=== PATIENT | male | born 1970 | race Two or more races ===

== ENCOUNTER 2020-04-22 20:38 | Inpatient (IN) | payer OTHER ==
[~2020-04-22] VITALS: Ht 165.1 cm; Wt 54.4 kg
--- NOTE | 2020-04-22 20:45 | NUR ---
ED Nurse Note: Patient brought in by ambulance [facility] from [facility] due to dialysis catheter malfunction.Pt has permacath to his left chest and wasnt able to complete HD today. Patient on HD . Pt is on trache vent AC 20 TV 500 PEEP 5 FIO2 40%. Patient is alert and nonverbal baseline. Patient denies CP/SOB/, fever and chills, N&V. Placed on monitor bed
--- NOTE | 2020-04-22 20:46 | NUR ---
ED Nurse Note: ERMD at bedside
[2020-04-22] MEDS ORDERED: FLEET ENEMA133 ML RECTAL (20:57)
[2020-04-22] MEDS ORDERED: NORCO 5-325 TA1 EAC1 GT (20:57)
[2020-04-22] MEDS ORDERED: GABAPENTIN100 MG GT (20:57)
[2020-04-22] MEDS ORDERED: LIPITOR20 MG GT (20:57)
[2020-04-22] MEDS ORDERED: RENVELA2.4 GM GT (20:57)
[2020-04-22] MEDS ORDERED: ASPIRIN81 MG GT (20:57)
[2020-04-22] MEDS ORDERED: METOPROLOL TART50 M1 GT (20:57)
[2020-04-22] MEDS ORDERED: ACETAMINOPHEN325 M1 GT (20:57)
[2020-04-22] MEDS ORDERED: CALCIUM ACETAT667 M1 GT (20:57)
[2020-04-22] MEDS ORDERED: OMEPRAZOLE20 M2 GT (20:57)
[2020-04-22] MEDS ORDERED: NEPHROVITE1 TAB GT (20:57)
[2020-04-22] MEDS ORDERED: DULCOLAX10 MG RC (20:57)
[2020-04-22 21:30] VITALS: BP 121/76
--- NOTE | 2020-04-22 21:30 | NUR ---
ED Nurse Note: Rapid covid test sent Blood and cultures sent
[2020-04-22 22:23] LABS: BASOPHILS % (AUTO) 1.4 % (0.0-2.0); HEMATOCRIT 29.5 % (42.0-52.0); HEMOGLOBIN 8.9 G/DL (14.2-18.0); MEAN CORPUSCULAR VOLUME 97 FL (80-99); MONOCYTES % (AUTO) 8.9 % (1.0-10.0); NEUTROPHILS % (AUTO) 76.6 % (45.0-75.0); PLATELET COUNT 170 K/UL (150-450); RED BLOOD COUNT 3.02 M/UL (4.70-6.10); RED CELL DISTRIBUTION WIDTH 17.4 % (11.6-14.8); WHITE BLOOD COUNT 8.7 K/UL (4.8-10.8)
[2020-04-22 22:37] LABS: CALCIUM 9.6 MG/DL (8.5-10.1); CREATININE 4.9 MG/DL (0.55-1.30); INR 1.2 (0.9-1.1); POTASSIUM 4.6 MMOL/L (3.5-5.1)
[2020-04-22 22:43] LABS: ALBUMIN 2.5 G/DL (3.4-5.0); ALBUMIN/GLOBULIN RATIO 0.5 (1.0-2.7); BILIRUBIN,TOTAL 0.5 MG/DL (0.2-1.0)
--- NOTE | 2020-04-22 23:11 | Emergency Room Report ---
History of Present Illness General Chief Complaint: General Complaint Source: Patient Present Illness HPI 50-year-old male presents to ED for evaluation. Coming from [facility]. History of end-stage renal disease on dialysis. Has a permacath to his left chest. Per nursing they were unable to complete dialysis today. On ventilator. Nonverbal at baseline. No signs of distress. No reported fevers or chills. No other aggravating relieving factors. No other associated symptoms Allergies: Coded Allergies: No Known Allergies (Unverified , 04/22/20) COVID-19 Screening Contact w/high risk pt: No Experienced COVID-19 symptoms?: No COVID-19 Testing performed FURNACE ROOM SUPERVISOR: No Patient History Past Medical History: DM Past Surgical History: none Pertinent Family History: none Social History: Denies: smoking, alcohol use, drug use Immunizations: UTD Reviewed Nursing Documentation: PMH: Agreed; PSxH: Agreed Nursing Documentation-PMH Past Medical History: No History, Except For Hx Diabetes: Yes Review of Systems All Other Systems: negative except mentioned in HPI Physical Exam Vital Signs Date Time Temp Pulse Resp B/P (MAP) Pulse Ox O2 Delivery O2 Flow Rate FiO2 04/22/20 20:35 97.2 62 20 121/76 (91) 99 Mechanical Ventilator 04/22/20 21:20 40 Sp02 EP Interpretation: reviewed, normal General Appearance: no apparent distress, other - Nonverbal Head: normocephalic, atraumatic Eyes: bilateral eye normal inspection, bilateral eye PERRL ENT: hearing grossly normal, normal pharynx, no angioedema, normal voice Neck: full range of motion, supple/symm/no masses Respiratory: chest non-tender, lungs clear, normal breath sounds, speaking full sentences, other - permacath to left chest Cardiovascular #1: regular rate, rhythm, no edema Cardiovascular #2: 2+ carotid (R), 2+ carotid (L), 2+ radial (R), 2+ radial (L), 2+ dorsalis pedis (R), 2+ dorsalis pedis (L) Gastrointestinal: normal bowel sounds, non tender, soft, non-distended, no guarding, no rebound Rectal: deferred Genitourinary: normal inspection, no CVA tenderness Musculoskeletal: back normal, normal range of motion, non-tender Neurologic: other - Nonverbal Psychiatric: other - Nonverbal Reflexes: 3+ bicep (R), 3+ bicep (L), 3+ tricep (R), 3+ tricep (L), 3+ knee (R), 3+ knee (L) Skin: other - See nursing notes Lymphatic: no adenopathy Medical Decision Making Diagnostic Impression: Primary Impression: Chronic respiratory failure Qualified Codes: J96.10 - Chronic respiratory failure, unspecified whether with hypoxia or hypercapnia Additional Impressions: End stage renal disease on dialysis Complications, dialysis, catheter, mechanical Qualified Codes: T82.49XA - Other complication of vascular dialysis catheter, initial encounter ER Course Hospital Course 50-year-old male presents for nonfunctioning dialysis catheter Differential diagnoses include: UT/unstable angina, fluid overload, CHF exacerabation, hyperkalemia, uremia Clinical course Patient placed on stretcher. on environmental monitoring specialist. connected to ventilator. After initial history and physical I ordered labs, EKG, chest x-ray labs reviewed- BUN/Cr elevated. K 4.6. no leukocytosis, hemoglobin/hematocrit stable EKGnormal sinus rhythm right bundle branch block no acute ischemic changes interpreted by me X-rayhaziness in the right lung field. Permacath in place antibiotics given. Dr Wilder consulted. Case discussed with Dr. Warren and he agreed to accept the patient to his service for further care and support I. I feel this is a highly complex case requiring extensive working including EKG/Rhythm strip, Xray/CT/US, Blood/urine lab work, repeat exams while in ED, and administration of strong opiates/narcotics for pain control, admission to hospital or close patient follow up. Diagnosis -chronic respiratory failure, ESRD on dialysis, dialysis catheter complication admitted to SDU in critical condition Laboratory Tests Test 04/22/20 22:00 White Blood Count 8.7 K/UL (4.8-10.8) Red Blood Count 3.02 M/UL (4.70-6.10) L Hemoglobin 8.9 G/DL (14.2-18.0) L Hematocrit 29.5 % (42.0-52.0) L Mean Corpuscular Volume 97 FL (80-99) Mean Corpuscular Hemoglobin 29.3 PG (27.0-31.0) Mean Corpuscular Hemoglobin Concent 30.1 G/DL (32.0-36.0) L Red Cell Distribution Width 17.4 % (11.6-14.8) H Platelet Count 170 K/UL (150-450) Mean Platelet Volume 6.3 FL (6.5-10.1) L Neutrophils (%) (Auto) 76.6 % (45.0-75.0) H Lymphocytes (%) (Auto) 10.0 % (20.0-45.0) L Monocytes (%) (Auto) 8.9 % (1.0-10.0) Eosinophils (%) (Auto) 3.0 % (0.0-3.0) Basophils (%) (Auto) 1.4 % (0.0-2.0) Prothrombin Time 13.4 SEC (9.30-11.50) H Prothromb Time International Ratio 1.2 (0.9-1.1) H Activated Partial Thromboplast Time 34 SEC (23-33) H Sodium Level 134 MMOL/L (136-145) L Potassium Level 4.6 MMOL/L (3.5-5.1) Chloride Level 96 MMOL/L (98-107) L Carbon Dioxide Level 28 MMOL/L (21-32) Anion Gap 10 mmol/L (5-15) Blood Urea Nitrogen 139 mg/dL (7-18) H Creatinine 4.9 MG/DL (0.55-1.30) H Estimat Glomerular Filtration Rate 12.6 mL/min (>60) Glucose Level 98 MG/DL (74-106) Calcium Level 9.6 MG/DL (8.5-10.1) Total Bilirubin 0.5 MG/DL (0.2-1.0) Aspartate Amino Transf (AST/SGOT) 37 U/L (15-37) Alanine Aminotransferase (ALT/SGPT) 47 U/L (12-78) Alkaline Phosphatase 380 U/L (46-116) H Troponin I 0.236 ng/mL (0.000-0.056) Total Protein 7.9 G/DL (6.4-8.2) Albumin 2.5 G/DL (3.4-5.0) L Globulin 5.4 g/dL Albumin/Globulin Ratio 0.5 (1.0-2.7) L EKG Diagnostic Results Troponin ordered: Yes Rate: normal Rhythm: NSR ST Segments: no acute changes ASA given to the pt in ED: No Rhythm Strip Diag. Results EP Interpretation: yes Rhythm: NSR, no PVC's, no ectopy Chest X-Ray Diagnostic Results Chest X-Ray Diagnostic Results : Chest X-Ray Ordered: Yes # of Views/Limited/Complete: 1 View Indication: Shortness of Breath EP Interpretation: Yes Interpretation: no pneumothorax, other - haziness R lobe Impression: Other - Questionable pneumonia Electronically Signed by: Electronically signed by Matthieu Lebron MD Last Vital Signs Date Time Temp Pulse Resp B/P (MAP) Pulse Ox O2 Delivery O2 Flow Rate FiO2 04/22/20 21:20 52 22 40 04/22/20 20:35 97.2 121/76 (91) 99 Mechanical Ventilator Status: improved Disposition: ADMITTED INPATIENT Condition: Serious Referrals: Trinity Warren MD (PCP) Matthieu Lebron MD Apr 22, 2020 23:11
[2020-04-23] VITALS (8 sets, daily range): BP systolic 102–143; BP diastolic 49–86
--- NOTE | 2020-04-23 01:00 | NUR ---
ED Nurse Note: Report givent to ANDREW KINSEY
--- NOTE | 2020-04-23 02:00 | NUR ---
TRANSFER TO FLOOR: Patient transferred to ICU at rm 246I via gurney, with truck unloader, accompanied by RN and shop technician and RT. Belongings checked and givent to RN. Patient transported safely to bed and endorsed to RN
--- NOTE | 2020-04-23 02:15 | NUR ---
NURSE NOTES: Patient arrived via gurney and placed into room 246-I. library monitor placed, vital signs taken, bed bath given, linens changed, wound care and pictures taken and uploaded. No belongings. Report received from AMELIE Tim. Will initiate plan of care.
--- NOTE | 2020-04-23 02:45 | NUR ---
NURSE NOTES: Received admission orders from Dr. Warren.
[2020-04-23] MEDS ORDERED: HYDROcodone/Acetamin 5/325 tab ORAL PRN (03:00)
--- NOTE | 2020-04-23 03:14 | History and Physical Report ---
DATE OF ADMISSION: 04/22/2020 This is one of several admissions to [facility] of this 50-year-old patient because of malfunctioning dialysis catheter. HISTORY OF PRESENT ILLNESS: Patient is a resident of an extended care facility subacute unit where he has been in relatively stable condition over the last several months. He is known to have several chronic medical syndromes, but has been stable on his current medications. On the day of admission, he underwent hemodialysis and hemodialysis has to be aborted because the hemodialysis catheter appeared nonfunctional, it was clogged or partially clogged. He was transferred to [facility] ER and was admitted. PAST MEDICAL HISTORY: Patient had CVA several years ago following which he developed respiratory failure, had to be placed on mechanical ventilation, underwent tracheostomy and gastrostomy and referred to subacute unit. 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 He is fed by gastrostomy tube. He has been on hemodialysis for the last 1 year. He was able to verbalize his wishes. However, recent CVA that he has several months ago the patient aphasic. ALLERGIES: No known drug allergies. MEDICATIONS: His medication list is not available at the time of this dictation. FAMILY HISTORY: Noncontributory. SOCIAL HISTORY: He is single. He was born in [place]. He has been in [place] for many years. 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 HABITS: Patient does not smoke, drink, or use illicit drugs. REVIEW OF SYSTEMS: Patient is not able to give any information regarding his state. PHYSICAL EXAMINATION: VITAL SIGNS: Blood pressure 121/76, his pulse is 62, respirations of 20, temperature 97.2. HEENT: Eyes were normal. Pupils were round, equal, and reactive to light. Sclerae was white. Conjunctivae pink. Extraocular movements were normal. Temporal arteries were palpable bilaterally with no bilateral temporal wasting. Visual rios to confrontation were normal and neglect sign could not be assessed. ENT, mucous membranes were not dehydrated. Auditory canals were clear and tympanic membranes could not be visualized. Nasal cavity was not congested. Nasal septum was intact. Soft palate was free of ulcerations. Pharynx was clear from exudate or tonsillar hypertrophy. Uvula kulwinder to phonation. Tongue was moist, midline, and normally papillated. NECK: Supple. There was no goiter. No mass. No lymphadenopathy. There was no JVD. No bruit. Carotid upstroke was 2+. LUNGS: Clear. HEART: PMI was fifth left intercostal space in midclavicular line. There was normal S1 and normal S2. There was no murmur. No arrhythmia. No S3. No S4. No pericardial rub. ABDOMEN: Soft, nontender without organomegaly. There were no masses palpable. There were normal bowel sounds without bruits. There was no guarding. No rebound tenderness. No ascites. No hernia. No CVA tenderness. Liver span was 8 cm, smooth, and nontender. EXTREMITIES: No cyanosis, no clubbing, no edema. There was the lateral toes gangrene, which was dry in both feet. NEUROLOGICAL: Reflexes in biceps, triceps, and brachioradialis were present. Patellar retinaculum present. Plantars were in extension on the right, flexion of the left. Cranial nerves II through XII were symmetric and equal. Cerebellar function, there was no tremor. No nystagmus. No extrapyramidal rigidity. Sensory exam to pinprick, cotton touch, position, and motor strength could not be assessed because of patient's refusal. LABORATORY AND DIAGNOSTIC DATA: Hemoglobin is 8.9, hematocrit 29.5 with MCV of 97, WBC of 8.7, and platelets 176. His BUN and creatinine is 139 and 4.9 respectively. Sodium is 134, potassium 4.5, chloride 96, CO2 is 28. His troponin is 0.236. His albumin is 2.5. His globulin is 5.4. His glucose was 98. His lactic acid is 0.8. IMPRESSION: Patient will need removal of the current PermCath and insertion of a new one. General life skills consultant was called to assess gangrenous toe. Aoc Plans Intelligence Officer Chief was to inset the new PermCath. Trinity Warren M.D. DR: SALENA JOB#: [id number] CC:
--- NOTE | 2020-04-23 04:00 | NUR ---
NURSE NOTES: Blood drawn peripherally for AM labs. Patient shows no signs of pain or distress. BP:130/77, HR:66, O2sat:100%
[2020-04-23 04:51] LABS: BASOPHILS % (AUTO) 1.6 % (0.0-2.0); EOSINOPHILS % (AUTO) 1.9 % (0.0-3.0); HEMATOCRIT 33.1 % (42.0-52.0); HEMOGLOBIN 9.4 G/DL (14.2-18.0); LYMPHOCYTES % (AUTO) 11.7 % (20.0-45.0); MEAN CORPUSCULAR VOLUME 103 FL (80-99); MONOCYTES % (AUTO) 10.8 % (1.0-10.0); PLATELET COUNT 153 K/UL (150-450); RED BLOOD COUNT 3.22 M/UL (4.70-6.10); RED CELL DISTRIBUTION WIDTH 17.4 % (11.6-14.8)
[2020-04-23 05:11] LABS: CREATININE 5.1 MG/DL (0.55-1.30)
--- NOTE | 2020-04-23 06:46 | Consultation ---
History of Present Illness General Chief Complaint: General Complaint Present Illness Allergies: Coded Allergies: No Known Allergies (Unverified , 04/22/20) Medication History Scheduled Aspirin* (Aspirin*), 81 MG ORAL DAILY, (Reported) Atorvastatin Calcium* (Lipitor*), 20 MG ORAL BEDTIME, (Reported) Gabapentin* (Gabapentin*), 100 MG ORAL THREE TIMES A DAY, (Reported) Metoprolol Tartrate* (Metoprolol Tartrate*), 50 MG ORAL EVERY 12 HOURS, (Reported) Na Phos,M-B/Na Phos,Di-Ba* (Fleet Enema*), 133 ML RECTAL DAILY, (Reported) Omeprazole (Omeprazole), 20 MG ORAL DAILY, (Reported) Sevelamer Carbonate* (Renvela*), 2,400 MG ORAL THREE TIMES A DAY, (Reported) Vitamin B Cmplx/Vit C/Folic AC (Nephro-Mann Tablet), 1 TAB ORAL DAILY, (Reported) Scheduled PRN Acetaminophen* (Acetaminophen 325MG Tablet*), 325 MG ORAL Q4H PRN for , (Reported) Hydrocodone Bit/Acetaminophen 5-325* (Wendover 5-325 Tablet*), 1 TAB ORAL Q4H PRN for For Pain, (Reported) Miscellaneous Medications Bisacodyl (Dulcolax), 10 MG RC, (Reported) Calcium Acetate (Calcium Acetate), 667 MG PO, (Reported) Patient History Healthcare decision maker Resuscitation status Advanced Directive on File Physical Exam Last 24 Hour Vital Signs Date Time Temp Pulse Resp B/P (MAP) Pulse Ox O2 Delivery O2 Flow Rate FiO2 04/23/20 05:00 66 22 102/49 (66) 100 04/23/20 04:56 63 21 40 04/23/20 04:00 98.4 74 20 130/77 (94) 100 04/23/20 04:00 40 04/23/20 04:00 Mechanical Ventilator 04/23/20 03:46 74 26 100 Mechanical Ventilator 40 04/23/20 03:30 74 24 40 04/23/20 03:10 74 04/23/20 03:00 75 24 142/82 (102) 100 04/23/20 02:17 70 04/23/20 02:08 97.5 71 17 143/86 (105) 100 04/23/20 01:55 97.2 77 22 121/76 99 Mechanical Ventilator 40 04/23/20 01:24 70 23 40 04/23/20 00:11 67 25 40 04/22/20 21:30 70 25 Mechanical Ventilator 40 04/22/20 21:30 97.2 70 22 121/76 99 Mechanical Ventilator 40 04/22/20 21:20 52 22 40 04/22/20 20:35 97.2 62 20 121/76 (91) 99 Mechanical Ventilator Intake and Output 04/22/20 04/23/20 19:00 07:00 Intake Total 40 ml Balance 40 ml Intake Free Water 30 ml Tube Feeding 10 ml # Bowel Movements 2 Laboratory Tests Test 04/22/20 22:00 04/23/20 04:00 White Blood Count 8.7 K/UL (4.8-10.8) 9.0 K/UL (4.8-10.8) Red Blood Count 3.02 M/UL (4.70-6.10) L 3.22 M/UL (4.70-6.10) L Hemoglobin 8.9 G/DL (14.2-18.0) L 9.4 G/DL (14.2-18.0) L Hematocrit 29.5 % (42.0-52.0) L 33.1 % (42.0-52.0) L Mean Corpuscular Volume 97 FL (80-99) 103 FL (80-99) H Mean Corpuscular Hemoglobin 29.3 PG (27.0-31.0) 29.3 PG (27.0-31.0) Mean Corpuscular Hemoglobin Concent 30.1 G/DL (32.0-36.0) L 28.5 G/DL (32.0-36.0) L Red Cell Distribution Width 17.4 % (11.6-14.8) H 17.4 % (11.6-14.8) H Platelet Count 170 K/UL (150-450) 153 K/UL (150-450) Mean Platelet Volume 6.3 FL (6.5-10.1) L 6.9 FL (6.5-10.1) Neutrophils (%) (Auto) 76.6 % (45.0-75.0) H 74.0 % (45.0-75.0) Lymphocytes (%) (Auto) 10.0 % (20.0-45.0) L 11.7 % (20.0-45.0) L Monocytes (%) (Auto) 8.9 % (1.0-10.0) 10.8 % (1.0-10.0) H Eosinophils (%) (Auto) 3.0 % (0.0-3.0) 1.9 % (0.0-3.0) Basophils (%) (Auto) 1.4 % (0.0-2.0) 1.6 % (0.0-2.0) Prothrombin Time 13.4 SEC (9.30-11.50) H Prothromb Time International Ratio 1.2 (0.9-1.1) H Activated Partial Thromboplast Time 34 SEC (23-33) H Sodium Level 134 MMOL/L (136-145) L 135 MMOL/L (136-145) L Potassium Level 4.6 MMOL/L (3.5-5.1) 5.0 MMOL/L (3.5-5.1) Chloride Level 96 MMOL/L (98-107) L 95 MMOL/L (98-107) L Carbon Dioxide Level 28 MMOL/L (21-32) 25 MMOL/L (21-32) Anion Gap 10 mmol/L (5-15) 15 mmol/L (5-15) Blood Urea Nitrogen 139 mg/dL (7-18) H 140 mg/dL (7-18) H Creatinine 4.9 MG/DL (0.55-1.30) H 5.1 MG/DL (0.55-1.30) H Estimat Glomerular Filtration Rate 12.6 mL/min (>60) 12.1 mL/min (>60) Glucose Level 98 MG/DL (74-106) 89 MG/DL (74-106) Lactic Acid Level 0.80 mmol/L (0.4-2.0) Calcium Level 9.6 MG/DL (8.5-10.1) 10.0 MG/DL (8.5-10.1) Total Bilirubin 0.5 MG/DL (0.2-1.0) Aspartate Amino Transf (AST/SGOT) 37 U/L (15-37) Alanine Aminotransferase (ALT/SGPT) 47 U/L (12-78) Alkaline Phosphatase 380 U/L (46-116) H Troponin I 0.236 ng/mL (0.000-0.056) Total Protein 7.9 G/DL (6.4-8.2) Albumin 2.5 G/DL (3.4-5.0) L Globulin 5.4 g/dL Albumin/Globulin Ratio 0.5 (1.0-2.7) L Microbiology Date/Time Source Procedure Growth Status 04/22/20 21:00 Nasopharynx SARS-CoV-2 RdRp Gene Assay - Final Complete Height (Feet): 5 Height (Inches): 5.00 Weight (Pounds): 120 Medications Current Medications Medications (Trade) Dose Ordered Sig/Titus Route PRN Reason Start Time Stop Time Status Last Admin Dose Admin Acetaminophen (Tylenol) 325 mg Q4H PRN ORAL 04/23/20 03:00 05/23/20 02:59 UNV Acetaminophen/ Hydrocodone Bitart (Wendover 5/325) 1 tab Q4H PRN ORAL For Pain 04/23/20 03:00 04/30/20 02:59 Aspirin (ASA) 81 mg DAILY ORAL 04/23/20 09:00 06/07/20 08:59 Atorvastatin Calcium (Lipitor) 20 mg BEDTIME ORAL 04/23/20 21:00 07/22/20 20:59 Bisacodyl (Dulcolax) 10 mg PRN RECTAL 04/23/20 03:00 07/22/20 02:59 Calcium Acetate (Phoslo) 667 mg TID GT 04/23/20 09:00 07/22/20 08:59 Gabapentin (Neurontin) 100 mg THREE TIMES A DAY ORAL 04/23/20 09:00 05/23/20 08:59 Heparin Sodium (Porcine) (Heparin 5000 units/ml) 5,000 units EVERY 12 HOURS SUBQ 04/23/20 09:00 06/07/20 08:59 Metoprolol Tartrate (Lopressor) 50 mg EVERY 12 HOURS ORAL 04/23/20 09:00 07/22/20 08:59 Sevelamer Carbonate (Renvela) 2,400 mg THREE TIMES A DAY ORAL 04/23/20 09:00 07/22/20 08:59 Sodium Phosphate (Fleet's Sodium Phosl Enema) 133 ml DAILY RECTAL 04/23/20 09:00 05/23/20 08:59 Vitamin B Complex/ Vit C/Folic Acid (Nephrovite) 1 tab DAILY ORAL 04/23/20 09:00 05/23/20 08:59 Assessment/Plan Assessment/Plan: Hematology Consultation REQ : Trinity Wraren DOS: 04/23/2020 RFC: Anemia, ongoing HPI 50-year-old male presents to ED for evaluation. Coming from group home facility. History of end-stage renal disease on dialysis. Has a permacath to his left chest. Which needs to be removed. Per nursing they were unable to complete dialysis today. On ventilator. Nonverbal at baseline. No signs of distress. No reported fevers or chills. No other aggravating relieving factors. No other associated symptoms. Allergies: No Known Allergies (Unverified , 04/22/20) COVID-19 Screening Contact w/high risk pt: No Experienced COVID-19 symptoms?: No COVID-19 Testing performed RADIO REPAIRER DOMESTIC: No Patient History Past Medical History: DM Past Surgical History: none Pertinent Family History: none Social History: Denies: smoking, alcohol use, drug use Immunizations: UTD Reviewed Nursing Documentation: PMH: Agreed; PSxH: Agreed Nursing Documentation-PMH Past Medical History: No History, Except For Hx Diabetes: Yes Review of Systems All Other Systems: negative except mentioned in HPI Physical Exam Vitals: reviewed, normal General Appearance: no apparent distress, other - Nonverbal Head: normocephalic, atraumatic: no angioedema, normal voice Neck: full range of motion, supple/symm/no masses Respiratory: chest non-tender, lungs clear, +vent permacath to left chest Cardiovascular: regular rate, rhythm, no edema Gastrointestinal: normal bowel sounds, non tender, soft, nd Rectal: deferred Genitourinary: normal inspection, no CVA tenderness Musculoskeletal: back normal, normal range of motion, non-tender Neurologic: other - Nonverbal Psychiatric: other - Nonverbal Lymphatic: no adenopathy Labs: reviewed Imaging: noted Assessment and Recs # Anemia due to likely chronic disease, ongoing, this is the first time he has been here --> anemia panel to order for downtrending hgb -> hgb 8.9-->9.4 --> consider iron / epogen after anemia panel returns --> smear has been noted, no hemolysis # Coagulopathy ongoing, ptt and inr elevated --> vitamin k given, as permacath to be removed --> get mixing study --> trend prn # Chronic respiratory failure --> per pulm --> vent + # End stage renal disease on dialysis --> Complications, dialysis, catheter, mechanical --> per renal # Right lung infection --> repeat cxr now # Gangrenous toe, per surg # Dvt ppx heparins q Appreciate consultation and dw RN Nick Whiteside MD Apr 23, 2020 06:46
--- NOTE | 2020-04-23 06:52 | NUR ---
ED Nurse Note: Wound pictures uploaded
--- NOTE | 2020-04-23 07:23 | NUR ---
NURSE NOTES: Transferred patient to SDU and placed into room 242-2. Tele box placed. Patient is stable
--- NOTE | 2020-04-23 07:24 | NUR ---
NURSE NOTES: Patient received from AMELIE Trevino under the care of Dr. Warren for the admitting dx. of Dialysis catheter malfunction. Patient NKA and full code status. On standard precaution pending microbiology swabs. Aspiration precaution observed and maintained at all times. Patient is alert, non-verbal responsive with gestures and mouthing words. Patient tolerating vent settings well. No apparent distress or discomfort noted. Denies pain at this time. Will continue to monitor.
[2020-04-23 08:46] LABS: FERRITIN 1390 NG/ML (8-388)
[2020-04-23] MEDS: Fleet's Enema 133ml RECTAL SCH (09:00)
--- NOTE | 2020-04-23 09:00 | NUR ---
NURSE NOTES: Tolerating GT feeding well. No residuals noted. Advance feeding to 20mL/hr towards goal.
--- NOTE | 2020-04-23 09:33 | NUR ---
RD ASSESSMENT & RECOMMENDATIONS SEE CARE ACTIVITY FOR COMPLETE ASSESSMENT DAILY ESTIMATED NEEDS: Needs based on Critical care, wound, esrd on HD 61.6kg 25-30 kcals/kg [id number] total kcals 1.25-2 g protein/kg 77-123 g total protein Fluid per MD, on HD NUTRITION DIAGNOSIS: Increased kcal and pro needs r/t renal dysfunction as evidenced by pt w/ ESRD on HD, notable open LE wounds, vent dep via trach and PEG dep. (CURRENT TF: Nepro goal of 50ml continuous) ENTERAL NUTRITION RECOMMENDATIONS: Nepro LOWER to goal of 50ml/hr x20 hrs to provide 1000ml, 1800 kcal, 81g pro, 727 ml free H2O - Rec to maintain goal rate of 50ml/hr; LOWER run time from 24hrs to 20hrs/day to not exceed kcal needs. - On HD, water flush per MD - HOB over 30 degrees ADDITIONAL RECOMMENDATIONS: 1) Obtain a calibrated bed scale wt for accurate CBW 2) F/up w/ wound care eval Add DEE BID via GT; rec Vit C dosing per nephrology 3) Monitor BG, hypoglycemia, need for 24 hrs TF run
[2020-04-23 09:37] LABS: % IRON SATURATION 19 % (15-50); IRON 31 ug/dL (50-175); TOTAL IRON BINDING CAPACITY 163 ug/dL (250-450)
[2020-04-23] MEDS: Renvela 2400 mg pkt ORAL SCH ×3 (10:00→18:01)
[2020-04-23] MEDS: Nephrovite tab (Rena-Vite) ORAL SCH (10:01)
[2020-04-23] MEDS: Metoprolol Tartrate 50mg tab ORAL SCH ×2 (10:01→21:33)
[2020-04-23] MEDS: Aspirin Baby 81mg ORAL SCH (10:01)
[2020-04-23] MEDS: Heparin 5000 units/ml inj SUBQ SCH ×2 (10:04→20:50)
--- NOTE | 2020-04-23 12:15 | NUR ---
NURSE NOTES: Seen and examined by Dr. Wilder, noted the L Perma-Cath and noted non-patent. With orders for new placement. Noted and carried out.
--- NOTE | 2020-04-23 12:52 | Consultation ---
History of Present Illness General Date patient seen: Apr 23, 2020 Reason for Hospitalization: General Complaint Present Illness HPI 50-year-old male presents to ED for evaluation. Coming from senior living facility. History of end-stage renal disease on dialysis. Has a permacath to his left chest. Per nursing they were unable to complete dialysis today. On ventilator. Nonverbal at baseline. No signs of distress. No reported fevers or chills. No other aggravating relieving factors. No other associated symptoms surgical divine assist with care. Patient seen, [facility] [place], chart reviewed. The venous port will flush and aspirate the arterial port with only flexible not aspirate. Allergies: Coded Allergies: No Known Allergies (Unverified , 04/22/20) COVID-19 Screening Contact w/high risk pt: No Experienced COVID-19 symptoms?: No Medication History Scheduled Aspirin* (Aspirin*), 81 MG ORAL DAILY, (Reported) Atorvastatin Calcium* (Lipitor*), 20 MG ORAL BEDTIME, (Reported) Gabapentin* (Gabapentin*), 100 MG ORAL THREE TIMES A DAY, (Reported) Metoprolol Tartrate* (Metoprolol Tartrate*), 50 MG ORAL EVERY 12 HOURS, (Reported) Na Phos,M-B/Na Phos,Di-Ba* (Fleet Enema*), 133 ML RECTAL DAILY, (Reported) Omeprazole (Omeprazole), 20 MG ORAL DAILY, (Reported) Sevelamer Carbonate* (Renvela*), 2,400 MG ORAL THREE TIMES A DAY, (Reported) Vitamin B Cmplx/Vit C/Folic AC (Nephro-Mann Tablet), 1 TAB ORAL DAILY, (Reported) Scheduled PRN Acetaminophen* (Acetaminophen 325MG Tablet*), 325 MG ORAL Q4H PRN for , (Reported) Hydrocodone Bit/Acetaminophen 5-325* ([place] 5-325 Tablet*), 1 TAB ORAL Q4H PRN for For Pain, (Reported) Miscellaneous Medications Bisacodyl (Dulcolax), 10 MG RC, (Reported) Calcium Acetate (Calcium Acetate), 667 MG PO, (Reported) Patient History History Provided By: Medical Record, EMS, PMD Healthcare decision maker Resuscitation status Advanced Directive on File Past Medical/Surgical History Past Medical/Surgical History: (1) Chronic respiratory failure (2) End stage renal disease on dialysis (3) Complications, dialysis, catheter, mechanical Review of Systems Review of Symptoms General ROS: no weight loss or fever Psychological ROS: no depression or mood changes, no memory loss Ophthalmic ROS: no visual changes or eye irritation ENT ROS: no nasal congestion, hearing loss, dizziness Allergy and Immunology ROS: no allergic symptoms or urticaria Hematological and Lymphatic ROS: no swollen glands, unusual bleeding or bruising Endocrine ROS: no polyuria, polydipsia, weight changes, temperature intolerance Respiratory ROS: no cough, shortness of breath, or wheezing Cardiovascular ROS: no chest pain or dyspnea on exertion Gastrointestinal ROS: denies abdominal pain, bright red blood in stool. Musculoskeletal ROS: no myalgias or arthralgias Neurological ROS: no TIA or stroke symptoms Dermatological ROS: no new or changing skin lesions, rashes or pruritis \limited given condition Physical Exam Physical Exam General appearance: no distress, appears stated age Head: Normocephalic, without obvious abnormality, atraumatic Eyes: conjunctivae/corneas clear. PERRL, EOM's intact. Fundi benign Throat: Lips, mucosa, and tongue normal. Teeth and gums normal Neck: supple, symmetrical, trachea midline, no adenopathy, thyroid: not enlarged, symmetric, no tenderness/mass/nodules, no carotid bruit and no JVD Lungs: clear to auscultation bilaterally Heart: regular rate and rhythm, S1, S2 normal, no murmur, click, rub or gallop Abdomen: soft, non-tender. Bowel sounds normal. No masses, no organomegaly Extremities: extremitiesbilatearl heel ulcers, right tma necrotic failure Pulses: 2+ and symmetric Skin: Skin color, texture, turgor normal. No rashes or lesions Neurologic: Grossly normal Last 24 Hour Vital Signs Date Time Temp Pulse Resp B/P (MAP) Pulse Ox O2 Delivery O2 Flow Rate FiO2 04/23/20 12:00 98.0 67 18 130/81 (97) 100 04/23/20 12:00 40 04/23/20 12:00 Mechanical Ventilator 04/23/20 11:28 68 21 40 04/23/20 10:01 65 127/70 04/23/20 09:18 61 20 40 04/23/20 08:00 97.8 65 18 127/70 (89) 100 04/23/20 08:00 Mechanical Ventilator 04/23/20 08:00 40 04/23/20 08:00 71 04/23/20 07:30 73 20 40 04/23/20 05:00 66 22 102/49 (66) 100 04/23/20 04:56 63 21 40 04/23/20 04:00 98.4 74 20 130/77 (94) 100 04/23/20 04:00 40 04/23/20 04:00 Mechanical Ventilator 04/23/20 03:46 74 26 100 Mechanical Ventilator 40 04/23/20 03:30 74 24 40 04/23/20 03:10 74 04/23/20 03:00 75 24 142/82 (102) 100 04/23/20 02:17 70 04/23/20 02:08 97.5 71 17 143/86 (105) 100 04/23/20 01:55 97.2 77 22 121/76 99 Mechanical Ventilator 40 04/23/20 01:24 70 23 40 04/23/20 00:11 67 25 40 04/22/20 21:30 70 25 Mechanical Ventilator 40 04/22/20 21:30 97.2 70 22 121/76 99 Mechanical Ventilator 40 04/22/20 21:20 52 22 40 04/22/20 20:35 97.2 62 20 121/76 (91) 99 Mechanical Ventilator Intake and Output 04/22/20 04/23/20 19:00 07:00 Intake Total 40 ml Balance 40 ml Intake Free Water 30 ml Tube Feeding 10 ml # Bowel Movements 2 Laboratory Tests Test 04/22/20 22:00 04/23/20 04:00 04/23/20 07:40 White Blood Count 8.7 K/UL (4.8-10.8) 9.0 K/UL (4.8-10.8) Red Blood Count 3.02 M/UL (4.70-6.10) L 3.22 M/UL (4.70-6.10) L Hemoglobin 8.9 G/DL (14.2-18.0) L 9.4 G/DL (14.2-18.0) L Hematocrit 29.5 % (42.0-52.0) L 33.1 % (42.0-52.0) L Mean Corpuscular Volume 97 FL (80-99) 103 FL (80-99) H Mean Corpuscular Hemoglobin 29.3 PG (27.0-31.0) 29.3 PG (27.0-31.0) Mean Corpuscular Hemoglobin Concent 30.1 G/DL (32.0-36.0) L 28.5 G/DL (32.0-36.0) L Red Cell Distribution Width 17.4 % (11.6-14.8) H 17.4 % (11.6-14.8) H Platelet Count 170 K/UL (150-450) 153 K/UL (150-450) Mean Platelet Volume 6.3 FL (6.5-10.1) L 6.9 FL (6.5-10.1) Neutrophils (%) (Auto) 76.6 % (45.0-75.0) H 74.0 % (45.0-75.0) Lymphocytes (%) (Auto) 10.0 % (20.0-45.0) L 11.7 % (20.0-45.0) L Monocytes (%) (Auto) 8.9 % (1.0-10.0) 10.8 % (1.0-10.0) H Eosinophils (%) (Auto) 3.0 % (0.0-3.0) 1.9 % (0.0-3.0) Basophils (%) (Auto) 1.4 % (0.0-2.0) 1.6 % (0.0-2.0) Prothrombin Time 13.4 SEC (9.30-11.50) H Prothromb Time International Ratio 1.2 (0.9-1.1) H Activated Partial Thromboplast Time 34 SEC (23-33) H Sodium Level 134 MMOL/L (136-145) L 135 MMOL/L (136-145) L Potassium Level 4.6 MMOL/L (3.5-5.1) 5.0 MMOL/L (3.5-5.1) Chloride Level 96 MMOL/L (98-107) L 95 MMOL/L (98-107) L Carbon Dioxide Level 28 MMOL/L (21-32) 25 MMOL/L (21-32) Anion Gap 10 mmol/L (5-15) 15 mmol/L (5-15) Blood Urea Nitrogen 139 mg/dL (7-18) H 140 mg/dL (7-18) H Creatinine 4.9 MG/DL (0.55-1.30) H 5.1 MG/DL (0.55-1.30) H Estimat Glomerular Filtration Rate 12.6 mL/min (>60) 12.1 mL/min (>60) Glucose Level 98 MG/DL (74-106) 89 MG/DL (74-106) Lactic Acid Level 0.80 mmol/L (0.4-2.0) Calcium Level 9.6 MG/DL (8.5-10.1) 10.0 MG/DL (8.5-10.1) Total Bilirubin 0.5 MG/DL (0.2-1.0) Aspartate Amino Transf (AST/SGOT) 37 U/L (15-37) Alanine Aminotransferase (ALT/SGPT) 47 U/L (12-78) Alkaline Phosphatase 380 U/L (46-116) H Troponin I 0.236 ng/mL (0.000-0.056) Total Protein 7.9 G/DL (6.4-8.2) Albumin 2.5 G/DL (3.4-5.0) L Globulin 5.4 g/dL Albumin/Globulin Ratio 0.5 (1.0-2.7) L Reticulocyte Count Pending PTT Mixing Study Pending APTT Patient/Control Mix Pending Mix PTT Incubation Time Pending Mix PTT Normal/Saline 1:1 Immediate Pending Thrombin Time Normal Plasma Pending Iron Level 31 ug/dL (50-175) L Total Iron Binding Capacity 163 ug/dL (250-450) L Percent Iron Saturation 19 % (15-50) Unsaturated Iron Binding 132 ug/dL (112-346) Ferritin 1390 NG/ML (8-388) H Vitamin B12 Level 1863 PG/ML (193-986) H Folate 58.1 NG/ML (8.6-58.9) Microbiology Date/Time Source Procedure Growth Status 04/22/20 21:00 Nasopharynx SARS-CoV-2 RdRp Gene Assay - Final Complete Height (Feet): 5 Height (Inches): 5.00 Weight (Pounds): 120 Medications Current Medications Medications (Trade) Dose Ordered Sig/Titus Route PRN Reason Start Time Stop Time Status Last Admin Dose Admin Acetaminophen (Tylenol) 325 mg Q4H PRN ORAL 04/23/20 03:00 05/23/20 02:59 UNV Acetaminophen/ Hydrocodone Bitart ([place] 5/325) 1 tab Q4H PRN ORAL For Pain 04/23/20 03:00 04/30/20 02:59 Aspirin (ASA) 81 mg DAILY ORAL 04/23/20 09:00 06/07/20 08:59 04/23/20 10:01 Atorvastatin Calcium (Lipitor) 20 mg BEDTIME ORAL 04/23/20 21:00 07/22/20 20:59 Bisacodyl (Dulcolax) 10 mg PRN RECTAL 04/23/20 03:00 07/22/20 02:59 Calcium Acetate (Phoslo) 667 mg TID GT 04/23/20 09:00 07/22/20 08:59 04/23/20 10:01 Gabapentin (Neurontin) 100 mg THREE TIMES A DAY ORAL 04/23/20 09:00 05/23/20 08:59 04/23/20 10:01 Heparin Sodium (Porcine) (Heparin 5000 units/ml) 5,000 units EVERY 12 HOURS SUBQ 04/23/20 09:00 06/07/20 08:59 04/23/20 10:04 Metoprolol Tartrate (Lopressor) 50 mg EVERY 12 HOURS ORAL 04/23/20 09:00 07/22/20 08:59 04/23/20 10:01 Sevelamer Carbonate (Renvela) 2,400 mg THREE TIMES A DAY ORAL 04/23/20 09:00 07/22/20 08:59 04/23/20 10:00 Sodium Phosphate (Fleet's Sodium Phosl Enema) 133 ml DAILY RECTAL 04/23/20 09:00 05/23/20 08:59 04/23/20 09:00 Vitamin B Complex/ Vit C/Folic Acid (Nephrovite) 1 tab DAILY ORAL 04/23/20 09:00 05/23/20 08:59 04/23/20 10:01 Assessment/Plan Problem List: (1) Ischemia of right lower extremity Assessment & Plan: 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 Heel ulcer identified as well. Foul-smelling. Fortunately this does not seem salvageable by any means given the extensive loss at the flap that has dehisced the exposed bone as well as the heel. Currently stable otherwise known chronic in nature not patient's acute problem. Will recommend that patient has a right BKA at some point given the current findings we will continue with local wound care tentatively. Patient identified to have a heel ulcer on the left side as well. ICD Codes: I99.8 - Other disorder of circulatory system SNOMED: 039601494 (2) Decubitus ulcer, heel ICD Codes: L89.609 - Pressure ulcer of unspecified heel, unspecified stage SNOMED: 752580434 (3) Chronic respiratory failure ICD Codes: J96.10 - Chronic respiratory failure, unspecified whether with hypoxia or hypercapnia SNOMED: 82431949 Qualifiers: Qualified Codes: J96.10 - Chronic respiratory failure, unspecified whether with hypoxia or hypercapnia (4) End stage renal disease on dialysis ICD Codes: N18.6 - End stage renal disease; Z99.2 - Dependence on renal dialysis SNOMED: 676947900 (5) Complications, dialysis, catheter, mechanical Assessment & Plan: Patient on hemodialysis left chest wall temporary hemodialysis catheter identified tunneled. The venous port was aspirated and flushed but unfortunately the arterial port were only flushed but would not aspirate. The catheter is not viable at this time no signs of infection. Labs noted patient undergo hemodialysis soon. We will plan for change of hemodialysis catheter soon. ICD Codes: T82.49XA - Other complication of vascular dialysis catheter, initial encounter SNOMED: 45831872 Qualifiers: Qualified Codes: T82.49XA - Other complication of vascular dialysis catheter, initial encounter Dany Wilder Apr 23, 2020 12:52
--- NOTE | 2020-04-23 15:44 | NUR ---
NURSE NOTES:WOUND ASSESSMENT PATIENT AWAKE NON-RESPONSIVE. WITH TRACH TO VENTILATOR. UNABLE TO ASSIST WITH REPOSITIONING. EXAMINED WOUNDS WITH DR. WILKINSON PRESENT. LEFT MEDIAL FOOT -STAGE IV PRESSURE ULCER MEASURES 1.7X0.7X0.4. WOUND BED WITH 70% YELLOW SLOUGH. RECOMMEND- CLEAN WITH SALINE. PAT DRY. APPLY THERAHONEY AND COVER WITH OPTIFOAM DRESSING. RIGHT LATERAL FOOT- STAGE IV PRESSURE ULCER MEASURES 2.5X1.0X0.2 WOUND BED WITH 80% YELLOW SLOUGH RIGHT HEEL -STAGE IV PRESSURE ULCER. WOUND BED WITH 60% RED GRANULATION TISSUE AND 40% SLOUGH. NOTED MODERATE AMOUNT GREEN DRAINAGE. RIGHT TRANSMET AMPUTATION SITE- ULCER MEASURES 4.5X12.3X1.0CM. WOUND BED WITH BONE EXPOSED AND GANGRENE. RECOMMEND- CLEAN WITH SALINE AND APPLY WET TO DRY DRESSINGS WITH 0.25% DAKIN'S SOLUTION TO ALL WOUNDS ON THE RIGHT FOOT. REPLACE DAILY ALSO RECOMMEND: REPOSITION AT LEAST EVERY 2 HOURS OR TOLERATED. ELEVATE HEELS WITH PILLOWS WOUND CONSULT WITH - DR. WILKINSON CONSULTED AT TIME OF ASSESSMENT.
--- NOTE | 2020-04-23 16:00 | NUR ---
NURSE NOTES: Tolerating GT feeding well. No residuals noted. Advanced feeding to 30mL/hr towards goal.
--- NOTE | 2020-04-23 18:34 | General Progress Note ---
Subjective Constitutional: Reports: no symptoms HEENT: Reports: no symptoms Cardiovascular: Reports: no symptoms Respiratory: Reports: no symptoms Gastrointestinal/Abdominal: Reports: no symptoms Genitourinary: Reports: no symptoms Neurologic/Psychiatric: Reports: no symptoms Endocrine: Reports: no symptoms Hematologic/Lymphatic: Reports: no symptoms Allergies: Coded Allergies: No Known Allergies (Unverified , 04/22/20) Objective Last 24 Hour Vital Signs Date Time Temp Pulse Resp B/P (MAP) Pulse Ox O2 Delivery O2 Flow Rate FiO2 04/23/20 17:00 62 20 40 04/23/20 16:00 98.3 59 18 121/67 (85) 100 04/23/20 16:00 59 04/23/20 16:00 Mechanical Ventilator 04/23/20 16:00 40 04/23/20 15:25 59 20 40 04/23/20 13:00 61 20 40 04/23/20 12:00 98.0 67 18 130/81 (97) 100 04/23/20 12:00 40 04/23/20 12:00 Mechanical Ventilator 04/23/20 12:00 60 04/23/20 11:28 68 21 40 04/23/20 10:01 65 127/70 04/23/20 09:18 61 20 40 04/23/20 08:00 97.8 65 18 127/70 (89) 100 04/23/20 08:00 Mechanical Ventilator 04/23/20 08:00 40 04/23/20 08:00 71 04/23/20 07:30 73 20 40 04/23/20 05:00 66 22 102/49 (66) 100 04/23/20 04:56 63 21 40 04/23/20 04:00 98.4 74 20 130/77 (94) 100 04/23/20 04:00 40 04/23/20 04:00 Mechanical Ventilator 04/23/20 03:46 74 26 100 Mechanical Ventilator 40 04/23/20 03:30 74 24 40 04/23/20 03:10 74 04/23/20 03:00 75 24 142/82 (102) 100 04/23/20 02:17 70 04/23/20 02:08 97.5 71 17 143/86 (105) 100 04/23/20 01:55 97.2 77 22 121/76 99 Mechanical Ventilator 40 04/23/20 01:24 70 23 40 04/23/20 00:11 67 25 40 04/22/20 21:30 70 25 Mechanical Ventilator 40 04/22/20 21:30 97.2 70 22 121/76 99 Mechanical Ventilator 40 04/22/20 21:20 52 22 40 04/22/20 20:35 97.2 62 20 121/76 (91) 99 Mechanical Ventilator Intake and Output 04/22/20 04/23/20 18:59 06:59 Intake Total 40 ml Balance 40 ml Intake Free Water 30 ml Tube Feeding 10 ml # Bowel Movements 2 Laboratory Tests 04/22/20 22:00: White Blood Count 8.7, Red Blood Count 3.02L, Hemoglobin 8.9L, Hematocrit 29.5L, Mean Corpuscular Volume 97, Mean Corpuscular Hemoglobin 29.3, Mean Corpuscular Hemoglobin Concent 30.1L, Red Cell Distribution Width 17.4H, Platelet Count 170, Mean Platelet Volume 6.3L, Neutrophils (%) (Auto) 76.6H, Lymphocytes (%) (Auto) 10.0L, Monocytes (%) (Auto) 8.9, Eosinophils (%) (Auto) 3.0, Basophils (%) (Auto) 1.4, Prothrombin Time 13.4H, Prothromb Time International Ratio 1.2H, Activated Partial Thromboplast Time 34H, Sodium Level 134L, Potassium Level 4.6, Chloride Level 96L, Carbon Dioxide Level 28, Anion Gap 10, Blood Urea Nitrogen 139H, Creatinine 4.9H, Estimat Glomerular Filtration Rate 12.6, Glucose Level 98, Lactic Acid Level 0.80, Calcium Level 9.6, Total Bilirubin 0.5, Aspartate Amino Transf (AST/SGOT) 37, Alanine Aminotransferase (ALT/SGPT) 47, Alkaline Phosphatase 380H, Troponin I 0.236H, Total Protein 7.9, Albumin 2.5L, Globulin 5.4, Albumin/Globulin Ratio 0.5L 04/23/20 04:00: White Blood Count 9.0, Red Blood Count 3.22L, Hemoglobin 9.4L, Hematocrit 33.1L, Mean Corpuscular Volume 103H, Mean Corpuscular Hemoglobin 29.3, Mean Corpuscular Hemoglobin Concent 28.5L, Red Cell Distribution Width 17.4H, Platelet Count 153, Mean Platelet Volume 6.9, Neutrophils (%) (Auto) 74.0, Lymphocytes (%) (Auto) 11.7L, Monocytes (%) (Auto) 10.8H, Eosinophils (%) (Auto) 1.9, Basophils (%) (Auto) 1.6, Sodium Level 135L, Potassium Level 5.0, Chloride Level 95L, Carbon Dioxide Level 25, Anion Gap 15, Blood Urea Nitrogen 140H, Creatinine 5.1H, Estimat Glomerular Filtration Rate 12.1, Glucose Level 89, Calcium Level 10.0 04/23/20 07:40: Differential Total Cells Counted 100, Neutrophils % (Manual) 76H, Lymphocytes % (Manual) 13L, Monocytes % (Manual) 10, Eosinophils % (Manual) 1, Basophils % (Manual) 0, Band Neutrophils 0, Platelet Estimate Adequate, Platelet Morphology Normal, Hypochromasia 1+, Anisocytosis 1+, Macrocytosis 1+, Reticulocyte Count 2.1H, PTT Mixing Study [Pending], APTT Patient/Control Mix [Pending], Mix PTT Incubation Time [Pending], Mix PTT Normal/Saline 1:1 Immediate [Pending], Thrombin Time Normal Plasma [Pending], Iron Level 31L, Total Iron Binding Capacity 163L, Percent Iron Saturation 19, Unsaturated Iron Binding 132, Ferritin 1390H, Vitamin B12 Level 1863H, Folate 58.1 Height (Feet): 5 Height (Inches): 5.00 Weight (Pounds): 120 General Appearance: WD/WN, no apparent distress, alert EENT: normal ENT inspection Neck: non-tender, supple Cardiovascular: normal rate, regular rhythm, no gallop/murmur, no JVD Respiratory/Chest: lungs clear, normal breath sounds, no respiratory distress, no accessory muscle use Abdomen: normal bowel sounds, non tender, soft, no organomegaly, no mass Neurologic: alert, responsive, aphasia Assessment/Plan Status Narrative Patient is awake alert afebrile hemodynamically stable has been assessed today by general surgeon in regard to his gangrenous foot the patient requires a new permacath in order Monday general surgeon was given for urology to perform this procedure patient respond by head nods that he is completely asymptomatic he is vent dependent and fed by gastrostomy tube Repeat laboratory tests will be done in a.m. Trinity Landaverde MD, MD Apr 23, 2020 18:34
--- NOTE | 2020-04-23 19:20 | NUR ---
NURSE HAND-OFF REPORT: Important Events on Shift:Order for Permacath placement for tomorrow. Patient Status: Stable Diet: GT feeding Pending Orders: Pending Results/Labs: Pending MD notification: Latest Vital Signs: Temperature 98.3 , Pulse 62 , B/P 121 /67 , Respiratory Rate 20 , O2 SAT 100 , Mechanical Ventilator, O2 Flow Rate . Vital Sign Comment: EKG Rhythm: Sinus Bradycardia Rhythm change?: N MD Notified?: - MD Response: Latest Seay Fall Score: 95 Fall Risk: High Risk Safety Measures: Call light Within Reach, Bed Alarm Zone 3, Side Rails Side Rails x3, Bed position Low and Locked. Fall Precautions: Yellow Socks Yellow Gown Door Sign Patient Fall Education Report given to AMELIE Sahni.
[2020-04-24] VITALS (7 sets, daily range): BP systolic 120–149; BP diastolic 60–95
[2020-04-24 04:56] LABS: EOSINOPHILS % (AUTO) 1.1 % (0.0-3.0); HEMATOCRIT 28.5 % (42.0-52.0); HEMOGLOBIN 8.4 G/DL (14.2-18.0); LYMPHOCYTES % (AUTO) 13.3 % (20.0-45.0); MEAN CORPUSCULAR VOLUME 100 FL (80-99); MONOCYTES % (AUTO) 9.4 % (1.0-10.0); NEUTROPHILS % (AUTO) 75.1 % (45.0-75.0); PLATELET COUNT 154 K/UL (150-450); RED BLOOD COUNT 2.84 M/UL (4.70-6.10); RED CELL DISTRIBUTION WIDTH 17.3 % (11.6-14.8); WHITE BLOOD COUNT 7.8 K/UL (4.8-10.8)
[2020-04-24 05:00] LABS: INR 1.3 (0.9-1.1)
[2020-04-24 05:20] LABS: CALCIUM 9.9 MG/DL (8.5-10.1); CREATININE 5.7 MG/DL (0.55-1.30); POTASSIUM 4.5 MMOL/L (3.5-5.1)
--- NOTE | 2020-04-24 07:30 | NUR ---
NURSE NOTES: Patient received from AMELIE Ruiz under the care of Dr. Warren for the admitting dx. of Dialysis catheter malfunction. Patient NKA and full code status. On standard precaution pending microbiology swabs. Aspiration precaution observed and maintained at all times. Patient is alert, non-verbal responsive with gestures and mouthing words. Patient tolerating vent settings well. No apparent distress or discomfort noted. Denies pain at this time. Patient has been NPO since midnight per NOC shift nurse prior to procedure. Will continue to monitor.
--- NOTE | 2020-04-24 07:56 | NUR ---
NURSE HAND-OFF REPORT: Important Events on Shift: NPO @ 0000 Patient Status: Stable throughout shift Diet: NPO Pending Orders: Permacath placement Pending Results/Labs: PT, PTT, BMP, CBC Pending MD notification: none Latest Vital Signs: Temperature 97.5 , Pulse 57 , B/P 121 /67 , Respiratory Rate 20 , O2 SAT 100 , Mechanical Ventilator, O2 Flow Rate . Vital Sign Comment: stable throughout shift EKG Rhythm: Sinus Rhythm Rhythm change?: N MD Notified?: - MD Response: - Latest Seay Fall Score: 95 Fall Risk: High Risk Safety Measures: Call light Within Reach, Bed Alarm Zone 3, Side Rails Side Rails x3, Bed position Low and Locked. Fall Precautions: YES Yellow Socks YES Yellow Gown YES Door Sign YES Patient Fall Education YES Report given to Stephen Duggan RN
--- NOTE | 2020-04-24 08:00 | NUR ---
NURSE NOTES: Radiology called for procedure, staff said that procedure time was rescheduled to early afternoon. Patient kept on NPO status. Patient asleep. Will continue to monitor.
[2020-04-24] MEDS: Renvela 2400 mg pkt ORAL SCH ×3 (08:51→18:53)
[2020-04-24] MEDS: Fleet's Enema 133ml RECTAL SCH (08:52)
[2020-04-24] MEDS: Heparin 5000 units/ml inj SUBQ SCH ×2 (08:52→22:48)
[2020-04-24] MEDS: Nephrovite tab (Rena-Vite) ORAL SCH (08:52)
[2020-04-24] MEDS: Aspirin Baby 81mg ORAL SCH (08:53)
[2020-04-24] MEDS: Metoprolol Tartrate 50mg tab ORAL SCH ×2 (08:53→21:00)
--- NOTE | 2020-04-24 09:44 | Hematology/Onc Progress Note ---
Assessment/Plan Assessment/Plan Assessment and Recs # Anemia due to likely chronic disease, ongoing, this is the first time he has been here --> anemia panel to order for downtrending hgb --> hgb 8.9-->9.4 --> consider iron / epogen after anemia panel returns --> smear has been noted, no hemolysis # Coagulopathy ongoing, ptt and inr elevated --> vitamin k given, as permacath to be removed --> get mixing study --> trend prn # Chronic respiratory failure --> per pulm --> vent + # End stage renal disease on dialysis --> Complications, dialysis, catheter,replacement as needed --> surg eval --> per renal # Right lung infection --> repeat cxr now # Gangrenous toe, per surg # Dvt ppx heparins q Appreciate consultation and dw RN Subjective HEENT: Denies: no symptoms, eye pain, blurred vision, tearing, double vision, ear pain, ear discharge, nose pain, nose congestion, throat pain, throat swelling, mouth pain, mouth swelling, other Cardiovascular: Denies: no symptoms, chest pain, edema, irregular heart rate, lightheadedness, palpitations, syncope, other Gastrointestinal/Abdominal: Denies: no symptoms, abdomen distended, abdominal pain, black stools, tarry stools, blood in stool, constipated, diarrhea, difficulty swallowing, nausea, poor appetite, poor fluid intake, rectal bleeding, vomiting, other Genitourinary: Denies: no symptoms, burning, discharge, frequency, flank pain, hematuria, incontinence, pain, urgency, other Neurologic/Psychiatric: Denies: no symptoms, anxiety, depressed, emotional problems, headache, numbness, paresthesia, pre-existing deficit, seizure, tingling, tremors, weakness, other Endocrine: Denies: no symptoms, excessive sweating, flushing, intolerance to cold, intolerance to heat, increased hunger, increased thirst, increased urine, unexplained weight gain, unexplained weight loss, other Hematologic/Lymphatic: Denies: no symptoms, anemia, easy bleeding, easy bruising, adenopathy, other Allergies: Coded Allergies: No Known Allergies (Unverified , 04/22/20) Subjective 04/24 meds noted, dialysis catheter is functional, no bleeding Objective Objective Current Medications Medications (Trade) Dose Ordered Sig/Titus Route PRN Reason Start Time Stop Time Status Last Admin Dose Admin Acetaminophen (Tylenol) 325 mg Q4H PRN ORAL Mild Pain (Pain Scale 1-3) 04/23/20 03:00 05/23/20 02:59 Acetaminophen/ Hydrocodone Bitart ([place] 5/325) 1 tab Q4H PRN ORAL pain 4-10 04/23/20 03:00 04/30/20 02:59 Aspirin (ASA) 81 mg DAILY ORAL 04/23/20 09:00 06/07/20 08:59 04/23/20 10:01 Atorvastatin Calcium (Lipitor) 20 mg BEDTIME ORAL 04/23/20 21:00 07/22/20 20:59 04/23/20 21:32 Bisacodyl (Dulcolax) 10 mg PRN RECTAL 04/23/20 03:00 07/22/20 02:59 Calcium Acetate (Phoslo) 667 mg TID GT 04/23/20 09:00 07/22/20 08:59 04/24/20 08:51 Gabapentin (Neurontin) 100 mg THREE TIMES A DAY ORAL 04/23/20 09:00 05/23/20 08:59 04/24/20 08:52 Heparin Sodium (Porcine) (Heparin 5000 units/ml) 5,000 units EVERY 12 HOURS SUBQ 04/23/20 09:00 06/07/20 08:59 04/23/20 10:04 Metoprolol Tartrate (Lopressor) 50 mg EVERY 12 HOURS ORAL 04/23/20 09:00 07/22/20 08:59 04/23/20 21:33 Sevelamer Carbonate (Renvela) 2,400 mg THREE TIMES A DAY ORAL 04/23/20 09:00 07/22/20 08:59 04/24/20 08:51 Sodium Phosphate (Fleet's Sodium Phosl Enema) 133 ml DAILY RECTAL 04/23/20 09:00 05/23/20 08:59 04/24/20 08:52 Vitamin B Complex/ Vit C/Folic Acid (Nephrovite) 1 tab DAILY ORAL 04/23/20 09:00 05/23/20 08:59 04/24/20 08:52 Last 24 Hour Vital Signs Date Time Temp Pulse Resp B/P (MAP) Pulse Ox O2 Delivery O2 Flow Rate FiO2 04/24/20 08:00 60 04/24/20 07:27 57 20 40 04/24/20 05:10 59 20 40 04/24/20 04:00 97.5 56 20 121/67 (85) 100 04/24/20 04:00 60 04/24/20 04:00 40 04/24/20 04:00 Mechanical Ventilator 04/24/20 03:17 60 20 40 04/24/20 01:29 57 20 40 04/24/20 00:00 59 04/24/20 00:00 40 04/24/20 00:00 Mechanical Ventilator 04/24/20 00:00 97.9 63 20 120/60 (80) 100 04/23/20 23:30 57 20 40 04/23/20 21:33 63 120/66 04/23/20 21:22 63 20 40 04/23/20 20:00 Mechanical Ventilator 04/23/20 20:00 40 04/23/20 20:00 97.8 65 18 127/70 (89) 97 04/23/20 20:00 60 04/23/20 19:30 63 20 40 04/23/20 17:00 62 20 40 04/23/20 16:00 98.3 59 18 121/67 (85) 100 04/23/20 16:00 59 04/23/20 16:00 Mechanical Ventilator 04/23/20 16:00 40 04/23/20 15:25 59 20 40 04/23/20 13:00 61 20 40 04/23/20 12:00 98.0 67 18 130/81 (97) 100 04/23/20 12:00 40 04/23/20 12:00 Mechanical Ventilator 04/23/20 12:00 60 04/23/20 11:28 68 21 40 04/23/20 10:01 65 127/70 04/23/20 09:18 61 20 40 04/23/20 08:00 97.8 65 18 127/70 (89) 100 04/23/20 08:00 Mechanical Ventilator 04/23/20 08:00 40 04/23/20 08:00 71 04/23/20 07:30 73 20 40 04/23/20 05:00 66 22 102/49 (66) 100 04/23/20 04:56 63 21 40 04/23/20 04:00 98.4 74 20 130/77 (94) 100 04/23/20 04:00 40 04/23/20 04:00 Mechanical Ventilator 04/23/20 03:46 74 26 100 Mechanical Ventilator 40 04/23/20 03:30 74 24 40 04/23/20 03:10 74 04/23/20 03:00 75 24 142/82 (102) 100 04/23/20 02:17 70 04/23/20 02:08 97.5 71 17 143/86 (105) 100 04/23/20 01:55 97.2 77 22 121/76 99 Mechanical Ventilator 40 04/23/20 01:24 70 23 40 04/23/20 00:11 67 25 40 04/22/20 21:30 70 25 Mechanical Ventilator 40 04/22/20 21:30 97.2 70 22 121/76 99 Mechanical Ventilator 40 04/22/20 21:20 52 22 40 04/22/20 20:35 97.2 62 20 121/76 (91) 99 Mechanical Ventilator Intake and Output 04/23/20 04/24/20 19:00 07:00 Intake Total 200 ml Balance 200 ml Intake Free Water 90 ml Tube Feeding 110 ml # Bowel Movements 4 3 Labs Test 04/22/20 22:00 04/23/20 04:00 04/23/20 07:40 04/24/20 02:50 White Blood Count 8.7 K/UL (4.8-10.8) 9.0 K/UL (4.8-10.8) 7.8 K/UL (4.8-10.8) Red Blood Count 3.02 M/UL (4.70-6.10) 3.22 M/UL (4.70-6.10) 2.84 M/UL (4.70-6.10) Hemoglobin 8.9 G/DL (14.2-18.0) 9.4 G/DL (14.2-18.0) 8.4 G/DL (14.2-18.0) Hematocrit 29.5 % (42.0-52.0) 33.1 % (42.0-52.0) 28.5 % (42.0-52.0) Mean Corpuscular Volume 97 FL (80-99) 103 FL (80-99) 100 FL (80-99) Mean Corpuscular Hemoglobin 29.3 PG (27.0-31.0) 29.3 PG (27.0-31.0) 29.6 PG (27.0-31.0) Mean Corpuscular Hemoglobin Concent 30.1 G/DL (32.0-36.0) 28.5 G/DL (32.0-36.0) 29.5 G/DL (32.0-36.0) Red Cell Distribution Width 17.4 % (11.6-14.8) 17.4 % (11.6-14.8) 17.3 % (11.6-14.8) Platelet Count 170 K/UL (150-450) 153 K/UL (150-450) 154 K/UL (150-450) Mean Platelet Volume 6.3 FL (6.5-10.1) 6.9 FL (6.5-10.1) 6.6 FL (6.5-10.1) Neutrophils (%) (Auto) 76.6 % (45.0-75.0) 74.0 % (45.0-75.0) 75.1 % (45.0-75.0) Lymphocytes (%) (Auto) 10.0 % (20.0-45.0) 11.7 % (20.0-45.0) 13.3 % (20.0-45.0) Monocytes (%) (Auto) 8.9 % (1.0-10.0) 10.8 % (1.0-10.0) 9.4 % (1.0-10.0) Eosinophils (%) (Auto) 3.0 % (0.0-3.0) 1.9 % (0.0-3.0) 1.1 % (0.0-3.0) Basophils (%) (Auto) 1.4 % (0.0-2.0) 1.6 % (0.0-2.0) 1.0 % (0.0-2.0) Prothrombin Time 13.4 SEC (9.30-11.50) 13.8 SEC (9.30-11.50) Prothromb Time International Ratio 1.2 (0.9-1.1) 1.3 (0.9-1.1) Activated Partial Thromboplast Time 34 SEC (23-33) 36 SEC (23-33) Sodium Level 134 MMOL/L (136-145) 135 MMOL/L (136-145) 134 MMOL/L (136-145) Potassium Level 4.6 MMOL/L (3.5-5.1) 5.0 MMOL/L (3.5-5.1) 4.5 MMOL/L (3.5-5.1) Chloride Level 96 MMOL/L (98-107) 95 MMOL/L (98-107) 96 MMOL/L (98-107) Carbon Dioxide Level 28 MMOL/L (21-32) 25 MMOL/L (21-32) 23 MMOL/L (21-32) Anion Gap 10 mmol/L (5-15) 15 mmol/L (5-15) 15 mmol/L (5-15) Blood Urea Nitrogen 139 mg/dL (7-18) 140 mg/dL (7-18) 161 mg/dL (7-18) Creatinine 4.9 MG/DL (0.55-1.30) 5.1 MG/DL (0.55-1.30) 5.7 MG/DL (0.55-1.30) Estimat Glomerular Filtration Rate 12.6 mL/min (>60) 12.1 mL/min (>60) 10.6 mL/min (>60) Glucose Level 98 MG/DL (74-106) 89 MG/DL (74-106) 104 MG/DL (74-106) Lactic Acid Level 0.80 mmol/L (0.4-2.0) Calcium Level 9.6 MG/DL (8.5-10.1) 10.0 MG/DL (8.5-10.1) 9.9 MG/DL (8.5-10.1) Total Bilirubin 0.5 MG/DL (0.2-1.0) Aspartate Amino Transf (AST/SGOT) 37 U/L (15-37) Alanine Aminotransferase (ALT/SGPT) 47 U/L (12-78) Alkaline Phosphatase 380 U/L (46-116) Troponin I 0.236 ng/mL (0.000-0.056) Total Protein 7.9 G/DL (6.4-8.2) Albumin 2.5 G/DL (3.4-5.0) Globulin 5.4 g/dL Albumin/Globulin Ratio 0.5 (1.0-2.7) Differential Total Cells Counted 100 Neutrophils % (Manual) 76 % (45-75) Lymphocytes % (Manual) 13 % (20-45) Monocytes % (Manual) 10 % (1-10) Eosinophils % (Manual) 1 % (0-3) Basophils % (Manual) 0 % (0-2) Band Neutrophils 0 % (0-8) Platelet Estimate Adequate Platelet Morphology Normal Hypochromasia 1+ Anisocytosis 1+ Macrocytosis 1+ Reticulocyte Count 2.1 % (0.5-2.0) Iron Level 31 ug/dL (50-175) Total Iron Binding Capacity 163 ug/dL (250-450) Percent Iron Saturation 19 % (15-50) Unsaturated Iron Binding 132 ug/dL (112-346) Ferritin 1390 NG/ML (8-388) Vitamin B12 Level 1863 PG/ML (193-986) Folate 58.1 NG/ML (8.6-58.9) Height (Feet): 5 Height (Inches): 5.00 Weight (Pounds): 120 Objective Physical Exam Vitals: reviewed, normal General Appearance: no apparent distress, other - Nonverbal Head: normocephalic, atraumatic: no angioedema, normal voice Neck: full range of motion, supple/symm/no masses Respiratory: chest non-tender, lungs clear, +vent permacath to left chest Cardiovascular: regular rate, rhythm, no edema Gastrointestinal: normal bowel sounds, non tender, soft, nd Rectal: deferred Genitourinary: normal inspection, no CVA tenderness Musculoskeletal: back normal, normal range of motion, non-tender Neurologic: other - Nonverbal Psychiatric: other - Nonverbal Lymphatic: no adenopathy Nick Whiteside MD Apr 24, 2020 09:44
[2020-04-24] MEDS ORDERED: VITAMIN D3125 MCG GT (12:48)
[2020-04-24] MEDS ORDERED: VITAMIN C500 M1 GT (12:48)
--- NOTE | 2020-04-24 13:02 | NUR ---
CASE MANAGEMENT:REVIEW 50 YR OLD MALE BIBA FROM [facility] PMH: ESRD ON HD SI: DIALYSIS CATHETER MALFUNCTION TRACH/VENT/GT DEPENDENT 97.2 62 20 121/76 99% ON VENT SUPPORT W/40% FIO2 H/H-8.9/29.5 BUN+139 CR+4.9 TROPONIN(+) 0.236 IS: IV LEVAQUIN BLOOD CX CXR : TO STEP DOWN UNIT DCP: RETURN TO [facility] PLAN: TUNNELED DIALYSIS CATHETER ORDERED
--- NOTE | 2020-04-24 14:00 | NUR ---
NURSE NOTES: Patient taken to radiocath lab assissted by RN and RT. Taken in stable condition. Will continue to monitor.
--- NOTE | 2020-04-24 14:57 | General Progress Note ---
Subjective Constitutional: Reports: no symptoms HEENT: Reports: no symptoms Cardiovascular: Reports: no symptoms Respiratory: Reports: no symptoms Gastrointestinal/Abdominal: Reports: no symptoms Genitourinary: Reports: no symptoms Neurologic/Psychiatric: Reports: no symptoms Endocrine: Reports: no symptoms Hematologic/Lymphatic: Reports: no symptoms Allergies: Coded Allergies: No Known Allergies (Unverified , 04/22/20) Objective Last 24 Hour Vital Signs Date Time Temp Pulse Resp B/P (MAP) Pulse Ox O2 Delivery O2 Flow Rate FiO2 04/24/20 13:20 61 20 40 04/24/20 12:00 40 04/24/20 12:00 Mechanical Ventilator 04/24/20 12:00 98.1 61 20 132/74 (93) 100 04/24/20 11:05 75 20 40 04/24/20 08:55 61 20 40 04/24/20 08:00 Mechanical Ventilator 04/24/20 08:00 40 04/24/20 08:00 60 04/24/20 08:00 97.5 59 20 128/76 (93) 100 04/24/20 07:27 57 20 40 04/24/20 05:10 59 20 40 04/24/20 04:00 97.5 56 20 121/67 (85) 100 04/24/20 04:00 60 04/24/20 04:00 40 04/24/20 04:00 Mechanical Ventilator 04/24/20 03:17 60 20 40 04/24/20 01:29 57 20 40 04/24/20 00:00 59 04/24/20 00:00 40 04/24/20 00:00 Mechanical Ventilator 04/24/20 00:00 97.9 63 20 120/60 (80) 100 04/23/20 23:30 57 20 40 04/23/20 21:33 63 120/66 04/23/20 21:22 63 20 40 04/23/20 20:00 Mechanical Ventilator 04/23/20 20:00 40 04/23/20 20:00 97.8 65 18 127/70 (89) 97 04/23/20 20:00 60 04/23/20 19:30 63 20 40 04/23/20 17:00 62 20 40 04/23/20 16:00 98.3 59 18 121/67 (85) 100 04/23/20 16:00 59 04/23/20 16:00 Mechanical Ventilator 04/23/20 16:00 40 04/23/20 15:25 59 20 40 Intake and Output 04/23/20 04/24/20 19:00 07:00 Intake Total 200 ml Balance 200 ml Intake Free Water 90 ml Tube Feeding 110 ml # Bowel Movements 4 3 Laboratory Tests 04/24/20 02:50: White Blood Count 7.8, Red Blood Count 2.84L, Hemoglobin 8.4L, Hematocrit 28.5L, Mean Corpuscular Volume 100H, Mean Corpuscular Hemoglobin 29.6, Mean Corpuscular Hemoglobin Concent 29.5L, Red Cell Distribution Width 17.3H, Platelet Count 154, Mean Platelet Volume 6.6, Neutrophils (%) (Auto) 75.1H, Lymphocytes (%) (Auto) 13.3L, Monocytes (%) (Auto) 9.4, Eosinophils (%) (Auto) 1.1, Basophils (%) (Auto) 1.0, Prothrombin Time 13.8H, Prothromb Time International Ratio 1.3H, Activated Partial Thromboplast Time 36H, Sodium Level 134L, Potassium Level 4.5, Chloride Level 96L, Carbon Dioxide Level 23, Anion Gap 15, Blood Urea Nitrogen 161H, Creatinine 5.7H, Estimat Glomerular Filtration Rate 10.6, Glucose Level 104, Calcium Level 9.9, Hepatitis B Surface Antigen [Pending] Height (Feet): 5 Height (Inches): 5.00 Weight (Pounds): 120 General Appearance: WD/WN, no apparent distress, alert EENT: normal ENT inspection Neck: non-tender, supple, normal inspection Cardiovascular: normal rate, regular rhythm, no gallop/murmur, no JVD Respiratory/Chest: lungs clear, normal breath sounds, no accessory muscle use Abdomen: normal bowel sounds, non tender, soft, no organomegaly, no mass Extremities: non-tender Neurologic: alert, responsive, aphasia, other - Cardioplegic Skin: warm/dry Assessment/Plan Status Narrative Patient is awake alert afebrile hemodynamically stable on the same time is respirator dependent fed by G-tube cardioplegic and balance is dependent now on his way to change his cath by radiologist Laboratory tests will be done in a.m. Trinity Landaverde MD, MD Apr 24, 2020 14:57
[2020-04-24] MEDS ORDERED: Lidocaine 2% 20mg/ml/Epi 0.005mg/ml 20ml vial INJ PRN (15:00)
[2020-04-24] MEDS ORDERED: Heparin1,000 units/500ml Premix(Conc:2 units/ml) IV PRN (15:00)
--- NOTE | 2020-04-24 15:43 | Pre-Procedure Note/Attestation ---
Pre-Procedure Note/Attestation Complete Prior to Procedure Planned Procedure: left Procedure Narrative: permacath exchange Indications for Procedure Pre-Operative Diagnosis: permacath not working; ESRD Attestation informed consent obtained from brother by the primary team Easton Álvarez M.D. Apr 24, 2020 15:43
--- NOTE | 2020-04-24 16:00 | NUR ---
NURSE NOTES: Patient returned from radiocath lab in stable condition. Procedure to replace hemodialysis catheter successful. With MD order of "OK to use". Addendum: 04/24/20 at 2009 by Stephen Hong RN RN Feeding restarted at 20cc/hr.
--- NOTE | 2020-04-24 16:08 | NUR ---
RADIOLOGY NOTE: LEFT IJ TUNNELED DIALYSIS CATHETER EXCHANGE BY DR. GOYAL AT 1448 HRS. FA
--- NOTE | 2020-04-24 16:20 | Diagnostic Imaging Report ---
Indications: Hemodialysis-dependent end stage renal disease, requiring long-term access. Indwelling tunneled dialysis catheter malfunctioning. Technique: Strict aseptic technique was utilized, including hand washing, use of hat and mask, use of sterile gown and gloves, sterile ultrasound gel and probe cover, prepping of left chest skin and external portions of the indwelling catheter with 2% chlorhexidine solution, and application of full body sterile barrier over this area. Skin and subcutaneous soft tissues were infiltrated with 1% lidocaine. A hydrophilic guidewire was advanced through the catheter under direct fluoroscopic guidance into the inferior vena cava. The subcutaneous portion of the catheter was blunt-dissected free, than catheter easily removed over the guidewire. A new 14.5 Malay, 23 cm tip to cuff BioFlow tunneled dialysis catheter was advanced over the guidewire under direct fluoroscopic guidance into the superior vena cava. Guidewire was removed. Heparin 1000 units were instilled into each catheter port. Final image was obtained. Catheter was secured to the skin with adhesive dressing. The patient tolerated the procedure well without immediate complications. Total fluoroscopy time: 21.9 seconds. Total fluoroscopy dose: 2.77 mGy. Total number of fluoroscopic images obtained: One. Patient monitored throughout the procedure by a dedicated nurse. Findings: Final image demonstrates tip of the new dialysis catheter at the level of the SVC-right atrial junction. Both ports aspirate and flush freely. IMPRESSION: Exchange of tunneled dialysis catheter via existing left internal jugular vein access. New catheter tested and noted to be working well. Catheter cleared for use.
--- NOTE | 2020-04-24 16:30 | Surgery Progress Note ---
Surgery Progress Note Subjective Additional Comments HD cath change stable HD today no n/v Objective Last 24 Hour Vital Signs Date Time Temp Pulse Resp B/P (MAP) Pulse Ox O2 Delivery O2 Flow Rate FiO2 04/24/20 15:35 97.9 70 20 141/88 (105) 100 04/24/20 15:07 65 20 40 04/24/20 15:00 67 20 04/24/20 13:20 61 20 40 04/24/20 12:00 40 04/24/20 12:00 Mechanical Ventilator 04/24/20 12:00 98.1 61 20 132/74 (93) 100 04/24/20 11:05 75 20 40 04/24/20 08:55 61 20 40 04/24/20 08:00 Mechanical Ventilator 04/24/20 08:00 40 04/24/20 08:00 60 04/24/20 08:00 97.5 59 20 128/76 (93) 100 04/24/20 07:27 57 20 40 04/24/20 05:10 59 20 40 04/24/20 04:00 97.5 56 20 121/67 (85) 100 04/24/20 04:00 60 04/24/20 04:00 40 04/24/20 04:00 Mechanical Ventilator 04/24/20 03:17 60 20 40 04/24/20 01:29 57 20 40 04/24/20 00:00 59 04/24/20 00:00 40 04/24/20 00:00 Mechanical Ventilator 04/24/20 00:00 97.9 63 20 120/60 (80) 100 04/23/20 23:30 57 20 40 04/23/20 21:33 63 120/66 04/23/20 21:22 63 20 40 04/23/20 20:00 Mechanical Ventilator 04/23/20 20:00 40 04/23/20 20:00 97.8 65 18 127/70 (89) 97 04/23/20 20:00 60 04/23/20 19:30 63 20 40 04/23/20 17:00 62 20 40 I&O Intake and Output 04/23/20 04/24/20 19:00 07:00 Intake Total 200 ml Balance 200 ml Intake Free Water 90 ml Tube Feeding 110 ml # Bowel Movements 4 3 Dressing: saturated Cardiovascular: RSR Respiratory: clear, decreased breath sounds Abdomen: soft, non-tender, present bowel sounds Extremities: no edema, no tenderness, no cyanosis Laboratory Tests Test 04/24/20 02:50 White Blood Count 7.8 K/UL (4.8-10.8) Red Blood Count 2.84 M/UL (4.70-6.10) L Hemoglobin 8.4 G/DL (14.2-18.0) L Hematocrit 28.5 % (42.0-52.0) L Mean Corpuscular Volume 100 FL (80-99) H Mean Corpuscular Hemoglobin 29.6 PG (27.0-31.0) Mean Corpuscular Hemoglobin Concent 29.5 G/DL (32.0-36.0) L Red Cell Distribution Width 17.3 % (11.6-14.8) H Platelet Count 154 K/UL (150-450) Mean Platelet Volume 6.6 FL (6.5-10.1) Neutrophils (%) (Auto) 75.1 % (45.0-75.0) H Lymphocytes (%) (Auto) 13.3 % (20.0-45.0) L Monocytes (%) (Auto) 9.4 % (1.0-10.0) Eosinophils (%) (Auto) 1.1 % (0.0-3.0) Basophils (%) (Auto) 1.0 % (0.0-2.0) Prothrombin Time 13.8 SEC (9.30-11.50) H Prothromb Time International Ratio 1.3 (0.9-1.1) H Activated Partial Thromboplast Time 36 SEC (23-33) H Sodium Level 134 MMOL/L (136-145) L Potassium Level 4.5 MMOL/L (3.5-5.1) Chloride Level 96 MMOL/L (98-107) L Carbon Dioxide Level 23 MMOL/L (21-32) Anion Gap 15 mmol/L (5-15) Blood Urea Nitrogen 161 mg/dL (7-18) H Creatinine 5.7 MG/DL (0.55-1.30) H Estimat Glomerular Filtration Rate 10.6 mL/min (>60) Glucose Level 104 MG/DL (74-106) Calcium Level 9.9 MG/DL (8.5-10.1) Hepatitis B Surface Antigen Pending Plan Problems: (1) Ischemia of right lower extremity Assessment & Plan: 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 Heel ulcer identified as well. Foul-smelling. Fortunately this does not seem salvageable by any means given the extensive loss at the flap that has dehisced the exposed bone as well as the heel. Currently stable otherwise known chronic in nature not patient's acute problem. Will recommend that patient has a right BKA at some point given the current findings we will continue with local wound care tentatively. Patient identified to have a heel ulcer on the left side as well. (2) Decubitus ulcer, heel (3) Chronic respiratory failure (4) End stage renal disease on dialysis (5) Complications, dialysis, catheter, mechanical Assessment & Plan: Patient on hemodialysis left chest wall temporary hemodialysis catheter identified tunneled. The venous port was aspirated and flushed but unfortunately the arterial port were only flushed but would not aspirate. The catheter is not viable at this time no signs of infection. Labs noted patient undergo hemodialysis soon. We will plan for change of hemodialysis catheter soon. Strict aseptic technique was utilized, including hand washing, use of hat and mask, use of sterile gown and gloves, sterile ultrasound gel and probe cover, prepping of left chest skin and external portions of the indwelling catheter with 2% chlorhexidine solution, and application of full body sterile barrier over this area. Skin and subcutaneous soft tissues were infiltrated with 1% lidocaine. A hydrophilic guidewire was advanced through the catheter under direct fluoroscopic guidance into the inferior vena cava. The subcutaneous portion of the catheter was blunt- dissected free, than catheter easily removed over the guidewire. A new 14.5 Tajik, 23 cm tip to cuff BioFlow tunneled dialysis catheter was advanced over the guidewire under direct fluoroscopic guidance into the superior vena cava. Guidewire was removed. Heparin 1000 units were instilled into each catheter port. Final image was obtained. Catheter was secured to the skin with adhesive dressing. The patient tolerated the procedure well without immediate complications. Total fluoroscopy time: 21.9 seconds. Total fluoroscopy dose: 2.77 mGy. Total number of fluoroscopic images obtained: One. Patient monitored throughout the procedure by a dedicated nurse. Findings: Final image demonstrates tip of the new dialysis catheter at the level of the SVC-right atrial junction. Both ports aspirate and flush freely. IMPRESSION: Exchange of tunneled dialysis catheter via existing left internal jugular vein access. New catheter tested and noted to be working well. Catheter cleared for use. Dany Wilder Apr 24, 2020 16:30
--- NOTE | 2020-04-24 16:37 | Cardiology Report ---
APPROVED REPORT EKG Measurement Heart [id number] <Conclusion> Normal sinus rhythm Right bundle branch block Abnormal ECG
--- NOTE | 2020-04-24 18:30 | NUR ---
NURSE NOTES: patient noted awake, Denies pain at this time. No apparent distress noted. Feeding advanced to 30cc/hr. GT flushing well, no residual noted. Will continue to monitor.
--- NOTE | 2020-04-24 19:40 | NUR ---
NURSE HAND-OFF REPORT: Important Events on Shift:Permacath replacement procedure performed. Patient Status: Stable Diet: GT Pending Orders: Pending Results/Labs: Pending MD notification: Latest Vital Signs: Temperature 97.9 , Pulse 59 , B/P 141 /88 , Respiratory Rate 20 , O2 SAT 100 , Mechanical Ventilator, O2 Flow Rate . Vital Sign Comment: EKG Rhythm: SR c BBB Rhythm change?: N MD Notified?: - MD Response: Latest Seay Fall Score: 95 Fall Risk: High Risk Safety Measures: Call light Within Reach, Bed Alarm Zone 3, Side Rails Side Rails x3, Bed position Low and Locked. Fall Precautions: Yellow Socks Yellow Gown Door Sign Patient Fall Education Report given to AMELIE Kenney.
--- NOTE | 2020-04-24 20:00 | NUR ---
NURSE NOTES: SBAR from Stephen RN/ Patient assessed, is alert and oriented X 3-4. Patient is trached depended Portex 8, AC 20, 500tv, 40% FiO2 and peep of 5. Patient also has GT with feeds of Nepro goal of 50. currently running at 30ml/hr. Patient does not have fuentes, patient anuric. Peripheral IV line that is intact and patent. Multiple decubitus noted, low air loss noted. NAD distress at time, vitals are stable. Will continue to monitor
--- NOTE | 2020-04-24 22:00 | NUR ---
NURSE NOTES: Patient assessment performed; All due meds given. Patient remains awake and alert at this time, NAD, VSS, SpO2 100%. Oral care and repositioning performed, ROM performed, NSR on the monitor with pulses present. Fall, aspiration and skin precautions observed. no new changes,
[2020-04-24] MEDS: Atorvastatin 20mg tab ORAL SCH (22:47)
[2020-04-25] VITALS: BP 122/74
--- NOTE | 2020-04-25 02:00 | NUR ---
NURSE NOTES: Patient repositioned and provided oral care. VSS, NSR on the monitor, pulses noted, NAD. cool to touch. ROM performed.
[2020-04-25 04:00] VITALS: BP 134/65
[2020-04-25 05:12] LABS: BASOPHILS % (AUTO) 0.7 % (0.0-2.0); EOSINOPHILS % (AUTO) 1.2 % (0.0-3.0); HEMATOCRIT 30.1 % (42.0-52.0); HEMOGLOBIN 8.8 G/DL (14.2-18.0); LYMPHOCYTES % (AUTO) 10.7 % (20.0-45.0); MEAN CORPUSCULAR VOLUME 100 FL (80-99); MONOCYTES % (AUTO) 9.2 % (1.0-10.0); NEUTROPHILS % (AUTO) 78.2 % (45.0-75.0); PLATELET COUNT 146 K/UL (150-450); RED BLOOD COUNT 3.02 M/UL (4.70-6.10); RED CELL DISTRIBUTION WIDTH 16.6 % (11.6-14.8); WHITE BLOOD COUNT 8.2 K/UL (4.8-10.8)
[2020-04-25 05:24] LABS: ALBUMIN 2.4 G/DL (3.4-5.0); ALBUMIN/GLOBULIN RATIO 0.5 (1.0-2.7); BILIRUBIN,TOTAL 0.6 MG/DL (0.2-1.0); CALCIUM 10.3 MG/DL (8.5-10.1); POTASSIUM 4.9 MMOL/L (3.5-5.1)
--- NOTE | 2020-04-25 05:35 | NUR ---
NURSE NOTES: Sponge bath performed, patient repositioned and provided oral care. VSS, NSR on the monitor, pulses noted, NAD. cool to touch. ROM performed. Blood drawn and sent to lab. Will continue to monitor.
--- NOTE | 2020-04-25 07:05 | NUR ---
RESPIRATORY NOTE: PT RECEIVED STABLE ON CMV WITH CURRENT SETTINGS: AC/VC 20,500, 40%, +5. ALARMS ARE ON AND AUDIBLE. VENT CIRCUIT IS SECURE AND OUT OF THE WAY. NO S/S OF RESPIRATORY DISTRESS NOTED AT THIS TIME. WILL CONTINUE TO MONITOR.
--- NOTE | 2020-04-25 07:20 | NUR ---
NURSE NOTES: Received report from AMELIE Kenney. Pt is lying in bed, asleep, not in distress. SR on the monitor worker. Tolerating vent setting of AC20, TV500, FiO2 40%, PEEP 5. G-tube is intact and patent and running Nepro 40cc with goal of 50cc/hr. Pt is anuric. Periperal IV in R AC is intact and patent. Bed is locked and in lowest position, bed alarm on, call light within reach. Will continue to monitor pt. Will continue with the plan of care.
--- NOTE | 2020-04-25 07:36 | NUR ---
HAND-OFF: Report given to Lenora KINSEY.
[2020-04-25 08:00] VITALS: BP 116/78
[2020-04-25] MEDS: Aspirin Baby 81mg ORAL SCH (08:45)
[2020-04-25] MEDS: Metoprolol Tartrate 50mg tab ORAL SCH ×2 (08:46→21:45)
[2020-04-25] MEDS: Renvela 2400 mg pkt ORAL SCH (08:46)
[2020-04-25] MEDS: Nephrovite tab (Rena-Vite) ORAL SCH (08:46)
[2020-04-25] MEDS: Heparin 5000 units/ml inj SUBQ SCH ×2 (08:51→21:41)
[2020-04-25] MEDS: Fleet's Enema 133ml RECTAL SCH (08:52)
--- NOTE | 2020-04-25 09:35 | Consultation ---
Consult Note Consult Note I am asked to evaluate the patient at the request of Dr. Warren for dialysis management Day 2 of patient's hospitalization 50-year-old male presents to ED for evaluation. [facility] History of end-stage renal disease on dialysis. Has a permacath to his left chest. Per nursing they were unable to complete dialysis today. On ventilator. Nonverbal at baseline. No signs of distress. No reported fevers or chills. No other aggravating relieving factors. No other associated symptoms Allergies: No Known Allergies (Unverified , 04/22/20) COVID-19 Screening Contact w/high risk pt: No Experienced COVID-19 symptoms?: No COVID-19 Testing performed MARKET DIRECTOR: No Past Medical History: DM Past Surgical History: none Pertinent Family History: none Social History: Denies: smoking, alcohol use, drug use Immunizations: UTD Reviewed Nursing Documentation: PMH: Agreed; PSxH: Agreed Past Medical History: No History, Except For Hx Diabetes: Yes Assessment/Plan ESRD Anemia Chronic respiratory failure Hypercalcemia Plan: Labs reviewed Will order dialysis today Will adjust abnormal electrolytes and chemistries Per orders Maurilio King MD Apr 25, 2020 09:35
[2020-04-25 10:02] LABS: PHOSPHORUS 3.8 MG/DL (2.5-4.9)
--- NOTE | 2020-04-25 10:03 | NUR ---
CASE MANAGEMENT:REVIEW 04/25/20 SI: DIALYSIS CATHETER MALFUNCTION TRACH/VENT/GT DEPENDENT. S/P PERMCATH EXCHANGE 98.9 83 20 116/78 99% ON VENT SUPPORT W/40% FIO2 H/H-8.8/30.1 PLT-146 NA-131 BUN+164 CR+6.0 IS: HEPARIN SQ Q12 ASA GT QD NEURONTIN GT TID LOPRESSOR GT Q12 NEPHROVITE GT QD : STEP DOWN UNIT DCP: FROM [facility]
[2020-04-25 10:22] LABS: CREATINE KINASE 74 U/L (26-308); GAMMA GLUTAMYL TRANSPEPTIDASE 131 U/L (5-85)
[2020-04-25 12:00] VITALS: BP 105/69
[2020-04-25] MEDS: Renvela 800mg Pkt GT SCH ×2 (13:04→18:48)
--- NOTE | 2020-04-25 13:04 | Surgery Progress Note ---
Surgery Progress Note Subjective Additional Comments HD as per renal line okay no n/v comfortable Objective Last 24 Hour Vital Signs Date Time Temp Pulse Resp B/P (MAP) Pulse Ox O2 Delivery O2 Flow Rate FiO2 04/25/20 12:00 Mechanical Ventilator 04/25/20 12:00 40 04/25/20 12:00 99.0 86 20 105/69 (81) 99 04/25/20 08:46 83 116/78 04/25/20 08:00 40 04/25/20 08:00 98.9 83 20 116/78 (91) 99 04/25/20 08:00 Mechanical Ventilator 04/25/20 08:00 67 04/25/20 07:05 68 20 40 04/25/20 04:00 98.7 69 20 134/65 (88) 100 04/25/20 04:00 Mechanical Ventilator 04/25/20 04:00 66 04/25/20 04:00 40 04/25/20 03:20 66 20 40 04/25/20 00:00 Mechanical Ventilator 04/25/20 00:00 98.2 66 20 122/74 (90) 100 04/25/20 00:00 65 04/25/20 00:00 40 04/24/20 23:20 65 20 40 04/24/20 21:00 66 132/74 04/24/20 20:00 62 04/24/20 20:00 Mechanical Ventilator 04/24/20 20:00 97.5 66 20 132/74 (93) 100 04/24/20 20:00 40 04/24/20 18:46 59 20 40 04/24/20 17:05 61 20 40 04/24/20 16:00 59 04/24/20 16:00 Mechanical Ventilator 04/24/20 16:00 40 04/24/20 15:35 97.9 70 20 141/88 (105) 100 04/24/20 15:07 65 20 40 04/24/20 15:00 67 20 04/24/20 13:20 61 20 40 I&O Intake and Output 04/24/20 04/25/20 18:59 06:59 Intake Total 60 ml 410 ml Balance 60 ml 410 ml Intake Free Water 30 ml 50 ml Tube Feeding 30 ml 360 ml # Bowel Movements 3 Dressing: saturated Cardiovascular: RSR Respiratory: decreased breath sounds Abdomen: soft, non-tender, present bowel sounds Extremities: no edema, no tenderness, no cyanosis Laboratory Tests Test 04/25/20 04:00 White Blood Count 8.2 K/UL (4.8-10.8) Red Blood Count 3.02 M/UL (4.70-6.10) L Hemoglobin 8.8 G/DL (14.2-18.0) L Hematocrit 30.1 % (42.0-52.0) L Mean Corpuscular Volume 100 FL (80-99) H Mean Corpuscular Hemoglobin 29.3 PG (27.0-31.0) Mean Corpuscular Hemoglobin Concent 29.4 G/DL (32.0-36.0) L Red Cell Distribution Width 16.6 % (11.6-14.8) H Platelet Count 146 K/UL (150-450) L Mean Platelet Volume 6.5 FL (6.5-10.1) Neutrophils (%) (Auto) 78.2 % (45.0-75.0) H Lymphocytes (%) (Auto) 10.7 % (20.0-45.0) L Monocytes (%) (Auto) 9.2 % (1.0-10.0) Eosinophils (%) (Auto) 1.2 % (0.0-3.0) Basophils (%) (Auto) 0.7 % (0.0-2.0) Sodium Level 131 MMOL/L (136-145) L Potassium Level 4.9 MMOL/L (3.5-5.1) Chloride Level 93 MMOL/L (98-107) L Carbon Dioxide Level 24 MMOL/L (21-32) Anion Gap 14 mmol/L (5-15) Blood Urea Nitrogen 164 mg/dL (7-18) H Creatinine 6.0 MG/DL (0.55-1.30) H Estimat Glomerular Filtration Rate 10.0 mL/min (>60) Glucose Level 112 MG/DL (74-106) H Hemoglobin A1c 4.7 % (4.3-6.0) Uric Acid 5.9 MG/DL (2.6-7.2) Calcium Level 10.3 MG/DL (8.5-10.1) H Phosphorus Level 3.8 MG/DL (2.5-4.9) Total Bilirubin 0.6 MG/DL (0.2-1.0) Gamma Glutamyl Transpeptidase 131 U/L (5-85) H Aspartate Amino Transf (AST/SGOT) 31 U/L (15-37) Alanine Aminotransferase (ALT/SGPT) 31 U/L (12-78) Alkaline Phosphatase 316 U/L (46-116) H Total Creatine Kinase 74 U/L (26-308) Total Protein 7.5 G/DL (6.4-8.2) Albumin 2.4 G/DL (3.4-5.0) L Globulin 5.1 g/dL Albumin/Globulin Ratio 0.5 (1.0-2.7) L Plan Problems: (1) Ischemia of right lower extremity Assessment & Plan: 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 Heel ulcer identified as well. Foul-smelling. Fortunately this does not seem salvageable by any means given the extensive loss at the flap that has dehisced the exposed bone as well as the heel. Currently stable otherwise known chronic in nature not patient's acute problem. Will recommend that patient has a right BKA at some point given the current findings we will continue with local wound care tentatively. Patient identified to have a heel ulcer on the left side as well. (2) Decubitus ulcer, heel (3) Chronic respiratory failure (4) End stage renal disease on dialysis (5) Complications, dialysis, catheter, mechanical Assessment & Plan: Patient on hemodialysis left chest wall temporary hemodialysis catheter identified tunneled. The venous port was aspirated and flushed but unfortunately the arterial port were only flushed but would not aspirate. The catheter is not viable at this time no signs of infection. Labs noted patient undergo hemodialysis soon. We will plan for change of hemodialysis catheter soon. Strict aseptic technique was utilized, including hand washing, use of hat and m ask, use of sterile gown and gloves, sterile ultrasound gel and probe cover, prepping of left chest skin and external portions of the indwelling catheter with 2% chlorhexidine solution, and application of full body sterile barrier over this area. Skin and subcutaneous soft tissues were infiltrated with 1% lidocaine. A hydrophilic guidewire was advanced through the catheter under direct fluoroscopic guidance into the inferior vena cava. The subcutaneous portion of the catheter was blunt- dissected free, than catheter easily removed over the guidewire. A new 14.5 Irish, 23 cm tip to cuff BioFlow tunneled dialysis catheter was advanced over the guidewire under direct fluoroscopic guidance into the superior vena cava. Guidewire was removed. Heparin 1000 units were instilled into each catheter port. Final image was obtained. Catheter was secured to the skin with adhesive dressing. The patient tolerated the procedure well without immediate complications. Total fluoroscopy time: 21.9 seconds. Total fluoroscopy dose: 2.77 mGy. Total number of fluoroscopic images obtained: One. Patient monitored throughout the procedure by a dedicated nurse. Findings: Final image demonstrates tip of the new dialysis catheter at the level of the SVC-right atrial junction. Both ports aspirate and flush freely. IMPRESSION: Exchange of tunneled dialysis catheter via existing left internal jugular vein access. New catheter tested and noted to be working well. Catheter cleared for use. Dany Wilder Apr 25, 2020 13:04
--- NOTE | 2020-04-25 14:42 | NUR ---
INSURANCE CLINICALS/REVIEW FAXED TO [facility] [phone]
[2020-04-25 16:00] VITALS: BP 115/65
--- NOTE | 2020-04-25 19:19 | General Progress Note ---
Subjective Constitutional: Reports: no symptoms HEENT: Reports: no symptoms Cardiovascular: Reports: no symptoms Respiratory: Reports: no symptoms Gastrointestinal/Abdominal: Reports: no symptoms Genitourinary: Reports: no symptoms Neurologic/Psychiatric: Reports: no symptoms Endocrine: Reports: no symptoms Hematologic/Lymphatic: Reports: no symptoms Allergies: Coded Allergies: No Known Allergies (Unverified , 04/22/20) Objective Last 24 Hour Vital Signs Date Time Temp Pulse Resp B/P (MAP) Pulse Ox O2 Delivery O2 Flow Rate FiO2 04/25/20 19:03 69 23 40 04/25/20 16:00 98.7 63 21 115/65 (82) 99 04/25/20 16:00 62 04/25/20 16:00 40 04/25/20 16:00 Mechanical Ventilator 04/25/20 15:20 68 20 40 04/25/20 12:00 61 04/25/20 12:00 Mechanical Ventilator 04/25/20 12:00 40 04/25/20 12:00 99.0 86 20 105/69 (81) 99 04/25/20 11:10 65 20 40 04/25/20 08:46 83 116/78 04/25/20 08:00 40 04/25/20 08:00 98.9 83 20 116/78 (91) 99 04/25/20 08:00 Mechanical Ventilator 04/25/20 08:00 67 04/25/20 07:05 68 20 40 04/25/20 04:00 98.7 69 20 134/65 (88) 100 04/25/20 04:00 Mechanical Ventilator 04/25/20 04:00 66 04/25/20 04:00 40 04/25/20 03:20 66 20 40 04/25/20 00:00 Mechanical Ventilator 04/25/20 00:00 98.2 66 20 122/74 (90) 100 04/25/20 00:00 65 04/25/20 00:00 40 04/24/20 23:20 65 20 40 04/24/20 21:00 66 132/74 04/24/20 20:00 62 04/24/20 20:00 Mechanical Ventilator 04/24/20 20:00 97.5 66 20 132/74 (93) 100 04/24/20 20:00 40 Intake and Output 04/24/20 04/25/20 19:00 07:00 Intake Total 90 ml 420 ml Balance 90 ml 420 ml Intake Free Water 30 ml 50 ml Tube Feeding 60 ml 370 ml # Bowel Movements 3 Laboratory Tests 04/25/20 04:00: White Blood Count 8.2, Red Blood Count 3.02L, Hemoglobin 8.8L, Hematocrit 30.1L, Mean Corpuscular Volume 100H, Mean Corpuscular Hemoglobin 29.3, Mean Corpuscular Hemoglobin Concent 29.4L, Red Cell Distribution Width 16.6H, Platelet Count 146L , Mean Platelet Volume 6.5, Neutrophils (%) (Auto) 78.2H, Lymphocytes (%) (Auto) 10.7L, Monocytes (%) (Auto) 9.2, Eosinophils (%) (Auto) 1.2, Basophils (%) (Auto) 0.7, Sodium Level 131L, Potassium Level 4.9, Chloride Level 93L, Carbon Dioxide Level 24, Anion Gap 14, Blood Urea Nitrogen 164H, Creatinine 6.0H, Estimat Glomerular Filtration Rate 10.0, Glucose Level 112H, Hemoglobin A1c 4.7, Uric Acid 5.9, Calcium Level 10.3H, Phosphorus Level 3.8, Total Bilirubin 0.6, Gamma Glutamyl Transpeptidase 131H, Aspartate Amino Transf (AST/SGOT) 31, Alanine Aminotransferase (ALT/SGPT) 31, Alkaline Phosphatase 316H, Total Cr eatine Kinase 74, Total Protein 7.5, Albumin 2.4L, Globulin 5.1, Albumin/Globulin Ratio 0.5L Height (Feet): 5 Height (Inches): 5.00 Weight (Pounds): 120 General Appearance: WD/WN, no apparent distress, other - Eye contact no febrile response EENT: normal ENT inspection Neck: normal alignment, supple Cardiovascular: normal rate, regular rhythm, no gallop/murmur, no JVD Respiratory/Chest: lungs clear, normal breath sounds, no respiratory distress, no accessory muscle use Abdomen: normal bowel sounds, non tender, soft, no organomegaly, no mass Neurologic: alert, responsive, aphasia Assessment/Plan Status Narrative Awake alert attentive eye contact normal attention span. Patient had permacath inserted yesterday successfully and uneventfully by Dr. Holguin any today nephrology consulted will ask to dialyze the patient to ascertain that the permacath catheter functioned properly patient is afebrile hemodynamically stable he will be discharged today back to the extended care facility subacute unit dialysis unit at [facility]. Trinity Landaverde MD, MD Apr 25, 2020 19:19
--- NOTE | 2020-04-25 19:42 | NUR ---
NURSE HAND-OFF REPORT: Important Events on Shift:dialysis done Patient Status: stable, full code Diet: Nepro 50cc/hr Pending Orders: N Pending Results/Labs:N Pending MD notification:N Latest Vital Signs: Temperature 98.7 , Pulse 69 , B/P 115 /65 , Respiratory Rate 23 , O2 SAT 99 , Mechanical Ventilator, O2 Flow Rate . Vital Sign Comment: EKG Rhythm: Sinus Rhythm Rhythm change?: N MD Notified?: - MD Response: Latest Seay Fall Score: 95 Fall Risk: High Risk Safety Measures: Call light Within Reach, Bed Alarm Zone 3, Side Rails Side Rails x3, Bed position Low and Locked. Fall Precautions: Yellow Socks Yellow Gown Door Sign Patient Fall Education Report given to AMELIE Aquino.
--- NOTE | 2020-04-25 19:45 | NUR ---
NURSE NOTES: Patient received from AMELIE Cooley under the care of Dr. Warren for the admitting dx. of Dialysis catheter malfunction. Patient NKA and full code status. Aspiration precaution observed and maintained at all times. Patient is alert, non-verbal responsive with gestures and mouthing words. Patient tolerating vent settings well. Patient undergoing HD now. No apparent distress or discomfort noted. Denies pain at this time. Will continue to monitor.
[2020-04-25 20:00] VITALS: BP 157/80
--- NOTE | 2020-04-25 20:10 | NUR ---
NURSE NOTES: Patient finished HD in stable condition. HD nurse reported 1 liter out. Will continue to monitor.
--- NOTE | 2020-04-25 20:30 | NUR ---
NURSE HAND-OFF REPORT: Important Events on Shift:Change of assignment, hand-off to AMELIE Mandel Patient Status: Stable Diet: GT Pending Orders: Pending Results/Labs: Pending MD notification: Latest Vital Signs: Temperature 98.7 , Pulse 69 , B/P 115 /65 , Respiratory Rate 23 , O2 SAT 99 , Mechanical Ventilator, O2 Flow Rate . Vital Sign Comment: EKG Rhythm: Sinus Rhythm Rhythm change?: N MD Notified?: - MD Response: Latest Seay Fall Score: 95 Fall Risk: High Risk Safety Measures: Call light Within Reach, Bed Alarm Zone 3, Side Rails Side Rails x3, Bed position Low and Locked. Fall Precautions: Yellow Socks Yellow Gown Door Sign Patient Fall Education Report given to AMELIE Mandel.
--- NOTE | 2020-04-25 20:35 | NUR ---
NURSE NOTES: Received report from AMELIE Mitchell. Pt is lying in bed, asleep,in no apparent respiratory and cardiac distress. SR on the residential monitor. On Vent-trach with prescribed setting, appears to be tolerating vent setting, saturating @ 99%. With G-tube is intact and patent and running Nepro 50cc, no residual noted. Pt is anuric. Periperal IV in R AC is intact and patent. Bed is locked and in lowest position, bed alarm on, call light within reach. Will continue to monitor pt. Will continue with the plan of care.
[2020-04-25] MEDS: Atorvastatin 20mg tab ORAL SCH (21:39)
[2020-04-26] VITALS: BP 126/95
--- NOTE | 2020-04-26 02:00 | NUR ---
NURSE NOTES: Sponge bath give, oral care provided. Kept clean and dry. Will continue to monitor
[2020-04-26 04:00] VITALS: BP 135/73
[2020-04-26 06:55] LABS: BASOPHILS % (AUTO) 0.9 % (0.0-2.0); EOSINOPHILS % (AUTO) 1.9 % (0.0-3.0); HEMATOCRIT 29.1 % (42.0-52.0); HEMOGLOBIN 8.5 G/DL (14.2-18.0); LYMPHOCYTES % (AUTO) 8.9 % (20.0-45.0); MEAN CORPUSCULAR VOLUME 100 FL (80-99); MONOCYTES % (AUTO) 8.5 % (1.0-10.0); NEUTROPHILS % (AUTO) 79.7 % (45.0-75.0); PLATELET COUNT 124 K/UL (150-450); RED BLOOD COUNT 2.91 M/UL (4.70-6.10); RED CELL DISTRIBUTION WIDTH 16.7 % (11.6-14.8); WHITE BLOOD COUNT 8.6 K/UL (4.8-10.8)
--- NOTE | 2020-04-26 07:29 | NUR ---
NURSE HAND-OFF REPORT: Important Events on Shift: Patient Status: Stable Diet: Nepro @50 cc Pending Orders: Pending Results/Labs: Pending MD notification: Latest Vital Signs: Temperature 98.1 , Pulse 73 , B/P 135 /73 , Respiratory Rate 21 , O2 SAT 100 , Mechanical Ventilator, O2 Flow Rate . Vital Sign Comment: EKG Rhythm: Sinus Rhythm Rhythm change?: N MD Notified?: - MD Response: Latest Seay Fall Score: 95 Fall Risk: High Risk Safety Measures: Call light Within Reach, Bed Alarm Zone 3, Side Rails Side Rails x3, Bed position Low and Locked. Fall Precautions: Yellow Socks Yellow Gown Door Sign Patient Fall Education Report given to AMELIE Guzman .
[2020-04-26 07:33] LABS: ALANINE AMINOTRANSFERASE 25 U/L (12-78); ALBUMIN 2.6 G/DL (3.4-5.0); ALBUMIN/GLOBULIN RATIO 0.5 (1.0-2.7); ALKALINE PHOSPHATASE 340 U/L (46-116); ANION GAP 13 mmol/L (5-15); ASPARTATE AMINO TRANSFERASE 21 U/L (15-37); BILIRUBIN,TOTAL 0.6 MG/DL (0.2-1.0); BLOOD UREA NITROGEN 86 mg/dL (7-18); CALCIUM 8.3 MG/DL (8.5-10.1); CARBON DIOXIDE 26 MMOL/L (21-32); CHLORIDE 96 MMOL/L (98-107); CHOLESTEROL 52 MG/DL (< 200); CREATININE 3.7 MG/DL (0.55-1.30); HDL CHOLESTEROL 31 MG/DL (40-60); PHOSPHORUS 2.9 MG/DL (2.5-4.9); SODIUM 134 MMOL/L (136-145); TRIGLYCERIDES 38 MG/DL (30-150)
[2020-04-26 08:00] VITALS: BP 111/66
--- NOTE | 2020-04-26 08:34 | NUR ---
DISCHARGE PLANNING DISCHARGE ORDER NOTED CLINICALS FAXED TO [facility] T: [phone] F: [phone] TIER IN WILL F/U FOR BED AVAILABILITY ON A MONDAY
[2020-04-26] MEDS: Nephrovite tab (Rena-Vite) ORAL SCH (08:47)
[2020-04-26] MEDS: Aspirin Baby 81mg ORAL SCH (08:47)
[2020-04-26] MEDS: Renvela 800mg Pkt GT SCH ×2 (08:48→13:34)
[2020-04-26] MEDS: Metoprolol Tartrate 50mg tab ORAL SCH (08:49)
[2020-04-26] MEDS: Fleet's Enema 133ml RECTAL SCH (09:14)
[2020-04-26] MEDS: Heparin 5000 units/ml inj SUBQ SCH (09:16)
--- NOTE | 2020-04-26 10:34 | Hematology/Onc Progress Note ---
Assessment/Plan Assessment/Plan Assessment and Recs # Anemia due to likely chronic disease, ongoing, this is the first time he has been here --> anemia panel to order for downtrending hgb --> hgb 8.9-->9.4->8.4 --> consider iron / epogen after anemia panel returns --> smear has been noted, no hemolysis # Thrombocytopenia - potential causes multifactorial, evaluate liver and viral etiologies to begin, also could be related to underlying medications patient has received. --> Hep panel and HIV ordered --> US abd to evaluate for cirrhosis and hsm ordered --> Peripheral smear ordered to evaluate for blasts /schistocytes --> abx and other meds have been reviewed --> ok for ppx if plt >50k w/ either heparin or lovenox --> plt 124 # Coagulopathy ongoing, ptt and inr elevated --> vitamin k given, as permacath to be removed --> get mixing study --> trend prn # Chronic respiratory failure --> per pulm --> vent + # End stage renal disease on dialysis --> Complications, dialysis, catheter,replacement as needed --> surg eval --> per renal # Right lung infection --> repeat cxr now # Gangrenous toe, per surg # Dvt ppx heparins q Appreciate consultation and patty RN Subjective Constitutional: Denies: no symptoms, chills, fever, malaise, weakness, other HEENT: Denies: no symptoms, eye pain, blurred vision, tearing, double vision, ear pain, ear discharge, nose pain, nose congestion, throat pain, throat swelling, mouth pain, mouth swelling, other Cardiovascular: Denies: no symptoms, chest pain, edema, irregular heart rate, lightheadedness, palpitations, syncope, other Respiratory: Denies: no symptoms, cough, shortness of breath, SOB with excerti on, SOB at rest, sputum, wheezing, other Gastrointestinal/Abdominal: Denies: no symptoms, abdomen distended, abdominal pain, black stools, tarry stools, blood in stool, constipated, diarrhea, difficulty swallowing, nausea, poor appetite, poor fluid intake, rectal bleeding, vomiting, other Genitourinary: Denies: no symptoms, burning, discharge, frequency, flank pain, hematuria, incontinence, pain, urgency, other Neurologic/Psychiatric: Denies: no symptoms, anxiety, depressed, emotional problems, headache, numbness, paresthesia, pre-existing deficit, seizure, tingling, tremors, weakness, other Hematologic/Lymphatic: Denies: no symptoms, anemia, easy bleeding, easy bruising, adenopathy, other Allergies: Coded Allergies: No Known Allergies (Unverified , 04/22/20) Subjective 04/24 meds noted, dialysis catheter is functional, no bleeding 04/26 on gtube, anuric, meds noted, labs reviewed hgb 8.5, plt 124 Objective Objective Current Medications Medications (Trade) Dose Ordered Sig/Titus Route PRN Reason Start Time Stop Time Status Last Admin Dose Admin Acetaminophen (Tylenol) 325 mg Q4H PRN ORAL Mild Pain (Pain Scale 1-3) 04/23/20 03:00 05/23/20 02:59 04/26/20 00:15 Acetaminophen/ Hydrocodone Bitart ([place] 5/325) 1 tab Q4H PRN ORAL pain 4-10 04/23/20 03:00 04/30/20 02:59 Aspirin (ASA) 81 mg DAILY ORAL 04/23/20 09:00 06/07/20 08:59 04/26/20 08:47 Atorvastatin Calcium (Lipitor) 20 mg BEDTIME ORAL 04/24/20 21:00 07/22/20 20:59 04/25/20 21:39 Bisacodyl (Dulcolax) 10 mg PRN RECTAL 04/23/20 03:00 07/22/20 02:59 Gabapentin (Neurontin) 100 mg THREE TIMES A DAY ORAL 04/23/20 09:00 05/23/20 08:59 04/26/20 08:47 Heparin Sodium (Porcine) (Heparin 5000 units/ml) 5,000 units EVERY 12 HOURS SUBQ 04/23/20 09:00 06/07/20 08:59 04/26/20 09:16 Heparin Sodium/ Sodium Chloride (Heparin 1000 units/500ml Premix) 1,000 unit ONCE PRN IV radiology procedure 04/24/20 15:00 04/26/20 14:59 Lansoprazole (Prevacid) 30 mg BID GT 04/25/20 10:30 05/25/20 10:29 04/26/20 08:47 Lidocaine/ Epinephrine (Lidocaine 2%/ Epi 20ml) 20 ml ONCE PRN INJ radiology procedure 04/24/20 15:00 04/26/20 14:59 Metoprolol Tartrate (Lopressor) 50 mg EVERY 12 HOURS ORAL 04/23/20 09:00 07/22/20 08:59 04/26/20 08:49 Sevelamer Carbonate (Renvela) 1,600 mg THREE TIMES A DAY GT 04/25/20 13:00 07/22/20 08:59 04/26/20 08:48 Sodium Phosphate (Fleet's Sodium Phosl Enema) 133 ml DAILY RECTAL 04/23/20 09:00 05/23/20 08:59 04/26/20 09:14 Vitamin B Complex/ Vit C/Folic Acid (Nephrovite) 1 tab DAILY ORAL 04/23/20 09:00 05/23/20 08:59 04/26/20 08:47 Last 24 Hour Vital Signs Date Time Temp Pulse Resp B/P (MAP) Pulse Ox O2 Delivery O2 Flow Rate FiO2 04/26/20 08:51 70 04/26/20 08:49 65 135/73 04/26/20 08:00 Mechanical Ventilator 04/26/20 08:00 98.4 79 20 111/66 (81) 100 04/26/20 08:00 40 04/26/20 07:15 65 21 40 04/26/20 04:00 Mechanical Ventilator 04/26/20 04:00 98.1 73 21 135/73 (93) 100 04/26/20 04:00 40 04/26/20 03:47 75 04/26/20 03:17 62 22 40 04/26/20 00:45 98.8 04/26/20 00:00 98.8 80 19 126/95 (105) 99 04/26/20 00:00 Mechanical Ventilator 04/25/20 22:41 56 22 40 04/25/20 21:45 80 157/80 04/25/20 20:32 74 04/25/20 20:00 Mechanical Ventilator 04/25/20 20:00 98.2 80 20 157/80 (105) 99 04/25/20 20:00 40 04/25/20 19:03 69 23 40 04/25/20 16:00 98.7 63 21 115/65 (82) 99 04/25/20 16:00 62 04/25/20 16:00 40 04/25/20 16:00 Mechanical Ventilator 04/25/20 15:20 68 20 40 04/25/20 12:00 61 04/25/20 12:00 Mechanical Ventilator 04/25/20 12:00 40 04/25/20 12:00 99.0 86 20 105/69 (81) 99 04/25/20 11:10 65 20 40 04/25/20 08:46 83 116/78 04/25/20 08:00 40 04/25/20 08:00 98.9 83 20 116/78 (91) 99 04/25/20 08:00 Mechanical Ventilator 04/25/20 08:00 67 04/25/20 07:05 68 20 40 04/25/20 04:00 98.7 69 20 134/65 (88) 100 04/25/20 04:00 Mechanical Ventilator 04/25/20 04:00 66 04/25/20 04:00 40 04/25/20 03:20 66 20 40 04/25/20 00:00 Mechanical Ventilator 04/25/20 00:00 98.2 66 20 122/74 (90) 100 04/25/20 00:00 65 04/25/20 00:00 40 04/24/20 23:20 65 20 40 04/24/20 21:00 66 132/74 04/24/20 20:00 62 04/24/20 20:00 Mechanical Ventilator 04/24/20 20:00 97.5 66 20 132/74 (93) 100 04/24/20 20:00 40 04/24/20 18:46 59 20 40 04/24/20 17:05 61 20 40 04/24/20 16:00 59 04/24/20 16:00 Mechanical Ventilator 04/24/20 16:00 40 04/24/20 15:35 97.9 70 20 141/88 (105) 100 04/24/20 15:07 65 20 40 04/24/20 15:00 67 20 04/24/20 13:20 61 20 40 04/24/20 12:00 40 04/24/20 12:00 Mechanical Ventilator 04/24/20 12:00 98.1 61 20 132/74 (93) 100 04/24/20 12:00 59 04/24/20 11:05 75 20 40 Intake and Output 04/25/20 04/26/20 19:00 07:00 Intake Total 540 ml 700 ml Output Total 1000 ml Balance 540 ml -300 ml Intake Free Water 60 ml 150 ml Tube Feeding 480 ml 550 ml Output Hemodialysis UF 1000 ml # Bowel Movements 1 Labs Test 04/24/20 02:50 04/25/20 04:00 04/26/20 06:22 White Blood Count 7.8 K/UL (4.8-10.8) 8.2 K/UL (4.8-10.8) 8.6 K/UL (4.8-10.8) Red Blood Count 2.84 M/UL (4.70-6.10) 3.02 M/UL (4.70-6.10) 2.91 M/UL (4.70-6.10) Hemoglobin 8.4 G/DL (14.2-18.0) 8.8 G/DL (14.2-18.0) 8.5 G/DL (14.2-18.0) Hematocrit 28.5 % (42.0-52.0) 30.1 % (42.0-52.0) 29.1 % (42.0-52.0) Mean Corpuscular Volume 100 FL (80-99) 100 FL (80-99) 100 FL (80-99) Mean Corpuscular Hemoglobin 29.6 PG (27.0-31.0) 29.3 PG (27.0-31.0) 29.1 PG (27.0-31.0) Mean Corpuscular Hemoglobin Concent 29.5 G/DL (32.0-36.0) 29.4 G/DL (32.0-36.0) 29.1 G/DL (32.0-36.0) Red Cell Distribution Width 17.3 % (11.6-14.8) 16.6 % (11.6-14.8) 16.7 % (11.6-14.8) Platelet Count 154 K/UL (150-450) 146 K/UL (150-450) 124 K/UL (150-450) Mean Platelet Volume 6.6 FL (6.5-10.1) 6.5 FL (6.5-10.1) 7.0 FL (6.5-10.1) Neutrophils (%) (Auto) 75.1 % (45.0-75.0) 78.2 % (45.0-75.0) 79.7 % (45.0-75.0) Lymphocytes (%) (Auto) 13.3 % (20.0-45.0) 10.7 % (20.0-45.0) 8.9 % (20.0-45.0) Monocytes (%) (Auto) 9.4 % (1.0-10.0) 9.2 % (1.0-10.0) 8.5 % (1.0-10.0) Eosinophils (%) (Auto) 1.1 % (0.0-3.0) 1.2 % (0.0-3.0) 1.9 % (0.0-3.0) Basophils (%) (Auto) 1.0 % (0.0-2.0) 0.7 % (0.0-2.0) 0.9 % (0.0-2.0) Prothrombin Time 13.8 SEC (9.30-11.50) Prothromb Time International Ratio 1.3 (0.9-1.1) Activated Partial Thromboplast Time 36 SEC (23-33) Sodium Level 134 MMOL/L (136-145) 131 MMOL/L (136-145) 134 MMOL/L (136-145) Potassium Level 4.5 MMOL/L (3.5-5.1) 4.9 MMOL/L (3.5-5.1) 4.0 MMOL/L (3.5-5.1) Chloride Level 96 MMOL/L (98-107) 93 MMOL/L (98-107) 96 MMOL/L (98-107) Carbon Dioxide Level 23 MMOL/L (21-32) 24 MMOL/L (21-32) 26 MMOL/L (21-32) Anion Gap 15 mmol/L (5-15) 14 mmol/L (5-15) 13 mmol/L (5-15) Blood Urea Nitrogen 161 mg/dL (7-18) 164 mg/dL (7-18) 86 mg/dL (7-18) Creatinine 5.7 MG/DL (0.55-1.30) 6.0 MG/DL (0.55-1.30) 3.7 MG/DL (0.55-1.30) Estimat Glomerular Filtration Rate 10.6 mL/min (>60) 10.0 mL/min (>60) 17.5 mL/min (>60) Glucose Level 104 MG/DL (74-106) 112 MG/DL (74-106) 92 MG/DL (74-106) Calcium Level 9.9 MG/DL (8.5-10.1) 10.3 MG/DL (8.5-10.1) 8.3 MG/DL (8.5-10.1) Hemoglobin A1c 4.7 % (4.3-6.0) Uric Acid 5.9 MG/DL (2.6-7.2) 3.1 MG/DL (2.6-7.2) Phosphorus Level 3.8 MG/DL (2.5-4.9) 2.9 MG/DL (2.5-4.9) Total Bilirubin 0.6 MG/DL (0.2-1.0) 0.6 MG/DL (0.2-1.0) Gamma Glutamyl Transpeptidase 131 U/L (5-85) Aspartate Amino Transf (AST/SGOT) 31 U/L (15-37) 21 U/L (15-37) Alanine Aminotransferase (ALT/SGPT) 31 U/L (12-78) 25 U/L (12-78) Alkaline Phosphatase 316 U/L (46-116) 340 U/L (46-116) Total Creatine Kinase 74 U/L (26-308) Total Protein 7.5 G/DL (6.4-8.2) 7.5 G/DL (6.4-8.2) Albumin 2.4 G/DL (3.4-5.0) 2.6 G/DL (3.4-5.0) Globulin 5.1 g/dL 4.9 g/dL Albumin/Globulin Ratio 0.5 (1.0-2.7) 0.5 (1.0-2.7) Magnesium Level 2.9 MG/DL (1.8-2.4) C-Reactive Protein, Quantitative 9.2 mg/dL (0.00-0.90) Pro-B-Type Natriuretic Peptide > 27437 pg/mL (0-125) Triglycerides Level 38 MG/DL (30-150) Cholesterol Level 52 MG/DL (< 200) LDL Cholesterol 17 mg/dL (<100) HDL Cholesterol 31 MG/DL (40-60) Cholesterol/HDL Ratio 1.7 (3.3-4.4) Lipase 115 U/L (73-393) Thyroid Stimulating Hormone (TSH) 3.450 uiU/mL (0.358-3.740) Height (Feet): 5 Height (Inches): 5.00 Weight (Pounds): 120 Objective Physical Exam Vitals: reviewed, normal General Appearance: no apparent distress, other - Nonverbal Head: normocephalic, atraumatic: no angioedema, normal voice Neck: full range of motion, supple/symm/no masses Respiratory: chest non-tender, lungs clear, +vent permacath to left chest Cardiovascular: regular rate, rhythm, no edema Gastrointestinal: normal bowel sounds, non tender, soft, nd Rectal: deferred Genitourinary: normal inspection, no CVA tenderness Musculoskeletal: back normal, normal range of motion, non-tender Neurologic: other - Nonverbal Psychiatric: other - Nonverbal Lymphatic: no adenopathy Nick Whiteside MD Apr 26, 2020 10:34
[2020-04-26 12:00] VITALS: BP 105/82
--- NOTE | 2020-04-26 12:06 | Nephrology Progress Note ---
Assessment/Plan Problem List: (1) End stage renal disease on dialysis (2) Anemia in chronic kidney disease (CKD) (3) Hypercalcemia Assessment ESRD Anemia Chronic respiratory failure Hypercalcemia Plan April 26: Patient was dialyzed yesterday. Today's labs reviewed. Stable from renal standpoint of view. April 25: Labs reviewed Will order dialysis today Will adjust abnormal electrolytes and chemistries Per orders Subjective ROS Limited/Unobtainable: Yes Objective Objective Last 24 Hour Vital Signs Date Time Temp Pulse Resp B/P (MAP) Pulse Ox O2 Delivery O2 Flow Rate FiO2 04/26/20 10:56 68 22 40 04/26/20 08:51 70 04/26/20 08:49 65 135/73 04/26/20 08:00 Mechanical Ventilator 04/26/20 08:00 98.4 79 20 111/66 (81) 100 04/26/20 08:00 40 04/26/20 07:15 65 21 40 04/26/20 04:00 Mechanical Ventilator 04/26/20 04:00 98.1 73 21 135/73 (93) 100 04/26/20 04:00 40 04/26/20 03:47 75 04/26/20 03:17 62 22 40 04/26/20 00:45 98.8 04/26/20 00:00 98.8 80 19 126/95 (105) 99 04/26/20 00:00 Mechanical Ventilator 04/25/20 22:41 56 22 40 04/25/20 21:45 80 157/80 04/25/20 20:32 74 04/25/20 20:00 Mechanical Ventilator 04/25/20 20:00 98.2 80 20 157/80 (105) 99 04/25/20 20:00 40 04/25/20 19:03 69 23 40 04/25/20 16:00 98.7 63 21 115/65 (82) 99 04/25/20 16:00 62 04/25/20 16:00 40 04/25/20 16:00 Mechanical Ventilator 04/25/20 15:20 68 20 40 Intake and Output 04/25/20 04/26/20 19:00 07:00 Intake Total 540 ml 700 ml Output Total 1000 ml Balance 540 ml -300 ml Intake Free Water 60 ml 150 ml Tube Feeding 480 ml 550 ml Output Hemodialysis UF 1000 ml # Bowel Movements 1 Current Medications Medications (Trade) Dose Ordered Sig/Titus Route PRN Reason Start Time Stop Time Status Last Admin Dose Admin Acetaminophen (Tylenol) 325 mg Q4H PRN ORAL Mild Pain (Pain Scale 1-3) 04/23/20 03:00 05/23/20 02:59 04/26/20 00:15 Acetaminophen/ Hydrocodone Bitart ([place] 5/325) 1 tab Q4H PRN ORAL pain 4-10 04/23/20 03:00 04/30/20 02:59 Aspirin (ASA) 81 mg DAILY ORAL 04/23/20 09:00 06/07/20 08:59 04/26/20 08:47 Atorvastatin Calcium (Lipitor) 20 mg BEDTIME ORAL 04/24/20 21:00 07/22/20 20:59 04/25/20 21:39 Bisacodyl (Dulcolax) 10 mg PRN RECTAL 04/23/20 03:00 07/22/20 02:59 Gabapentin (Neurontin) 100 mg THREE TIMES A DAY ORAL 04/23/20 09:00 05/23/20 08:59 04/26/20 08:47 Heparin Sodium (Porcine) (Heparin 5000 units/ml) 5,000 units EVERY 12 HOURS SUBQ 04/23/20 09:00 06/07/20 08:59 04/26/20 09:16 Heparin Sodium/ Sodium Chloride (Heparin 1000 units/500ml Premix) 1,000 unit ONCE PRN IV radiology procedure 04/24/20 15:00 04/26/20 14:59 Lansoprazole (Prevacid) 30 mg BID GT 04/25/20 10:30 05/25/20 10:29 04/26/20 08:47 Lidocaine/ Epinephrine (Lidocaine 2%/ Epi 20ml) 20 ml ONCE PRN INJ radiology procedure 04/24/20 15:00 04/26/20 14:59 Metoprolol Tartrate (Lopressor) 50 mg EVERY 12 HOURS ORAL 04/23/20 09:00 07/22/20 08:59 04/26/20 08:49 Sevelamer Carbonate (Renvela) 1,600 mg THREE TIMES A DAY GT 04/25/20 13:00 07/22/20 08:59 04/26/20 08:48 Sodium Phosphate (Fleet's Sodium Phosl Enema) 133 ml DAILY RECTAL 04/23/20 09:00 05/23/20 08:59 04/26/20 09:14 Vitamin B Complex/ Vit C/Folic Acid (Nephrovite) 1 tab DAILY ORAL 04/23/20 09:00 05/23/20 08:59 04/26/20 08:47 Laboratory Tests 04/26/20 06:22: White Blood Count 8.6, Red Blood Count 2.91L, Hemoglobin 8.5L, Hematocrit 29.1L, Mean Corpuscular Volume 100H, Mean Corpuscular Hemoglobin 29.1, Mean Corpuscular Hemoglobin Concent 29.1L, Red Cell Distribution Width 16.7H, Platelet Count 124L , Mean Platelet Volume 7.0, Neutrophils (%) (Auto) 79.7H, Lymphocytes (%) (Auto) 8.9L, Monocytes (%) (Auto) 8.5, Eosinophils (%) (Auto) 1.9, Basophils (%) (Auto) 0.9, Sodium Level 134L, Potassium Level 4.0, Chloride Level 96L, Carbon Dioxide Level 26, Anion Gap 13, Blood Urea Nitrogen 86#H, Creatinine 3.7H, Estimat Glomerular Filtration Rate 17.5, Glucose Level 92, Uric Acid 3.1, Calcium Level 8.3L, Phosphorus Level 2.9, Magnesium Level 2.9H, Total Bilirubin 0.6, Aspartate Amino Transf (AST/SGOT) 21, Alanine Aminotransferase (ALT/SGPT) 25, Alkaline Phosphatase 340H, C-Reactive Protein, Quantitative 9.2H, Pro-B-Type Natriuretic Peptide > 54361U, Total Protein 7.5, Albumin 2.6L, Globulin 4.9, Albumin/Globulin Ratio 0.5L, Triglycerides Level 38, Cholesterol Level 52, LDL Cholesterol 17, HDL Cholesterol 31L, Cholesterol/HDL Ratio 1.7L, Lipase 115, Thyroid Stimulating Hormone (TSH) 3.450, HIV (1&2) Antibody Rapid Negative Height (Feet): 5 Height (Inches): 5.00 Weight (Pounds): 120 General Appearance: no apparent distress EENT: other - Trach to vent Cardiovascular: normal rate Respiratory/Chest: decreased breath sounds Abdomen: distended Maurilio King MD Apr 26, 2020 12:06
--- NOTE | 2020-04-26 13:58 | NUR ---
[employer] FAXED TO [facility] [phone]
[2020-04-26] MEDS ORDERED: Tubing IV Secondary IV ONE (14:18)
--- NOTE | 2020-04-26 14:19 | NUR ---
NURSE NOTES: report given to lon kerr of [facility]. awaiting filler picker at 1600.
--- NOTE | 2020-04-26 17:13 | NUR ---
NURSE NOTES: patient is being discharged back to [facility]. Gave packet and report to AMELIE Johnson from [facility]. Patient is in stable condition not in acute distress, court recording monitor off, IV lines removed and bleeding stopped. No belongings found. patient left facility at @1715.
--- NOTE | 2020-04-26 18:08 | Surgery Progress Note ---
Surgery Progress Note Subjective Additional Comments late entry planned for d/c today lines tubes and dressings checked, secured and changed okay to d/c improved Objective Last 24 Hour Vital Signs Date Time Temp Pulse Resp B/P (MAP) Pulse Ox O2 Delivery O2 Flow Rate FiO2 04/26/20 16:00 40 04/26/20 16:00 67 04/26/20 16:00 Mechanical Ventilator 04/26/20 15:24 85 22 40 04/26/20 12:00 40 04/26/20 12:00 73 04/26/20 12:00 97.9 85 23 105/82 (90) 100 04/26/20 12:00 Mechanical Ventilator 04/26/20 10:56 68 22 40 04/26/20 08:51 70 04/26/20 08:49 65 135/73 04/26/20 08:00 Mechanical Ventilator 04/26/20 08:00 98.4 79 20 111/66 (81) 100 04/26/20 08:00 40 04/26/20 07:15 65 21 40 04/26/20 04:00 Mechanical Ventilator 04/26/20 04:00 98.1 73 21 135/73 (93) 100 04/26/20 04:00 40 04/26/20 03:47 75 04/26/20 03:17 62 22 40 04/26/20 00:45 98.8 04/26/20 00:00 98.8 80 19 126/95 (105) 99 04/26/20 00:00 Mechanical Ventilator 04/25/20 22:41 56 22 40 04/25/20 21:45 80 157/80 04/25/20 20:32 74 04/25/20 20:00 Mechanical Ventilator 04/25/20 20:00 98.2 80 20 157/80 (105) 99 04/25/20 20:00 40 04/25/20 19:03 69 23 40 I&O Intake and Output 04/25/20 04/26/20 19:00 07:00 Intake Total 540 ml 700 ml Output Total 1000 ml Balance 540 ml -300 ml Intake Free Water 60 ml 150 ml Tube Feeding 480 ml 550 ml Output Hemodialysis UF 1000 ml # Bowel Movements 1 Dressing: saturated Cardiovascular: RSR Respiratory: decreased breath sounds Abdomen: non-tender, present bowel sounds Extremities: no edema, no tenderness, no cyanosis Laboratory Tests Test 04/26/20 06:22 White Blood Count 8.6 K/UL (4.8-10.8) Red Blood Count 2.91 M/UL (4.70-6.10) L Hemoglobin 8.5 G/DL (14.2-18.0) L Hematocrit 29.1 % (42.0-52.0) L Mean Corpuscular Volume 100 FL (80-99) H Mean Corpuscular Hemoglobin 29.1 PG (27.0-31.0) Mean Corpuscular Hemoglobin Concent 29.1 G/DL (32.0-36.0) L Red Cell Distribution Width 16.7 % (11.6-14.8) H Platelet Count 124 K/UL (150-450) L Mean Platelet Volume 7.0 FL (6.5-10.1) Neutrophils (%) (Auto) 79.7 % (45.0-75.0) H Lymphocytes (%) (Auto) 8.9 % (20.0-45.0) L Monocytes (%) (Auto) 8.5 % (1.0-10.0) Eosinophils (%) (Auto) 1.9 % (0.0-3.0) Basophils (%) (Auto) 0.9 % (0.0-2.0) Sodium Level 134 MMOL/L (136-145) L Potassium Level 4.0 MMOL/L (3.5-5.1) Chloride Level 96 MMOL/L (98-107) L Carbon Dioxide Level 26 MMOL/L (21-32) Anion Gap 13 mmol/L (5-15) Blood Urea Nitrogen 86 mg/dL (7-18) #H Creatinine 3.7 MG/DL (0.55-1.30) H Estimat Glomerular Filtration Rate 17.5 mL/min (>60) Glucose Level 92 MG/DL (74-106) Uric Acid 3.1 MG/DL (2.6-7.2) Calcium Level 8.3 MG/DL (8.5-10.1) L Phosphorus Level 2.9 MG/DL (2.5-4.9) Magnesium Level 2.9 MG/DL (1.8-2.4) H Total Bilirubin 0.6 MG/DL (0.2-1.0) Aspartate Amino Transf (AST/SGOT) 21 U/L (15-37) Alanine Aminotransferase (ALT/SGPT) 25 U/L (12-78) Alkaline Phosphatase 340 U/L (46-116) H C-Reactive Protein, Quantitative 9.2 mg/dL (0.00-0.90) H Pro-B-Type Natriuretic Peptide > 95528 pg/mL (0-125) H Total Protein 7.5 G/DL (6.4-8.2) Albumin 2.6 G/DL (3.4-5.0) L Globulin 4.9 g/dL Albumin/Globulin Ratio 0.5 (1.0-2.7) L Triglycerides Level 38 MG/DL (30-150) Cholesterol Level 52 MG/DL (< 200) LDL Cholesterol 17 mg/dL (<100) HDL Cholesterol 31 MG/DL (40-60) L Cholesterol/HDL Ratio 1.7 (3.3-4.4) L Lipase 115 U/L (73-393) Thyroid Stimulating Hormone (TSH) 3.450 uiU/mL (0.358-3.740) HIV (1&2) Antibody Rapid Negative (NEGATIVE) Plan Problems: (1) Ischemia of right lower extremity Assessment & Plan: 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 Heel ulcer identified as well. Foul-smelling. Fortunately this does not seem salvageable by any means given the extensive loss at the flap that has dehisced the exposed bone as well as the heel. Currently stable otherwise known chronic in nature not patient's acute problem. Will recommend that patient has a right BKA at some point given the current findings we will continue with local wound care tentatively. Patient identified to have a heel ulcer on the left side as well. (2) Decubitus ulcer, heel (3) Chronic respiratory failure (4) End stage renal disease on dialysis (5) Complications, dialysis, catheter, mechanical Assessment & Plan: Patient on hemodialysis left chest wall temporary hemodialysis catheter identified tunneled. The venous port was aspirated and flushed but unfortunately the arterial port were only flushed but would not aspirate. The catheter is not viable at this time no signs of infection. Labs noted patient undergo hemodialysis soon. We will plan for change of hemodialysis catheter soon. Strict aseptic technique was utilized, including hand washing, use of hat and mask, use of sterile gown and gloves, sterile ultrasound gel and probe cover, prepping of left chest skin and external portions of the indwelling catheter with 2% chlorhexidine solution, and application of full body sterile barrier over this area. Skin and subcutaneous soft tissues were infiltrated with 1% lidocaine. A hydrophilic guidewire was advanced through the catheter under direct fluoroscopic guidance into the inferior vena cava. The subcutaneous portion of the catheter was blunt- dissected free, than catheter easily removed over the guidewire. A new 14.5 Cymro, 23 cm tip to cuff BioFlow tunneled dialysis catheter was advanced over the guidewire under direct fluoroscopic guidance into the superior vena cava. Guidewire was removed. Heparin 1000 units were instilled into each catheter port. Final image was obtained. Catheter was secured to the skin with adhesive dressing. The patient tolerated the procedure well without immediate complications. Total fluoroscopy time: 21.9 seconds. Total fluoroscopy dose: 2.77 mGy. Total number of fluoroscopic images obtained: One. Patient monitored throughout the procedure by a dedicated nurse. Findings: Final image demonstrates tip of the new dialysis catheter at the level of the SVC-right atrial junction. Both ports aspirate and flush freely. IMPRESSION: Exchange of tunneled dialysis catheter via existing left internal jugular vein access. New catheter tested and noted to be working well. Catheter cleared for use. Dany Wilder Apr 26, 2020 18:08
--- NOTE | 2020-04-26 18:30 | NUR ---
NURSE NOTES: family member larry cortes [phone] was informed of patients discharge going back [facility].
--- NOTE | 2020-04-27 08:31 | Discharge Summary ---
Discharge Summary Discharge Summary _ DATE OF ADMISSION: 04/23/2020 04/26/2020 DATE OF DISCHARGE: 04/26/2020 DISCHARGED BY: Dr. Warren REASON FOR ADMISSION: 50 years old male, [facility] of [facility], with past medical history of end-stage renal disease, on hemodialysis, diabetes mellitus, chronic respiratory failure, ventilator dependent with tracheostomy status, dysphagia, feeding by G-tube, presented due to malfunctioning hemodialysis catheter. Last hemodialysis was not completed due to malfunctioning catheter. No reported fever or chills. Upon evaluation vital signs were stable. Laboratory work-up revealed no leukocytosis, hemoglobin 8.9, hematocrit 29.5, platelet count 170. Sodium 134, potassium 4.6. BUN 139, creatinine 4.9. Glucose 98. EKG revealed sinus rhythm, no acute ischemic changes. Chest x-ray revealed haziness in the right lung rios, permacath in place. Surgeon contacted. Patient was admitted for further management CONSULTANTS: snow technician Dr. King oceanography teacher/oncologist Dr. Whiteside surgery Dr. Wilder [facility] COURSE: Patient admitted to [facility]. Ventilator support and pulmonary toilet provided. No evidence of respiratory distress on current settings. Journeyman Machinist and general surgeon followed. Patient undergone exchange of the tunneled dialysis catheter via existing left internal jugular vein access. New catheter tested and noted to be working well. Catheter was cleared for use. Subsequently hemodialysis was arranged as per snow technician with close monitoring of volumes, renal parameters and electrolytes. Antiplatelet therapy with aspirin and statin provided. DVT and GI prophylaxis provided. Blood pressure was managed with beta-tamara. Renvela continued. Hemoglobin and hematocrit were closely monitored; and remained at the baseline Prior to discharge hemoglobin 8.5, hematocrit 29.1. Anemia work-up was consistent with anemia of chronic disease. Prior to discharge BUN 86 creatinine 3.7. Rapid HIV test was negative. Hepatitis B surface antigen was negative. Blood sugar was closely monitored , remained stable. Patient noted to have prior right TMA Surgeon identified first ray of metatarsal head with palpable necrosis of the flap that had dehisced along with foul-smelling heel ulcer . At this time patient appeared to be stable and problem appeared to be chronic in nature, not an acute problem for hospitalization. Wound care provided as per surgeon recommendation. However the leg did not seem to be salvageable , per surgeon opinion, giving extensive loss of the flap and dehiscence as well as the exposed bone and heel ulcer . Surgeon recommended to consider a right BKA at some point , given current findings and continue with local wound care at the facility. Patient clinically stabilized and was ready for discharge. FINAL DIAGNOSES: Complication, dialysis, catheter, mechanical Ischemia right lower extremity Decubitus ulcer, heel-POA End-stage renal disease on hemodialysis Chronic respiratory failure; ventilator dependent , tracheostomy status Anemia of chronic kidney disease Diabetes mellitus DISCHARGE MEDICATIONS: See Medication Reconciliation list. DISCHARGE INSTRUCTIONS: Patient was discharged to the [facility] facility. Follow up with medical doctor at the facility. I have been assigned to dictate discharge summary for this account. I was not involved in the patient's management. Lynnette Cuellar NP Apr 27, 2020 08:31
--- NOTE | 2020-04-27 11:32 | Diagnostic Imaging Report ---
Indication: Shortness of breath Technique: One view of the chest Comparison: none Findings: There is a large right pleural effusion. Hazy opacities likely represent combination of posteriorly layering pleural fluid and atelectasis. The heart is enlarged. There is tracheostomy. There is a left chest tunneled dialysis catheter. The left lung and pleural space are largely clear except for some atelectatic changes at the left lung base. Impression: Large right pleural effusion. Likely underlying compressive parenchymal changes Cardiomegaly Other findings as noted
[2020-04-28 10:06] LABS: APTT 1:1NP MIX 60M INCUBATION 30.8 sec (22.9-30.2); APTT 1:1NP MIX CONTROL 30.1 sec (22.9-30.2)
--- NOTE | 2020-04-28 10:20 | NUR ---
INSURANCE DC SUMMARY FAXED TO [facility] [phone]
== END 2020-04-26 17:17 | DRG 466 ==
LOC: EDBD 20:38 → EMR 21:10 → ICU 23:13 → EDBEDREQ 23:20 → OBSVTOIN 04-23 03:08 → 2W 04-23 05:50
PROC: 5A1945Z Respiratory Ventilation, 24-96 Consecutive Hours (ICD-10-PCS; 2020-04-23)
PROC: 0J2SXYZ Change Other Device in Head and Neck Subcutaneous Tissue and Fascia, External Approach (ICD-10-PCS; principal; 2020-04-24)
PROC: 5A1D70Z Performance of Urinary Filtration, Intermittent, Less than 6 Hours Per Day (ICD-10-PCS; 2020-04-25)
DX: T82.49XA Other complication of vascular dialysis catheter, initial encounter (principal); I12.0 Hypertensive chronic kidney disease with stage 5 chronic kidney disease or end stage renal disease; N18.6 End stage renal disease; J96.10 Chronic respiratory failure, unspecified whether with hypoxia or hypercapnia; I69.398 Other sequelae of cerebral infarction; Z43.1 Encounter for attention to gastrostomy; I69.320 Aphasia following cerebral infarction; Y84.1 Kidney dialysis as the cause of abnormal reaction of the patient, or of later complication, without mention of misadventure at the time of the procedure; Z43.0 Encounter for attention to tracheostomy; R13.10 Dysphagia, unspecified; Z99.11 Dependence on respirator [ventilator] status; D63.1 Anemia in chronic kidney disease; J18.9 Pneumonia, unspecified organism; E11.22 Type 2 diabetes mellitus with diabetic chronic kidney disease; L89.609 Pressure ulcer of unspecified heel, unspecified stage; Z99.2 Dependence on renal dialysis; Z79.82 Long term (current) use of aspirin; R79.1 Abnormal coagulation profile; I96 Gangrene, not elsewhere classified; E83.52 Hypercalcemia; D69.6 Thrombocytopenia, unspecified
CPT/HCPCS: 36415; 36558; 71045; 76000; 80048; 80053; 80061; 82550; 82607; 82728; 82746; 82977; 83036; 83540; 83550; 83605; 83690; 83735; 83880; 84100; 84443; 84484; 84550; 85007; 85025; 85044; 85060; 85610; 85730; 86140; 86703; 86706; 86850; 86900; 86901; 87040; 87081; 93005; 94002; 94003; 94664; 96365; 99285; U0002

== ENCOUNTER 2020-05-20 14:57 | Inpatient (IN) | payer OTHER ==
[2020-05-20] VITALS (8 sets, daily range): BP systolic 109–158; BP diastolic 39–88
[~2020-05-20] VITALS: Ht 167.6 cm; Wt 62.6 kg
[~2020-05-20 14:57] MED LIST: ACETAMINOPHEN325 M1 GT; ASPIRIN81 MG GT; CALCIUM ACETAT667 M1 GT; DULCOLAX10 MG RC; FLEET ENEMA133 ML RECTAL; GABAPENTIN100 MG GT; LIPITOR20 MG GT; METOPROLOL TART50 M1 GT; NEPHROVITE1 TAB GT; NORCO 5-325 TA1 EAC1 GT; OMEPRAZOLE20 M2 GT; RENVELA2.4 GM GT; VITAMIN C500 M1 GT; VITAMIN D3125 MCG GT
--- NOTE | 2020-05-20 15:02 | NUR ---
ED Nurse Note: pt LYLY [facility] from [facility] for a hgb of 7.2 from blood draw yesterday. EMS report that pt has had "mild" bleeding x3 days from his rectum and trach. pt is noted to have a trach and is vent dependent. pt also goes to dialysis on ,W,F, but missed yesterday. he was a perm-a-cath to the L upper chest. EMS report a (-) COVID test from 05/13
--- NOTE | 2020-05-20 15:15 | NUR ---
ED Nurse Note: pt is also noted to have a g-tube, there seems to be bleeding coming from his rectum, RT at pt bedside suctioned approximately 50cc of bright red blood from pt's trach. pt's R foot has a couple large draining pressure ulcers, yellow and white purulent matter and blood are draining from R foot
[2020-05-20 15:44] LABS: HEMATOCRIT 21.9 % (42.0-52.0); MEAN CORPUSCULAR VOLUME 95 FL (80-99); PLATELET COUNT 170 K/UL (150-450); RED BLOOD COUNT 2.29 M/UL (4.70-6.10); RED CELL DISTRIBUTION WIDTH 17.8 % (11.6-14.8); WHITE BLOOD COUNT 9.2 K/UL (4.8-10.8)
[2020-05-20 15:45] LABS: CALCIUM 9.6 MG/DL (8.5-10.1); CREATININE 3.7 MG/DL (0.55-1.30); POTASSIUM 4.5 MMOL/L (3.5-5.1)
[2020-05-20 15:52] LABS: ALBUMIN 2.3 G/DL (3.4-5.0); ALBUMIN/GLOBULIN RATIO 0.5 (1.0-2.7); BILIRUBIN,TOTAL 0.6 MG/DL (0.2-1.0)
[2020-05-20 16:00] LABS: INR 1.2 (0.9-1.1)
--- NOTE | 2020-05-20 16:37 | Diagnostic Imaging Report ---
Indication: Chest pain Technique: One view of the chest Comparison: 04/22/2020 Findings: Left chest tunneled dialysis catheter, tracheostomy again demonstrated. Right-sided pleural thickening versus fluid is probably unchanged. Hazy right lung opacity is probably due to the pleural fluid. Mild interstitial congestion possible, probably not significantly changed real. The heart is enlarged. There may be slight blunting of left costophrenic sulcus Impression: Unchanged right-sided pleural thickening versus fluid Mild interstitial congestion Possible small left pleural effusion
--- NOTE | 2020-05-20 17:52 | Emergency Room Report ---
History of Present Illness General Chief Complaint: General Complaint Source: Patient Present Illness HPI This patient presents from a custodial facility. The patient has multiple chronic medical problems. He has a history of respiratory failure and is ventilator dependent. He has a history of CVA and is quadriplegic. He also has a history of end-stage renal disease and is dialysis dependent. He underwent routine laboratory draw yesterday and was found to be anemic. There is no history of any specific bleeding although there was some report of the tracheostomy site with minimal oozing and a small amount of rectal bleeding. There are no other complaints. Allergies: Coded Allergies: No Known Allergies (Unverified , 04/22/20) COVID-19 Screening Contact w/high risk pt: No Experienced COVID-19 symptoms?: No COVID-19 Testing performed CROWNING HAMMER OPERATOR: No COVID-19 Screening: PUI COVID-19 Patient History Past Medical History: see triage record, DM, HTN, CT, CAD, GERD, CVA/TIA, renal disease, dialysis Past Surgical History: other - Tracheostomy Social History: Denies: smoking, alcohol use, drug use Reviewed Nursing Documentation: PMH: Agreed; PSxH: Agreed Nursing Documentation-PMH Past Medical History: No History, Except For Hx Cardiac Problems: Yes Hx Diabetes: Yes Hx Cancer: No Hx Gastrointestinal Problems: Yes Hx Dialysis: Yes Hx Neurological Problems: Yes Hx Dysphasia: Yes Review of Systems All Other Systems: negative except mentioned in HPI Physical Exam Vital Signs Date Time Temp Pulse Resp B/P (MAP) Pulse Ox O2 Delivery O2 Flow Rate FiO2 05/20/20 14:56 97.3 103 23 158/84 (108) 99 Mechanical Ventilator 05/20/20 15:00 40 Sp02 EP Interpretation: reviewed, normal General Appearance: no apparent distress, alert, GCS 15, non-toxic, cachetic, Chronically Ill Head: normocephalic, atraumatic Eyes: bilateral eye normal inspection ENT: hearing grossly normal Neck: full range of motion, tracheotomy - Trach in place/ventilated Respiratory: chest non-tender, lungs clear, normal breath sounds, no respiratory distress, no retraction, no accessory muscle use, speaking full sentences, other - ventilated Cardiovascular #1: regular rate, rhythm, no edema Gastrointestinal: normal bowel sounds, non tender, soft, non-distended, no guarding, no rebound, other - G-tube Rectal: deferred Musculoskeletal: non-tender, other - at baseline/quadraplegia Neurologic: alert, responsive, other - at baseline/quadraplegia Psychiatric: mood/affect normal Skin: no rash, Decubitus/Ulcer - See RN skin exam Medical Decision Making Diagnostic Impression: Primary Impression: Anemia Additional Impressions: Coagulopathy Chronic respiratory failure End stage renal disease on dialysis Anemia in chronic kidney disease (CKD) ER Course This patient has worsening anemia. The patient has chronic anemia. However, the patient's anemia is significantly worsening. He also has oozing around his tracheostomy and rectally. He will be admitted for further evaluation of coagulopathy and for dialysis and possible transfusion as indicated by further monitoring and further evaluation as an inpatient. This patient was evaluated in the context of the global COVID-19 pandemic, which necessitated consideration that the patient might be at risk for infection with the [id number] virus that causes COVID-19. Institutional protocols and algorithms that pertain to the evaluation of patients at risk for COVID-19 and the state of rapid change based on information released by multiple regulatory bodies including the CDC and federal and state organizations. These policies and algorithms were followed during the patient's care in the ED. Laboratory Tests Test 05/20/20 15:25 White Blood Count 9.2 K/UL (4.8-10.8) Red Blood Count 2.29 M/UL (4.70-6.10) L Hemoglobin 7.0 G/DL (14.2-18.0) L Hematocrit 21.9 % (42.0-52.0) L Mean Corpuscular Volume 95 FL (80-99) Mean Corpuscular Hemoglobin 28.9 PG (27.0-31.0) Mean Corpuscular Hemoglobin Concent 30.3 G/DL (32.0-36.0) L Red Cell Distribution Width 17.8 % (11.6-14.8) H Platelet Count 170 K/UL (150-450) Mean Platelet Volume 6.6 FL (6.5-10.1) Neutrophils (%) (Auto) % (45.0-75.0) Lymphocytes (%) (Auto) % (20.0-45.0) Monocytes (%) (Auto) % (1.0-10.0) Eosinophils (%) (Auto) % (0.0-3.0) Basophils (%) (Auto) % (0.0-2.0) Differential Total Cells Counted 100 Neutrophils % (Manual) 76 % (45-75) H Lymphocytes % (Manual) 11 % (20-45) L Monocytes % (Manual) 10 % (1-10) Eosinophils % (Manual) 3 % (0-3) Basophils % (Manual) 0 % (0-2) Band Neutrophils 0 % (0-8) Platelet Estimate Adequate Platelet Morphology Normal Hypochromasia 2+ Anisocytosis 2+ Prothrombin Time 13.3 SEC (9.30-11.50) H Prothrombin Time INR 1.2 (0.9-1.1) H Activated Partial Thromboplast Time 33 SEC (23-33) Sodium Level 137 MMOL/L (136-145) Potassium Level 4.5 MMOL/L (3.5-5.1) Chloride Level 97 MMOL/L (98-107) L Carbon Dioxide Level 31 MMOL/L (21-32) Anion Gap 9 mmol/L (5-15) Blood Urea Nitrogen 94 mg/dL (7-18) H Creatinine 3.7 MG/DL (0.55-1.30) H Estimated Glomerular Filtration Rate 17.5 mL/min (>60) Glucose Level 91 MG/DL (74-106) Calcium Level 9.6 MG/DL (8.5-10.1) Total Bilirubin 0.6 MG/DL (0.2-1.0) Aspartate Amino Transferase (AST) 18 U/L (15-37) Alanine Aminotransferase (ALT) 14 U/L (12-78) Alkaline Phosphatase 287 U/L (46-116) H Total Protein 7.4 G/DL (6.4-8.2) Albumin 2.3 G/DL (3.4-5.0) L Globulin 5.1 g/dL Albumin/Globulin Ratio 0.5 (1.0-2.7) L Microbiology Date/Time Source Procedure Growth Status 05/20/20 15:25 Nasopharynx SARS-CoV-2 RdRp Gene Assay - Final Complete EKG Diagnostic Results Rate: normal Rhythm: NSR ST Segments: no acute changes Other Impression RBBB Rhythm Strip Diag. Results EP Interpretation: yes Rate: 60's Rhythm: NSR, no PVC's, no ectopy Chest X-Ray Diagnostic Results Chest X-Ray Diagnostic Results : Chest X-Ray Ordered: Yes # of Views/Limited/Complete: 1 View Indication: Other Interpretation: other - R. Lung opacification/unchanged from comparison. Impression: No acute disease Electronically Signed by: Candelaria Vee DO Last Vital Signs Date Time Temp Pulse Resp B/P (MAP) Pulse Ox O2 Delivery O2 Flow Rate FiO2 05/20/20 15:20 97.3 69 23 158/84 99 Mechanical Ventilator 05/20/20 15:00 40 Disposition: ADMITTED INPATIENT Condition: Serious Referrals: Trinity Warren MD (PCP) Candelaria Vee DO May 20, 2020 17:52
--- NOTE | 2020-05-20 18:22 | NUR ---
ED Nurse Note: pt is resting in bed with his eyes closed, no acute distress is noted at this time. pt is missing all toes of R foot, there is a large open wound to the area of foot that toes used to be. dressing removed and changed, photos taken and uploaded to pt chart
--- NOTE | 2020-05-20 21:20 | NUR ---
ED Nurse Note: Assumed care of patient. Report received from AMELIE Rodriguez. Patient is in bed with safety measures in place. Trach to mechanical vent with normal respirations and stable oxygen saturation at this time. Patient opens eyes spontaneously, does not appear to be in any distress or pain at this time. See vitals flow sheet as documented.
--- NOTE | 2020-05-20 23:30 | NUR ---
ED Nurse Note: Patient is awake and alert. Patient repositioned at this time. No change in condition. Vital signs remain stable.
[2020-05-21] VITALS (7 sets, daily range): BP systolic 118–136; BP diastolic 50–88
--- NOTE | 2020-05-21 01:45 | NUR ---
ED Nurse Note: Repeat labs drawn and sent to lab.
[2020-05-21 01:56] LABS: HEMATOCRIT 21.5 % (42.0-52.0); MEAN CORPUSCULAR VOLUME 92 FL (80-99); PLATELET COUNT 174 K/UL (150-450); RED BLOOD COUNT 2.34 M/UL (4.70-6.10); RED CELL DISTRIBUTION WIDTH 18.2 % (11.6-14.8); WHITE BLOOD COUNT 8.2 K/UL (4.8-10.8)
--- NOTE | 2020-05-21 02:00 | NUR ---
ED Nurse Note: Patient is in bed with eyes closed. No signs of distress noted. Vital signs stable.
[2020-05-21 02:04] LABS: HEMOGLOBIN 6.9 G/DL (14.2-18.0)
--- NOTE | 2020-05-21 03:20 | NUR ---
ED Nurse Note: First unit of packed red blood cells started at this time.
--- NOTE | 2020-05-21 03:35 | NUR ---
ED Nurse Note: No adverse reaction noted within first 15 min of blood transfusion being started. Vital signs remain stable without change in condition.
--- NOTE | 2020-05-21 05:50 | NUR ---
ED Nurse Note: Second unit of packed red blood cells initiated at this time. Vital signs remain stable. Patient is currently awake and alert, he remains responsive and is able to follow commands/ shake his head yes and no. Denies pain at this time. He does not appear to be in any distress on mechanical ventilator.
--- NOTE | 2020-05-21 06:05 | NUR ---
ED Nurse Note: No adverse reactions noted 15 min status post start of second unit of blood.
--- NOTE | 2020-05-21 07:11 | NUR ---
HAND-OFF: Report given to AMELIE Velasquez. Endorsed plan of care to repeat labs after 2nd unit of PRBCS are finished infusing.
--- NOTE | 2020-05-21 07:35 | NUR ---
ED Nurse Note: Blood transfusion ended. VSS. No acute distress.
[2020-05-21 08:05] LABS: CALCIUM 8.9 MG/DL (8.5-10.1); CREATININE 3.9 MG/DL (0.55-1.30); POTASSIUM 4.6 MMOL/L (3.5-5.1)
[2020-05-21 08:44] LABS: BASOPHILS % (AUTO) 1.6 % (0.0-2.0); EOSINOPHILS % (AUTO) 2.3 % (0.0-3.0); HEMATOCRIT 27.8 % (42.0-52.0); LYMPHOCYTES % (AUTO) 14.5 % (20.0-45.0); MEAN CORPUSCULAR VOLUME 91 FL (80-99); MONOCYTES % (AUTO) 7.2 % (1.0-10.0); NEUTROPHILS % (AUTO) 74.4 % (45.0-75.0); PLATELET COUNT 160 K/UL (150-450); RED BLOOD COUNT 3.06 M/UL (4.70-6.10); WHITE BLOOD COUNT 7.5 K/UL (4.8-10.8)
--- NOTE | 2020-05-21 10:44 | NUR ---
ED Nurse Note: Report given to Fernando KINSEY.
--- NOTE | 2020-05-21 11:10 | NUR ---
ED Nurse Note: Pt transferred to SDU with all belongings. No acute distress. 2 RNs and RT present at transport. Pt recevied by Rn.
--- NOTE | 2020-05-21 14:53 | Consultation ---
History of Present Illness General Date patient seen: May 21, 2020 Reason for Hospitalization: General Complaint Present Illness HPI This is a 50 year old male known to me from prior admission who presents from a [facility] facility for evaluation of bleeding. The patient has multiple chronic medical problems. He has a history of respiratory failure and is ventilator dependent. He has a history of CVA and is quadriplegic. He also has a history of end-stage renal disease and is dialysis dependent. He underwent routine laboratory draw yesterday and was found to be anemic. There is no history of any specific bleeding although there was some report of the tracheostomy site with minimal oozing and a small amount of rectal bleeding. There are no other complaints. surgery called to evaluate and assist with care. Allergies: Coded Allergies: No Known Allergies (Unverified , 04/22/20) COVID-19 Screening Contact w/high risk pt: No Experienced COVID-19 symptoms?: No Medication History Scheduled Ascorbic Acid* (Vitamin C*), 500 MG GT DAILY, (Reported) Aspirin* (Aspirin*), 81 MG GT DAILY, (Reported) Atorvastatin Calcium* (Lipitor*), 20 MG GT BEDTIME, (Reported) Calcium Acetate (Calcium Acetate), 667 MG GT TID, (Reported) Cholecalciferol (Vitamin D3) (Vitamin D3), 125 MCG GT DAILY, (Reported) Gabapentin* (Gabapentin*), 100 MG GT DAILY, (Reported) Metoprolol Tartrate* (Metoprolol Tartrate*), 50 MG GT EVERY 12 HOURS, (Reported) Omeprazole (Omeprazole), 20 MG GT DAILY, (Reported) Sevelamer Carbonate* (Renvela*), 2,400 MG GT THREE TIMES A DAY, (Reported) Vitamin B Cmplx/Vit C/Folic AC (Nephro-Mann Tablet), 1 TAB GT DAILY, (Reported) Scheduled PRN Acetaminophen* (Acetaminophen 325MG Tablet*), 650 MG GT Q4H PRN for PAIN/FEVER, (Reported) Bisacodyl (Dulcolax), 10 MG RC DAILY PRN for Constipation, (Reported) Hydrocodone Bit/Acetaminophen 5-325* (Othello 5-325 Tablet*), 1 TAB GT DAY SHIFT PRN for For Pain, (Reported) Na Phos,M-B/Na Phos,Di-Ba* (Fleet Enema*), 133 ML RECTAL DAILY PRN for Constipation, (Reported) Patient History Limited by: medical condition History Provided By: Medical Record, PMD Healthcare decision maker Resuscitation status Advanced Directive on File Past Medical/Surgical History Past Medical/Surgical History: (1) Coagulopathy (2) Chronic respiratory failure (3) End stage renal disease on dialysis (4) Anemia in chronic kidney disease (CKD) (5) Hypercalcemia (6) Anemia (7) GI bleed (8) Complications, dialysis, catheter, mechanical (9) Decubitus ulcer, heel (10) Ischemia of right lower extremity Review of Systems Review of Symptoms General ROS: no weight loss or fever Psychological ROS: no depression or mood changes, no memory loss Ophthalmic ROS: no visual changes or eye irritation ENT ROS: no nasal congestion, hearing loss, dizziness Allergy and Immunology ROS: no allergic symptoms or urticaria Hematological and Lymphatic ROS: no swollen glands, unusual bleeding or bruising Endocrine ROS: no polyuria, polydipsia, weight changes, temperature intolerance Respiratory ROS: no cough, shortness of breath, or wheezing Cardiovascular ROS: no chest pain or dyspnea on exertion Gastrointestinal ROS: denies abdominal pain, bright red blood in stool. Musculoskeletal ROS: no myalgias or arthralgias Neurological ROS: no TIA or stroke symptoms Dermatological ROS: no new or changing skin lesions, rashes or pruritis limited given medical condition Physical Exam Physical Exam General appearance: alert, cooperative, no distress, appears stated age Head: Normocephalic, without obvious abnormality, atraumatic Eyes: conjunctivae/corneas clear. PERRL, EOM's intact. Fundi benign Throat: Lips, mucosa, and tongue normal. Teeth and gums normal Neck: supple, symmetrical, trachea midline, no adenopathy, thyroid: not enlarged, symmetric, no tenderness/mass/nodules, no carotid bruit and no JVD+trach Lungs: clear to auscultation bilaterally Heart: regular rate and rhythm, S1, S2 normal, no murmur, click, rub or gallop Abdomen: soft, non-tender. Bowel sounds normal. No masses, no organomegaly Extremities: extremities normal, atraumatic, no cyanosis or edema Pulses: 2+ and symmetric Skin: Skin see Neurologic: Grossly normal Last 24 Hour Vital Signs Date Time Temp Pulse Resp B/P (MAP) Pulse Ox O2 Delivery O2 Flow Rate FiO2 05/21/20 13:00 70 16 40 05/21/20 12:27 Mechanical Ventilator 05/21/20 11:52 70 22 100 Mechanical Ventilator 40 05/21/20 11:10 98.6 89 12 126/76 99 Mechanical Ventilator 40 05/21/20 10:45 98.3 70 15 125/50 100 Mechanical Ventilator 40 05/21/20 09:06 65 22 40 05/21/20 08:40 98.3 72 15 131/59 99 Mechanical Ventilator 40 05/21/20 07:56 70 22 40 05/21/20 07:40 98.3 65 19 05/21/20 06:05 98.3 69 15 05/21/20 06:05 98.3 69 15 134/53 100 Mechanical Ventilator 40 05/21/20 05:55 98.4 69 11 05/21/20 05:50 98.4 68 10 05/21/20 04:30 97.5 68 16 125/88 100 Mechanical Ventilator 40 05/21/20 03:35 97.5 67 14 05/21/20 03:25 97.3 69 17 05/21/20 03:20 97.3 69 18 05/21/20 03:01 69 18 40 05/21/20 02:00 97.8 71 15 136/55 100 Mechanical Ventilator 40 05/20/20 23:30 97.8 70 20 109/88 100 Mechanical Ventilator 40 05/20/20 23:15 69 19 40 05/20/20 21:20 97.3 68 18 129/57 100 Mechanical Ventilator 40 05/20/20 21:03 68 18 143/39 100 Mechanical Ventilator 05/20/20 19:52 64 18 123/50 100 Mechanical Ventilator 05/20/20 19:33 65 18 40 05/20/20 18:51 64 12 120/45 100 Mechanical Ventilator 40 05/20/20 17:30 64 15 112/52 100 Mechanical Ventilator 40 05/20/20 16:30 97.3 65 23 116/51 99 Mechanical Ventilator 40 05/20/20 15:20 97.3 69 23 158/84 99 Mechanical Ventilator 05/20/20 15:20 103 23 Mechanical Ventilator 05/20/20 15:00 71 18 40 05/20/20 14:56 97.3 103 23 158/84 (108) 99 Mechanical Ventilator Intake and Output 05/20/20 05/21/20 19:00 07:00 Intake Total 250 ml Balance 250 ml Blood Product 250 ml Laboratory Tests Test 05/20/20 15:25 05/21/20 01:45 05/21/20 07:40 White Blood Count 9.2 K/UL (4.8-10.8) 8.2 K/UL (4.8-10.8) 7.5 K/UL (4.8-10.8) Red Blood Count 2.29 M/UL (4.70-6.10) L 2.34 M/UL (4.70-6.10) L 3.06 M/UL (4.70-6.10) L Hemoglobin 7.0 G/DL (14.2-18.0) L 6.9 G/DL (14.2-18.0) *L 9.0 G/DL (14.2-18.0) #L Hematocrit 21.9 % (42.0-52.0) L 21.5 % (42.0-52.0) L 27.8 % (42.0-52.0) L Mean Corpuscular Volume 95 FL (80-99) 92 FL (80-99) 91 FL (80-99) Mean Corpuscular Hemoglobin 28.9 PG (27.0-31.0) 29.4 PG (27.0-31.0) 29.3 PG (27.0-31.0) Mean Corpuscular Hemoglobin Concent 30.3 G/DL (32.0-36.0) L 32.1 G/DL (32.0-36.0) 32.3 G/DL (32.0-36.0) Red Cell Distribution Width 17.8 % (11.6-14.8) H 18.2 % (11.6-14.8) H 17.0 % (11.6-14.8) H Platelet Count 170 K/UL (150-450) 174 K/UL (150-450) 160 K/UL (150-450) Mean Platelet Volume 6.6 FL (6.5-10.1) 6.2 FL (6.5-10.1) L 6.5 FL (6.5-10.1) Neutrophils (%) (Auto) % (45.0-75.0) % (45.0-75.0) 74.4 % (45.0-75.0) Lymphocytes (%) (Auto) % (20.0-45.0) % (20.0-45.0) 14.5 % (20.0-45.0) L Monocytes (%) (Auto) % (1.0-10.0) % (1.0-10.0) 7.2 % (1.0-10.0) Eosinophils (%) (Auto) % (0.0-3.0) % (0.0-3.0) 2.3 % (0.0-3.0) Basophils (%) (Auto) % (0.0-2.0) % (0.0-2.0) 1.6 % (0.0-2.0) Differential Total Cells Counted 100 Neutrophils % (Manual) 76 % (45-75) H Lymphocytes % (Manual) 11 % (20-45) L Monocytes % (Manual) 10 % (1-10) Eosinophils % (Manual) 3 % (0-3) Basophils % (Manual) 0 % (0-2) Band Neutrophils 0 % (0-8) Platelet Estimate Adequate Platelet Morphology Normal Hypochromasia 2+ Anisocytosis 2+ Prothrombin Time 13.3 SEC (9.30-11.50) H Prothromb Time International Ratio 1.2 (0.9-1.1) H Activated Partial Thromboplast Time 33 SEC (23-33) Sodium Level 137 MMOL/L (136-145) 135 MMOL/L (136-145) L Potassium Level 4.5 MMOL/L (3.5-5.1) 4.6 MMOL/L (3.5-5.1) Chloride Level 97 MMOL/L (98-107) L 100 MMOL/L (98-107) Carbon Dioxide Level 31 MMOL/L (21-32) 26 MMOL/L (21-32) Anion Gap 9 mmol/L (5-15) 9 mmol/L (5-15) Blood Urea Nitrogen 94 mg/dL (7-18) H 95 mg/dL (7-18) H Creatinine 3.7 MG/DL (0.55-1.30) H 3.9 MG/DL (0.55-1.30) H Estimat Glomerular Filtration Rate 17.5 mL/min (>60) 16.4 mL/min (>60) Glucose Level 91 MG/DL (74-106) 78 MG/DL (74-106) Calcium Level 9.6 MG/DL (8.5-10.1) 8.9 MG/DL (8.5-10.1) Total Bilirubin 0.6 MG/DL (0.2-1.0) Aspartate Amino Transf (AST/SGOT) 18 U/L (15-37) Alanine Aminotransferase (ALT/SGPT) 14 U/L (12-78) Alkaline Phosphatase 287 U/L (46-116) H Total Protein 7.4 G/DL (6.4-8.2) Albumin 2.3 G/DL (3.4-5.0) L Globulin 5.1 g/dL Albumin/Globulin Ratio 0.5 (1.0-2.7) L Microbiology Date/Time Source Procedure Growth Status 05/20/20 18:10 Rectum Received 05/20/20 15:25 Nasopharynx SARS-CoV-2 RdRp Gene Assay - Final Complete Height (Feet): 5 Height (Inches): 7.00 Weight (Pounds): 143 Medications Current Medications Medications (Trade) Dose Ordered Sig/Titus Route PRN Reason Start Time Stop Time Status Last Admin Dose Admin Acetaminophen (Tylenol) 650 mg Q6H PRN ORAL TEMP>100.5 05/21/20 03:15 Sodium Chloride 1,000 ml @ 10 mls/hr Q24H ONCE IV 05/20/20 15:15 05/21/20 15:14 05/20/20 15:24 Assessment/Plan Problem List: (1) Complications, dialysis, catheter, mechanical ICD Codes: T82.49XA - Other complication of vascular dialysis catheter, initial encounter SNOMED: 54965391 (2) Decubitus ulcer, heel Assessment & Plan: 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 Heel ulcer identified as well. Foul-smelling. Fortunately this does not seem salvageable by any means given the extensive loss at the flap that has dehisced the exposed bone as well as the heel. Currently stable otherwise known chronic in nature not patient's acute problem. Will r ecommend that patient has a right BKA at some point given the current findings we will continue with local wound care tentatively. Patient identified to have a heel ulcer on the left side as well. ICD Codes: L89.609 - Pressure ulcer of unspecified heel, unspecified stage SNOMED: 630773617 (3) Ischemia of right lower extremity ICD Codes: I99.8 - Other disorder of circulatory system SNOMED: 316916000 (4) Hypercalcemia ICD Codes: E83.52 - Hypercalcemia SNOMED: 25505355 (5) Coagulopathy ICD Codes: D68.9 - Coagulation defect, unspecified SNOMED: 96269960 (6) Chronic respiratory failure ICD Codes: J96.10 - Chronic respiratory failure, unspecified whether with hypoxia or hypercapnia SNOMED: 99045986 (7) End stage renal disease on dialysis ICD Codes: N18.6 - End stage renal disease; Z99.2 - Dependence on renal dialysis SNOMED: 191256523 (8) Anemia in chronic kidney disease (CKD) ICD Codes: N18.9 - Chronic kidney disease, unspecified; D63.1 - Anemia in chronic kidney disease SNOMED: 015460798 (9) Anemia ICD Codes: D64.9 - Anemia, unspecified SNOMED: 945707084 (10) GI bleed ICD Codes: K92.2 - Gastrointestinal hemorrhage, unspecified SNOMED: 70336595 Dany Wilder May 21, 2020 14:53
[2020-05-21] MEDS ORDERED: HYDROcodone/Acetamin 5/325 tab GT PRN (15:30)
--- NOTE | 2020-05-21 19:30 | NUR ---
NURSE HAND-OFF REPORT: Important Events on Shift:Admitted to [facility] today Patient Status: Stable Diet: Gtube Nepro @55mL/hr Pending Orders: NA Pending Results/Labs:NA Pending MD notification:NA Latest Vital Signs: Temperature 98.0 , Pulse 68 , B/P 128 /75 , Respiratory Rate 17 , O2 SAT 96 , Mechanical Ventilator, O2 Flow Rate . Vital Sign Comment: Stable EKG Rhythm: Sinus Rhythm Rhythm change?: N MD Notified?: - MD Response: Latest Seay Fall Score: 30 Fall Risk: Medium Risk Safety Measures: Call light Within Reach, Bed Alarm Zone 1, Side Rails Side Rails x2, Bed position Low and Locked. Fall Precautions: Yellow Socks Report given to AMELIE Cooley.
--- NOTE | 2020-05-21 19:36 | NUR ---
NURSE NOTES: Received report from lachelle King RN. Pt is awake, alert, non-verbal but communicates via facial expression and body language. Tolerating vent setting of SIMV 10, TV 500, FiO2 40%, and PEEP of 5 saturating 100%. Vital signs are stable. G-tube is intact and patent running Nepro @ 55cc/hr. Peripheral IV is in L AC 20 G intact and patent. Perma cath. in L upper chest is intact and patent. Bed is locked and in lowest position, bed alarm on, call light is with the pt., head of bed is elevated at all times. Will continue to monitor pt. Will continue with the plan of care.
[2020-05-21] MEDS: Metoprolol Tartrate 50mg tab GT SCH (20:11)
[2020-05-21] MEDS: Atorvastatin 20mg tab GT SCH (20:16)
--- NOTE | 2020-05-21 20:30 | History and Physical Report ---
DATE OF ADMISSION: 05/20/2020 This is one of several admissions to [facility] of this 50-year-old patient because of bleeding from the tracheal site and the AV shunt site. HISTORY OF PRESENT ILLNESS: Patient was discharged from this institution after admission for sepsis back to subacute dialysis unit of [facility]. He was in stable condition for more than a week where he was noticed to have bleeding from the tracheal site and the AV shunt. Workup done in this facility revealed that patient had an INR, which was literally prolonged to 1.7. He received vitamin K 5 mg via G-tube. The bleeding did not stop and the defense travel administrator of the facility found it risky to perform dialysis through the AV shunt while the AV shunt is bleeding. He was transferred to [facility] and was admitted. PAST MEDICAL HISTORY: Patient has a long and complicated history that lasted many several years. His initial stroke was 5 years ago that under him HEMIPLEGIC at that time he was able to talk and to swallow 1 year later he developed a septic shock that led to respiratory failure following the septic shock. He was intubated, unable to be weaned, and underwent tracheostomy and gastrostomy and referred to a subacute unit. At that time he developed also end-stage renal failure and started to be dialyzed arrest and several vascular accident made the patient completely aphasic he has been in the subacute unit now for quite a while. He was initially dialyzed with PermCath. Following this, AV shunt was performed and over the last several months, he was dialyzed with the AV shunt. The cause of his new bleeding and the cause of his prolonged INR is known. Platelet dysfunction was considered to be the major issue. Patient is awake, aphasic, but appeared to conserve complete condition. In addition, patient developed high blood pressure, diabetes mellitus, peripheral vascular disease, and he has bilateral gangrenous feet that were not operated, but treated conservatively with some success as patient is not infected and the gangrenous area is becoming smaller and one of the toe completely cleared. ALLERGIES: No known drug allergy. MEDICATIONS: Patient is on pantoprazole 40 mg daily, vitamin D 5000 units daily. He is on folic acid, vitamin B and vitamin C for wound care about 2400 mg 3 times daily, aspirin 81 mg daily that was stopped. He is on metoprolol 50 mg q.12h., atorvastatin 20 mg daily. He has multiple medications for motility disorder. FAMILY HISTORY: Noncontributory. SOCIAL HISTORY: He is single. He was born in [place]. He has been on SSI for the last several years. HABITS: Patient did smoke for at least 10 years in the past. He discontinued smoking more than 20 years ago. He denies drinking and denies the use of illicit drugs. REVIEW OF SYSTEMS: Patient is somnolent from benzodiazepine that he took in the emergency room and unable to give any information regarding his state of health. PHYSICAL EXAMINATION: VITAL SIGNS: Blood pressure is 128/75, his pulse is 84, respirations are 13, temperature 98.0. HEENT: Eyes were normal. Pupils were round, equal, and reactive to light. Sclerae were white. Conjunctivae were pink. Extraocular movements were normal. Temporal arteries were palpable bilaterally. There was some bilateral temporal wasting. Visual rios to confrontation are probably normal and neglect sign could not be assessed. ENT, mucous membranes were not dehydrated. Auditory canals were clear and tympanic membranes could not be visualized. Nasal cavity was not congested. Nasal septum was intact. Soft palate, pharynx, uvula could not be visualized. Tongue was moist, midline, and normally papillated. NECK: Supple. There was no goiter. No mass. No lymphadenopathy. There was no JVD. No bruits. Carotid upstroke was 1+. The tracheostomy site had traces of bleeding, but no bleeding was visible during the time of the examination. LUNGS: Clear to auscultation and percussion. HEART: PMI was fifth left intercostal space midclavicular line with normal S1 and normal S2. There was no murmur. No arrhythmia. No S3. No S4. No pericardial rub. ABDOMEN: Soft, nontender without organomegaly. There were no masses palpable. Normal bowel sounds without bruit. There was no guarding. No rebound tenderness. No ascites. No hernia. No CVA tenderness. Liver span was 8 cm, smooth, and nontender. Gastrostomy site was clean. EXTREMITIES: Warm without cyanosis, clubbing, or edema. There were bilateral gangrene on toes in both feet. NEUROLOGICAL: Reflexes in biceps, triceps, and brachioradialis did not generate any reflex in the upper extremity. Patellar was visible on the left side. Plantar could not be done because of patient's gangrene. Cranial nerves II through XII symmetric and equal. Cerebellar function, there was no tremor. No nystagmus. No extrapyramidal rigidity. Sensory exam and motor sign could not be assessed because of patient's clinical status. LABORATORY AND DIAGNOSTIC DATA: Hemoglobin 7.0, hematocrit 21.9 with MCV of 95, WBC of 9.2, and platelets 170. His BUN and creatinine are 94 and 3.7 respectively. Sodium 137, potassium 4.5, chloride 97, CO2 31. At the time of this dictation, patient already was dialyzed by the defense travel administrator and the case has been discussed with the defense travel administrator. However, other consultants were called to assist in the management of this case. Hematology employment consultant was called to assess the hypercoagulable disorder. vector control specialist was called to assess patient's ventilation function. Repeat laboratory tests will be done in the a.m. In summary, patient has a high blood pressure, end-stage renal failure, diabetes mellitus, peripheral vascular disease, multiple episodes of CVA, bilateral gangrene, diabetes mellitus, hyperlipidemia, and hypovitaminosis D. Management of each one of this issue depends on the results of laboratory tests that are now ordered. Patient will be fed by Nepro 1.2 at 55 mL/hour. CBC, BMP, LFT, TSH, T4, ESR, CRP, PT, PTT, and vitamin D 25-OH has been ordered and the case discussed with the defense travel administrator. Trinity Warren M.D. DR: SALENA JOB#: [id number] CC: MERY
--- NOTE | 2020-05-21 22:10 | NUR ---
NURSE NOTES: Initial assessment done. Evening medications given. Pt vital signs remain stable. Tolerating vent setting with O2 sat 99-100%. Not in distress. No facial grimacing noted. Tolerating G-tube feeding with no residual. Will continue to monitor pt.
--- NOTE | 2020-05-21 23:56 | NUR ---
NURSE NOTES: Sponge bath done, right foot dressing changed, linens changed. Pt is turned and repositioned. Pt had bowel movement. Will continue to monitor pt.
[2020-05-22] VITALS: BP 120/55
[2020-05-22 04:00] VITALS: BP 133/66
--- NOTE | 2020-05-22 05:00 | NUR ---
NURSE NOTES: Pt is asleep, no facial grimacing noted. Tolerating vent setting with O2 saturation 100%. Vital signs are stable. Will continue to monitor pt.
[2020-05-22 05:44] LABS: BASOPHILS % (AUTO) 1.6 % (0.0-2.0); EOSINOPHILS % (AUTO) 2.8 % (0.0-3.0); HEMATOCRIT 27.8 % (42.0-52.0); HEMOGLOBIN 8.7 G/DL (14.2-18.0); LYMPHOCYTES % (AUTO) 9.8 % (20.0-45.0); MEAN CORPUSCULAR VOLUME 95 FL (80-99); MONOCYTES % (AUTO) 7.6 % (1.0-10.0); NEUTROPHILS % (AUTO) 78.2 % (45.0-75.0); PLATELET COUNT 195 K/UL (150-450); RED BLOOD COUNT 2.93 M/UL (4.70-6.10); WHITE BLOOD COUNT 9.2 K/UL (4.8-10.8)
[2020-05-22 06:19] LABS: ANION GAP 10 mmol/L (5-15); ASPARTATE AMINO TRANSFERASE 26 U/L (15-37); BLOOD UREA NITROGEN 111 mg/dL (7-18); CALCIUM 9.1 MG/DL (8.5-10.1); CARBON DIOXIDE 27 MMOL/L (21-32); CHLORIDE 98 MMOL/L (98-107); CREATININE 4.4 MG/DL (0.55-1.30); POTASSIUM 4.6 MMOL/L (3.5-5.1); SODIUM 135 MMOL/L (136-145)
--- NOTE | 2020-05-22 07:15 | NUR ---
NURSE HAND-OFF REPORT: Important Events on Shift:None Patient Status: Full code Diet: Nepro @ 55cc/hr Pending Orders: N Pending Results/Labs:N Pending MD notification:N Latest Vital Signs: Temperature 98.6 , Pulse 73 , B/P 133 /66 , Respiratory Rate 20 , O2 SAT 100 , Mechanical Ventilator, O2 Flow Rate . Vital Sign Comment: stable EKG Rhythm: SR c BBB Rhythm change?: N MD Notified?: - MD Response: Latest Seay Fall Score: 30 Fall Risk: Medium Risk Safety Measures: Call light Within Reach, Bed Alarm Zone 2, Side Rails Side Rails x2, Bed position Low and Locked. Fall Precautions: Yellow Socks Patient Fall Education Report given to AMELIE Glez.
--- NOTE | 2020-05-22 07:57 | Consultation ---
History of Present Illness General Chief Complaint: General Complaint Present Illness Allergies: Coded Allergies: No Known Allergies (Unverified , 04/22/20) Medication History Scheduled Ascorbic Acid* (Vitamin C*), 500 MG GT DAILY, (Reported) Aspirin* (Aspirin*), 81 MG GT DAILY, (Reported) Atorvastatin Calcium* (Lipitor*), 20 MG GT BEDTIME, (Reported) Calcium Acetate (Calcium Acetate), 667 MG GT TID, (Reported) Cholecalciferol (Vitamin D3) (Vitamin D3), 125 MCG GT DAILY, (Reported) Gabapentin* (Gabapentin*), 100 MG GT DAILY, (Reported) Metoprolol Tartrate* (Metoprolol Tartrate*), 50 MG GT EVERY 12 HOURS, (Reported) Omeprazole (Omeprazole), 20 MG GT DAILY, (Reported) Sevelamer Carbonate* (Renvela*), 2,400 MG GT THREE TIMES A DAY, (Reported) Vitamin B Cmplx/Vit C/Folic AC (Nephro-Mann Tablet), 1 TAB GT DAILY, (Reported) Scheduled PRN Acetaminophen* (Acetaminophen 325MG Tablet*), 650 MG GT Q4H PRN for PAIN/FEVER, (Reported) Bisacodyl (Dulcolax), 10 MG RC DAILY PRN for Constipation, (Reported) Hydrocodone Bit/Acetaminophen 5-325* ([place] 5-325 Tablet*), 1 TAB GT DAY SHIFT PRN for For Pain, (Reported) Na Phos,M-B/Na Phos,Di-Ba* (Fleet Enema*), 133 ML RECTAL DAILY PRN for Constipation, (Reported) Patient History Healthcare decision maker Resuscitation status Advanced Directive on File Physical Exam Last 24 Hour Vital Signs Date Time Temp Pulse Resp B/P (MAP) Pulse Ox O2 Delivery O2 Flow Rate FiO2 05/22/20 04:00 98.6 75 20 133/66 (88) 100 05/22/20 04:00 73 05/22/20 04:00 40 05/22/20 04:00 Mechanical Ventilator 05/22/20 03:35 68 19 40 05/22/20 00:00 98.1 65 20 120/55 (76) 100 05/22/20 00:00 40 05/22/20 00:00 63 05/22/20 00:00 Mechanical Ventilator 05/21/20 22:59 60 17 40 12/17/20 20:11 63 118/57 05/21/20 20:00 Mechanical Ventilator 05/21/20 20:00 64 05/21/20 20:00 97.9 63 19 118/57 (77) 100 05/21/20 20:00 40 05/21/20 19:20 62 17 40 05/21/20 16:55 68 17 40 05/21/20 16:00 40 05/21/20 16:00 Mechanical Ventilator 05/21/20 16:00 64 05/21/20 16:00 98.0 86 19 128/75 (92) 96 05/21/20 16:00 64 05/21/20 15:38 65 13 40 05/21/20 13:00 70 16 40 05/21/20 12:27 Mechanical Ventilator 05/21/20 11:52 70 22 100 Mechanical Ventilator 40 05/21/20 11:10 98.6 89 12 126/76 99 Mechanical Ventilator 40 05/21/20 10:45 98.3 70 15 125/50 100 Mechanical Ventilator 40 05/21/20 09:06 65 22 40 05/21/20 08:40 98.3 72 15 131/59 99 Mechanical Ventilator 40 Intake and Output 05/21/20 05/22/20 19:00 07:00 Intake Total 460 ml 860 ml Balance 460 ml 860 ml Intake Oral 0 ml Free Water 100 ml 200 ml Tube Feeding 110 ml 660 ml Blood Product 250 ml # Bowel Movements 2 1 Laboratory Tests Test 05/22/20 04:00 White Blood Count 9.2 K/UL (4.8-10.8) Red Blood Count 2.93 M/UL (4.70-6.10) L Hemoglobin 8.7 G/DL (14.2-18.0) L Hematocrit 27.8 % (42.0-52.0) L Mean Corpuscular Volume 95 FL (80-99) Mean Corpuscular Hemoglobin 29.6 PG (27.0-31.0) Mean Corpuscular Hemoglobin Concent 31.2 G/DL (32.0-36.0) L Red Cell Distribution Width 17.0 % (11.6-14.8) H Platelet Count 195 K/UL (150-450) Mean Platelet Volume 6.6 FL (6.5-10.1) Neutrophils (%) (Auto) 78.2 % (45.0-75.0) H Lymphocytes (%) (Auto) 9.8 % (20.0-45.0) L Monocytes (%) (Auto) 7.6 % (1.0-10.0) Eosinophils (%) (Auto) 2.8 % (0.0-3.0) Basophils (%) (Auto) 1.6 % (0.0-2.0) Erythrocyte Sedimentation Rate 118 MM/HR (0-15) H Sodium Level 135 MMOL/L (136-145) L Potassium Level 4.6 MMOL/L (3.5-5.1) Chloride Level 98 MMOL/L (98-107) Carbon Dioxide Level 27 MMOL/L (21-32) Anion Gap 10 mmol/L (5-15) Blood Urea Nitrogen 111 mg/dL (7-18) H Creatinine 4.4 MG/DL (0.55-1.30) H Estimat Glomerular Filtration Rate 14.3 mL/min (>60) Glucose Level 126 MG/DL (74-106) H Hemoglobin A1c 4.6 % (4.3-6.0) Calcium Level 9.1 MG/DL (8.5-10.1) Aspartate Amino Transf (AST/SGOT) 26 U/L (15-37) C-Reactive Protein, Quantitative 16.3 mg/dL (0.00-0.90) H Pro-B-Type Natriuretic Peptide Pending Vitamin D 25-Hydroxy Pending 25-Hydroxy Vitamin D2 Pending 25-Hydroxy Vitamin D3 Pending Thyroid Stimulating Hormone (TSH) 2.725 uiU/mL (0.358-3.740) Free Thyroxine 0.61 NG/DL (0.76-1.46) L Height (Feet): 5 Height (Inches): 7.00 Weight (Pounds): 143 Medications Current Medications Medications (Trade) Dose Ordered Sig/Titus Route PRN Reason Start Time Stop Time Status Last Admin Dose Admin Acetaminophen/ Hydrocodone Bitart ([place] 5/325) 1 tab Q6H PRN GT For Pain 05/21/20 15:30 05/28/20 15:29 Ascorbic Acid (Vitamin C) 500 mg DAILY GT 05/22/20 09:00 06/21/20 08:59 Aspirin (ASA) 81 mg DAILY GT 05/22/20 09:00 07/06/20 08:59 Atorvastatin Calcium (Lipitor) 20 mg BEDTIME GT 05/21/20 21:00 08/19/20 20:59 05/21/20 20:16 Bisacodyl (Dulcolax) 10 mg DAILYPRN PRN RECTAL Constipation 05/21/20 15:15 08/19/20 15:14 Chlorhexidine Gluconate (Saba-Hex 2%) 1 applic DAILY@2000 TOPIC 05/22/20 20:00 08/20/20 19:59 Metoprolol Tartrate (Lopressor) 50 mg EVERY 12 HOURS GT 05/21/20 21:00 08/19/20 20:59 Pantoprazole (Protonix) 40 mg DAILY IVP 05/22/20 09:00 06/21/20 08:59 Sevelamer Carbonate (Renvela) 2,400 mg THREE TIMES A DAY GT 05/22/20 09:00 08/20/20 08:59 Vitamin B Complex/ Vit C/Folic Acid (Nephrovite) 1 tab DAILY GT 05/22/20 09:00 06/21/20 08:59 Vitamin D (Vitamin D) 400 unit DAILY ORAL 05/22/20 09:00 06/21/20 08:59 Assessment/Plan Assessment/Plan: Hematology Consultation REQ MD: Trinity Warren DOS: 05/22/20 RFC: Anemia, ongoing HPI 50-year-old male presents to ED for evaluation. Coming from halfway facility. History of end-stage renal disease on dialysis. Which needs to be removed. Per nursing they were unable to complete dialysis today. On ventilator. Nonverbal at baseline. No signs of distress. No reported fevers or chills. No other aggravating relieving factors. No other associated symptoms. Labs have been reviewed, meds noted, no bleeding, hgb low, to get 1 unit yest. Allergies: No Known Allergies (Unverified , 04/22/20) COVID-19 Screening Contact w/high risk pt: No Experienced COVID-19 symptoms?: No COVID-19 Testing performed PHYSICIST SOLID STATE: No Patient History Past Medical History: DM Past Surgical History: none Pertinent Family History: none Social History: Denies: smoking, alcohol use, drug use Immunizations: UTD Reviewed Nursing Documentation: PMH: Agreed; PSxH: Agreed Nursing Documentation-PMH Past Medical History: No History, Except For Hx Diabetes: Yes Review of Systems All Other Systems: negative except mentioned in HPI Physical Exam Vitals: reviewed, normal General Appearance: no apparent distress, other - Nonverbal Head: normocephalic, atraumatic: no angioedema, normal voice Neck: full range of motion, supple/symm/no masses Respiratory: chest non-tender, lungs clear, +vent/trach Cardiovascular: regular rate, rhythm, no edema Gastrointestinal: normal bowel sounds, non tender, soft, nd Rectal: deferred Genitourinary: normal inspection, no CVA tenderness Musculoskeletal: back normal, normal range of motion Neurologic: other - Nonverbal Psychiatric: other - Nonverbal Lymphatic: no adenopathy Labs: reviewed Imaging: reviewed Assessment and Recs # Anemia due to likely chronic disease, ongoing, this is the first time he has been here --> anemia panel to order for downtrending hgb --> hgb 8.9-->9.4->8.4->>>8.7 --> consider iron / epogen after anemia panel returns --> smear has been noted, no hemolysis # Thrombocytopenia - potential causes multifactorial, evaluate liver and viral etiologies to begin, also could be related to underlying medications patient has received. --> Hep panel and HIV ordered --> US abd to evaluate for cirrhosis and hsm ordered --> Peripheral smear ordered to evaluate for blasts /schistocytes --> abx and other meds have been reviewed --> ok for ppx if plt >50k w/ either heparin or lovenox --> plt 124-->186 # Coagulopathy ongoing, ptt and inr elevated --> vitamin k given, as permacath to be removed --> get mixing study --> trend prn # Chronic respiratory failure --> per pulm --> vent + # End stage renal disease on dialysis --> Complications, dialysis, catheter,replacement as needed --> surg eval --> per renal # Right lung infection --> repeat cxr now # Gangrenous toe, as per surg # Dvt ppx scds Appreciate consultation and dw Nick Holloway MD May 22, 2020 07:57
[2020-05-22 08:00] VITALS: BP 134/71
--- NOTE | 2020-05-22 08:14 | NUR ---
RD ASSESSMENT & RECOMMENDATIONS SEE CARE ACTIVITY FOR COMPLETE ASSESSMENT DAILY ESTIMATED NEEDS: Needs based on Critical care, wound, esrd on HD 65.1kg 25-30 kcals/kg 3391-5035 total kcals 1.5-2 g protein/kg 98-130 g total protein Fluid per MD, on HD NUTRITION DIAGNOSIS: Increased kcal and pro needs r/t renal dysfunction as evidenced by pt w/ ESRD on HD, notable open LE wounds, vent dep via trach and PEG dep. CURRENT TF: Nepro @55 ENTERAL NUTRITION RECOMMENDATIONS: Nepro LOWER to goal of 45ml/hr x24 hrs + Prosource BID to provide 1080ml, 1944 kcal, 87g pro, 785ml free H2O - Rec to LOWER goal rate of 45ml/hr - Add PROSOURCE 1 pack BID via PEG (11g pro/each) - On HD, water flush per MD - HOB over 30 degrees ADDITIONAL RECOMMENDATIONS: 1) maintain calibrated bed scale wt 2) Wound care: Vit C dosing per nephrology nephrovite qdaily. When tolerating TF at goal w/ Prosource BID-> add DEE BID .
[2020-05-22] MEDS: Vitamin D 400 units TAB ORAL SCH (08:56)
[2020-05-22] MEDS: Ascorbic Acid 500mg tab GT SCH (08:56)
[2020-05-22] MEDS: Aspirin Baby 81mg GT SCH ×2 (08:56→09:00)
[2020-05-22] MEDS: Nephrovite tab (Rena-Vite) GT SCH (08:56)
[2020-05-22] MEDS: Metoprolol Tartrate 50mg tab GT SCH ×2 (08:57→20:46)
[2020-05-22] MEDS: Pantoprazole Inj IVP SCH (08:57)
[2020-05-22] MEDS: Renvela 2400 mg pkt GT SCH ×3 (08:57→18:15)
[2020-05-22 09:28] LABS: ALANINE AMINOTRANSFERASE 17 U/L (12-78); ALBUMIN 2.2 G/DL (3.4-5.0); ALKALINE PHOSPHATASE 301 U/L (46-116); ASPARTATE AMINO TRANSFERASE 30 U/L (15-37); BILIRUBIN,DIRECT 0.4 MG/DL (0.0-0.3); BILIRUBIN,TOTAL 0.6 MG/DL (0.2-1.0)
[2020-05-22 09:45] LABS: PHOSPHORUS 4.2 MG/DL (2.5-4.9)
--- NOTE | 2020-05-22 10:43 | NUR ---
patients trache when suctioned pink tinge Dr. Warren notified-DC ASA,continue to monitor,Dr. STEPHENSON VISITED PATIENT for dialysis today [facility] [employer] [place] notified
[2020-05-22 12:00] VITALS: BP 125/76
--- NOTE | 2020-05-22 12:44 | Surgery Progress Note ---
Surgery Progress Note Subjective Symptoms: improved, tolerating diet, passing flatus Objective Last 24 Hour Vital Signs Date Time Temp Pulse Resp B/P (MAP) Pulse Ox O2 Delivery O2 Flow Rate FiO2 05/22/20 11:12 71 20 40 05/22/20 08:57 80 134/71 05/22/20 07:41 83 05/22/20 07:02 82 20 40 05/22/20 04:00 98.6 75 20 133/66 (88) 100 05/22/20 04:00 73 05/22/20 04:00 40 05/22/20 04:00 Mechanical Ventilator 05/22/20 03:35 68 19 40 05/22/20 00:00 98.1 65 20 120/55 (76) 100 05/22/20 00:00 40 05/22/20 00:00 63 05/22/20 00:00 Mechanical Ventilator 05/21/20 22:59 60 17 40 05/21/20 20:11 63 118/57 05/21/20 20:00 Mechanical Ventilator 05/21/20 20:00 64 05/21/20 20:00 97.9 63 19 118/57 (77) 100 05/21/20 20:00 40 05/21/20 19:20 62 17 40 05/21/20 16:55 68 17 40 05/21/20 16:00 40 05/21/20 16:00 Mechanical Ventilator 05/21/20 16:00 64 05/21/20 16:00 98.0 86 19 128/75 (92) 96 05/21/20 16:00 64 05/21/20 15:38 65 13 40 05/21/20 13:00 70 16 40 I&O Intake and Output 05/21/20 05/22/20 19:00 07:00 Intake Total 460 ml 860 ml Balance 460 ml 860 ml Intake Oral 0 ml Free Water 100 ml 200 ml Tube Feeding 110 ml 660 ml Blood Product 250 ml # Bowel Movements 2 1 Dressing: saturated Cardiovascular: RSR Respiratory: decreased breath sounds Abdomen: non-tender, present bowel sounds Extremities: no tenderness, no cyanosis Laboratory Tests Test 05/22/20 04:00 White Blood Count 9.2 K/UL (4.8-10.8) Red Blood Count 2.93 M/UL (4.70-6.10) L Hemoglobin 8.7 G/DL (14.2-18.0) L Hematocrit 27.8 % (42.0-52.0) L Mean Corpuscular Volume 95 FL (80-99) Mean Corpuscular Hemoglobin 29.6 PG (27.0-31.0) Mean Corpuscular Hemoglobin Concent 31.2 G/DL (32.0-36.0) L Red Cell Distribution Width 17.0 % (11.6-14.8) H Platelet Count 195 K/UL (150-450) Mean Platelet Volume 6.6 FL (6.5-10.1) Neutrophils (%) (Auto) 78.2 % (45.0-75.0) H Lymphocytes (%) (Auto) 9.8 % (20.0-45.0) L Monocytes (%) (Auto) 7.6 % (1.0-10.0) Eosinophils (%) (Auto) 2.8 % (0.0-3.0) Basophils (%) (Auto) 1.6 % (0.0-2.0) Erythrocyte Sedimentation Rate 118 MM/HR (0-15) H Sodium Level 135 MMOL/L (136-145) L Potassium Level 4.6 MMOL/L (3.5-5.1) Chloride Level 98 MMOL/L (98-107) Carbon Dioxide Level 27 MMOL/L (21-32) Anion Gap 10 mmol/L (5-15) Blood Urea Nitrogen 111 mg/dL (7-18) H Creatinine 4.4 MG/DL (0.55-1.30) H Estimat Glomerular Filtration Rate 14.3 mL/min (>60) Glucose Level 126 MG/DL (74-106) H Hemoglobin A1c 4.6 % (4.3-6.0) Calcium Level 9.1 MG/DL (8.5-10.1) Phosphorus Level 4.2 MG/DL (2.5-4.9) Magnesium Level 2.8 MG/DL (1.8-2.4) H Total Bilirubin 0.6 MG/DL (0.2-1.0) Direct Bilirubin 0.4 MG/DL (0.0-0.3) H Gamma Glutamyl Transpeptidase 128 U/L (5-85) H Aspartate Amino Transf (AST/SGOT) 30 U/L (15-37) Alanine Aminotransferase (ALT/SGPT) 17 U/L (12-78) Alkaline Phosphatase 301 U/L (46-116) H C-Reactive Protein, Quantitative 16.3 mg/dL (0.00-0.90) H Pro-B-Type Natriuretic Peptide Pending Total Protein 7.1 G/DL (6.4-8.2) Albumin 2.2 G/DL (3.4-5.0) L Vitamin D 25-Hydroxy Pending 25-Hydroxy Vitamin D2 Pending 25-Hydroxy Vitamin D3 Pending Thyroid Stimulating Hormone (TSH) 2.725 uiU/mL (0.358-3.740) Free Thyroxine 0.61 NG/DL (0.76-1.46) L Plan Problems: (1) Complications, dialysis, catheter, mechanical (2) Decubitus ulcer, heel Assessment & Plan: 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 Heel ulcer identified as well. Foul-smelling. Fortunately this does not seem salvageable by any means given the extensive loss at the flap that has dehisced the exposed bone as well as the heel. Currently stable otherwise known chronic in nature not patient's acute problem. Will recommend that patient has a right BKA at some point given the current findings we will continue with local wound care tentatively. Patient identified to have a heel ulcer on the left side as well. (3) Ischemia of right lower extremity (4) Hypercalcemia (5) Coagulopathy (6) Chronic respiratory failure (7) End stage renal disease on dialysis (8) Anemia in chronic kidney disease (CKD) (9) Anemia (10) GI bleed Dany Wilder May 22, 2020 12:44
--- NOTE | 2020-05-22 13:01 | Consultation ---
Consult Note Consult Note I am asked to evaluate the patient at the request of Patient known to me from his previous admission Dialysis ordered today Full note to follow This patient presents from a long-term facility. The patient has multiple chronic medical problems. He has a history of respiratory failure and is ventilator dependent. He has a history of CVA and is quadriplegic. He also has a history of end-stage renal disease and is dialysis dependent. He underwent routine laboratory draw yesterday and was found to be anemic. There is no history of any specific bleeding although there was some report of the tracheostomy site with minimal oozing and a small amount of rectal bleeding. There are no other complaints. Allergies: No Known Allergies (Unverified , 04/22/20) COVID-19 Screening Contact w/high risk pt: No Experienced COVID-19 symptoms?: No COVID-19 Testing performed MICROFICHE DUPLICATOR: No COVID-19 Screening: PUI COVID-19 Past Medical History: see triage record, DM, HTN, PR, CAD, GERD, CVA/TIA, renal disease, dialysis Past Surgical History: other - Tracheostomy Social History: Denies: smoking, alcohol use, drug use Reviewed Nursing Documentation: PMH: Agreed; PSxH: Agreed Past Medical History: No History, Except For Hx Cardiac Problems: Yes Hx Diabetes: Yes Hx Gastrointestinal Problems: Yes Hx Dialysis: Yes Hx Neurological Problems: Yes Hx Dysphasia: Yes Vital Signs Date Time Temp Pulse Resp B/P (MAP) Pulse Ox O2 Delivery O2 Flow Rate FiO2 05/20/20 14:56 97.3 103 23 158/84 (108) 99 Mechanical Ventilator 05/20/20 15:00 40 PHYSICAL EXAMINATION: HEENT: Eyes were normal. Sclerae were white. Conjunctivae were pink. Temporal arteries were palpable bilaterally. There was some bilateral temporal wasting. Visual rios to confrontation are probably normal and neglect sign could not be assessed. ENT, mucous membranes were not dehydrated. Auditory canals were clear and tympanic membranes could not be visualized. Nasal cavity was not congested. Nasal septum was intact. Soft palate, pharynx, uvula could not be visualized. Tongue was moist, midline, and normally papillated. NECK: Supple. There was no goiter. No mass. No lymphadenopathy. There was no JVD. No bruits. Carotid upstroke was 1+. The tracheostomy site had traces of bleeding, but no bleeding was visible during the time of the examination. LUNGS: Clear to auscultation and percussion. HEART: PMI was fifth left intercostal space midclavicular line with normal S1 and normal S2. There was no murmur. No arrhythmia. No S3. No S4. No pericardial rub. ABDOMEN: Soft, nontender without organomegaly. There were no masses palpable. Normal bowel sounds without bruit. There was no guarding. No rebound tenderness. No ascites. No hernia. No CVA tenderness. Liver span was 8 cm, smooth, and nontender. Gastrostomy site was clean. EXTREMITIES: Warm without cyanosis, clubbing, or edema. There were bilateral gangrene on toes in both feet. NEUROLOGICAL: Reflexes in biceps, triceps, and brachioradialis did not generate any reflex in the upper extremity. Patellar was visible on the left side. Plantar could not be done because of patient's gangrene. Cranial nerves II through XII symmetric and equal. Cerebellar function, there was no tremor. No nystagmus. No extrapyramidal rigidity. Sensory exam and motor sign could not be assessed because of patient's clinical status. LABORATORY AND DIAGNOSTIC DATA: Hemoglobin 7.0, hematocrit 21.9 with MCV of 95, WBC of 9.2, and platelets 170. His BUN and creatinine are 94 and 3.7 respectively. Sodium 137, potassium 4.5, chloride 97, CO2 31. At the time of this dictation, patient already was dialyzed by the assessment technician and the case has been discussed with the assessment technician. However, other consultants were called to assist in the management of this case. Hematology campaign consultant was called to assess the hypercoagulable disorder. family support specialist was called to assess patient's ventilation function. Repeat laboratory tests will be done in the a.m.\\. . Assessment/Plan End-stage renal disease on dialysis Coagulopathy Anemia Chronic respiratory failure History of hypercalcemia, corrected serum calcium for low albumin remains elevated Plan: Hemodialysis today. Aredia 60 mg IV piggyback for hypercalcemia. Continue to monitor renal parameters calcium and phosphorus. Per orders, per PMD. Maurilio King MD May 22, 2020 13:01
--- NOTE | 2020-05-22 13:17 | NUR ---
CASE MANAGEMENT:REVIEW BIBA FROM [facility] PMH: ESRD ON HD MWF. TRACH/VENT DEPENDENT SI: ANEMIA 97.4 103 23 158/84 99% ON VENT SUPPORT H/H-7.0/21.9 IS: 1L NS BOLUS CHEST XRAY : TO STEP DOWN UNIT PLAN: TRANSFUSE 2 UNIT PRBC'S
--- NOTE | 2020-05-22 13:20 | General Progress Note ---
Subjective Constitutional: Reports: no symptoms, weakness HEENT: Reports: no symptoms Cardiovascular: Reports: no symptoms Respiratory: Reports: no symptoms Gastrointestinal/Abdominal: Reports: no symptoms Genitourinary: Reports: no symptoms Neurologic/Psychiatric: Reports: no symptoms Endocrine: Reports: no symptoms Hematologic/Lymphatic: Reports: no symptoms Allergies: Coded Allergies: No Known Allergies (Unverified , 04/22/20) Objective Last 24 Hour Vital Signs Date Time Temp Pulse Resp B/P (MAP) Pulse Ox O2 Delivery O2 Flow Rate FiO2 05/22/20 11:12 71 20 40 05/22/20 08:57 80 134/71 05/22/20 07:41 83 05/22/20 07:02 82 20 40 05/22/20 04:00 98.6 75 20 133/66 (88) 100 05/22/20 04:00 73 05/22/20 04:00 40 05/22/20 04:00 Mechanical Ventilator 05/22/20 03:35 68 19 40 05/22/20 00:00 98.1 65 20 120/55 (76) 100 05/22/20 00:00 40 05/22/20 00:00 63 05/22/20 00:00 Mechanical Ventilator 05/21/20 22:59 60 17 40 05/21/20 20:11 63 118/57 05/21/20 20:00 Mechanical Ventilator 05/21/20 20:00 64 05/21/20 20:00 97.9 63 19 118/57 (77) 100 05/21/20 20:00 40 05/21/20 19:20 62 17 40 05/21/20 16:55 68 17 40 05/21/20 16:00 40 05/21/20 16:00 Mechanical Ventilator 05/21/20 16:00 64 05/21/20 16:00 98.0 86 19 128/75 (92) 96 05/21/20 16:00 64 05/21/20 15:38 65 13 40 Intake and Output 05/21/20 05/22/20 19:00 07:00 Intake Total 460 ml 860 ml Balance 460 ml 860 ml Intake Oral 0 ml Free Water 100 ml 200 ml Tube Feeding 110 ml 660 ml Blood Product 250 ml # Bowel Movements 2 1 Laboratory Tests 05/22/20 04:00: White Blood Count 9.2, Red Blood Count 2.93L, Hemoglobin 8.7L, Hematocrit 27.8L, Mean Corpuscular Volume 95, Mean Corpuscular Hemoglobin 29.6, Mean Corpuscular Hemoglobin Concent 31.2L, Red Cell Distribution Width 17.0H, Platelet Count 195, Mean Platelet Volume 6.6, Neutrophils (%) (Auto) 78.2H, Lymphocytes (%) (Auto) 9.8L, Monocytes (%) (Auto) 7.6, Eosinophils (%) (Auto) 2.8, Basophils (%) (Auto) 1.6, Erythrocyte Sedimentation Rate 118H, Sodium Level 135L, Potassium Level 4.6, Chloride Level 98, Carbon Dioxide Level 27, Anion Gap 10, Blood Urea Nitrogen 111H, Creatinine 4.4H, Estimat Glomerular Filtration Rate 14.3, Glucose Level 126H, Hemoglobin A1c 4.6, Calcium Level 9.1, Phosphorus Level 4.2, Magnesium Level 2.8H, Total Bilirubin 0.6, Direct Bilirubin 0.4H, Gamma Glutamyl Transpeptidase 128H, Aspartate Amino Transf (AST/SGOT) 30, Alanine Aminotransferase (ALT/SGPT) 17, Alkaline Phosphatase 301H, C-Reactive Protein, Quantitative 16.3H, Pro-B-Type Natriuretic Peptide [Pending], Total Protein 7.1, Albumin 2.2L, Vitamin D 25-Hydroxy [Pending], 25-Hydroxy Vitamin D2 [Pending], 25-Hydroxy Vitamin D3 [Pending], Thyroid Stimulating Hormone (TSH) 2.725, Free Thyroxine 0.61L Height (Feet): 5 Height (Inches): 7.00 Weight (Pounds): 143 General Appearance: lethargic, mild distress EENT: normal ENT inspection Neck: supple Cardiovascular: normal rate, regular rhythm, no gallop/murmur, no JVD Respiratory/Chest: lungs clear, normal breath sounds, no respiratory distress, no accessory muscle use Abdomen: normal bowel sounds, non tender, soft, no organomegaly, no mass Extremities: non-tender Neurologic: unresponsive, aphasia Skin: warm/dry Assessment/Plan Status Narrative Patient is febrile tachycardic without leukocytosis he also appears to be more lethargic than he usually is is unclear whether he does not respond to question by head nods because of being more aphasic or being more lethargic probably patient has an undeclared infection patient undergo imaging study in search of such infection cannot reveal by symptoms repeat laboratory tests will be done in a.m. he still have bleeding from the trach site her surgeon and service line layer were asked to assess the patient if infection will be identified infectious disease consulted will join the management of this case Trinity Landaverde MD, MD May 22, 2020 13:20
--- NOTE | 2020-05-22 14:54 | NUR ---
NURSE NOTES:WOUND CARE NOTES:Pt presented on admission with Tracheostomy ,GT and dehiscence of R TMA with necrosis extending into lateral aspect of R foot. Full thickness ulcer R heel with slough and necrosis. Moderate amt haemopurulent exudate noted from R heel.Wounds are malodorous. Pt exhibited distress with elevation of R leg during wound care. Haemosiderin deposit R lower ext. Dry eschar with cracking at base noted to L Hallux(L)3cm x (W)4.5cm. Dry eschar noted to dorsal L 1st,L 3rd, and L 5th metatarsals. L Heel is boggy with non-blanchable erythema. DTPI noted to upper R Buttocks(L)2.3cm x (W)4.5cm. Base of wound is indurated,purpuric with surrounding non-blanchable erythema.Non-Blanchable erythema without induration or fluctuance at Sacrum. Tx.Plan: Cleanse L foot wounds with Dakin's [place] 0.25%. Apply Dakin's moistened Kerlix to wounds. Apply Moisture Barrier periwound. Cover with ABD pads. Wrap with Kerlix Daily and prn. Apply Betadine to L Hallux ,L1st,L 3rd and L 5th metatarsals Daily. Leave open to Air. Apply Moisture Barrier Paste to Sacrum /R Buttocks. Cover with Optifoam drsgs. Change every 3 days and prn. Reposition at least every 2hours or as tolerated. Off-load heels with pillow.
[2020-05-22 16:00] VITALS: BP 124/77
[2020-05-22] MEDS ORDERED: Pamidronate Disodium Inj 60 MG in Sodium Chloride 550 ML IVPB ONE (16:00)
--- NOTE | 2020-05-22 19:21 | NUR ---
NURSE NOTES: Received report from AMELIE Glez. Pt in bed, sleeping but easy arousable with voice and touch. On vent trach, tolerating vent setting of SIMV 10, TV 500, FiO2 40%, and PEEP of 5 saturating 97%. Sr on media monitor with hr of 77bpm. G-tube is intact and patent running Nepro @ 45cc/hr. IV access on L hand #20 intact and patent. Tunnelled Perma cath L upper chest, no signs of bleeding. Safety measures in place, bed is locked and in lowest position, bed alarm on, call light within reached. Head of bed is elevated at all times. Will continue to plan of care and monitor the patient.
--- NOTE | 2020-05-22 19:21 | NUR ---
HAND-OFF: Report given to RN Mal Casanova,patient resting on ventilator,stable,G tube feeding dialysis catheter dressing dry intact ,suction from tracheostomy no blood,thick secretions,dressing changed,no active bleeding,head 30 degrees,tolerating g tube feeding wound on foot dressing done by wound care nurse
[2020-05-22 20:00] VITALS: BP 138/79
[2020-05-22] MEDS: Atorvastatin 20mg tab GT SCH (20:46)
[2020-05-22] MEDS: Dyna-Hex 2% Top Sol 2oz TOPIC SCH (20:46)
[2020-05-23] VITALS: BP 131/73
--- NOTE | 2020-05-23 00:32 | NUR ---
NURSE NOTES: Turned and repositioned pt. Oral care provided. In no apparent cardiac and respiratory distress noted. Will continue to monitor and plan of care.
[2020-05-23 04:00] VITALS: BP 136/66
--- NOTE | 2020-05-23 04:10 | NUR ---
NURSE NOTES: Repositioned and turned pt. Cleaned and kept pt dry. Feeding still on hold
[2020-05-23 04:39] LABS: BASOPHILS % (AUTO) 1.1 % (0.0-2.0); EOSINOPHILS % (AUTO) 2.1 % (0.0-3.0); HEMATOCRIT 26.3 % (42.0-52.0); HEMOGLOBIN 8.5 G/DL (14.2-18.0); LYMPHOCYTES % (AUTO) 10.3 % (20.0-45.0); MEAN CORPUSCULAR VOLUME 93 FL (80-99); MONOCYTES % (AUTO) 8.1 % (1.0-10.0); NEUTROPHILS % (AUTO) 78.5 % (45.0-75.0); PLATELET COUNT 179 K/UL (150-450); RED BLOOD COUNT 2.84 M/UL (4.70-6.10); RED CELL DISTRIBUTION WIDTH 16.7 % (11.6-14.8); WHITE BLOOD COUNT 8.6 K/UL (4.8-10.8)
[2020-05-23 05:14] LABS: ALANINE AMINOTRANSFERASE 18 U/L (12-78); ALBUMIN 2.1 G/DL (3.4-5.0); ALBUMIN/GLOBULIN RATIO 0.4 (1.0-2.7); ALKALINE PHOSPHATASE 371 U/L (46-116); ANION GAP 6 mmol/L (5-15); ASPARTATE AMINO TRANSFERASE 20 U/L (15-37); BILIRUBIN,TOTAL 0.6 MG/DL (0.2-1.0); BLOOD UREA NITROGEN 80 mg/dL (7-18); CALCIUM 8.8 MG/DL (8.5-10.1); CARBON DIOXIDE 30 MMOL/L (21-32); CHLORIDE 100 MMOL/L (98-107); CREATININE 3.4 MG/DL (0.55-1.30); FERRITIN 1736 NG/ML (8-388); PHOSPHORUS 2.6 MG/DL (2.5-4.9); POTASSIUM 3.7 MMOL/L (3.5-5.1); SODIUM 136 MMOL/L (136-145)
[2020-05-23 06:47] LABS: % IRON SATURATION 18 % (15-50); IRON 25 ug/dL (50-175); TOTAL IRON BINDING CAPACITY 137 ug/dL (250-450)
--- NOTE | 2020-05-23 07:45 | NUR ---
NURSE HAND-OFF REPORT: Important Events on Shift: Stable Patient Status: Stable Diet: Nepro currently NPO for CT Pending Orders: Ct chest abdomen wo contrast Pending Results/Labs: Pending MD notification: Latest Vital Signs: Temperature 99.1 , Pulse 72 , B/P 136 /66 , Respiratory Rate 17 , O2 SAT 97 , Mechanical Ventilator, O2 Flow Rate . Vital Sign Comment: Stable EKG Rhythm: Sinus Rhythm Rhythm change?: N MD Notified?: - MD Response: Latest Geena Fall Score: 75 Fall Risk: High Risk Safety Measures: Call light Within Reach, Bed Alarm Zone 2, Side Rails Side Rails x2, Bed position Low and Locked. Fall Precautions: Yellow Socks Patient Fall Education Report given to AMELIE Long.
--- NOTE | 2020-05-23 07:45 | NUR ---
NURSE NOTES: Received report from AMELIE Mandel. Patient is on bed, awake, no signs of grimacing and distress noted. Currently being suctioned by RT. Patient has trache SMP 10, TV 500, FiO2 40%, PEEP 5, tolerating well. Patient is on GT nepro running 45 cc/hr, currently on hold for CT chest abd today. Patient has a L tunnel cath on the chest, patent and intact. L H 22 g patent, intact, and saline locked. HOB is elevated, bed is on lowest position, locked, side rails up. Patient will continue to be monitored.
--- NOTE | 2020-05-23 07:50 | NUR ---
NURSE NOTES: Talked to Alysia from CT. She said that patient will have to drink contrast and then will be going to CT an hour from then.
[2020-05-23 08:00] VITALS: BP 125/74
[2020-05-23] MEDS: Renvela 2400 mg pkt GT SCH ×3 (08:12→17:55)
[2020-05-23] MEDS: Vitamin D 400 units TAB ORAL SCH (08:12)
[2020-05-23] MEDS: Nephrovite tab (Rena-Vite) GT SCH (08:12)
[2020-05-23] MEDS: Ascorbic Acid 500mg tab GT SCH (08:12)
[2020-05-23] MEDS: Aspirin Baby 81mg GT SCH (08:13)
[2020-05-23] MEDS: Pantoprazole Inj IVP SCH (08:13)
[2020-05-23] MEDS: Metoprolol Tartrate 50mg tab GT SCH ×2 (08:22→21:00)
[2020-05-23] MEDS: Dakin's 0.125% Soln (Quarter Strength) 16oz TOPIC SCH (08:23)
--- NOTE | 2020-05-23 09:27 | NUR ---
NURSE NOTES: Pushed the contrast to patient that was brought by CT Alysia. Patient will be going down to CT in an hour and 30 minutes.
--- NOTE | 2020-05-23 11:28 | NUR ---
NURSE NOTES: Patient was brought down to CT at 11:15 via hospital bed and came back to the unit at 11:28.
[2020-05-23 12:00] VITALS: BP 130/75
--- NOTE | 2020-05-23 12:28 | Nephrology Progress Note ---
Assessment/Plan Problem List: (1) End stage renal disease on dialysis (2) Hypercalcemia (3) Anemia (4) Chronic respiratory failure Assessment End-stage renal disease on dialysis Coagulopathy Anemia Chronic respiratory failure History of hypercalcemia, corrected serum calcium for low albumin remains elevated Plan Hemodialysis yesterday May 22 Aredia 60 mg IV piggyback for hypercalcemia, given on May 22 Continue to monitor renal parameters calcium and phosphorus. Per orders, per PMD. Subjective ROS Limited/Unobtainable: Yes Objective Objective Last 24 Hour Vital Signs Date Time Temp Pulse Resp B/P (MAP) Pulse Ox O2 Delivery O2 Flow Rate FiO2 05/23/20 11:29 105 35 40 05/23/20 08:22 80 125/74 05/23/20 08:00 97.7 80 20 125/74 (91) 100 05/23/20 08:00 Mechanical Ventilator 05/23/20 08:00 40 05/23/20 07:40 83 05/23/20 07:00 69 21 40 05/23/20 04:00 Mechanical Ventilator 05/23/20 04:00 99.1 72 17 136/66 (89) 97 05/23/20 04:00 40 05/23/20 03:28 71 05/23/20 03:19 71 20 40 05/23/20 00:00 40 05/23/20 00:00 99.8 71 20 131/73 (92) 100 05/23/20 00:00 Mechanical Ventilator 05/22/20 23:59 72 05/22/20 23:09 72 20 40 05/22/20 20:46 77 138/79 05/22/20 20:00 99.2 77 22 138/79 (98) 100 05/22/20 20:00 40 05/22/20 20:00 Mechanical Ventilator 05/22/20 19:34 77 05/22/20 19:25 78 19 40 05/22/20 16:30 Mechanical Ventilator 05/22/20 16:00 77 05/22/20 16:00 99.0 79 18 124/77 (93) 100 05/22/20 16:00 40 05/22/20 14:55 77 24 40 Intake and Output 05/22/20 05/23/20 19:00 07:00 Intake Total 145 ml 225 ml Output Total 2000 ml Balance -1855 ml 225 ml Free Water 100 ml Tube Feeding 45 ml 225 ml Output Hemodialysis UF 2000 ml # Bowel Movements 2 Laboratory Tests 05/23/20 02:50: White Blood Count 8.6, Red Blood Count 2.84L, Hemoglobin 8.5L, Hematocrit 26.3L, Mean Corpuscular Volume 93, Mean Corpuscular Hemoglobin 29.9, Mean Corpuscular Hemoglobin Concent 32.2, Red Cell Distribution Width 16.7H, Platelet Count 179, Mean Platelet Volume 6.4L, Neutrophils (%) (Auto) 78.5H, Lymphocytes (%) (Auto) 10.3L, Monocytes (%) (Auto) 8.1, Eosinophils (%) (Auto) 2.1, Basophils (%) (Auto) 1.1, Sodium Level 136, Potassium Level 3.7, Chloride Level 100, Carbon Dioxide Level 30, Anion Gap 6, Blood Urea Nitrogen 80H, Creatinine 3.4H, Estimat Glomerular Filtration Rate 19.3, Glucose Level 136H, Calcium Level 8.8, Ionized Calcium (Measured) 1.10, Phosphorus Level 2.6, Magnesium Level 2.5H, Iron Level 25L, Total Iron Binding Capacity 137L, Percent Iron Saturation 18, Unsaturated Iron Binding 112, Ferritin 1736H, Total Bilirubin 0.6, Aspartate Amino Transf (AST/SGOT) 20, Alanine Aminotransferase (ALT/SGPT) 18, Alkaline Phosphatase 371H , C-Reactive Protein, Quantitative 13.2H, Pro-B-Type Natriuretic Peptide [Pending], Total Protein 6.9, Albumin 2.1L, Globulin 4.8, Albumin/Globulin Ratio 0.4L, Vitamin B12 Level 1417H, Folate 31.4 Height (Feet): 5 Height (Inches): 7.00 Weight (Pounds): 143 General Appearance: no apparent distress EENT: other - Trach to vent Cardiovascular: tachycardia, other - Variable rate Respiratory/Chest: decreased breath sounds Abdomen: distended Maurilio King MD May 23, 2020 12:28
--- NOTE | 2020-05-23 12:28 | Diagnostic Imaging Report ---
EXAM: CT Abdomen and Pelvis Without Intravenous Contrast CLINICAL HISTORY: INFECT TECHNIQUE: Axial computed tomography images of the abdomen and pelvis without intravenous contrast. CTDI is 6.70 mGy and DLP is 439.60 mGy-cm. One or more of the following dose reduction techniques were used: automated exposure control, adjustment of the mA and/or kV according to patient size, use of iterative reconstruction technique. COMPARISON: None FINDINGS: ABDOMEN: Liver: Mild hepatomegaly. Gallbladder and bile ducts: Cholelithiasis in a contracted gallbladder. No ductal dilation. Pancreas: Unremarkable. No ductal dilation. Spleen: Unremarkable. No splenomegaly. Adrenals: Unremarkable. No mass. Kidneys and ureters: Nonspecific bilateral perinephric fat stranding. No hydronephrosis or definite stone. Stomach and bowel: Unremarkable. No obstruction. No mucosal thickening. PELVIS: Appendix: Normal appendix. Bladder: Mild prominence of the bladder wall is nonspecific. Please correlate with urinalysis to evaluate for cystitis. No stones. Reproductive: Unremarkable as visualized. ABDOMEN and PELVIS: Intraperitoneal space: Small amount of presacral fluid. Large amount of ascites. No free air. Bones/joints: Degenerative changes of the spine. No acute fracture. No dislocation. Soft tissues: Small fat-containing umbilical hernia. Vasculature: Extensive vascular calcifications. No aortic aneurysm. Lymph nodes: Unremarkable. No enlarged lymph nodes. Tubes, lines and devices: G-tube in place. IMPRESSION: 1. Mild prominence of the bladder wall is nonspecific. Please correlate with urinalysis to evaluate for cystitis. 2. Cholelithiasis in a contracted gallbladder. 3. Small amount of presacral fluid. Large amount of ascites. EXAM: CT Chest Without Intravenous Contrast CLINICAL HISTORY: INFECT TECHNIQUE: Axial computed tomography images of the chest without intravenous contrast. CTDI is 6.70 mGy and DLP is 439.60 mGy-cm. One or more of the following dose reduction techniques were used: automated exposure control, adjustment of the mA and/or kV according to patient size, use of iterative reconstruction technique. COMPARISON: Chest radiograph on 04/22/2020 FINDINGS: Lungs: Extensive reticulonodular densities in right greater than left lungs, compatible with an infectious/inflammatory process. Consolidations in the right greater than left lower lobes and posterior aspect of the right upper lobe may represent atelectasis versus pneumonia. Pleural space: Moderate right and small left pleural effusions with loculated components. No pneumothorax. Heart: Mild enlargement of the cardiac silhouette. No significant pericardial effusion. Mediastinum: Nonspecific enlarged mediastinal lymph nodes. Small hiatal hernia. Bones/joints: Degenerative changes of the spine. No acute fracture. No dislocation. Soft tissues: Anasarca. Mild bilateral gynecomastia. Vasculature: Unremarkable. No thoracic aortic aneurysm. Lymph nodes: Unremarkable. No enlarged lymph nodes. Tubes, lines and devices: Tracheostomy tube terminates in the upper thoracic trachea. Left central venous catheter terminates in the SVC. IMPRESSION: 1. Moderate right and small left pleural effusions with loculated components. 2. Extensive reticulonodular densities in right greater than left lungs, compatible with an infectious/inflammatory process. 3. Consolidations in the right greater than left lower lobes and posterior aspect of the right upper lobe may represent atelectasis versus pneumonia. 4. Nonspecific enlarged mediastinal lymph nodes. 5. Anasarca.
[2020-05-23 16:00] VITALS: BP 112/73
--- NOTE | 2020-05-23 16:00 | NUR ---
NURSE NOTES: Tried uploading wound pictures but the system is down even on other nurses. per IT, 8pm or 9pm will be the perfect time to upload. Will be endorsed to next shift nurse.
--- NOTE | 2020-05-23 18:10 | Surgery Progress Note ---
Surgery Progress Note Subjective Additional Comments no acute events labs noted imaging reviewed no n/v Objective Last 24 Hour Vital Signs Date Time Temp Pulse Resp B/P (MAP) Pulse Ox O2 Delivery O2 Flow Rate FiO2 05/23/20 16:00 40 05/23/20 16:00 98.8 85 18 112/73 (86) 98 05/23/20 16:00 Mechanical Ventilator 05/23/20 15:23 87 05/23/20 15:20 88 18 40 05/23/20 12:00 99.5 90 20 130/75 (93) 97 05/23/20 12:00 104 05/23/20 12:00 40 05/23/20 12:00 Mechanical Ventilator 05/23/20 11:29 105 35 40 05/23/20 08:22 80 125/74 05/23/20 08:00 97.7 80 20 125/74 (91) 100 05/23/20 08:00 Mechanical Ventilator 05/23/20 08:00 40 05/23/20 07:40 83 05/23/20 07:00 69 21 40 05/23/20 04:00 Mechanical Ventilator 05/23/20 04:00 99.1 72 17 136/66 (89) 97 05/23/20 04:00 40 05/23/20 03:28 71 05/23/20 03:19 71 20 40 05/23/20 00:00 40 05/23/20 00:00 99.8 71 20 131/73 (92) 100 05/23/20 00:00 Mechanical Ventilator 05/22/20 23:59 72 05/22/20 23:09 72 20 40 05/22/20 20:46 77 138/79 05/22/20 20:00 99.2 77 22 138/79 (98) 100 05/22/20 20:00 40 05/22/20 20:00 Mechanical Ventilator 05/22/20 19:34 77 05/22/20 19:25 78 19 40 I&O Intake and Output 05/22/20 05/23/20 19:00 07:00 Intake Total 145 ml 225 ml Output Total 2000 ml Balance -1855 ml 225 ml Free Water 100 ml Tube Feeding 45 ml 225 ml Output Hemodialysis UF 2000 ml # Bowel Movements 2 Dressing: saturated Cardiovascular: RSR Respiratory: decreased breath sounds Abdomen: non-tender, present bowel sounds Extremities: edema, no tenderness, no cyanosis, pulses, other Laboratory Tests Test 05/23/20 02:50 White Blood Count 8.6 K/UL (4.8-10.8) Red Blood Count 2.84 M/UL (4.70-6.10) L Hemoglobin 8.5 G/DL (14.2-18.0) L Hematocrit 26.3 % (42.0-52.0) L Mean Corpuscular Volume 93 FL (80-99) Mean Corpuscular Hemoglobin 29.9 PG (27.0-31.0) Mean Corpuscular Hemoglobin Concent 32.2 G/DL (32.0-36.0) Red Cell Distribution Width 16.7 % (11.6-14.8) H Platelet Count 179 K/UL (150-450) Mean Platelet Volume 6.4 FL (6.5-10.1) L Neutrophils (%) (Auto) 78.5 % (45.0-75.0) H Lymphocytes (%) (Auto) 10.3 % (20.0-45.0) L Monocytes (%) (Auto) 8.1 % (1.0-10.0) Eosinophils (%) (Auto) 2.1 % (0.0-3.0) Basophils (%) (Auto) 1.1 % (0.0-2.0) Sodium Level 136 MMOL/L (136-145) Potassium Level 3.7 MMOL/L (3.5-5.1) Chloride Level 100 MMOL/L (98-107) Carbon Dioxide Level 30 MMOL/L (21-32) Anion Gap 6 mmol/L (5-15) Blood Urea Nitrogen 80 mg/dL (7-18) H Creatinine 3.4 MG/DL (0.55-1.30) H Estimat Glomerular Filtration Rate 19.3 mL/min (>60) Glucose Level 136 MG/DL (74-106) H Calcium Level 8.8 MG/DL (8.5-10.1) Ionized Calcium (Measured) 1.10 mmol/L (1.10-1.35) Phosphorus Level 2.6 MG/DL (2.5-4.9) Magnesium Level 2.5 MG/DL (1.8-2.4) H Iron Level 25 ug/dL (50-175) L Total Iron Binding Capacity 137 ug/dL (250-450) L Percent Iron Saturation 18 % (15-50) Unsaturated Iron Binding 112 ug/dL (112-346) Ferritin 1736 NG/ML (8-388) H Total Bilirubin 0.6 MG/DL (0.2-1.0) Aspartate Amino Transf (AST/SGOT) 20 U/L (15-37) Alanine Aminotransferase (ALT/SGPT) 18 U/L (12-78) Alkaline Phosphatase 371 U/L (46-116) H C-Reactive Protein, Quantitative 13.2 mg/dL (0.00-0.90) H Pro-B-Type Natriuretic Peptide Pending Total Protein 6.9 G/DL (6.4-8.2) Albumin 2.1 G/DL (3.4-5.0) L Globulin 4.8 g/dL Albumin/Globulin Ratio 0.4 (1.0-2.7) L Vitamin B12 Level 1417 PG/ML (193-986) H Folate 31.4 NG/ML (8.6-58.9) Plan Problems: (1) Complications, dialysis, catheter, mechanical (2) Decubitus ulcer, heel Assessment & Plan: 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 Heel ulcer identified as well. Foul-smelling. Fortunately this does not seem salvageable by any means given the extensive loss at the flap that has dehisced the exposed bone as well as the heel. Currently stable otherwise known chronic in nature not patient's acute problem. Will recommend that patient has a right BKA at some point given the current findings we will continue with local wound care tentatively. Patient identified to have a heel ulcer on the left side as well. Pt presented on admission with Tracheostomy ,GT and dehiscence of R TMA with necrosis extending into lateral aspect of R foot. Full thickness ulcer R heel with slough and necrosis. Moderate amt haemopurulent exudate noted from R heel.Wounds are malodorous. Pt exhibited distress with elevation of R leg during wound care. Haemosiderin deposit R lower ext. Dry eschar with cracking at base noted to L Hallux(L)3cm x (W)4.5cm. Dry eschar noted to dorsal L 1st,L 3rd, and L 5th metatarsals. L Heel is boggy with non-blanchable erythema. DTPI noted to upper R Buttocks(L)2.3cm x (W)4.5cm. Base of wound is indurated,purpuric with surrounding non-blanchable erythema.Non-Blanchable erythema without induration or fluctuance at Sacrum. Tx.Plan: Cleanse L foot wounds with Dakin's [place] 0.25%. Apply Dakin's moistened Kerlix to wounds. Apply Moisture Barrier periwound. Cover with ABD pads. Wrap with Kerlix Daily and prn. Apply Betadine to L Hallux ,L1st,L 3rd and L 5th metatarsals Daily. Leave open to Air. Apply Moisture Barrier Paste to Sacrum /R Buttocks. Cover with Optifoam drsgs. Change every 3 days and prn. Reposition at least every 2hours or as tolerated. Off-load heels with pillow. (3) Ischemia of right lower extremity (4) Hypercalcemia (5) Coagulopathy (6) Chronic respiratory failure (7) End stage renal disease on dialysis (8) Anemia in chronic kidney disease (CKD) (9) Anemia (10) GI bleed Dany Wilder May 23, 2020 18:10
--- NOTE | 2020-05-23 18:55 | General Progress Note ---
Subjective Constitutional: Reports: no symptoms, other - Appears comfortable and smiling HEENT: Reports: no symptoms Cardiovascular: Reports: no symptoms Respiratory: Reports: no symptoms Gastrointestinal/Abdominal: Reports: no symptoms Neurologic/Psychiatric: Reports: no symptoms Endocrine: Reports: no symptoms Allergies: Coded Allergies: No Known Allergies (Unverified , 04/22/20) Objective Last 24 Hour Vital Signs Date Time Temp Pulse Resp B/P (MAP) Pulse Ox O2 Delivery O2 Flow Rate FiO2 05/23/20 16:00 40 05/23/20 16:00 98.8 85 18 112/73 (86) 98 05/23/20 16:00 Mechanical Ventilator 05/23/20 15:23 87 05/23/20 15:20 88 18 40 05/23/20 12:00 99.5 90 20 130/75 (93) 97 05/23/20 12:00 104 05/23/20 12:00 40 05/23/20 12:00 Mechanical Ventilator 05/23/20 11:29 105 35 40 05/23/20 08:22 80 125/74 05/23/20 08:00 97.7 80 20 125/74 (91) 100 05/23/20 08:00 Mechanical Ventilator 05/23/20 08:00 40 05/23/20 07:40 83 05/23/20 07:00 69 21 40 05/23/20 04:00 Mechanical Ventilator 05/23/20 04:00 99.1 72 17 136/66 (89) 97 05/23/20 04:00 40 05/23/20 03:28 71 05/23/20 03:19 71 20 40 05/23/20 00:00 40 05/23/20 00:00 99.8 71 20 131/73 (92) 100 05/23/20 00:00 Mechanical Ventilator 05/22/20 23:59 72 05/22/20 23:09 72 20 40 05/22/20 20:46 77 138/79 05/22/20 20:00 99.2 77 22 138/79 (98) 100 05/22/20 20:00 40 05/22/20 20:00 Mechanical Ventilator 05/22/20 19:34 77 05/22/20 19:25 78 19 40 Intake and Output 05/22/20 05/23/20 19:00 07:00 Intake Total 145 ml 225 ml Output Total 2000 ml Balance -1855 ml 225 ml Free Water 100 ml Tube Feeding 45 ml 225 ml Output Hemodialysis UF 2000 ml # Bowel Movements 2 Laboratory Tests 05/23/20 02:50: White Blood Count 8.6, Red Blood Count 2.84L, Hemoglobin 8.5L, Hematocrit 26.3L, Mean Corpuscular Volume 93, Mean Corpuscular Hemoglobin 29.9, Mean Corpuscular Hemoglobin Concent 32.2, Red Cell Distribution Width 16.7H, Platelet Count 179, Mean Platelet Volume 6.4L, Neutrophils (%) (Auto) 78.5H, Lymphocytes (%) (Auto) 10.3L, Monocytes (%) (Auto) 8.1, Eosinophils (%) (Auto) 2.1, Basophils (%) (Auto) 1.1, Sodium Level 136, Potassium Level 3.7, Chloride Level 100, Carbon Dioxide Level 30, Anion Gap 6, Blood Urea Nitrogen 80H, Creatinine 3.4H, Estimat Glomerular Filtration Rate 19.3, Glucose Level 136H, Calcium Level 8.8, Ionized Calcium (Measured) 1.10, Phosphorus Level 2.6, Magnesium Level 2.5H, Iron Level 25L, Total Iron Binding Capacity 137L, Percent Iron Saturation 18, Unsaturated Iron Binding 112, Ferritin 1736H, Total Bilirubin 0.6, Aspartate Amino Transf (AST/SGOT) 20, Alanine Aminotransferase (ALT/SGPT) 18, Alkaline Phosphatase 371H , C-Reactive Protein, Quantitative 13.2H, Pro-B-Type Natriuretic Peptide [Pending], Total Protein 6.9, Albumin 2.1L, Globulin 4.8, Albumin/Globulin Ratio 0.4L, Vitamin B12 Level 1417H, Folate 31.4 Height (Feet): 5 Height (Inches): 7.00 Weight (Pounds): 143 General Appearance: WD/WN, alert EENT: normal ENT inspection Neck: normal alignment, supple Cardiovascular: normal rate, regular rhythm, no gallop/murmur, no JVD Respiratory/Chest: lungs clear, normal breath sounds, no respiratory distress, no accessory muscle use Abdomen: normal bowel sounds, non tender, soft, no organomegaly, no mass Extremities: non-tender Neurologic: alert, aphasia Assessment/Plan Status Narrative Patient is awake alert afebrile hemodynamically stable Eye contact normal attention span and smiles when being asked questions is hemodynamically stable he does not have fever tachycardia and no leukocytosis he tolerated dialysis well yesterday he received pamidronate for hypercalcemia as a one-time dose repeat laboratory tests will be done in a.m. Trinity Landaverde MD, MD May 23, 2020 18:55
--- NOTE | 2020-05-23 19:25 | NUR ---
NURSE NOTES: Received report from AMELIE Long. Pt in bed, sleeping but easy arousable with voice and touch. On vent trach, tolerating vent setting of SIMV 10, TV 500, FiO2 40%, and PEEP of 5 saturating 97%. SR, BBb on bioinformatics analyst with hr of 82 bpm. G-tube is intact and patent running Nepro @ 45cc/hr. NO IV access, will put one later. With Tunnelled Perma cath L upper chest, no signs of bleeding. Safety measures in place, bed is locked and in lowest position, bed alarm on, call light within reached. Head of bed is elevated at all times. Will continue to plan of care and monitor the patient.
--- NOTE | 2020-05-23 19:30 | NUR ---
NURSE HAND-OFF REPORT: Important Events on Shift: CT scan this morning Patient Status: Diet: Pending Orders: Pending Results/Labs: Pending MD notification: Latest Vital Signs: Temperature 98.8 , Pulse 85 , B/P 112 /73 , Respiratory Rate 18 , O2 SAT 98 , Mechanical Ventilator, O2 Flow Rate . Vital Sign Comment: EKG Rhythm: Sinus Rhythm Rhythm change?: N MD Notified?: - MD Response: Latest Seay Fall Score: 75 Fall Risk: High Risk Safety Measures: Call light Within Reach, Bed Alarm Zone 2, Side Rails Side Rails x2, Bed position Low and Locked. Fall Precautions: Yellow Socks Patient Fall Education Report given to AMELIE Mandel.
[2020-05-23 20:00] VITALS: BP 107/63
[2020-05-23] MEDS: Atorvastatin 20mg tab GT SCH (21:00)
[2020-05-23] MEDS: Dyna-Hex 2% Top Sol 2oz TOPIC SCH (21:00)
[2020-05-24] VITALS: BP 109/57
--- NOTE | 2020-05-24 00:16 | NUR ---
NURSE NOTES: Turned and repositioned pt. Oral care provided. In no apparent cardiac and respiratory distress noted. Will continue to monitor and plan of care.
[2020-05-24 04:00] VITALS: BP 120/70
--- NOTE | 2020-05-24 04:00 | NUR ---
NURSE NOTES: Repositioned and turned pt. Sponge bath given. 1 BM noted. Oral care provided. In no apparent cardiac or respiratory distress noted. Will continue to monitor
--- NOTE | 2020-05-24 07:31 | NUR ---
NURSE HAND-OFF REPORT: Important Events on Shift: Stable Patient Status: Stable Diet: Pending Orders: Pending Results/Labs: Pending MD notification: Latest Vital Signs: Temperature 97.9 , Pulse 73 , B/P 120 /70 , Respiratory Rate 19 , O2 SAT 100 , Mechanical Ventilator, O2 Flow Rate . Vital Sign Comment: Stable EKG Rhythm: Sinus Rhythm Rhythm change?: N MD Notified?: - MD Response: Latest Seay Fall Score: 75 Fall Risk: High Risk Safety Measures: Call light Within Reach, Bed Alarm Zone 2, Side Rails Side Rails x2, Bed position Low and Locked. Fall Precautions: Yellow Socks Patient Fall Education Report given to Jj Arteaga .
[2020-05-24 08:00] VITALS: BP 112/73
--- NOTE | 2020-05-24 08:00 | NUR ---
NURSE NOTES: Received patient not in any acute respiratory distress ventilator setting well tolerated. Suctioned secretion prn. Complete bath provided. Head to toe assessment done. Treatment done on left and right foot as ordered. Will continue with plan of care.
[2020-05-24] MEDS: Aspirin Baby 81mg GT SCH (08:35)
[2020-05-24] MEDS: Metoprolol Tartrate 50mg tab GT SCH ×2 (08:35→20:54)
[2020-05-24] MEDS: Nephrovite tab (Rena-Vite) GT SCH (08:35)
[2020-05-24] MEDS: Ascorbic Acid 500mg tab GT SCH (08:35)
[2020-05-24] MEDS: Vitamin D 400 units TAB ORAL SCH (08:35)
[2020-05-24] MEDS: Renvela 2400 mg pkt GT SCH ×3 (08:35→18:07)
[2020-05-24] MEDS: Pantoprazole Inj IVP SCH (08:36)
[2020-05-24] MEDS: Dakin's 0.125% Soln (Quarter Strength) 16oz TOPIC SCH ×2 (08:36→08:37)
--- NOTE | 2020-05-24 08:53 | Hematology/Onc Progress Note ---
Assessment/Plan Assessment/Plan Assessment and Recs # Anemia due to likely chronic disease, ongoing, this is the first time he has been here --> anemia panel to order for downtrending hgb --> hgb 8.9-->9.4->8.4->>>8.7 --> consider iron / epogen after anemia panel returns --> smear has been noted, no hemolysis # Thrombocytopenia - potential causes multifactorial, evaluate liver and viral etiologies to begin, also could be related to underlying medications patient has received. --> Hep panel and HIV ordered --> US abd to evaluate for cirrhosis and hsm ordered --> Peripheral smear ordered to evaluate for blasts /schistocytes --> abx and other meds have been reviewed --> ok for ppx if plt >50k w/ either heparin or lovenox --> plt 124-->186 # Coagulopathy ongoing, ptt and inr elevated --> vitamin k given, as permacath to be removed --> get mixing study --> trend prn # Chronic respiratory failure --> per pulm --> vent + # End stage renal disease on dialysis --> Complications, dialysis, catheter,replacement as needed --> surg eval --> per renal # Right lung infection --> repeat cxr now # Gangrenous toe, as per surg # Dvt ppx scds Appreciate consultation and patty RN Subjective HEENT: Denies: no symptoms, eye pain, blurred vision, tearing, double vision, ear pain, ear discharge, nose pain, nose congestion, throat pain, throat swelling, mouth pain, mouth swelling, other Cardiovascular: Denies: no symptoms, chest pain, edema, irregular heart rate, lightheadedness, palpitations, syncope, other Respiratory: Denies: no symptoms, cough, shortness of breath, SOB with excertion, SOB at rest, sputum, wheezing, other Gastrointestinal/Abdominal: Denies: no symptoms, abdomen distended, abdominal pain, black stools, tarry stools, blood in stool, constipated, diarrhea, dif ficulty swallowing, nausea, poor appetite, poor fluid intake, rectal bleeding, vomiting, other Neurologic/Psychiatric: Denies: no symptoms, anxiety, depressed, emotional problems, headache, numbness, paresthesia, pre-existing deficit, seizure, tingling, tremors, weakness, other Endocrine: Denies: no symptoms, excessive sweating, flushing, intolerance to cold, intolerance to heat, increased hunger, increased thirst, increased urine, unexplained weight gain, unexplained weight loss, other Allergies: Coded Allergies: No Known Allergies (Unverified , 04/22/20) Subjective 05/24 labs reviewed, cbc/bmp ordered, no bleeding on venttrach, gt Objective Objective Current Medications Medications (Trade) Dose Ordered Sig/Titus Route PRN Reason Start Time Stop Time Status Last Admin Dose Admin Acetaminophen/ Hydrocodone Bitart (Toutle 5/325) 1 tab Q6H PRN GT For Pain 05/21/20 15:30 05/28/20 15:29 Ascorbic Acid (Vitamin C) 500 mg DAILY GT 05/22/20 09:00 06/21/20 08:59 05/24/20 08:35 Aspirin (ASA) 81 mg DAILY GT 05/22/20 09:00 07/06/20 08:59 05/24/20 08:35 Atorvastatin Calcium (Lipitor) 20 mg BEDTIME GT 05/21/20 21:00 08/19/20 20:59 05/23/20 21:00 Barium Sulfate (Readi-Cat 2) 450 ml NOW PRN ORAL Radiology Procedure 05/22/20 12:15 05/24/20 12:14 Bisacodyl (Dulcolax) 10 mg DAILYPRN PRN RECTAL Constipation 05/21/20 15:15 08/19/20 15:14 Chlorhexidine Gluconate (Saba-Hex 2%) 1 applic DAILY@1999 TOPIC 05/22/20 20:00 08/20/20 19:59 05/23/20 21:00 Metoprolol Tartrate (Lopressor) 50 mg EVERY 12 HOURS GT 05/21/20 21:00 08/19/20 20:59 05/24/20 08:35 Pantoprazole (Protonix) 40 mg DAILY IVP 05/22/20 09:00 06/21/20 08:59 05/24/20 08:36 Sevelamer Carbonate (Renvela) 2,400 mg THREE TIMES A DAY GT 05/22/20 09:00 08/20/20 08:59 05/24/20 08:35 Sodium Hypochlorite (Dakin's Quarter Strength) 1 applic DAILY TOPIC 05/23/20 09:00 06/22/20 08:59 05/24/20 08:36 Sodium Hypochlorite (Dakin's Quarter Strength) 1 applic DAILY TOPIC 05/24/20 09:00 06/23/20 08:59 05/24/20 08:37 Vitamin B Complex/ Vit C/Folic Acid (Nephrovite) 1 tab DAILY GT 05/22/20 09:00 06/21/20 08:59 05/24/20 08:35 Vitamin D (Vitamin D) 400 unit DAILY ORAL 05/22/20 09:00 06/21/20 08:59 05/24/20 08:35 Last 24 Hour Vital Signs Date Time Temp Pulse Resp B/P (MAP) Pulse Ox O2 Delivery O2 Flow Rate FiO2 05/24/20 08:35 73 112/70 05/24/20 04:00 Mechanical Ventilator 05/24/20 04:00 97.9 73 19 120/70 (87) 100 05/24/20 04:00 40 05/24/20 03:23 72 05/24/20 03:20 71 15 40 05/24/20 00:23 64 05/24/20 00:00 Mechanical Ventilator 05/24/20 00:00 98.2 69 21 109/57 (74) 100 05/23/20 23:10 68 14 40 05/23/20 21:00 77 107/63 05/23/20 20:00 40 05/23/20 20:00 Mechanical Ventilator 05/23/20 20:00 99.3 77 19 107/63 (78) 98 05/23/20 19:36 82 05/23/20 19:20 74 18 40 05/23/20 16:00 40 05/23/20 16:00 98.8 85 18 112/73 (86) 98 05/23/20 16:00 Mechanical Ventilator 05/23/20 15:23 87 05/23/20 15:20 88 18 40 05/23/20 12:00 99.5 90 20 130/75 (93) 97 05/23/20 12:00 104 05/23/20 12:00 40 05/23/20 12:00 Mechanical Ventilator 05/23/20 11:29 105 35 40 05/23/20 08:22 80 125/74 05/23/20 08:00 97.7 80 20 125/74 (91) 100 12/19/20 08:00 Mechanical Ventilator 05/23/20 08:00 40 05/23/20 07:40 83 05/23/20 07:00 69 21 40 05/23/20 04:00 Mechanical Ventilator 05/23/20 04:00 99.1 72 17 136/66 (89) 97 05/23/20 04:00 40 05/23/20 03:28 71 05/23/20 03:19 71 20 40 05/23/20 00:00 40 05/23/20 00:00 99.8 71 20 131/73 (92) 100 05/23/20 00:00 Mechanical Ventilator 05/22/20 23:59 72 05/22/20 23:09 72 20 40 05/22/20 20:46 77 138/79 05/22/20 20:00 99.2 77 22 138/79 (98) 100 05/22/20 20:00 40 05/22/20 20:00 Mechanical Ventilator 05/22/20 19:34 77 05/22/20 19:25 78 19 40 05/22/20 16:30 Mechanical Ventilator 05/22/20 16:00 77 05/22/20 16:00 99.0 79 18 124/77 (93) 100 05/22/20 16:00 40 05/22/20 14:55 77 24 40 05/22/20 12:00 Mechanical Ventilator 05/22/20 12:00 40 05/22/20 12:00 100.6 71 20 125/76 (92) 100 05/22/20 11:47 73 05/22/20 11:12 71 20 40 05/22/20 08:57 80 134/71 Intake and Output 05/23/20 05/24/20 19:00 07:00 Intake Total 415 ml 505 ml Balance 415 ml 505 ml Free Water 100 ml 100 ml Tube Feeding 315 ml 405 ml # Bowel Movements 2 2 Labs Test 05/22/20 04:00 05/23/20 02:50 White Blood Count 9.2 K/UL (4.8-10.8) 8.6 K/UL (4.8-10.8) Red Blood Count 2.93 M/UL (4.70-6.10) 2.84 M/UL (4.70-6.10) Hemoglobin 8.7 G/DL (14.2-18.0) 8.5 G/DL (14.2-18.0) Hematocrit 27.8 % (42.0-52.0) 26.3 % (42.0-52.0) Mean Corpuscular Volume 95 FL (80-99) 93 FL (80-99) Mean Corpuscular Hemoglobin 29.6 PG (27.0-31.0) 29.9 PG (27.0-31.0) Mean Corpuscular Hemoglobin Concent 31.2 G/DL (32.0-36.0) 32.2 G/DL (32.0-36.0) Red Cell Distribution Width 17.0 % (11.6-14.8) 16.7 % (11.6-14.8) Platelet Count 195 K/UL (150-450) 179 K/UL (150-450) Mean Platelet Volume 6.6 FL (6.5-10.1) 6.4 FL (6.5-10.1) Neutrophils (%) (Auto) 78.2 % (45.0-75.0) 78.5 % (45.0-75.0) Lymphocytes (%) (Auto) 9.8 % (20.0-45.0) 10.3 % (20.0-45.0) Monocytes (%) (Auto) 7.6 % (1.0-10.0) 8.1 % (1.0-10.0) Eosinophils (%) (Auto) 2.8 % (0.0-3.0) 2.1 % (0.0-3.0) Basophils (%) (Auto) 1.6 % (0.0-2.0) 1.1 % (0.0-2.0) Erythrocyte Sedimentation Rate 118 MM/HR (0-15) Sodium Level 135 MMOL/L (136-145) 136 MMOL/L (136-145) Potassium Level 4.6 MMOL/L (3.5-5.1) 3.7 MMOL/L (3.5-5.1) Chloride Level 98 MMOL/L (98-107) 100 MMOL/L (98-107) Carbon Dioxide Level 27 MMOL/L (21-32) 30 MMOL/L (21-32) Anion Gap 10 mmol/L (5-15) 6 mmol/L (5-15) Blood Urea Nitrogen 111 mg/dL (7-18) 80 mg/dL (7-18) Creatinine 4.4 MG/DL (0.55-1.30) 3.4 MG/DL (0.55-1.30) Estimat Glomerular Filtration Rate 14.3 mL/min (>60) 19.3 mL/min (>60) Glucose Level 126 MG/DL (74-106) 136 MG/DL (74-106) Hemoglobin A1c 4.6 % (4.3-6.0) Calcium Level 9.1 MG/DL (8.5-10.1) 8.8 MG/DL (8.5-10.1) Phosphorus Level 4.2 MG/DL (2.5-4.9) 2.6 MG/DL (2.5-4.9) Magnesium Level 2.8 MG/DL (1.8-2.4) 2.5 MG/DL (1.8-2.4) Total Bilirubin 0.6 MG/DL (0.2-1.0) 0.6 MG/DL (0.2-1.0) Direct Bilirubin 0.4 MG/DL (0.0-0.3) Gamma Glutamyl Transpeptidase 128 U/L (5-85) Aspartate Amino Transf (AST/SGOT) 30 U/L (15-37) 20 U/L (15-37) Alanine Aminotransferase (ALT/SGPT) 17 U/L (12-78) 18 U/L (12-78) Alkaline Phosphatase 301 U/L (46-116) 371 U/L (46-116) C-Reactive Protein, Quantitative 16.3 mg/dL (0.00-0.90) 13.2 mg/dL (0.00-0.90) Pro-B-Type Natriuretic Peptide > 15766 pg/mL (0-125) Total Protein 7.1 G/DL (6.4-8.2) 6.9 G/DL (6.4-8.2) Albumin 2.2 G/DL (3.4-5.0) 2.1 G/DL (3.4-5.0) Thyroid Stimulating Hormone (TSH) 2.725 uiU/mL (0.358-3.740) Free Thyroxine 0.61 NG/DL (0.76-1.46) Ionized Calcium (Measured) 1.10 mmol/L (1.10-1.35) Iron Level 25 ug/dL (50-175) Total Iron Binding Capacity 137 ug/dL (250-450) Percent Iron Saturation 18 % (15-50) Unsaturated Iron Binding 112 ug/dL (112-346) Ferritin 1736 NG/ML (8-388) Globulin 4.8 g/dL Albumin/Globulin Ratio 0.4 (1.0-2.7) Vitamin B12 Level 1417 PG/ML (193-986) Folate 31.4 NG/ML (8.6-58.9) Height (Feet): 5 Height (Inches): 7.00 Weight (Pounds): 143 Objective Physical Exam Vitals: reviewed, normal General Appearance: no apparent distress, other - Nonverbal Head: normocephalic, atraumatic: no angioedema, normal voice Neck: full range of motion, supple/symm/no masses Respiratory: chest non-tender, lungs clear, +++vent/trach Cardiovascular: regular rate, rhythm, no edema Gastrointestinal: normal bowel sounds, ++gt Genitourinary: normal inspection, no CVA tenderness Musculoskeletal: back normal, normal range of motion Neurologic: other - Nonverbal Psychiatric: other - Nonverbal Lymphatic: no adenopathy Nick Whiteside MD May 24, 2020 08:53
[2020-05-24 12:00] VITALS: BP 125/72
--- NOTE | 2020-05-24 12:00 | NUR ---
NURSE NOTES: Received pt from AMELIE Arteaga, pt is awake and confused, pt is on trach to vent AC 10 TV 500 FIO2 40% PEEP 5, pt is on continues heart monitoring, pt has intact iv access LH 22G and RH 22G SL. Pt has G tube in place is working well. no complain of pain at this moment. all needs attended, bed is locked and is in the lowest position, call light within easy reach. will continue to monitor.
--- NOTE | 2020-05-24 12:04 | Surgery Progress Note ---
Surgery Progress Note Subjective Symptoms: tolerating diet, passing flatus Objective Last 24 Hour Vital Signs Date Time Temp Pulse Resp B/P (MAP) Pulse Ox O2 Delivery O2 Flow Rate FiO2 05/24/20 08:35 73 112/70 05/24/20 08:00 83 05/24/20 08:00 Mechanical Ventilator 05/24/20 08:00 40 05/24/20 08:00 97.9 82 20 112/73 (86) 98 05/24/20 04:00 Mechanical Ventilator 05/24/20 04:00 97.9 73 19 120/70 (87) 100 05/24/20 04:00 40 05/24/20 03:23 72 05/24/20 03:20 71 15 40 05/24/20 00:23 64 05/24/20 00:00 Mechanical Ventilator 05/24/20 00:00 98.2 69 21 109/57 (74) 100 05/23/20 23:10 68 14 40 05/23/20 21:00 77 107/63 05/23/20 20:00 40 05/23/20 20:00 Mechanical Ventilator 05/23/20 20:00 99.3 77 19 107/63 (78) 98 05/23/20 19:36 82 05/23/20 19:20 74 18 40 05/23/20 16:00 40 05/23/20 16:00 98.8 85 18 112/73 (86) 98 05/23/20 16:00 Mechanical Ventilator 05/23/20 15:23 87 05/23/20 15:20 88 18 40 I&O Intake and Output 05/23/20 05/24/20 19:00 07:00 Intake Total 415 ml 505 ml Balance 415 ml 505 ml Free Water 100 ml 100 ml Tube Feeding 315 ml 405 ml # Bowel Movements 2 2 Dressing: saturated Cardiovascular: RSR Respiratory: decreased breath sounds Abdomen: non-tender, present bowel sounds Extremities: no cyanosis Plan Problems: (1) Complications, dialysis, catheter, mechanical (2) Decubitus ulcer, heel Assessment & Plan: 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 Heel ulcer identified as well. Foul-smelling. Fortunately this does not seem salvageable by any means given the extensive loss at the flap that has dehisced the exposed bone as well as the heel. Currently stable otherwise known chronic in nature not patient's acute problem. Will recommend that patient has a right BKA at some point given the current findings we will continue with local wound care tentatively. Patient identified to have a heel ulcer on the left side as well. Pt presented on admission with Tracheostomy ,GT and dehiscence of R TMA with necrosis extending into lateral aspect of R foot. Full thickness ulcer R heel with slough and necrosis. Moderate amt haemopurulent exudate noted from R heel.Wounds are malodorous. Pt exhibited distress with elevation of R leg during wound care. Haemosiderin deposit R lower ext. Dry eschar with cracking at base noted to L Hallux(L)3cm x (W)4.5cm. Dry eschar noted to dorsal L 1st,L 3rd, and L 5th metatarsals. L Heel is boggy with non-blanchable erythema. DTPI noted to upper R Buttocks(L)2.3cm x (W)4.5cm. Base of wound is indurated,purpuric with surrounding non-blanchable erythema.Non-Blanchable erythema without induration or fluctuance at Sacrum. Tx.Plan: Cleanse L foot wounds with Dakin's [place] 0.25%. Apply Dakin's moistened Kerlix to wounds. Apply Moisture Barrier periwound. Cover with ABD pads. Wrap with Kerlix Daily and prn. Apply Betadine to L Hallux ,L1st,L 3rd and L 5th metatarsals Daily. Leave open to Air. Apply Moisture Barrier Paste to Sacrum /R Buttocks. Cover with Optifoam drsgs. Change every 3 days and prn. Reposition at least every 2hours or as tolerated. Off-load heels with pillow. (3) Ischemia of right lower extremity (4) Hypercalcemia (5) Coagulopathy (6) Chronic respiratory failure (7) End stage renal disease on dialysis (8) Anemia in chronic kidney disease (CKD) (9) Anemia (10) GI bleed Dany Wilder May 24, 2020 12:04
--- NOTE | 2020-05-24 15:52 | Nephrology Progress Note ---
Assessment/Plan Problem List: (1) End stage renal disease on dialysis (2) Hypercalcemia (3) Anemia (4) Chronic respiratory failure Assessment End-stage renal disease on dialysis Coagulopathy Anemia Chronic respiratory failure History of hypercalcemia, corrected serum calcium for low albumin remains elevated Plan May 24: No labs drawn today. Last dialysis May 22. Will check lab tomorrow. Will dialyze as needed. Hemodialysis yesterday May 22 Aredia 60 mg IV piggyback for hypercalcemia, given on May 22 Continue to monitor renal parameters calcium and phosphorus. Per orders, per PMD. Subjective ROS Limited/Unobtainable: Yes Objective Objective Last 24 Hour Vital Signs Date Time Temp Pulse Resp B/P (MAP) Pulse Ox O2 Delivery O2 Flow Rate FiO2 05/24/20 12:00 100.0 88 20 125/72 (89) 97 05/24/20 12:00 40 05/24/20 12:00 Mechanical Ventilator 05/24/20 11:40 83 05/24/20 08:35 73 112/70 05/24/20 08:00 83 05/24/20 08:00 Mechanical Ventilator 05/24/20 08:00 40 05/24/20 08:00 97.9 82 20 112/73 (86) 98 05/24/20 04:00 Mechanical Ventilator 05/24/20 04:00 97.9 73 19 120/70 (87) 100 05/24/20 04:00 40 05/24/20 03:23 72 05/24/20 03:20 71 15 40 05/24/20 00:23 64 05/24/20 00:00 Mechanical Ventilator 05/24/20 00:00 98.2 69 21 109/57 (74) 100 05/23/20 23:10 68 14 40 05/23/20 21:00 77 107/63 05/23/20 20:00 40 05/23/20 20:00 Mechanical Ventilator 05/23/20 20:00 99.3 77 19 107/63 (78) 98 05/23/20 19:36 82 05/23/20 19:20 74 18 40 05/23/20 16:00 40 05/23/20 16:00 98.8 85 18 112/73 (86) 98 05/23/20 16:00 Mechanical Ventilator Intake and Output 12/19/20 12/20/20 19:00 07:00 Intake Total 415 ml 550 ml Balance 415 ml 550 ml Free Water 100 ml 100 ml Tube Feeding 315 ml 450 ml # Bowel Movements 2 2 Height (Feet): 5 Height (Inches): 7.00 Weight (Pounds): 143 General Appearance: no apparent distress EENT: other - Trach to vent Cardiovascular: normal rate Respiratory/Chest: decreased breath sounds Abdomen: distended Maurilio King MD May 24, 2020 15:52
[2020-05-24 16:00] VITALS: BP 109/74
--- NOTE | 2020-05-24 16:30 | NUR ---
NURSE NOTES: RN called Dr Warren and left massage regarding T 100.2, Waiting to call back. will continue to monitor.
--- NOTE | 2020-05-24 19:05 | NUR ---
RESPIRATORY NOTE: PT RECEIVED STABLE ON CMV WITH CURRENT SETTINGS: SIMV 10, 500, 40%, PS 20, +5. ALARMS ARE ON AND AUDIBLE. VENT CIRCUIT IS SECURE AND OUT OF THE WAY. AIRWAY IS MIDLINE SECURE AND PATENT. NO S/S OF RESPIRATORY DISTRESS NOTED AT THIS TIME. WILL CONTINUE TO CLOSELY MONITOR.
--- NOTE | 2020-05-24 19:32 | NUR ---
NURSE HAND-OFF REPORT: Important Events on Shift:F/U fever with Dr Smiley. Patient Status: Diet: Pending Orders: Pending Results/Labs: Pending MD notification: Latest Vital Signs: Temperature 100.2 , Pulse 94 , B/P 109 /74 , Respiratory Rate 20 , O2 SAT 100 , Mechanical Ventilator, O2 Flow Rate . Vital Sign Comment: EKG Rhythm: Sinus Rhythm Rhythm change?: N MD Notified?: - MD Response: Latest Seay Fall Score: 75 Fall Risk: High Risk Safety Measures: Call light Within Reach, Bed Alarm Zone 2, Side Rails Side Rails x2, Bed position Low and Locked. Fall Precautions: Yellow Socks Patient Fall Education Report given to . Pt is awake and stable, no stress noted. Endorsed plan of care, Endorsed to monitor fever.
--- NOTE | 2020-05-24 19:33 | NUR ---
NURSE NOTES: Report received from AMELIE Leslie Upon assessment pt is awake, non responsive to verbal stimuli. Unable to make needs known. Pt saturating 100% on vent with settings of SIMV 10, vt 500, fio2 40%, P5.. 5-lead EKG shows SR at 71 BPM. Pt running temperature of 100.5. Cooling measures initiated. g-tube running Nepro at 45 mL with 0 residual noted. Rectal tube noted with brown-redish stool. Right hand IV patent and intact Bed kept in lowest and locked position. Side rails up x3. Will continue monitoring.
[2020-05-24 20:00] VITALS: BP 121/69
--- NOTE | 2020-05-24 20:20 | NUR ---
NURSE NOTES: Dr. Warren at bedside. new orders for Tylenol PRN, OBS, and Cdiff collection. Will monitor.
[2020-05-24] MEDS: Dyna-Hex 2% Top Sol 2oz TOPIC SCH (20:53)
[2020-05-24] MEDS: Atorvastatin 20mg tab GT SCH (20:53)
[2020-05-24] MEDS: Acetaminophen 650mg/20.3ml GT PRN (20:54)
--- NOTE | 2020-05-24 21:02 | General Progress Note ---
Subjective Constitutional: Reports: chills, fever, weakness HEENT: Reports: no symptoms Cardiovascular: Reports: no symptoms Respiratory: Reports: cough Gastrointestinal/Abdominal: Reports: no symptoms Genitourinary: Reports: no symptoms Neurologic/Psychiatric: Reports: no symptoms Hematologic/Lymphatic: Reports: no symptoms Allergies: Coded Allergies: No Known Allergies (Unverified , 04/22/20) Objective Last 24 Hour Vital Signs Date Time Temp Pulse Resp B/P (MAP) Pulse Ox O2 Delivery O2 Flow Rate FiO2 05/24/20 20:54 86 120/69 05/24/20 20:00 Mechanical Ventilator 05/24/20 20:00 100.5 83 21 121/69 (86) 100 05/24/20 20:00 40 05/24/20 19:05 90 19 40 05/24/20 16:00 Mechanical Ventilator 05/24/20 16:00 40 05/24/20 16:00 100.2 94 20 109/74 (86) 100 05/24/20 15:30 97 05/24/20 14:30 97 16 40 05/24/20 12:00 100.0 88 20 125/72 (89) 97 05/24/20 12:00 40 05/24/20 12:00 Mechanical Ventilator 05/24/20 11:40 83 05/24/20 10:30 94 16 40 05/24/20 08:35 73 112/70 05/24/20 08:00 83 05/24/20 08:00 Mechanical Ventilator 05/24/20 08:00 40 05/24/20 08:00 97.9 82 20 112/73 (86) 98 05/24/20 07:00 96 16 40 05/24/20 04:00 Mechanical Ventilator 05/24/20 04:00 97.9 73 19 120/70 (87) 100 05/24/20 04:00 40 05/24/20 03:23 72 05/24/20 03:20 71 15 40 05/24/20 00:23 64 05/24/20 00:00 Mechanical Ventilator 05/24/20 00:00 98.2 69 21 109/57 (74) 100 05/23/20 23:10 68 14 40 05/23/20 21:00 77 107/63 Intake and Output 05/23/20 05/24/20 19:00 07:00 Intake Total 415 ml 550 ml Balance 415 ml 550 ml Free Water 100 ml 100 ml Tube Feeding 315 ml 450 ml # Bowel Movements 2 2 Height (Feet): 5 Height (Inches): 7.00 Weight (Pounds): 143 General Appearance: lethargic, mild distress EENT: normal ENT inspection Neck: supple Cardiovascular: tachycardia Respiratory/Chest: decreased breath sounds, rhonchi - bilaterally Abdomen: normal bowel sounds, non tender, soft, no organomegaly, no mass Extremities: non-tender Neurologic: alert, responsive, aphasia Assessment/Plan Status Narrative Patient was stable until a few hours ago he developed low-grade grade fever that then spike to 100.8 he has minimal symptoms L foot gangrene 1 g IV piggyback every 24 hours CBC BMP will be done in a.m. blood culture x2 will be taken now chest x-ray will be done in a.m. Trinity Vazquez MD, MD May 24, 2020 21:02
[2020-05-24] MEDS: cefTRIAXone 1 GM in D5W 55 ML IVPB SCH (21:45)
--- NOTE | 2020-05-24 22:00 | NUR ---
NURSE NOTES: Large bowel movement noted despite rectal tube insertion. Excoriation noted on scrotum area. + OBS. Will notify MD in AM. Bed bath and oral care provided. Pt in stable condition.
--- NOTE | 2020-05-24 22:14 | NUR ---
NURSE NOTES: Pt temperature decreased from 100.5 to 99.8. Cooling measures continued. Stool samples collected and sent to lab.
[2020-05-25] VITALS: BP 118/62
[2020-05-25 04:00] VITALS: BP 103/56
[2020-05-25 05:53] LABS: EOSINOPHILS % (AUTO) 3.1 % (0.0-3.0); HEMATOCRIT 26.1 % (42.0-52.0); HEMOGLOBIN 8.1 G/DL (14.2-18.0); LYMPHOCYTES % (AUTO) 7.3 % (20.0-45.0); MEAN CORPUSCULAR VOLUME 95 FL (80-99); MONOCYTES % (AUTO) 6.2 % (1.0-10.0); NEUTROPHILS % (AUTO) 82.4 % (45.0-75.0); PLATELET COUNT 174 K/UL (150-450); RED BLOOD COUNT 2.74 M/UL (4.70-6.10); RED CELL DISTRIBUTION WIDTH 16.8 % (11.6-14.8); WHITE BLOOD COUNT 9.6 K/UL (4.8-10.8)
[2020-05-25 06:25] LABS: ALBUMIN 2.1 G/DL (3.4-5.0); ALBUMIN/GLOBULIN RATIO 0.4 (1.0-2.7); BILIRUBIN,TOTAL 0.8 MG/DL (0.2-1.0); CREATININE 4.6 MG/DL (0.55-1.30); PHOSPHORUS 2.3 MG/DL (2.5-4.9); POTASSIUM 4.1 MMOL/L (3.5-5.1)
--- NOTE | 2020-05-25 06:37 | NUR ---
NURSE NOTES: Dr. Whiteside at bedside. No new orders.
--- NOTE | 2020-05-25 06:50 | NUR ---
NURSE HAND-OFF REPORT: Important Events on Shift: Fever of 100.5 resolved Patient Status: Stable Diet: Nepro Pending Orders: Pending Results/Labs: Pending MD notification: Latest Vital Signs: Temperature 97.7 , Pulse 78 , B/P 103 /56 , Respiratory Rate 18 , O2 SAT 100 , Mechanical Ventilator, O2 Flow Rate . Vital Sign Comment: WNL EKG Rhythm: Sinus Rhythm Rhythm change?: N MD Notified?: - MD Response: Latest Seay Fall Score: 75 Fall Risk: High Risk Safety Measures: Call light Within Reach, Bed Alarm Zone 1, Side Rails Side Rails x3, Bed position Low and Locked. Fall Precautions: Yellow Socks Patient Fall Education Report given to AMELIE Glez.
--- NOTE | 2020-05-25 06:52 | Hematology/Onc Progress Note ---
Assessment/Plan Assessment/Plan Assessment and Recs # Anemia due to likely chronic disease, ongoing, this is the first time he has been here --> anemia panel to order for downtrending hgb --> hgb 8.9-->9.4->8.4->>>8.7->8.1 --> consider iron / epogen after anemia panel returns --> smear has been noted, no hemolysis # Thrombocytopenia - potential causes multifactorial, evaluate liver and viral etiologies to begin, also could be related to underlying medications patient has received. --> Hep panel and HIV neg prior --> Ct a/p shows a normal appearing liver --> Peripheral smear ordered to evaluate for blasts /schistocytes --> abx and other meds have been reviewed --> ok for ppx if plt >50k w/ either heparin or lovenox --> plt 124-->186 # Coagulopathy ongoing, ptt and inr elevated --> vitamin k given, as permacath to be removed --> get mixing study --> trend prn # Chronic respiratory failure --> per pulm --> vent + # End stage renal disease on dialysis --> Complications, dialysis, catheter,replacement as needed --> surg eval --> per renal # Right lung infection --> repeat cxr now # Gangrenous toe, as per surg # Dvt ppx scds Appreciate consultation and dw RN Subjective Constitutional: Denies: no symptoms, chills, fever, malaise, weakness, other HEENT: Denies: no symptoms, eye pain, blurred vision, tearing, double vision, ear pain, ear discharge, nose pain, nose congestion, throat pain, throat swelling, mouth pain, mouth swelling, other Cardiovascular: Denies: no symptoms, chest pain, edema, irregular heart rate, lightheadedness, palpitations, syncope, other Gastrointestinal/Abdominal: Denies: no symptoms, abdomen distended, abdominal pain, black stools, tarry stools, blood in stool, constipated, diarrhea, difficulty swallowing, nausea, poor appetite, poor fluid intake, rectal bleeding, vomiting, other Genitourinary: Denies: no symptoms, burning, discharge, frequency, flank pain, hematuria, incontinence, pain, urgency, other Neurologic/Psychiatric: Denies: no symptoms, anxiety, depressed, emotional problems, headache, numbness, paresthesia, pre-existing deficit, seizure, tingling, tremors, weakness, other Endocrine: Denies: no symptoms, excessive sweating, flushing, intolerance to cold, intolerance to heat, increased hunger, increased thirst, increased urine, unexplained weight gain, unexplained weight loss, other Allergies: Coded Allergies: No Known Allergies (Unverified , 04/22/20) Subjective 05/24 labs reviewed, cbc/bmp ordered, no bleeding on venttrach, gt 05/25 labs reviewed, was positive for large bm overnight, +ob, meds reviewed Objective Objective Current Medications Medications (Trade) Dose Ordered Sig/Titus Route PRN Reason Start Time Stop Time Status Last Admin Dose Admin Acetaminophen (Tylenol) 650 mg Q6H PRN GT Mild Pain (Pain Scale 1-3) 05/24/20 20:45 06/23/20 20:44 05/24/20 20:54 Acetaminophen/ Hydrocodone Bitart ([place] 5/325) 1 tab Q6H PRN GT For Pain 05/21/20 15:30 05/28/20 15:29 Ascorbic Acid (Vitamin C) 500 mg DAILY GT 05/22/20 09:00 06/21/20 08:59 05/24/20 08:35 Aspirin (ASA) 81 mg DAILY GT 05/22/20 09:00 07/06/20 08:59 05/24/20 08:35 Atorvastatin Calcium (Lipitor) 20 mg BEDTIME GT 05/21/20 21:00 08/19/20 20:59 05/24/20 20:53 Bisacodyl (Dulcolax) 10 mg DAILYPRN PRN RECTAL Constipation 05/21/20 15:15 08/19/20 15:14 Ceftriaxone Sodium 1 gm/ Dextrose 55 ml @ 110 mls/hr Q24H IVPB 05/24/20 21:30 05/31/20 21:29 05/24/20 21:45 Chlorhexidine Gluconate (Saba-Hex 2%) 1 applic DAILY@1999 TOPIC 05/22/20 20:00 08/20/20 19:59 05/24/20 20:53 Metoprolol Tartrate (Lopressor) 50 mg EVERY 12 HOURS GT 05/21/20 21:00 08/19/20 20:59 05/24/20 20:54 Pantoprazole (Protonix) 40 mg DAILY IVP 05/22/20 09:00 06/21/20 08:59 05/24/20 08:36 Sevelamer Carbonate (Renvela) 2,400 mg THREE TIMES A DAY GT 05/22/20 09:00 08/20/20 08:59 05/24/20 18:07 Sodium Hypochlorite (Dakin's Quarter Strength) 1 applic DAILY TOPIC 05/23/20 09:00 06/22/20 08:59 05/24/20 08:36 Sodium Hypochlorite (Dakin's Quarter Strength) 1 applic DAILY TOPIC 05/24/20 09:00 06/23/20 08:59 05/24/20 08:37 Vitamin B Complex/ Vit C/Folic Acid (Nephrovite) 1 tab DAILY GT 05/22/20 09:00 06/21/20 08:59 05/24/20 08:35 Vitamin D (Vitamin D) 400 unit DAILY ORAL 05/22/20 09:00 06/21/20 08:59 05/24/20 08:35 Last 24 Hour Vital Signs Date Time Temp Pulse Resp B/P (MAP) Pulse Ox O2 Delivery O2 Flow Rate FiO2 05/25/20 04:00 40 05/25/20 04:00 97.7 78 18 103/56 (72) 100 05/25/20 04:00 Mechanical Ventilator 05/25/20 03:41 65 05/25/20 03:05 63 16 40 05/25/20 00:00 73 05/25/20 00:00 99.7 74 20 118/62 (80) 100 05/25/20 00:00 Mechanical Ventilator 05/24/20 23:10 74 20 40 05/24/20 21:24 99.9 05/24/20 20:54 86 120/69 05/24/20 20:00 91 05/24/20 20:00 Mechanical Ventilator 05/24/20 20:00 100.5 83 21 121/69 (86) 100 05/24/20 20:00 40 05/24/20 19:05 90 19 40 05/24/20 16:00 Mechanical Ventilator 05/24/20 16:00 40 05/24/20 16:00 100.2 94 20 109/74 (86) 100 05/24/20 15:30 97 05/24/20 14:30 97 16 40 05/24/20 12:00 100.0 88 20 125/72 (89) 97 05/24/20 12:00 40 05/24/20 12:00 Mechanical Ventilator 05/24/20 11:40 83 05/24/20 10:30 94 16 40 05/24/20 08:35 73 112/70 05/24/20 08:00 83 05/24/20 08:00 Mechanical Ventilator 05/24/20 08:00 40 05/24/20 08:00 97.9 82 20 112/73 (86) 98 05/24/20 07:00 96 16 40 05/24/20 04:00 Mechanical Ventilator 05/24/20 04:00 97.9 73 19 120/70 (87) 100 05/24/20 04:00 40 05/24/20 03:23 72 05/24/20 03:20 71 15 40 05/24/20 00:23 64 05/24/20 00:00 Mechanical Ventilator 05/24/20 00:00 98.2 69 21 109/57 (74) 100 05/23/20 23:10 68 14 40 05/23/20 21:00 77 107/63 05/23/20 20:00 40 05/23/20 20:00 Mechanical Ventilator 05/23/20 20:00 99.3 77 19 107/63 (78) 98 05/23/20 19:36 82 05/23/20 19:20 74 18 40 05/23/20 16:00 40 05/23/20 16:00 98.8 85 18 112/73 (86) 98 05/23/20 16:00 Mechanical Ventilator 05/23/20 15:23 87 05/23/20 15:20 88 18 40 05/23/20 12:00 99.5 90 20 130/75 (93) 97 05/23/20 12:00 104 05/23/20 12:00 40 05/23/20 12:00 Mechanical Ventilator 05/23/20 11:29 105 35 40 05/23/20 08:22 80 125/74 05/23/20 08:00 97.7 80 20 125/74 (91) 100 05/23/20 08:00 Mechanical Ventilator 05/23/20 08:00 40 05/23/20 07:40 83 05/23/20 07:00 69 21 40 Intake and Output 05/24/20 05/25/20 19:00 07:00 Intake Total 755 ml 687.5 ml Balance 755 ml 687.5 ml Free Water 260 ml 100 ml IV Total 137.5 ml Tube Feeding 495 ml 450 ml # Bowel Movements 5 3 Labs Test 05/23/20 02:50 05/24/20 22:00 05/25/20 03:18 White Blood Count 8.6 K/UL (4.8-10.8) 9.6 K/UL (4.8-10.8) Red Blood Count 2.84 M/UL (4.70-6.10) 2.74 M/UL (4.70-6.10) Hemoglobin 8.5 G/DL (14.2-18.0) 8.1 G/DL (14.2-18.0) Hematocrit 26.3 % (42.0-52.0) 26.1 % (42.0-52.0) Mean Corpuscular Volume 93 FL (80-99) 95 FL (80-99) Mean Corpuscular Hemoglobin 29.9 PG (27.0-31.0) 29.6 PG (27.0-31.0) Mean Corpuscular Hemoglobin Concent 32.2 G/DL (32.0-36.0) 31.1 G/DL (32.0-36.0) Red Cell Distribution Width 16.7 % (11.6-14.8) 16.8 % (11.6-14.8) Platelet Count 179 K/UL (150-450) 174 K/UL (150-450) Mean Platelet Volume 6.4 FL (6.5-10.1) 6.3 FL (6.5-10.1) Neutrophils (%) (Auto) 78.5 % (45.0-75.0) 82.4 % (45.0-75.0) Lymphocytes (%) (Auto) 10.3 % (20.0-45.0) 7.3 % (20.0-45.0) Monocytes (%) (Auto) 8.1 % (1.0-10.0) 6.2 % (1.0-10.0) Eosinophils (%) (Auto) 2.1 % (0.0-3.0) 3.1 % (0.0-3.0) Basophils (%) (Auto) 1.1 % (0.0-2.0) 1.0 % (0.0-2.0) Sodium Level 136 MMOL/L (136-145) 134 MMOL/L (136-145) Potassium Level 3.7 MMOL/L (3.5-5.1) 4.1 MMOL/L (3.5-5.1) Chloride Level 100 MMOL/L (98-107) 96 MMOL/L (98-107) Carbon Dioxide Level 30 MMOL/L (21-32) 28 MMOL/L (21-32) Anion Gap 6 mmol/L (5-15) 10 mmol/L (5-15) Blood Urea Nitrogen 80 mg/dL (7-18) 116 mg/dL (7-18) Creatinine 3.4 MG/DL (0.55-1.30) 4.6 MG/DL (0.55-1.30) Estimat Glomerular Filtration Rate 19.3 mL/min (>60) 13.6 mL/min (>60) Glucose Level 136 MG/DL (74-106) 123 MG/DL (74-106) Calcium Level 8.8 MG/DL (8.5-10.1) 9.0 MG/DL (8.5-10.1) Ionized Calcium (Measured) 1.10 mmol/L (1.10-1.35) Phosphorus Level 2.6 MG/DL (2.5-4.9) 2.3 MG/DL (2.5-4.9) Magnesium Level 2.5 MG/DL (1.8-2.4) 2.9 MG/DL (1.8-2.4) Iron Level 25 ug/dL (50-175) Total Iron Binding Capacity 137 ug/dL (250-450) Percent Iron Saturation 18 % (15-50) Unsaturated Iron Binding 112 ug/dL (112-346) Ferritin 1736 NG/ML (8-388) Total Bilirubin 0.6 MG/DL (0.2-1.0) 0.8 MG/DL (0.2-1.0) Aspartate Amino Transf (AST/SGOT) 20 U/L (15-37) 21 U/L (15-37) Alanine Aminotransferase (ALT/SGPT) 18 U/L (12-78) 17 U/L (12-78) Alkaline Phosphatase 371 U/L (46-116) 373 U/L (46-116) C-Reactive Protein, Quantitative 13.2 mg/dL (0.00-0.90) Total Protein 6.9 G/DL (6.4-8.2) 7.1 G/DL (6.4-8.2) Albumin 2.1 G/DL (3.4-5.0) 2.1 G/DL (3.4-5.0) Globulin 4.8 g/dL 5.0 g/dL Albumin/Globulin Ratio 0.4 (1.0-2.7) 0.4 (1.0-2.7) Vitamin B12 Level 1417 PG/ML (193-986) Folate 31.4 NG/ML (8.6-58.9) Stool Occult Blood Positive (NEGATIVE) Micro Microbiology Date/Time Source Procedure Growth Status 05/24/20 22:00 Stool Clostridium difficile Toxin Assay - Final Complete Height (Feet): 5 Height (Inches): 7.00 Weight (Pounds): 143 Objective Physical Exam Vitals: reviewed, normal General Appearance: no apparent distress, other - Nonverbal Head: normocephalic, atraumatic: no angioedema, normal voice Neck: full range of motion, supple/symm/no masses Respiratory: chest non-tender, lungs clear, +++vent/trach Cardiovascular: regular rate, rhythm, no edema Gastrointestinal: normal bowel sounds, ++gt Genitourinary: normal inspection, no CVA tenderness Musculoskeletal: back normal, normal range of motion Neurologic: other - Nonverbal Psychiatric: other - Nonverbal Lymphatic: no adenopathy Nick Whiteside MD May 25, 2020 06:52
--- NOTE | 2020-05-25 07:23 | NUR ---
NURSE NOTES: Received report RN Debbie,patient awake ,smile at me when i introdused myself to him,he seems to recognize me,on ventilator,G tube feeding,rectal tube light red-to gravity,hemdialysis catheter left chest-tunneled catheter
[2020-05-25 08:00] VITALS: BP 115/77
[2020-05-25] MEDS: Pantoprazole Inj IVP SCH (08:56)
[2020-05-25] MEDS: Vitamin D 400 units TAB ORAL SCH (08:56)
[2020-05-25] MEDS: Renvela 2400 mg pkt GT SCH (08:56)
[2020-05-25] MEDS: Nephrovite tab (Rena-Vite) GT SCH (08:56)
[2020-05-25] MEDS: Ascorbic Acid 500mg tab GT SCH (08:57)
[2020-05-25] MEDS: Aspirin Baby 81mg GT SCH (08:57)
[2020-05-25] MEDS: Dakin's 0.125% Soln (Quarter Strength) 16oz TOPIC SCH ×2 (08:57→09:00)
[2020-05-25] MEDS: Metoprolol Tartrate 50mg tab GT SCH ×2 (09:00→20:40)
[2020-05-25 12:00] VITALS: BP 136/86
--- NOTE | 2020-05-25 13:12 | Nephrology Progress Note ---
Assessment/Plan Problem List: (1) End stage renal disease on dialysis (2) Hypercalcemia (3) Anemia (4) Chronic respiratory failure Assessment End-stage renal disease on dialysis Coagulopathy Anemia Chronic respiratory failure History of hypercalcemia, corrected serum calcium for low albumin remains elevated Plan May 25: Patient due for dialysis today. Labs reviewed. Medication list reviewed. Renvela dose adjusted. Continue to monitor electrolytes and renal parameters. May 24: No labs drawn today. Last dialysis May 22. Will check lab tomorrow. Will dialyze as needed. Hemodialysis yesterday May 22 Aredia 60 mg IV piggyback for hypercalcemia, given on May 22 Continue to monitor renal parameters calcium and phosphorus. Per orders, per PMD. Subjective ROS Limited/Unobtainable: Yes Objective Objective Last 24 Hour Vital Signs Date Time Temp Pulse Resp B/P (MAP) Pulse Ox O2 Delivery O2 Flow Rate FiO2 05/25/20 11:15 70 18 40 05/25/20 08:00 97.5 69 17 115/77 (90) 100 05/25/20 07:10 71 18 40 05/25/20 04:00 40 05/25/20 04:00 97.7 78 18 103/56 (72) 100 05/25/20 04:00 Mechanical Ventilator 05/25/20 03:41 65 05/25/20 03:05 63 16 40 05/25/20 00:00 73 05/25/20 00:00 99.7 74 20 118/62 (80) 100 05/25/20 00:00 Mechanical Ventilator 05/24/20 23:10 74 20 40 05/24/20 21:24 99.9 05/24/20 20:54 86 120/69 05/24/20 20:00 91 05/24/20 20:00 Mechanical Ventilator 05/24/20 20:00 100.5 83 21 121/69 (86) 100 05/24/20 20:00 40 05/24/20 19:05 90 19 40 05/24/20 16:00 Mechanical Ventilator 05/24/20 16:00 40 05/24/20 16:00 100.2 94 20 109/74 (86) 100 05/24/20 15:30 97 05/24/20 14:30 97 16 40 Intake and Output 05/24/20 05/25/20 19:00 07:00 Intake Total 755 ml 687.5 ml Balance 755 ml 687.5 ml Free Water 260 ml 100 ml IV Total 137.5 ml Tube Feeding 495 ml 450 ml # Bowel Movements 5 3 Laboratory Tests 05/24/20 22:00: Stool Occult Blood Positive 05/25/20 03:18: White Blood Count 9.6, Red Blood Count 2.74L, Hemoglobin 8.1L, Hematocrit 26.1L, Mean Corpuscular Volume 95, Mean Corpuscular Hemoglobin 29.6, Mean Corpuscular Hemoglobin Concent 31.1L, Red Cell Distribution Width 16.8H, Platelet Count 174, Mean Platelet Volume 6.3L, Neutrophils (%) (Auto) 82.4H, Lymphocytes (%) (Auto) 7.3L, Monocytes (%) (Auto) 6.2, Eosinophils (%) (Auto) 3.1H, Basophils (%) (Auto) 1.0, Sodium Level 134L, Potassium Level 4.1, Chloride Level 96L, Carbon D ioxide Level 28, Anion Gap 10, Blood Urea Nitrogen 116H, Creatinine 4.6H, Estimat Glomerular Filtration Rate 13.6, Glucose Level 123H, Calcium Level 9.0, Phosphorus Level 2.3L, Magnesium Level 2.9H, Total Bilirubin 0.8, Aspartate Amino Transf (AST/SGOT) 21, Alanine Aminotransferase (ALT/SGPT) 17, Alkaline Phosphatase 373H, Total Protein 7.1, Albumin 2.1L, Globulin 5.0, Albumin/Globulin Ratio 0.4L Height (Feet): 5 Height (Inches): 7.00 Weight (Pounds): 143 General Appearance: no apparent distress EENT: other - Trach to vent Cardiovascular: normal rate Respiratory/Chest: decreased breath sounds Abdomen: distended Maurilio King MD May 25, 2020 13:11
--- NOTE | 2020-05-25 14:19 | NUR ---
CASE MANAGEMENT:REVIEW 05/25/20 SI: ANEMIA. HYPERCALCEMIA ESRD/HD. TRACH/VENT/GT 97.5 69 17 115/77 100% ON VENT SUPPORT W/40% FIO2 H/H-8.1/26.1 BUN+116 CR+4.6 IS: IV ROCEPHIN Q24 RENVELA GT TID IV PROTONIX QD ASA GT QD LOPRESSOR GT Q12 : STEP DOWN UNIT DCP: FROM [facility]
--- NOTE | 2020-05-25 15:42 | NUR ---
FRATERNITY ADVISER NOTES SPOKE WITH STACY FROM [facility], UNABLE TO ACCEPT PT BACK AT THIS TIME DUE TO COVID OUTBREAK AT THE FACILITY. PER STACY SHE WILL CALL THE HEALTH DEPARTMENT TODAY FOR APPROVAL AND WILL CALL ME IN THE AM.
[2020-05-25 16:00] VITALS: BP 145/74
--- NOTE | 2020-05-25 16:18 | NUR ---
*-*DISCHARGE PLANNING*-* S/W STACY @ [facility], STATED UNSURE IF THEY CAN ACCEPT THEIR PATIENT BACK, DUE TO COVID OUTBREAK, PENDING APPROVAL FROM THE DEPARTMENT OF PUBLIC HEALTH, WILL FOLLOW UP.
--- NOTE | 2020-05-25 16:36 | NUR ---
INSURANCE [employer]ICALS/REVIEW (05/23-05/25) TO NM SURESH HP FX [phone] PH [phone]
--- NOTE | 2020-05-25 17:22 | Surgery Progress Note ---
Surgery Progress Note Subjective Additional Comments c diff negative no n/v labs noted exam stable le dressing going well Objective Last 24 Hour Vital Signs Date Time Temp Pulse Resp B/P (MAP) Pulse Ox O2 Delivery O2 Flow Rate FiO2 05/25/20 16:40 67 05/25/20 16:00 96.8 66 17 145/74 (97) 100 05/25/20 14:35 72 16 40 05/25/20 12:00 96.3 70 17 136/86 (103) 100 05/25/20 11:43 70 05/25/20 11:15 70 18 40 05/25/20 09:00 70 115/77 05/25/20 08:00 97.5 69 17 115/77 (90) 100 05/25/20 07:41 69 05/25/20 07:10 71 18 40 05/25/20 04:00 40 05/25/20 04:00 97.7 78 18 103/56 (72) 100 05/25/20 04:00 Mechanical Ventilator 05/25/20 03:41 65 05/25/20 03:05 63 16 40 05/25/20 00:00 73 05/25/20 00:00 99.7 74 20 118/62 (80) 100 05/25/20 00:00 Mechanical Ventilator 05/24/20 23:10 74 20 40 05/24/20 21:24 99.9 05/24/20 20:54 86 120/69 05/24/20 20:00 91 05/24/20 20:00 Mechanical Ventilator 05/24/20 20:00 100.5 83 21 121/69 (86) 100 05/24/20 20:00 40 05/24/20 19:05 90 19 40 I&O Intake and Output 05/24/20 05/25/20 19:00 07:00 Intake Total 755 ml 687.5 ml Balance 755 ml 687.5 ml Free Water 260 ml 100 ml IV Total 137.5 ml Tube Feeding 495 ml 450 ml # Bowel Movements 5 3 Dressing: saturated Cardiovascular: RSR Respiratory: decreased breath sounds Abdomen: soft, non-tender, present bowel sounds, non-distended Extremities: cyanosis, other Laboratory Tests Test 05/24/20 22:00 05/25/20 03:18 Stool Occult Blood Positive (NEGATIVE) White Blood Count 9.6 K/UL (4.8-10.8) Red Blood Count 2.74 M/UL (4.70-6.10) L Hemoglobin 8.1 G/DL (14.2-18.0) L Hematocrit 26.1 % (42.0-52.0) L Mean Corpuscular Volume 95 FL (80-99) Mean Corpuscular Hemoglobin 29.6 PG (27.0-31.0) Mean Corpuscular Hemoglobin Concent 31.1 G/DL (32.0-36.0) L Red Cell Distribution Width 16.8 % (11.6-14.8) H Platelet Count 174 K/UL (150-450) Mean Platelet Volume 6.3 FL (6.5-10.1) L Neutrophils (%) (Auto) 82.4 % (45.0-75.0) H Lymphocytes (%) (Auto) 7.3 % (20.0-45.0) L Monocytes (%) (Auto) 6.2 % (1.0-10.0) Eosinophils (%) (Auto) 3.1 % (0.0-3.0) H Basophils (%) (Auto) 1.0 % (0.0-2.0) Sodium Level 134 MMOL/L (136-145) L Potassium Level 4.1 MMOL/L (3.5-5.1) Chloride Level 96 MMOL/L (98-107) L Carbon Dioxide Level 28 MMOL/L (21-32) Anion Gap 10 mmol/L (5-15) Blood Urea Nitrogen 116 mg/dL (7-18) H Creatinine 4.6 MG/DL (0.55-1.30) H Estimat Glomerular Filtration Rate 13.6 mL/min (>60) Glucose Level 123 MG/DL (74-106) H Calcium Level 9.0 MG/DL (8.5-10.1) Phosphorus Level 2.3 MG/DL (2.5-4.9) L Magnesium Level 2.9 MG/DL (1.8-2.4) H Total Bilirubin 0.8 MG/DL (0.2-1.0) Aspartate Amino Transf (AST/SGOT) 21 U/L (15-37) Alanine Aminotransferase (ALT/SGPT) 17 U/L (12-78) Alkaline Phosphatase 373 U/L (46-116) H Total Protein 7.1 G/DL (6.4-8.2) Albumin 2.1 G/DL (3.4-5.0) L Globulin 5.0 g/dL Albumin/Globulin Ratio 0.4 (1.0-2.7) L Plan Problems: (1) Complications, dialysis, catheter, mechanical (2) Decubitus ulcer, heel Assessment & Plan: 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 Heel ulcer identified as well. Foul-smelling. Fortunately this does not seem salvageable by any means given the extensive loss at the flap that has dehisced the exposed bone as well as the heel. Currently stable otherwise known chronic in nature not patient's acute problem. Will rec ommend that patient has a right BKA at some point given the current findings we will continue with local wound care tentatively. Patient identified to have a heel ulcer on the left side as well. Pt presented on admission with Tracheostomy ,GT and dehiscence of R TMA with necrosis extending into lateral aspect of R foot. Full thickness ulcer R heel with slough and necrosis. Moderate amt haemopurulent exudate noted from R heel.Wounds are malodorous. Pt exhibited distress with elevation of R leg during wound care. Haemosiderin deposit R lower ext. Dry eschar with cracking at base noted to L Hallux(L)3cm x (W)4.5cm. Dry eschar noted to dorsal L 1st,L 3rd, and L 5th metatarsals. L Heel is boggy with non-blanchable erythema. DTPI noted to upper R Buttocks(L)2.3cm x (W)4.5cm. Base of wound is indurated,purpuric with surrounding non-blanchable erythema.Non-Blanchable erythema without induration or fluctuance at Sacrum. Tx.Plan: Cleanse L foot wounds with Dakin's [place] 0.25%. Apply Dakin's moistened Kerlix to wounds. Apply Moisture Barrier periwound. Cover with ABD pads. Wrap with Kerlix Daily and prn. Apply Betadine to L Hallux ,L1st,L 3rd and L 5th metatarsals Daily. Leave open to Air. Apply Moisture Barrier Paste to Sacrum /R Buttocks. Cover with Optifoam drsgs. Change every 3 days and prn. Reposition at least every 2hours or as tolerated. Off-load heels with pillow. DAILY ESTIMATED NEEDS: Needs based on Critical care, wound, esrd on HD 65.1kg 25-30 kcals/kg 0340-5701 total kcals 1.5-2 g protein/kg 98-130 g total protein Fluid per MD, on HD NUTRITION DIAGNOSIS: Increased kcal and pro needs r/t renal dysfunction as evidenced by pt w/ ESRD on HD, notable open LE wounds, vent dep via trach and PEG dep. CURRENT TF: Nepro @55 ENTERAL NUTRITION RECOMMENDATIONS: Nepro LOWER to goal of 45ml/hr x24 hrs + Prosource BID to provide 1080ml, 1944 kcal, 87g pro, 785ml free H2O - Rec to LOWER goal rate of 45ml/hr - Add PROSOURCE 1 pack BID via PEG (11g pro/each) - On HD, water flush per MD - HOB over 30 degrees ADDITIONAL RECOMMENDATIONS: 1) maintain calibrated bed scale wt 2) Wound care: Vit C dosing per nephrology nephrovite qdaily. When tolerating TF at goal w/ Prosource BID-> add DEE BID (3) Ischemia of right lower extremity (4) Hypercalcemia (5) Coagulopathy (6) Chronic respiratory failure (7) End stage renal disease on dialysis (8) Anemia in chronic kidney disease (CKD) (9) Anemia (10) GI bleed Dany Wilder May 25, 2020 17:22
--- NOTE | 2020-05-25 18:58 | NUR ---
HAND-OFF: Report given to AMELIE Meyer,on ventilator,Dialysis nurse stopped hemodialysis due to low blood pressure,with G tube feeding,awake
--- NOTE | 2020-05-25 19:10 | NUR ---
NURSE HAND-OFF REPORT: Important Events on Shift:Hemodialysis stopped due to low BP Patient Status: stable Diet: G tube feeding Pending Orders: No Pending Results/Labs:No Pending MD notification:No Latest Vital Signs: Temperature 96.8 , Pulse 86 , B/P 147 /95 , Respiratory Rate 21 , O2 SAT 100 , Mechanical Ventilator, O2 Flow Rate . Vital Sign Comment: stable EKG Rhythm: Sinus Rhythm Rhythm change?: N MD Notified?: - MD Response: Latest Seay Fall Score: 75 Fall Risk: High Risk Safety Measures: Call light Within Reach, Bed Alarm Zone 1, Side Rails Side Rails x2, Bed position Low and Locked. Fall Precautions: Yellow Socks Patient Fall Education Report given to .AMELIE Meyer
--- NOTE | 2020-05-25 19:38 | NUR ---
NURSE NOTES: Received report from AMELIE Glez pt. in bed awake- appears to open eyes to name, no signs or symptoms of acute cardiac or respiratory distress noted, bed alarm on, side rails up x's3 and safety brakes engaged, call light within easy reach, pt. appears to be tolerating current vent settings well- SIMV 10, TV 500, fio2 at 40% and peep 5- no distress noted, rectal tube intact and draining to gravity, pt. is anuric, hemodialysis complete to day 0L out as patients b/p dropped- per endorsement, Pt. has Nephro running at 45cc/hr via g tube- no residual noted, pt. has left subclavian line for HD, intact and roderick- pt. has Rt. hand 22G IV intact and patent, safety measures continued, will continue with plan of care.
[2020-05-25 20:00] VITALS: BP 147/95
[2020-05-25] MEDS: cefTRIAXone 1 GM in D5W 55 ML IVPB SCH (20:39)
[2020-05-25] MEDS: Atorvastatin 20mg tab GT SCH (20:39)
[2020-05-25] MEDS: Dyna-Hex 2% Top Sol 2oz TOPIC SCH (20:39)
[2020-05-26] VITALS: BP 120/82
--- NOTE | 2020-05-26 00:02 | NUR ---
NURSE NOTES: pt. noted grimacing- asked pt. if he is in pain and he nodded his head- Tylenol administered- per doctors orders in eMAR- will continue to monitor pt.
[2020-05-26] MEDS: Acetaminophen 650mg/20.3ml GT PRN (00:06)
--- NOTE | 2020-05-26 01:07 | NUR ---
NURSE NOTES: pt. noted in bed resting comfortably- no facial grimacing noted- will continue to monitor pt. and with plan of care. Tylenol appears to be effective.
--- NOTE | 2020-05-26 01:21 | NUR ---
NURSE NOTES: bed bath given and linens changed, oral care provided, pt. appears to be tolerating current vent settings- sating at 100%- will continue to monitor pt. and with plan of care.
--- NOTE | 2020-05-26 03:55 | NUR ---
NURSE NOTES: rectal tube removed as endorsed by am charge nurse Amaris, pt. having pasty stool- pt. remains stable- will continue to monitor pt. and with plan of care.
[2020-05-26 04:00] VITALS: BP 116/78
[2020-05-26 05:08] LABS: HEMATOCRIT 24.5 % (42.0-52.0); HEMOGLOBIN 7.7 G/DL (14.2-18.0); MEAN CORPUSCULAR VOLUME 92 FL (80-99); PLATELET COUNT 176 K/UL (150-450); RED BLOOD COUNT 2.65 M/UL (4.70-6.10); RED CELL DISTRIBUTION WIDTH 16.2 % (11.6-14.8); WHITE BLOOD COUNT 9.2 K/UL (4.8-10.8)
[2020-05-26 05:49] LABS: ALBUMIN 2.3 G/DL (3.4-5.0); ALBUMIN/GLOBULIN RATIO 0.5 (1.0-2.7); BILIRUBIN,TOTAL 0.7 MG/DL (0.2-1.0); CALCIUM 8.4 MG/DL (8.5-10.1); CREATININE 3.7 MG/DL (0.55-1.30); PHOSPHORUS 1.8 MG/DL (2.5-4.9); POTASSIUM 4.5 MMOL/L (3.5-5.1)
--- NOTE | 2020-05-26 06:13 | NUR ---
NURSE NOTES: left message with Dr. Whiteside's exchange Sari- regarding HGB trending down now 7.7- awaiting for call back from doctor.
--- NOTE | 2020-05-26 06:25 | NUR ---
NURSE NOTES: Made DR. Whiteside aware of HGB trending down 7.7- per doctor to monitor for now and check labs in am tomorrow.
--- NOTE | 2020-05-26 06:39 | Hematology/Onc Progress Note ---
Assessment/Plan Assessment/Plan Assessment and Recs # Anemia due to likely chronic disease, ongoing, this is the first time he has been here --> anemia panel to order for downtrending hgb --> hgb 8.9-->9.4->8.4->>>8.7->8.1-->7.7 --> consider iron / epogen after anemia panel returns --> smear has been noted, no hemolysis # Thrombocytopenia - potential causes multifactorial, evaluate liver and viral etiologies to begin, also could be related to underlying medications patient has received. --> Hep panel and HIV neg prior --> Ct a/p shows a normal appearing liver --> Peripheral smear ordered to evaluate for blasts /schistocytes --> abx and other meds have been reviewed --> ok for ppx if plt >50k w/ either heparin or lovenox --> plt 124-->186 # Coagulopathy ongoing, ptt and inr elevated --> vitamin k given, as permacath to be removed --> get mixing study --> trend prn # Chronic respiratory failure --> per pulm --> vent + # End stage renal disease on dialysis --> Complications, dialysis, catheter,replacement as needed --> surg eval --> per renal # Right lung infection --> repeat cxr now # Gangrenous toe, as per surg # Dvt ppx scds Appreciate consultation and dw RN Subjective Constitutional: Denies: no symptoms, chills, fever, malaise, weakness, other Cardiovascular: Denies: no symptoms, chest pain, edema, irregular heart rate, lightheadedness, palpitations, syncope, other Respiratory: Denies: no symptoms, cough, shortness of breath, SOB with excertion, SOB at rest, sputum, wheezing, other Gastrointestinal/Abdominal: Denies: no symptoms, abdomen distended, abdominal pain, black stools, tarry stools, blood in stool, constipated, diarrhea, difficulty swallowing, nausea, poor appetite, poor fluid intake, rectal bleeding, vomiting, other Genitourinary: Denies: no symptoms, burning, discharge, frequency, flank pain, hematuria, incontinence, pain, urgency, other Neurologic/Psychiatric: Denies: no symptoms, anxiety, depressed, emotional problems, headache, numbness, paresthesia, pre-existing deficit, seizure, tingling, tremors, weakness, other Endocrine: Denies: no symptoms, excessive sweating, flushing, intolerance to cold, intolerance to heat, increased hunger, increased thirst, increased urine, unexplained weight gain, unexplained weight loss, other Allergies: Coded Allergies: No Known Allergies (Unverified , 04/22/20) Subjective 05/24 labs reviewed, cbc/bmp ordered, no bleeding on venttrach, gt 05/25 labs reviewed, was positive for large bm overnight, +ob, meds reviewed 05/26 rectal tube was removed, labs noted, no bleeding, labs reviewed Objective Objective Current Medications Medications (Trade) Dose Ordered Sig/Titus Route PRN Reason Start Time Stop Time Status Last Admin Dose Admin Acetaminophen (Tylenol) 650 mg Q6H PRN GT Mild Pain (Pain Scale 1-3) 05/24/20 20:45 06/23/20 20:44 05/26/20 00:06 Acetaminophen/ Hydrocodone Bitart (Chama 5/325) 1 tab Q6H PRN GT For Pain 05/21/20 15:30 05/28/20 15:29 Ascorbic Acid (Vitamin C) 500 mg DAILY GT 05/22/20 09:00 06/21/20 08:59 05/25/20 08:57 Aspirin (ASA) 81 mg DAILY GT 05/22/20 09:00 07/06/20 08:59 05/24/20 08:35 Atorvastatin Calcium (Lipitor) 20 mg BEDTIME GT 05/21/20 21:00 08/19/20 20:59 05/25/20 20:39 Bisacodyl (Dulcolax) 10 mg DAILYPRN PRN RECTAL Constipation 05/21/20 15:15 08/19/20 15:14 Ceftriaxone Sodium 1 gm/ Dextrose 55 ml @ 110 mls/hr Q24H IVPB 05/24/20 21:30 05/31/20 21:29 05/25/20 20:39 Chlorhexidine Gluconate (Saba-Hex 2%) 1 applic DAILY@1999 TOPIC 05/22/20 20:00 08/20/20 19:59 05/25/20 20:39 Metoprolol Tartrate (Lopressor) 50 mg EVERY 12 HOURS GT 05/21/20 21:00 08/19/20 20:59 05/25/20 20:40 Pantoprazole (Protonix) 40 mg DAILY IVP 05/22/20 09:00 06/21/20 08:59 05/25/20 08:56 Sevelamer Carbonate (Renvela) 800 mg THREE TIMES A DAY GT 05/26/20 09:00 08/20/20 08:59 Sodium Hypochlorite (Dakin's Quarter Strength) 1 applic DAILY TOPIC 05/23/20 09:00 06/22/20 08:59 05/25/20 08:57 Sodium Hypochlorite (Dakin's Quarter Strength) 1 applic DAILY TOPIC 05/24/20 09:00 06/23/20 08:59 05/25/20 09:00 Vitamin B Complex/ Vit C/Folic Acid (Nephrovite) 1 tab DAILY GT 05/22/20 09:00 06/21/20 08:59 05/25/20 08:56 Vitamin D (Vitamin D) 400 unit DAILY ORAL 05/22/20 09:00 06/21/20 08:59 05/25/20 08:56 Last 24 Hour Vital Signs Date Time Temp Pulse Resp B/P (MAP) Pulse Ox O2 Delivery O2 Flow Rate FiO2 05/26/20 04:21 72 05/26/20 04:00 98.2 72 18 116/78 (91) 100 05/26/20 04:00 Mechanical Ventilator 05/26/20 04:00 40 05/26/20 02:48 74 24 40 05/26/20 00:36 97.9 05/26/20 00:00 40 05/26/20 00:00 98.4 82 20 120/82 (95) 100 05/26/20 00:00 Mechanical Ventilator 05/25/20 23:24 83 05/25/20 22:57 88 19 40 05/25/20 20:40 86 147/95 05/25/20 20:00 Mechanical Ventilator 05/25/20 20:00 40 05/25/20 20:00 98.1 86 18 147/95 (112) 100 05/25/20 19:52 91 21 40 05/25/20 19:07 83 05/25/20 16:40 67 05/25/20 16:00 96.8 66 17 145/74 (97) 100 05/25/20 16:00 40 05/25/20 16:00 Mechanical Ventilator 05/25/20 14:35 72 16 40 05/25/20 12:00 96.3 70 17 136/86 (103) 100 05/25/20 12:00 Mechanical Ventilator 05/25/20 12:00 40 05/25/20 11:43 70 05/25/20 11:15 70 18 40 05/25/20 09:00 70 115/77 05/25/20 08:00 40 05/25/20 08:00 97.5 69 17 115/77 (90) 100 05/25/20 08:00 Mechanical Ventilator 05/25/20 07:41 69 05/25/20 07:10 71 18 40 05/25/20 04:00 40 05/25/20 04:00 97.7 78 18 103/56 (72) 100 05/25/20 04:00 Mechanical Ventilator 05/25/20 03:41 65 05/25/20 03:05 63 16 40 05/25/20 00:00 73 05/25/20 00:00 99.7 74 20 118/62 (80) 100 05/25/20 00:00 Mechanical Ventilator 05/24/20 23:10 74 20 40 05/24/20 21:24 99.9 05/24/20 20:54 86 120/69 05/24/20 20:00 91 05/24/20 20:00 Mechanical Ventilator 05/24/20 20:00 100.5 83 21 121/69 (86) 100 05/24/20 20:00 40 05/24/20 19:05 90 19 40 05/24/20 16:00 Mechanical Ventilator 05/24/20 16:00 40 05/24/20 16:00 100.2 94 20 109/74 (86) 100 05/24/20 15:30 97 05/24/20 14:30 97 16 40 05/24/20 12:00 100.0 88 20 125/72 (89) 97 05/24/20 12:00 40 05/24/20 12:00 Mechanical Ventilator 05/24/20 11:40 83 05/24/20 10:30 94 16 40 05/24/20 08:35 73 112/70 05/24/20 08:00 83 05/24/20 08:00 Mechanical Ventilator 05/24/20 08:00 40 05/24/20 08:00 97.9 82 20 112/73 (86) 98 05/24/20 07:00 96 16 40 Intake and Output 05/25/20 05/26/20 19:00 07:00 Intake Total 840 ml 750 ml Output Total 0 ml Balance 840 ml 750 ml Free Water 300 ml 200 ml IV Total 55 ml Tube Feeding 540 ml 495 ml Stool Total 0 ml Labs Test 05/24/20 22:00 05/25/20 03:18 05/26/20 03:00 Stool Occult Blood Positive (NEGATIVE) White Blood Count 9.6 K/UL (4.8-10.8) 9.2 K/UL (4.8-10.8) Red Blood Count 2.74 M/UL (4.70-6.10) 2.65 M/UL (4.70-6.10) Hemoglobin 8.1 G/DL (14.2-18.0) 7.7 G/DL (14.2-18.0) Hematocrit 26.1 % (42.0-52.0) 24.5 % (42.0-52.0) Mean Corpuscular Volume 95 FL (80-99) 92 FL (80-99) Mean Corpuscular Hemoglobin 29.6 PG (27.0-31.0) 29.1 PG (27.0-31.0) Mean Corpuscular Hemoglobin Concent 31.1 G/DL (32.0-36.0) 31.6 G/DL (32.0-36.0) Red Cell Distribution Width 16.8 % (11.6-14.8) 16.2 % (11.6-14.8) Platelet Count 174 K/UL (150-450) 176 K/UL (150-450) Mean Platelet Volume 6.3 FL (6.5-10.1) 6.5 FL (6.5-10.1) Neutrophils (%) (Auto) 82.4 % (45.0-75.0) % (45.0-75.0) Lymphocytes (%) (Auto) 7.3 % (20.0-45.0) % (20.0-45.0) Monocytes (%) (Auto) 6.2 % (1.0-10.0) % (1.0-10.0) Eosinophils (%) (Auto) 3.1 % (0.0-3.0) % (0.0-3.0) Basophils (%) (Auto) 1.0 % (0.0-2.0) % (0.0-2.0) Sodium Level 134 MMOL/L (136-145) 134 MMOL/L (136-145) Potassium Level 4.1 MMOL/L (3.5-5.1) 4.5 MMOL/L (3.5-5.1) Chloride Level 96 MMOL/L (98-107) 97 MMOL/L (98-107) Carbon Dioxide Level 28 MMOL/L (21-32) 30 MMOL/L (21-32) Anion Gap 10 mmol/L (5-15) 7 mmol/L (5-15) Blood Urea Nitrogen 116 mg/dL (7-18) 91 mg/dL (7-18) Creatinine 4.6 MG/DL (0.55-1.30) 3.7 MG/DL (0.55-1.30) Estimat Glomerular Filtration Rate 13.6 mL/min (>60) 17.5 mL/min (>60) Glucose Level 123 MG/DL (74-106) 144 MG/DL (74-106) Calcium Level 9.0 MG/DL (8.5-10.1) 8.4 MG/DL (8.5-10.1) Phosphorus Level 2.3 MG/DL (2.5-4.9) 1.8 MG/DL (2.5-4.9) Magnesium Level 2.9 MG/DL (1.8-2.4) 2.6 MG/DL (1.8-2.4) Total Bilirubin 0.8 MG/DL (0.2-1.0) 0.7 MG/DL (0.2-1.0) Aspartate Amino Transf (AST/SGOT) 21 U/L (15-37) 19 U/L (15-37) Alanine Aminotransferase (ALT/SGPT) 17 U/L (12-78) 17 U/L (12-78) Alkaline Phosphatase 373 U/L (46-116) 367 U/L (46-116) Total Protein 7.1 G/DL (6.4-8.2) 7.1 G/DL (6.4-8.2) Albumin 2.1 G/DL (3.4-5.0) 2.3 G/DL (3.4-5.0) Globulin 5.0 g/dL 4.8 g/dL Albumin/Globulin Ratio 0.4 (1.0-2.7) 0.5 (1.0-2.7) Height (Feet): 5 Height (Inches): 7.00 Weight (Pounds): 143 Objective Physical Exam Vitals: reviewed, normal General Appearance: no apparent distress, other - Nonverbal Head: normocephalic, atraumatic: no angioedema, normal voice Neck: full range of motion, supple/symm/no masses Respiratory: chest non-tender, lungs clear, +++vent/trach Cardiovascular: regular rate, rhythm, no edema Gastrointestinal: normal bowel sounds, ++gt Genitourinary: normal inspection, no CVA tenderness Musculoskeletal: back normal, normal range of motion Neurologic: other - Nonverbal Psychiatric: other - Nonverbal Lymphatic: no adenopathy Nick Whiteside MD May 26, 2020 06:39
--- NOTE | 2020-05-26 07:08 | NUR ---
NURSE NOTES: Received report from AMELIE Meyer
--- NOTE | 2020-05-26 07:08 | NUR ---
NURSE HAND-OFF REPORT: Important Events on Shift: none Patient Status: stable Diet: Nephro Pending Orders: Pending Results/Labs: Pending MD notification: Latest Vital Signs: Temperature 98.2 , Pulse 72 , B/P 116 /78 , Respiratory Rate 18 , O2 SAT 100 , Mechanical Ventilator, O2 Flow Rate . Vital Sign Comment: EKG Rhythm: SR w/ BBB Rhythm change?: Y MD Notified?: N - MD Response: Latest Seay Fall Score: 75 Fall Risk: High Risk Safety Measures: Call light Within Reach, Bed Alarm Zone 1, Side Rails Side Rails x2, Bed position Low and Locked. Fall Precautions: Yellow Socks Patient Fall Education Report given to Jj Long- aware to f/u on any abnormal am labs.
[2020-05-26 08:00] VITALS: BP 121/70
[2020-05-26] MEDS: Aspirin Baby 81mg GT SCH (08:15)
[2020-05-26] MEDS: Ascorbic Acid 500mg tab GT SCH (08:15)
[2020-05-26] MEDS: Pantoprazole Inj IVP SCH (08:16)
[2020-05-26] MEDS: Vitamin D 400 units TAB ORAL SCH (08:16)
[2020-05-26] MEDS: Nephrovite tab (Rena-Vite) GT SCH (08:16)
[2020-05-26] MEDS: Metoprolol Tartrate 50mg tab GT SCH ×2 (08:16→20:37)
[2020-05-26] MEDS: Dakin's 0.125% Soln (Quarter Strength) 16oz TOPIC SCH ×2 (08:17→08:18)
--- NOTE | 2020-05-26 08:30 | NUR ---
NURSE NOTES: Patient is on bed, no signs of grimacing and distress noted. Patient is trache-vent SMP 10, TV 500, FiO2 40%, PEEP 5, tolerating well. Patient is on GT feeding, patent, intact, running nepro at 45 cc/hr, tolerating well. Patient has a L tunnel catheter on the best, and a L H 22 g IV line, patent, intact, saline locked. HOB is elevated, bed is on lowest position, locked, side rails up. Patient will continue to be monitored.
[2020-05-26] MEDS ORDERED: Phospha 250 Neutral tab GT SCH (09:00)
[2020-05-26] MEDS ORDERED: Renvela 800mg Pkt GT SCH (09:00)
[2020-05-26 12:00] VITALS: BP 112/64
--- NOTE | 2020-05-26 12:08 | NUR ---
RD ASSESSMENT & RECOMMENDATIONS SEE CARE ACTIVITY FOR COMPLETE ASSESSMENT DAILY ESTIMATED NEEDS: Needs based on Critical care, wound, esrd on HD 65.1kg 25-30 kcals/kg 4081-0953 total kcals 1.5-2 g protein/kg 98-130 g total protein Fluid per MD, on HD NUTRITION DIAGNOSIS: Increased kcal and pro needs r/t renal dysfunction as evidenced by pt w/ ESRD on HD, notable open LE wounds, vent dep via trach and PEG dep. CURRENT TF: Nepro @45 + PS x2 ENTERAL NUTRITION RECOMMENDATIONS: Nepro goal of 45ml/hr x24 hrs + Prosource BID to provide 1080ml, 1944 kcal, 87g pro, 785ml free H2O - Maintain current rate 45ml/hr as tolerated. - Add PROSOURCE 1 pack BID via PEG - On HD, water flush per MD - HOB over 30 degrees ADDITIONAL RECOMMENDATIONS: 1) maintain calibrated bed scale wt 2) Wound care: Vit C dosing per nephrology nephrovite qdaily. When tolerating TF at goal w/ Prosource BID-> add DEE BID 3) Monitor wt trend
--- NOTE | 2020-05-26 12:28 | Surgery Progress Note ---
Surgery Progress Note Subjective Additional Comments doing okay labs stable drsesings going well no n/v le prognosis guarded Objective Last 24 Hour Vital Signs Date Time Temp Pulse Resp B/P (MAP) Pulse Ox O2 Delivery O2 Flow Rate FiO2 05/26/20 08:16 71 121/70 05/26/20 08:00 97.9 71 18 121/70 (87) 100 05/26/20 08:00 40 05/26/20 08:00 Mechanical Ventilator 05/26/20 07:15 71 18 40 05/26/20 04:21 72 05/26/20 04:00 98.2 72 18 116/78 (91) 100 05/26/20 04:00 Mechanical Ventilator 05/26/20 04:00 40 05/26/20 02:48 74 24 40 05/26/20 00:36 97.9 05/26/20 00:00 40 05/26/20 00:00 98.4 82 20 120/82 (95) 100 05/26/20 00:00 Mechanical Ventilator 05/25/20 23:24 83 05/25/20 22:57 88 19 40 05/25/20 20:40 86 147/95 05/25/20 20:00 Mechanical Ventilator 05/25/20 20:00 40 05/25/20 20:00 98.1 86 18 147/95 (112) 100 05/25/20 19:52 91 21 40 05/25/20 19:07 83 05/25/20 16:40 67 05/25/20 16:00 96.8 66 17 145/74 (97) 100 05/25/20 16:00 40 05/25/20 16:00 Mechanical Ventilator 05/25/20 14:35 72 16 40 I&O Intake and Output 05/25/20 05/26/20 19:00 07:00 Intake Total 840 ml 795 ml Output Total 0 ml Balance 840 ml 795 ml Free Water 300 ml 200 ml IV Total 55 ml Tube Feeding 540 ml 540 ml Stool Total 0 ml Dressing: saturated Cardiovascular: RSR Respiratory: decreased breath sounds Abdomen: soft, non-tender, present bowel sounds Extremities: edema, cyanosis, other Laboratory Tests Test 05/26/20 03:00 White Blood Count 9.2 K/UL (4.8-10.8) Red Blood Count 2.65 M/UL (4.70-6.10) L Hemoglobin 7.7 G/DL (14.2-18.0) L Hematocrit 24.5 % (42.0-52.0) L Mean Corpuscular Volume 92 FL (80-99) Mean Corpuscular Hemoglobin 29.1 PG (27.0-31.0) Mean Corpuscular Hemoglobin Concent 31.6 G/DL (32.0-36.0) L Red Cell Distribution Width 16.2 % (11.6-14.8) H Platelet Count 176 K/UL (150-450) Mean Platelet Volume 6.5 FL (6.5-10.1) Neutrophils (%) (Auto) % (45.0-75.0) Lymphocytes (%) (Auto) % (20.0-45.0) Monocytes (%) (Auto) % (1.0-10.0) Eosinophils (%) (Auto) % (0.0-3.0) Basophils (%) (Auto) % (0.0-2.0) Sodium Level 134 MMOL/L (136-145) L Potassium Level 4.5 MMOL/L (3.5-5.1) Chloride Level 97 MMOL/L (98-107) L Carbon Dioxide Level 30 MMOL/L (21-32) Anion Gap 7 mmol/L (5-15) Blood Urea Nitrogen 91 mg/dL (7-18) H Creatinine 3.7 MG/DL (0.55-1.30) H Estimat Glomerular Filtration Rate 17.5 mL/min (>60) Glucose Level 144 MG/DL (74-106) H Calcium Level 8.4 MG/DL (8.5-10.1) L Phosphorus Level 1.8 MG/DL (2.5-4.9) L Magnesium Level 2.6 MG/DL (1.8-2.4) H Total Bilirubin 0.7 MG/DL (0.2-1.0) Aspartate Amino Transf (AST/SGOT) 19 U/L (15-37) Alanine Aminotransferase (ALT/SGPT) 17 U/L (12-78) Alkaline Phosphatase 367 U/L (46-116) H Total Protein 7.1 G/DL (6.4-8.2) Albumin 2.3 G/DL (3.4-5.0) L Globulin 4.8 g/dL Albumin/Globulin Ratio 0.5 (1.0-2.7) L Plan Problems: (1) Complications, dialysis, catheter, mechanical (2) Decubitus ulcer, heel Assessment & Plan: 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 Heel ulcer identified as well. Foul-smelling. Fortunately this does not seem salvageable by any means given the extensive loss at the flap that has dehisced the exposed bone as well as the heel. Currently stable otherwise known chronic in nature not patient's acute problem. Will recommend that patient has a right BKA at some point given the current findings we will continue with local wound care tentatively. Patient identified to have a heel ulcer on the left side as well. Pt presented on admission with Tracheostomy ,GT and dehiscence of R TMA with necrosis extending into lateral aspect of R foot. Full thickness ulcer R heel with slough and necrosis. Moderate amt haemopurulent exudate noted from R heel.Wounds are malodorous. Pt exhibited distress with elevation of R leg during wound care. Haemosiderin deposit R lower ext. Dry eschar with cracking at base noted to L Hallux(L)3cm x (W)4.5cm. Dry eschar noted to dorsal L 1st,L 3rd, and L 5th metatarsals. L Heel is boggy with non-blanchable erythema. DTPI noted to upper R Buttocks(L)2.3cm x (W)4.5cm. Base of wound is indurated,purpuric with surrounding non-blanchable erythema.Non-Blanchable erythema without induration or fluctuance at Sacrum. Tx.Plan: Cleanse L foot wounds with Dakin's [place] 0.25%. Apply Dakin's moistened Kerlix to wounds. Apply Moisture Barrier periwound. Cover with ABD pads. Wrap with Kerlix Daily and prn. Apply Betadine to L Hallux ,L1st,L 3rd and L 5th metatarsals Daily. Leave open to Air. Apply Moisture Barrier Paste to Sacrum /R Buttocks. Cover with Optifoam drsgs. Change every 3 days and prn. Reposition at least every 2hours or as tolerated. Off-load heels with pillow. DAILY ESTIMATED NEEDS: Needs based on Critical care, wound, esrd on HD 65.1kg 25-30 kcals/kg 5197-9509 total kcals 1.5-2 g protein/kg 98-130 g total protein Fluid per MD, on HD NUTRITION DIAGNOSIS: Increased kcal and pro needs r/t renal dysfunction as evidenced by pt w/ ESRD on HD, notable open LE wounds, vent dep via trach and PEG dep. CURRENT TF: Nepro @55 ENTERAL NUTRITION RECOMMENDATIONS: Nepro LOWER to goal of 45ml/hr x24 hrs + Prosource BID to provide 1080ml, 1944 kcal, 87g pro, 785ml free H2O - Rec to LOWER goal rate of 45ml/hr - Add PROSOURCE 1 pack BID via PEG (11g pro/each) - On HD, water flush per MD - HOB over 30 degrees ADDITIONAL RECOMMENDATIONS: 1) maintain calibrated bed scale wt 2) Wound care: Vit C dosing per nephrology nephrovite qdaily. When tolerating TF at goal w/ Prosource BID-> add DEE BID (3) Ischemia of right lower extremity Assessment & Plan: prognosis of LE guarded cont with dressings may need amp at some point DAILY ESTIMATED NEEDS: Needs based on Critical care, wound, esrd on HD 65.1kg 25-30 kcals/kg 6982-7232 total kcals 1.5-2 g protein/kg 98-130 g total protein Fluid per MD, on HD NUTRITION DIAGNOSIS: Increased kcal and pro needs r/t renal dysfunction as evidenced by pt w/ ESRD on HD, notable open LE wounds, vent dep via trach and PEG dep. CURRENT TF: Nepro @45 + PS x2 ENTERAL NUTRITION RECOMMENDATIONS: Nepro goal of 45ml/hr x24 hrs + Prosource BID to provide 1080ml, 1944 kcal, 87g pro, 785ml free H2O - Maintain current rate 45ml/hr as tolerated. - Add PROSOURCE 1 pack BID via PEG - On HD, water flush per MD - HOB over 30 degrees ADDITIONAL RECOMMENDATIONS: 1) maintain calibrated bed scale wt 2) Wound care: Vit C dosing per nephrology nephrovite qdaily. When tolerating TF at goal w/ Prosource BID-> add DEE BID 3) Monitor wt trend (4) Hypercalcemia (5) Coagulopathy (6) Chronic respiratory failure (7) End stage renal disease on dialysis (8) Anemia in chronic kidney disease (CKD) (9) Anemia (10) GI bleed Dany Wilder May 26, 2020 12:28
[2020-05-26] MEDS ORDERED: Tubing IV Secondary IV ONE (14:08)
[2020-05-26] MEDS ORDERED: NS 275ml ONE (14:08)
--- NOTE | 2020-05-26 14:58 | Nephrology Progress Note ---
Assessment/Plan Problem List: (1) End stage renal disease on dialysis (2) Hypercalcemia (3) Anemia (4) Chronic respiratory failure Assessment End-stage renal disease on dialysis Coagulopathy Anemia Chronic respiratory failure History of hypercalcemia, corrected serum calcium for low albumin remains elevated Plan May 26: Dialyzed yesterday. Labs reviewed. Renvela discontinued. 1 dose of Neutra-Phos given. Continue to monitor renal parameters. May 25: Patient due for dialysis today. Labs reviewed. Medication list reviewed. Renvela dose adjusted. Continue to monitor electrolytes and renal parameters. May 24: No labs drawn today. Last dialysis May 22. Will check lab tomorrow. Will dialyze as needed. Hemodialysis yesterday May 22 Aredia 60 mg IV piggyback for hypercalcemia, given on May 22 Continue to monitor renal parameters calcium and phosphorus. Per orders, per PMD. Subjective ROS Limited/Unobtainable: Yes Objective Objective Last 24 Hour Vital Signs Date Time Temp Pulse Resp B/P (MAP) Pulse Ox O2 Delivery O2 Flow Rate FiO2 05/26/20 12:00 97.9 66 18 112/64 (80) 100 05/26/20 12:00 Mechanical Ventilator 05/26/20 12:00 40 05/26/20 11:48 64 05/26/20 08:16 71 121/70 05/26/20 08:00 97.9 71 18 121/70 (87) 100 05/26/20 08:00 40 05/26/20 08:00 Mechanical Ventilator 05/26/20 07:51 71 05/26/20 07:15 71 18 40 05/26/20 04:21 72 05/26/20 04:00 98.2 72 18 116/78 (91) 100 05/26/20 04:00 Mechanical Ventilator 05/26/20 04:00 40 05/26/20 02:48 74 24 40 05/26/20 00:36 97.9 05/26/20 00:00 40 05/26/20 00:00 98.4 82 20 120/82 (95) 100 05/26/20 00:00 Mechanical Ventilator 05/25/20 23:24 83 05/25/20 22:57 88 19 40 05/25/20 20:40 86 147/95 05/25/20 20:00 Mechanical Ventilator 05/25/20 20:00 40 05/25/20 20:00 98.1 86 18 147/95 (112) 100 05/25/20 19:52 91 21 40 05/25/20 19:07 83 05/25/20 16:40 67 05/25/20 16:00 96.8 66 17 145/74 (97) 100 05/25/20 16:00 40 05/25/20 16:00 Mechanical Ventilator Intake and Output 05/25/20 05/26/20 19:00 07:00 Intake Total 840 ml 795 ml Output Total 0 ml Balance 840 ml 795 ml Free Water 300 ml 200 ml IV Total 55 ml Tube Feeding 540 ml 540 ml Stool Total 0 ml Laboratory Tests 05/26/20 03:00: White Blood Count 9.2, Red Blood Count 2.65L, Hemoglobin 7.7L, Hematocrit 24.5L, Mean Corpuscular Volume 92, Mean Corpuscular Hemoglobin 29.1, Mean Corpuscular Hemoglobin Concent 31.6L, Red Cell Distribution Width 16.2H, Platelet Count 176, Mean Platelet Volume 6.5, Neutrophils (%) (Auto) , Lymphocytes (%) (Auto) , Monocytes (%) (Auto) , Eosinophils (%) (Auto) , Basophils (%) (Auto) , Sodium Level 134L, Potassium Level 4.5, Chloride Level 97L, Carbon Dioxide Level 30, Anion Gap 7, Blood Urea Nitrogen 91H, Creatinine 3.7H, Estimat Glomerular Filtration Rate 17.5, Glucose Level 144H, Calcium Level 8.4L, Phosphorus Level 1.8L, Magnesium Level 2.6H, Total Bilirubin 0.7, Aspartate Amino Transf (AST/SGOT) 19, Alanine Aminotransferase (ALT/SGPT) 17, Alkaline Phosphatase 367H , Total Protein 7.1, Albumin 2.3L, Globulin 4.8, Albumin/Globulin Ratio 0.5L Height (Feet): 5 Height (Inches): 7.00 Weight (Pounds): 143 General Appearance: no apparent distress EENT: other - Trach to vent Cardiovascular: normal rate Respiratory/Chest: decreased breath sounds Abdomen: distended Maurilio King MD May 26, 2020 14:58
[2020-05-26 16:00] VITALS: BP 122/78
--- NOTE | 2020-05-26 16:19 | NUR ---
CASE MANAGEMENT:REVIEW 05/26/20 SI: ANEMIA. HYPERCALCEMIA ESRD/HD. TRACH/VENT/GT 97.9 66 18 112/64 96% ON VENT SUPPORT W/40% FIO2 H/H-7.7/24.5 BUN+91 CR+3.7 IS: IV ROCEPHIN Q24 RENVELA GT TID IV PROTONIX QD ASA GT QD LOPRESSOR GT Q12 : STEP DOWN UNIT DCP: FROM MILAN ~ PLAN: MILAN IS ON LOCK DOWN...SEEKING ALTERNATIVE PLACEMENT
--- NOTE | 2020-05-26 16:22 | NUR ---
[employer] FAXED
--- NOTE | 2020-05-26 18:47 | NUR ---
RESPIRATORY NOTE: Received pt on SIMV 10, 500VT, PS 20, 40%, PEEP +5. Pt is trach-dependent w/ Cuffed, Portex 8 tube. Pt is awake/disoriented. B/S silverio. rhonchi, sxn small to moderate amounts of thick/thin, chapman-yellow secretions. Vent plugged into red outlet, ambubag at bedside. Pt in no apparent distress at this time. Will continue plan of care.
--- NOTE | 2020-05-26 19:21 | NUR ---
NURSE HAND-OFF REPORT: Important Events on Shift: wound dressing change Patient Status: Diet: Pending Orders: Pending Results/Labs: Pending MD notification: Latest Vital Signs: Temperature 98.2 , Pulse 74 , B/P 122 /78 , Respiratory Rate 19 , O2 SAT 96 , Mechanical Ventilator, O2 Flow Rate . Vital Sign Comment: EKG Rhythm: SR w/ BBB Rhythm change?: N MD Notified?: N - MD Response: Latest Seay Fall Score: 75 Fall Risk: High Risk Safety Measures: Call light Within Reach, Bed Alarm Zone 1, Side Rails Side Rails x2, Bed position Low and Locked. Fall Precautions: Yellow Socks Patient Fall Education Report given to AMELIE Meyer.
--- NOTE | 2020-05-26 19:25 | NUR ---
NURSE NOTES: Received report from AMELIE Long pt. in bed awake- open eyes to name, non-verbal, no signs or symptoms of acute cardiac or respiratory distress noted, bed alarm on, side rails up x's3 and safety brakes engaged, call light within easy reach, pt. appears to be tolerating current vent settings well- SIMV 10, TV 500, fio2 at 40% and peep 5- no distress noted, pt. is anuric, Pt. has Nephro running at 45cc/hr via g tube- no residual noted, pt. has left subclavian line for HD, intact and roderick- pt. has Rt. hand 22G IV intact and patent, safety measures continued, will continue with plan of care.
[2020-05-26 20:00] VITALS: BP 130/82
[2020-05-26] MEDS: cefTRIAXone 1 GM in D5W 55 ML IVPB SCH (20:36)
[2020-05-26] MEDS: Dyna-Hex 2% Top Sol 2oz TOPIC SCH (20:36)
[2020-05-26] MEDS: Atorvastatin 20mg tab GT SCH (20:37)
[2020-05-27] VITALS: BP 116/62
--- NOTE | 2020-05-27 01:03 | NUR ---
NURSE NOTES: facial grimacing noted during bed bath- asked pt. if he is in pain and he nodded his head- Tylenol administered- per doctors orders in eMAR- will continue to monitor pt. and with plan of care.
[2020-05-27] MEDS: Acetaminophen 650mg/20.3ml GT PRN (01:08)
--- NOTE | 2020-05-27 01:14 | NUR ---
NURSE NOTES: bed bath given and linens changed, oral care provided, pt. appears to be tolerating current vent settings- sating at 99%- aspiration precautions observed- HOB elevated, Skin precautions observed, will continue to monitor pt. and with plan of care.
--- NOTE | 2020-05-27 01:46 | NUR ---
NURSE NOTES: pt. in bed noted to be sleeping comfortably- will continue to monitor pt. and with plan of care.
[2020-05-27 04:00] VITALS: BP 120/59
[2020-05-27 05:03] LABS: HEMATOCRIT 22.5 % (42.0-52.0); HEMOGLOBIN 7.3 G/DL (14.2-18.0); MEAN CORPUSCULAR VOLUME 91 FL (80-99); PLATELET COUNT 164 K/UL (150-450); RED BLOOD COUNT 2.48 M/UL (4.70-6.10); RED CELL DISTRIBUTION WIDTH 16.1 % (11.6-14.8); WHITE BLOOD COUNT 7.4 K/UL (4.8-10.8)
[2020-05-27 05:31] LABS: ALBUMIN/GLOBULIN RATIO 0.4 (1.0-2.7); BILIRUBIN,TOTAL 0.6 MG/DL (0.2-1.0); CALCIUM 8.3 MG/DL (8.5-10.1); CREATININE 4.4 MG/DL (0.55-1.30); PHOSPHORUS 2.9 MG/DL (2.5-4.9); POTASSIUM 4.5 MMOL/L (3.5-5.1)
--- NOTE | 2020-05-27 06:23 | NUR ---
NURSE NOTES: notified DR. lao of HGB trending down- now 7.3- continue to monitor pt. - No new orders given.
--- NOTE | 2020-05-27 06:37 | Hematology/Onc Progress Note ---
Assessment/Plan Assessment/Plan Assessment and Recs # Anemia due to likely chronic disease, ongoing, this is the first time he has been here --> anemia panel to order for downtrending hgb --> hgb 8.9-->9.4->8.4->>>8.7->8.1-->7.7->7.3 --> consider iron / epogen after anemia panel returns --> smear has been noted, no hemolysis # Thrombocytopenia - potential causes multifactorial, evaluate liver and viral etiologies to begin, also could be related to underlying medications patient has received. --> Hep panel and HIV neg prior --> Ct a/p shows a normal appearing liver --> Peripheral smear ordered to evaluate for blasts /schistocytes --> abx and other meds have been reviewed --> ok for ppx if plt >50k w/ either heparin or lovenox --> plt 124-->186-->164 # Coagulopathy ongoing, ptt and inr elevated --> vitamin k given, as permacath to be removed --> get mixing study --> trend prn # Chronic respiratory failure --> per pulm --> vent + # End stage renal disease on dialysis --> Complications, dialysis, catheter,replacement as needed --> surg eval --> per renal # Right lung infection --> repeat cxr now # Gangrenous toe, as per surg # Dvt ppx scds Appreciate consultation and dw RN Subjective Allergies: Coded Allergies: No Known Allergies (Unverified , 04/22/20) All Systems: reviewed and negative except above Subjective 05/24 labs reviewed, cbc/bmp ordered, no bleeding on venttrach, gt 05/25 labs reviewed, was positive for large bm overnight, +ob, meds reviewed 05/26 rectal tube was removed, labs noted, no bleeding, labs reviewed 05/27 on vent hgb 7.3, no hemolysis, no night sweats Objective Objective Current Medications Medications (Trade) Dose Ordered Sig/Titus Route PRN Reason Start Time Stop Time Status Last Admin Dose Admin Acetaminophen (Tylenol) 650 mg Q6H PRN GT Mild Pain (Pain Scale 1-3) 05/24/20 20:45 06/23/20 20:44 05/27/20 01:08 Acetaminophen/ Hydrocodone Bitart ([place] 5/325) 1 tab Q6H PRN GT For Pain 05/21/20 15:30 05/28/20 15:29 Ascorbic Acid (Vitamin C) 500 mg DAILY GT 05/22/20 09:00 06/21/20 08:59 05/26/20 08:15 Aspirin (ASA) 81 mg DAILY GT 05/22/20 09:00 07/06/20 08:59 05/26/20 08:15 Atorvastatin Calcium (Lipitor) 20 mg BEDTIME GT 05/21/20 21:00 08/19/20 20:59 05/26/20 20:37 Bisacodyl (Dulcolax) 10 mg DAILYPRN PRN RECTAL Constipation 05/21/20 15:15 08/19/20 15:14 Ceftriaxone Sodium 1 gm/ Dextrose 55 ml @ 110 mls/hr Q24H IVPB 05/24/20 21:30 05/31/20 21:29 05/26/20 20:36 Chlorhexidine Gluconate (Saba-Hex 2%) 1 applic DAILY@1999 TOPIC 05/22/20 20:00 08/20/20 19:59 05/26/20 20:36 Metoprolol Tartrate (Lopressor) 50 mg EVERY 12 HOURS GT 05/21/20 21:00 08/19/20 20:59 05/26/20 20:37 Pantoprazole (Protonix) 40 mg DAILY IVP 05/22/20 09:00 06/21/20 08:59 05/26/20 08:16 Sodium Hypochlorite (Dakin's Quarter Strength) 1 applic DAILY TOPIC 05/23/20 09:00 06/22/20 08:59 05/26/20 08:17 Sodium Hypochlorite (Dakin's Quarter Strength) 1 applic DAILY TOPIC 05/24/20 09:00 06/23/20 08:59 05/26/20 08:18 Vitamin B Complex/ Vit C/Folic Acid (Nephrovite) 1 tab DAILY GT 05/22/20 09:00 06/21/20 08:59 05/26/20 08:16 Vitamin D (Vitamin D) 400 unit DAILY ORAL 05/22/20 09:00 06/21/20 08:59 05/26/20 08:16 Last 24 Hour Vital Signs Date Time Temp Pulse Resp B/P (MAP) Pulse Ox O2 Delivery O2 Flow Rate FiO2 05/27/20 04:00 98.5 65 18 120/59 (79) 100 05/27/20 04:00 Mechanical Ventilator 05/27/20 04:00 40 05/27/20 03:49 64 05/27/20 02:57 62 20 40 05/27/20 01:38 98.3 05/27/20 00:26 68 05/27/20 00:00 Mechanical Ventilator 05/27/20 00:00 98.3 65 18 116/62 (80) 100 05/27/20 00:00 40 05/26/20 22:42 67 17 40 05/26/20 20:37 71 130/82 05/26/20 20:00 Mechanical Ventilator 05/26/20 20:00 40 05/26/20 20:00 98.0 71 20 130/82 (98) 100 05/26/20 19:50 76 05/26/20 18:44 74 19 40 05/26/20 16:00 40 05/26/20 16:00 Mechanical Ventilator 05/26/20 16:00 98.2 71 18 122/78 (93) 96 05/26/20 15:47 73 05/26/20 15:30 74 20 40 05/26/20 15:30 74 20 96 Mechanical Ventilator 40 05/26/20 12:00 97.9 66 18 112/64 (80) 100 05/26/20 12:00 Mechanical Ventilator 05/26/20 12:00 40 05/26/20 11:48 64 05/26/20 11:00 75 18 40 05/26/20 08:16 71 121/70 05/26/20 08:00 97.9 71 18 121/70 (87) 100 05/26/20 08:00 40 05/26/20 08:00 Mechanical Ventilator 05/26/20 07:51 71 05/26/20 07:15 71 18 40 05/26/20 04:21 72 05/26/20 04:00 98.2 72 18 116/78 (91) 100 05/26/20 04:00 Mechanical Ventilator 05/26/20 04:00 40 05/26/20 02:48 74 24 40 05/26/20 00:36 97.9 05/26/20 00:00 40 05/26/20 00:00 98.4 82 20 120/82 (95) 100 05/26/20 00:00 Mechanical Ventilator 05/25/20 23:24 83 05/25/20 22:57 88 19 40 05/25/20 20:40 86 147/95 05/25/20 20:00 Mechanical Ventilator 05/25/20 20:00 40 05/25/20 20:00 98.1 86 18 147/95 (112) 100 05/25/20 19:52 91 21 40 05/25/20 19:07 83 05/25/20 16:40 67 05/25/20 16:00 96.8 66 17 145/74 (97) 100 05/25/20 16:00 40 05/25/20 16:00 Mechanical Ventilator 05/25/20 14:35 72 16 40 05/25/20 12:00 96.3 70 17 136/86 (103) 100 05/25/20 12:00 Mechanical Ventilator 05/25/20 12:00 40 05/25/20 11:43 70 05/25/20 11:15 70 18 40 05/25/20 09:00 70 115/77 05/25/20 08:00 40 05/25/20 08:00 97.5 69 17 115/77 (90) 100 05/25/20 08:00 Mechanical Ventilator 05/25/20 07:41 69 05/25/20 07:10 71 18 40 Intake and Output 05/26/20 05/27/20 19:00 07:00 Intake Total 740 ml 760 ml Balance 740 ml 760 ml Free Water 200 ml 200 ml IV Total 110 ml Tube Feeding 540 ml 450 ml # Voids 1 # Bowel Movements 1 4 Labs Test 05/24/20 22:00 05/25/20 03:18 05/26/20 03:00 05/27/20 02:50 Stool Occult Blood Positive (NEGATIVE) White Blood Count 9.6 K/UL (4.8-10.8) 9.2 K/UL (4.8-10.8) 7.4 K/UL (4.8-10.8) Red Blood Count 2.74 M/UL (4.70-6.10) 2.65 M/UL (4.70-6.10) 2.48 M/UL (4.70-6.10) Hemoglobin 8.1 G/DL (14.2-18.0) 7.7 G/DL (14.2-18.0) 7.3 G/DL (14.2-18.0) Hematocrit 26.1 % (42.0-52.0) 24.5 % (42.0-52.0) 22.5 % (42.0-52.0) Mean Corpuscular Volume 95 FL (80-99) 92 FL (80-99) 91 FL (80-99) Mean Corpuscular Hemoglobin 29.6 PG (27.0-31.0) 29.1 PG (27.0-31.0) 29.5 PG (27.0-31.0) Mean Corpuscular Hemoglobin Concent 31.1 G/DL (32.0-36.0) 31.6 G/DL (32.0-36.0) 32.4 G/DL (32.0-36.0) Red Cell Distribution Width 16.8 % (11.6-14.8) 16.2 % (11.6-14.8) 16.1 % (11.6-14.8) Platelet Count 174 K/UL (150-450) 176 K/UL (150-450) 164 K/UL (150-450) Mean Platelet Volume 6.3 FL (6.5-10.1) 6.5 FL (6.5-10.1) 6.7 FL (6.5-10.1) Neutrophils (%) (Auto) 82.4 % (45.0-75.0) % (45.0-75.0) % (45.0-75.0) Lymphocytes (%) (Auto) 7.3 % (20.0-45.0) % (20.0-45.0) % (20.0-45.0) Monocytes (%) (Auto) 6.2 % (1.0-10.0) % (1.0-10.0) % (1.0-10.0) Eosinophils (%) (Auto) 3.1 % (0.0-3.0) % (0.0-3.0) % (0.0-3.0) Basophils (%) (Auto) 1.0 % (0.0-2.0) % (0.0-2.0) % (0.0-2.0) Sodium Level 134 MMOL/L (136-145) 134 MMOL/L (136-145) 134 MMOL/L (136-145) Potassium Level 4.1 MMOL/L (3.5-5.1) 4.5 MMOL/L (3.5-5.1) 4.5 MMOL/L (3.5-5.1) Chloride Level 96 MMOL/L (98-107) 97 MMOL/L (98-107) 96 MMOL/L (98-107) Carbon Dioxide Level 28 MMOL/L (21-32) 30 MMOL/L (21-32) 28 MMOL/L (21-32) Anion Gap 10 mmol/L (5-15) 7 mmol/L (5-15) 10 mmol/L (5-15) Blood Urea Nitrogen 116 mg/dL (7-18) 91 mg/dL (7-18) 105 mg/dL (7-18) Creatinine 4.6 MG/DL (0.55-1.30) 3.7 MG/DL (0.55-1.30) 4.4 MG/DL (0.55-1.30) Estimat Glomerular Filtration Rate 13.6 mL/min (>60) 17.5 mL/min (>60) 14.3 mL/min (>60) Glucose Level 123 MG/DL (74-106) 144 MG/DL (74-106) 119 MG/DL (74-106) Calcium Level 9.0 MG/DL (8.5-10.1) 8.4 MG/DL (8.5-10.1) 8.3 MG/DL (8.5-10.1) Phosphorus Level 2.3 MG/DL (2.5-4.9) 1.8 MG/DL (2.5-4.9) 2.9 MG/DL (2.5-4.9) Magnesium Level 2.9 MG/DL (1.8-2.4) 2.6 MG/DL (1.8-2.4) Total Bilirubin 0.8 MG/DL (0.2-1.0) 0.7 MG/DL (0.2-1.0) 0.6 MG/DL (0.2-1.0) Aspartate Amino Transf (AST/SGOT) 21 U/L (15-37) 19 U/L (15-37) 27 U/L (15-37) Alanine Aminotransferase (ALT/SGPT) 17 U/L (12-78) 17 U/L (12-78) 12 U/L (12-78) Alkaline Phosphatase 373 U/L (46-116) 367 U/L (46-116) 376 U/L (46-116) Total Protein 7.1 G/DL (6.4-8.2) 7.1 G/DL (6.4-8.2) 6.6 G/DL (6.4-8.2) Albumin 2.1 G/DL (3.4-5.0) 2.3 G/DL (3.4-5.0) 2.0 G/DL (3.4-5.0) Globulin 5.0 g/dL 4.8 g/dL 4.6 g/dL Albumin/Globulin Ratio 0.4 (1.0-2.7) 0.5 (1.0-2.7) 0.4 (1.0-2.7) Micro Microbiology Date/Time Source Procedure Growth Status 05/26/20 14:40 Nasopharynx SARS-CoV-2 RdRp Gene Assay - Final Complete Height (Feet): 5 Height (Inches): 7.00 Weight (Pounds): 143 Objective Physical Exam Vitals: reviewed, normal General Appearance: no apparent distress, other - Nonverbal Head: normocephalic, atraumatic: no angioedema, normal voice Neck: full range of motion, supple/symm/no masses Respiratory: chest non-tender, lungs clear, +++vent/trach Cardiovascular: regular rate, rhythm, no edema Gastrointestinal: normal bowel sounds, ++gt Genitourinary: normal inspection, no CVA tenderness Musculoskeletal: back normal, normal range of motion Neurologic: other - Nonverbal Psychiatric: other - Nonverbal Lymphatic: no adenopathy Nick Whiteside MD May 27, 2020 06:37
--- NOTE | 2020-05-27 07:12 | NUR ---
NURSE HAND-OFF REPORT: Important Events on Shift:pain- resolved Patient Status: stable Diet: nephro Pending Orders: Pending Results/Labs: Pending MD notification: Latest Vital Signs: Temperature 98.5 , Pulse 65 , B/P 120 /59 , Respiratory Rate 18 , O2 SAT 100 , Mechanical Ventilator, O2 Flow Rate . Vital Sign Comment: EKG Rhythm: SR w/ BBB Rhythm change?: N MD Notified?: N - MD Response: Latest Seay Fall Score: 75 Fall Risk: High Risk Safety Measures: Call light Within Reach, Bed Alarm Zone 1, Side Rails Side Rails x2, Bed position Low and Locked. Fall Precautions: Yellow Socks Patient Fall Education Report given to Jj Leslie, aware to f/u on any abnormal am labs.
[2020-05-27 08:00] VITALS: BP 123/65
--- NOTE | 2020-05-27 08:03 | NUR ---
NURSE NOTES: Received pt from AMELIE Rollins, pt is awake and confused, pt has trach to ventilator SIMV 10 TV 500 FIO2 40% PEEP 5, Pt has intact iv access RH 22G SL. Pt has g tube in place is running well. no complain of pain noted at this moment. all needs attended, bed is locked and is in the lowest position, call light within easy reach. will continue to monitor.
[2020-05-27] MEDS: Dakin's 0.125% Soln (Quarter Strength) 16oz TOPIC SCH ×2 (09:00→09:34)
[2020-05-27] MEDS: Aspirin Baby 81mg GT SCH (09:33)
[2020-05-27] MEDS: Vitamin D 400 units TAB ORAL SCH (09:33)
[2020-05-27] MEDS: Pantoprazole Inj IVP SCH (09:33)
[2020-05-27] MEDS: Ascorbic Acid 500mg tab GT SCH (09:33)
[2020-05-27] MEDS: Nephrovite tab (Rena-Vite) GT SCH (09:33)
[2020-05-27] MEDS: Metoprolol Tartrate 50mg tab GT SCH ×2 (09:33→20:12)
[2020-05-27] MEDS ORDERED: D5W 275ml ONE (09:44)
--- NOTE | 2020-05-27 11:45 | NUR ---
[employer] NOTES PT ACCEPTED BACK TO [facility] ROOM 2 BED C. NURSE TO CALL REPORT TO [phone]. [facility] TO TRANSPORT WITH AN ETA 1400.
[2020-05-27 11:52] VITALS: BP 111/60
--- NOTE | 2020-05-27 12:01 | NUR ---
*-*DISCHARGE PLANNED*-* PATIENT HAS BEEN ACCEPTED AND WILL BE DISCHARGE: MILAN CAICEDO p: [phone] FOR NURSE TO NURSE REPORT ROOM# 2.C [facility] TRANSPORTATION SET FOR 2PM S/W [facility]ARR[facility] [id number]. PLACED A CALL TO PATIENTS FAMILY ANNALISE IGLESIAS, WHO IS IN AGREEMENT WITH DISCHARGE PLAN.
--- NOTE | 2020-05-27 12:17 | NUR ---
*-*DISCHARGE PLANNED*-* PATIENT HAS BEEN ACCEPTED AND WILL BE DISCHARGE: MILAN CAICEDO p: [phone] FOR NURSE TO NURSE REPORT ROOM# 2.C [facility] TRANSPORTATION SET FOR 5PM S/W [facility] [id number]. PLACED A CALL TO PATIENTS FAMILY ANNALISE IGLESIAS, WHO IS IN AGREEMENT WITH DISCHARGE PLAN.
--- NOTE | 2020-05-27 12:33 | NUR ---
NURSE NOTES: RN called Dr Whiteside for D/C meds, asked consult with Dr Salinas to get ABX before discharging pt. Dr Salinas notified, waiting to call back. will continue to monitor.
--- NOTE | 2020-05-27 12:46 | NUR ---
NURSE NOTES: Dr Salinas called back and stated it is late consult and she can't visit pt today or give me any recommendation, Dr Salinas asked me Dr Whiteside call her, Dr Whiteside notified. waiting for further orders.
--- NOTE | 2020-05-27 13:05 | Nephrology Progress Note ---
Assessment/Plan Problem List: (1) End stage renal disease on dialysis (2) Hypercalcemia (3) Anemia (4) Chronic respiratory failure Assessment End-stage renal disease on dialysis Coagulopathy Anemia Chronic respiratory failure History of hypercalcemia, corrected serum calcium for low albumin remains elevated Plan May 27: Last dialysis May 25. Will order dialysis for tomorrow. Labs reviewed. May 26: Dialyzed yesterday. Labs reviewed. Renvela discontinued. 1 dose of Neutra-Phos given. Continue to monitor renal parameters. May 25: Patient due for dialysis today. Labs reviewed. Medication list reviewed. Renvela dose adjusted. Continue to monitor electrolytes and renal parameters. May 24: No labs drawn today. Last dialysis May 22. Will check lab tomorrow. Will dialyze as needed. Hemodialysis yesterday May 22 Aredia 60 mg IV piggyback for hypercalcemia, given on May 22 Continue to monitor renal parameters calcium and phosphorus. Per orders, per PMD. Subjective ROS Limited/Unobtainable: Yes Objective Objective Last 24 Hour Vital Signs Date Time Temp Pulse Resp B/P (MAP) Pulse Ox O2 Delivery O2 Flow Rate FiO2 05/27/20 12:28 68 21 40 05/27/20 12:00 40 05/27/20 12:00 Mechanical Ventilator 05/27/20 11:52 97.7 65 16 111/60 (77) 96 05/27/20 09:33 66 123/65 05/27/20 08:00 Mechanical Ventilator 05/27/20 08:00 97.5 66 20 123/65 (84) 98 05/27/20 08:00 40 05/27/20 07:47 69 05/27/20 04:00 98.5 65 18 120/59 (79) 100 05/27/20 04:00 Mechanical Ventilator 05/27/20 04:00 40 05/27/20 03:49 64 05/27/20 02:57 62 20 40 05/27/20 01:38 98.3 05/27/20 00:26 68 05/27/20 00:00 Mechanical Ventilator 05/27/20 00:00 98.3 65 18 116/62 (80) 100 05/27/20 00:00 40 05/26/20 22:42 67 17 40 05/26/20 20:37 71 130/82 05/26/20 20:00 Mechanical Ventilator 05/26/20 20:00 40 05/26/20 20:00 98.0 71 20 130/82 (98) 100 05/26/20 19:50 76 05/26/20 18:44 74 19 40 05/26/20 16:00 40 05/26/20 16:00 Mechanical Ventilator 05/26/20 16:00 98.2 71 18 122/78 (93) 96 05/26/20 15:47 73 05/26/20 15:30 74 20 40 05/26/20 15:30 74 20 96 Mechanical Ventilator 40 Intake and Output 05/26/20 05/27/20 18:59 06:59 Intake Total 740 ml 805 ml Balance 740 ml 805 ml Free Water 200 ml 200 ml IV Total 110 ml Tube Feeding 540 ml 495 ml # Voids 1 # Bowel Movements 1 4 Laboratory Tests 05/27/20 02:50: White Blood Count 7.4, Red Blood Count 2.48L, Hemoglobin 7.3L, Hematocrit 22.5L, Mean Corpuscular Volume 91, Mean Corpuscular Hemoglobin 29.5, Mean Corpuscular Hemoglobin Concent 32.4, Red Cell Distribution Width 16.1H, Platelet Count 164, Mean Platelet Volume 6.7, Neutrophils (%) (Auto) , Lymphocytes (%) (Auto) , Monocytes (%) (Auto) , Eosinophils (%) (Auto) , Basophils (%) (Auto) , Sodium [place] est[place] 134L, Potassium Level 4.5, Chloride Level 96L, Carbon Dioxide Level 28, Anion Gap 10, Blood Urea Nitrogen 105H, Creatinine 4.4H, Estimat Glomerular Filtration Rate 14.3, Glucose Level 119H, Calcium Level 8.3L, Phosphorus Level 2.9, Total Bilirubin 0.6, Aspartate Amino Transf (AST/SGOT) 27, Alanine Aminotransferase (ALT/SGPT) 12, Alkaline Phosphatase 376H, Total Protein 6.6, Albumin 2.0L, Globulin 4.6, Albumin/Globulin Ratio 0.4L Height (Feet): 5 Height (Inches): 7.00 Weight (Pounds): 143 General Appearance: no apparent distress EENT: other - Trach to vent Cardiovascular: normal rate Respiratory/Chest: decreased breath sounds Abdomen: soft Maurilio King MD May 27, 2020 13:05
[2020-05-27] MEDS ORDERED: ROCEPHIN250 MG IV (13:30)
[2020-05-27 14:43] LABS: BASOPHILS % (AUTO) 2.2 % (0.0-2.0); EOSINOPHILS % (AUTO) 4.4 % (0.0-3.0); HEMATOCRIT 25.1 % (42.0-52.0); MEAN CORPUSCULAR VOLUME 92 FL (80-99); MONOCYTES % (AUTO) 8.2 % (1.0-10.0); NEUTROPHILS % (AUTO) 76.2 % (45.0-75.0); PLATELET COUNT 166 K/UL (150-450); RED BLOOD COUNT 2.73 M/UL (4.70-6.10); RED CELL DISTRIBUTION WIDTH 16.2 % (11.6-14.8); WHITE BLOOD COUNT 7.6 K/UL (4.8-10.8)
[2020-05-27 15:01] LABS: CALCIUM 8.1 MG/DL (8.5-10.1); CREATININE 4.5 MG/DL (0.55-1.30); POTASSIUM 4.9 MMOL/L (3.5-5.1)
[2020-05-27 16:00] VITALS: BP 118/64
--- NOTE | 2020-05-27 17:36 | Surgery Progress Note ---
Surgery Progress Note Subjective Additional Comments accepted and pending discharge labs okay exam stable dressings ongoing Objective Last 24 Hour Vital Signs Date Time Temp Pulse Resp B/P (MAP) Pulse Ox O2 Delivery O2 Flow Rate FiO2 05/27/20 16:00 40 05/27/20 16:00 98.1 71 19 118/64 (82) 100 05/27/20 16:00 Mechanical Ventilator 05/27/20 15:19 70 05/27/20 14:50 72 16 40 05/27/20 12:28 68 21 40 05/27/20 12:00 40 05/27/20 12:00 Mechanical Ventilator 05/27/20 11:52 97.7 65 16 111/60 (77) 96 05/27/20 11:43 65 05/27/20 09:33 66 123/65 05/27/20 08:00 Mechanical Ventilator 05/27/20 08:00 97.5 66 20 123/65 (84) 98 05/27/20 08:00 40 05/27/20 07:47 69 05/27/20 04:00 98.5 65 18 120/59 (79) 100 05/27/20 04:00 Mechanical Ventilator 05/27/20 04:00 40 05/27/20 03:49 64 05/27/20 02:57 62 20 40 05/27/20 01:38 98.3 05/27/20 00:26 68 05/27/20 00:00 Mechanical Ventilator 05/27/20 00:00 98.3 65 18 116/62 (80) 100 05/27/20 00:00 40 05/26/20 22:42 67 17 40 05/26/20 20:37 71 130/82 05/26/20 20:00 Mechanical Ventilator 05/26/20 20:00 40 05/26/20 20:00 98.0 71 20 130/82 (98) 100 05/26/20 19:50 76 05/26/20 18:44 74 19 40 I&O Intake and Output 05/26/20 05/27/20 19:00 07:00 Intake Total 740 ml 805 ml Balance 740 ml 805 ml Free Water 200 ml 200 ml IV Total 110 ml Tube Feeding 540 ml 495 ml # Voids 1 # Bowel Movements 1 4 Dressing: saturated Cardiovascular: RSR Respiratory: decreased breath sounds Abdomen: non-tender, present bowel sounds, non-distended Extremities: edema, other Laboratory Tests Test 05/27/20 02:50 05/27/20 14:20 White Blood Count 7.4 K/UL (4.8-10.8) 7.6 K/UL (4.8-10.8) Red Blood Count 2.48 M/UL (4.70-6.10) L 2.73 M/UL (4.70-6.10) L Hemoglobin 7.3 G/DL (14.2-18.0) L 8.0 G/DL (14.2-18.0) L Hematocrit 22.5 % (42.0-52.0) L 25.1 % (42.0-52.0) L Mean Corpuscular Volume 91 FL (80-99) 92 FL (80-99) Mean Corpuscular Hemoglobin 29.5 PG (27.0-31.0) 29.2 PG (27.0-31.0) Mean Corpuscular Hemoglobin Concent 32.4 G/DL (32.0-36.0) 31.8 G/DL (32.0-36.0) L Red Cell Distribution Width 16.1 % (11.6-14.8) H 16.2 % (11.6-14.8) H Platelet Count 164 K/UL (150-450) 166 K/UL (150-450) Mean Platelet Volume 6.7 FL (6.5-10.1) 6.3 FL (6.5-10.1) L Neutrophils (%) (Auto) % (45.0-75.0) 76.2 % (45.0-75.0) H Lymphocytes (%) (Auto) % (20.0-45.0) 9.0 % (20.0-45.0) L Monocytes (%) (Auto) % (1.0-10.0) 8.2 % (1.0-10.0) Eosinophils (%) (Auto) % (0.0-3.0) 4.4 % (0.0-3.0) H Basophils (%) (Auto) % (0.0-2.0) 2.2 % (0.0-2.0) H Sodium Level 134 MMOL/L (136-145) L 133 MMOL/L (136-145) L Potassium Level 4.5 MMOL/L (3.5-5.1) 4.9 MMOL/L (3.5-5.1) Chloride Level 96 MMOL/L (98-107) L 95 MMOL/L (98-107) L Carbon Dioxide Level 28 MMOL/L (21-32) 30 MMOL/L (21-32) Anion Gap 10 mmol/L (5-15) 8 mmol/L (5-15) Blood Urea Nitrogen 105 mg/dL (7-18) H 115 mg/dL (7-18) H Creatinine 4.4 MG/DL (0.55-1.30) H 4.5 MG/DL (0.55-1.30) H Estimat Glomerular Filtration Rate 14.3 mL/min (>60) 13.9 mL/min (>60) Glucose Level 119 MG/DL (74-106) H 119 MG/DL (74-106) H Calcium Level 8.3 MG/DL (8.5-10.1) L 8.1 MG/DL (8.5-10.1) L Phosphorus Level 2.9 MG/DL (2.5-4.9) Total Bilirubin 0.6 MG/DL (0.2-1.0) Aspartate Amino Transf (AST/SGOT) 27 U/L (15-37) Alanine Aminotransferase (ALT/SGPT) 12 U/L (12-78) Alkaline Phosphatase 376 U/L (46-116) H Total Protein 6.6 G/DL (6.4-8.2) Albumin 2.0 G/DL (3.4-5.0) L Globulin 4.6 g/dL Albumin/Globulin Ratio 0.4 (1.0-2.7) L Plan Problems: (1) Complications, dialysis, catheter, mechanical (2) Decubitus ulcer, heel Assessment & Plan: 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 Heel ulcer identified as well. Foul-smelling. Fortunately this does not seem salvageable by any means given the extensive loss at the flap that has dehisced the exposed bone as well as the heel. Currently stable otherwise known chronic in nature not patient's acute problem. Will recommend that patient has a right BKA at some point given the current findings we will continue with local wound care tentatively. Patient identified to have a heel ulcer on the left side as well. Pt presented on admission with Tracheostomy ,GT and dehiscence of R TMA with necrosis extending into lateral aspect of R foot. Full thickness ulcer R heel with slough and necrosis. Moderate amt haemopurulent exudate noted from R heel.Wounds are malodorous. Pt exhibited distress with elevation of R leg during wound care. Haemosiderin deposit R lower ext. Dry eschar with cracking at base noted to L Hallux(L)3cm x (W)4.5cm. Dry eschar noted to dorsal L 1st,L 3rd, and L 5th metatarsals. L Heel is boggy with non-blanchable erythema. DTPI noted to upper R Buttocks(L)2.3cm x (W)4.5cm. Base of wound is indurated,purpuric with surrounding non-blanchable erythema.Non-Blanchable erythema without induration or fluctuance at Sacrum. Tx.Plan: Cleanse L foot wounds with Dakin's [place] 0.25%. Apply Dakin's moistened Kerlix to wounds. Apply Moisture Barrier periwound. Cover with ABD pads. Wrap with Kerlix Daily and prn. Apply Betadine to L Hallux ,L1st,L 3rd and L 5th metatarsals Daily. Leave open to Air. Apply Moisture Barrier Paste to Sacrum /R Buttocks. Cover with Optifoam drsgs. Change every 3 days and prn. Reposition at least every 2hours or as tolerated. Off-load heels with pillow. DAILY ESTIMATED NEEDS: Needs based on Critical care, wound, esrd on HD 65.1kg 25-30 kcals/kg 7099-6302 total kcals 1.5-2 g protein/kg 98-130 g total protein Fluid per MD, on HD NUTRITION DIAGNOSIS: Increased kcal and pro needs r/t renal dysfunction as evidenced by pt w/ ESRD on HD, notable open LE wounds, vent dep via trach and PEG dep. CURRENT TF: Nepro @55 ENTERAL NUTRITION RECOMMENDATIONS: Nepro LOWER to goal of 45ml/hr x24 hrs + Prosource BID to provide 1080ml, 1944 kcal, 87g pro, 785ml free H2O - Rec to LOWER goal rate of 45ml/hr - Add PROSOURCE 1 pack BID via PEG (11g pro/each) - On HD, water flush per MD - HOB over 30 degrees ADDITIONAL RECOMMENDATIONS: 1) maintain calibrated bed scale wt 2) Wound care: Vit C dosing per nephrology nephrovite qdaily. When tolerating TF at goal w/ Prosource BID-> add DEE BID (3) Ischemia of right lower extremity Assessment & Plan: prognosis of LE guarded cont with dressings may need amp at some point DAILY ESTIMATED NEEDS: Needs based on Critical care, wound, esrd on HD 65.1kg 25-30 kcals/kg 4901-4500 total kcals 1.5-2 g protein/kg 98-130 g total protein Fluid per MD, on HD NUTRITION DIAGNOSIS: Increased kcal and pro needs r/t renal dysfunction as evidenced by pt w/ ESRD on HD, notable open LE wounds, vent dep via trach and PEG dep. CURRENT TF: Nepro @45 + PS x2 ENTERAL NUTRITION RECOMMENDATIONS: Nepro goal of 45ml/hr x24 hrs + Prosource BID to provide 1080ml, 1944 kcal, 87g pro, 785ml free H2O - Maintain current rate 45ml/hr as tolerated. - Add PROSOURCE 1 pack BID via PEG - On HD, water flush per MD - HOB over 30 degrees ADDITIONAL RECOMMENDATIONS: 1) maintain calibrated bed scale wt 2) Wound care: Vit C dosing per nephrology nephrovite qdaily. When tolerating TF at goal w/ Prosource BID-> add DEE BID 3) Monitor wt trend (4) Hypercalcemia (5) Coagulopathy (6) Chronic respiratory failure (7) End stage renal disease on dialysis (8) Anemia in chronic kidney disease (CKD) (9) Anemia (10) GI bleed Dany Wilder May 27, 2020 17:36
--- NOTE | 2020-05-27 19:05 | NUR ---
NURSE NOTES: Received report from AMELIE Leslie pt. in bed awake- open eyes to name, non-verbal, no signs or symptoms of acute cardiac or respiratory distress noted, bed alarm on, side rails up x's3 and safety brakes engaged, call light within easy reach, pt. appears to be tolerating current vent settings well- SIMV 10, TV 500, fio2 at 40% and peep 5- no distress noted, pt. is anuric, Pt. has Nephro running at 45cc/hr via g tube- no residual noted, pt. has left subclavian line for HD- intact and roderick- pt. has Rt. hand 22G IV intact and patent, safety measures continued, aspiration precautions observed- HOB elevated, Skin precautions observed, will continue with plan of care.
--- NOTE | 2020-05-27 19:12 | NUR ---
NURSE HAND-OFF REPORT: Important Events on Shift:Pt has HD tomorrow and after that will be D/C. Patient Status: Diet: Pending Orders: Pending Results/Labs: Pending MD notification: Latest Vital Signs: Temperature 98.1 , Pulse 71 , B/P 118 /64 , Respiratory Rate 19 , O2 SAT 100 , Mechanical Ventilator, O2 Flow Rate . Vital Sign Comment: EKG Rhythm: Sinus Rhythm Rhythm change?: N MD Notified?: N - MD Response: Latest Seay Fall Score: 75 Fall Risk: High Risk Safety Measures: Call light Within Reach, Bed Alarm Zone 1, Side Rails Side Rails x2, Bed position Low and Locked. Fall Precautions: Yellow Socks Patient Fall Education Report given to . Pt is awake and stable, no stress noted, Endorsed plan of care, endorsed to F/U HD and D/C tomorrow.
[2020-05-27 20:00] VITALS: BP 147/71
[2020-05-27] MEDS: Dyna-Hex 2% Top Sol 2oz TOPIC SCH (20:08)
[2020-05-27] MEDS: Atorvastatin 20mg tab GT SCH (20:08)
[2020-05-27] MEDS: cefTRIAXone 1 GM in D5W 55 ML IVPB SCH (20:32)
--- NOTE | 2020-05-27 21:00 | NUR ---
NURSE NOTES: bed bath given and linens changed, oral care provided, pt. appears to be tolerating current vent settings- sating at 100%- aspiration precautions observed- HOB elevated, Skin precautions observed, will continue to monitor pt. and with plan of care.
[2020-05-28] VITALS: BP 128/76
[2020-05-28 04:00] VITALS: BP 138/63
--- NOTE | 2020-05-28 06:36 | Hematology/Onc Progress Note ---
Assessment/Plan Assessment/Plan Covering Dr. Warren Assessment and Recs # Anemia due to likely chronic disease, ongoing, this is the first time he has been here --> anemia panel to order for downtrending hgb --> hgb 8.9-->9.4->8.4->>>8.7->8.1-->7.7->7.3 --> consider iron / epogen after anemia panel returns --> smear has been noted, no hemolysis # Thrombocytopenia - potential causes multifactorial, evaluate liver and viral etiologies to begin, also could be related to underlying medications patient has received. --> Hep panel and HIV neg prior --> Ct a/p shows a normal appearing liver --> Peripheral smear ordered to evaluate for blasts /schistocytes --> abx and other meds have been reviewed --> ok for ppx if plt >50k w/ either heparin or lovenox --> plt 124-->186-->164 # Coagulopathy ongoing, ptt and inr elevated --> vitamin k given, as permacath to be removed --> get mixing study --> trend prn # Chronic respiratory failure --> per pulm --> vent + # End stage renal disease on dialysis --> Complications, dialysis, catheter,replacement as needed --> surg eval --> per renal # Right lung infection --> repeat cxr now # Gangrenous toe, as per surg # Dvt ppx scds Appreciate consultation and dw RN Subjective HEENT: Denies: no symptoms, eye pain, blurred vision, tearing, double vision, ear pain, ear discharge, nose pain, nose congestion, throat pain, throat swelling, mouth pain, mouth swelling, other Allergies: Coded Allergies: No Known Allergies (Unverified , 04/22/20) All Systems: reviewed and negative except above Subjective 05/24 labs reviewed, cbc/bmp ordered, no bleeding on venttrach, gt 05/25 labs reviewed, was positive for large bm overnight, +ob, meds reviewed 05/26 rectal tube was removed, labs noted, no bleeding, labs reviewed 05/27 on vent hgb 7.3, no hemolysis, no night sweats 05/28 labs pending and hd today, may be close to dc Objective Objective Current Medications Medications (Trade) Dose Ordered Sig/Titus Route PRN Reason Start Time Stop Time Status Last Admin Dose Admin Acetaminophen (Tylenol) 650 mg Q6H PRN GT Mild Pain (Pain Scale 1-3) 05/24/20 20:45 06/23/20 20:44 05/27/20 01:08 Acetaminophen/ Hydrocodone Bitart ([place] 5/325) 1 tab Q6H PRN GT For Pain 05/21/20 15:30 05/28/20 15:29 Ascorbic Acid (Vitamin C) 500 mg DAILY GT 05/22/20 09:00 06/21/20 08:59 05/27/20 09:33 Aspirin (ASA) 81 mg DAILY GT 05/22/20 09:00 07/06/20 08:59 05/27/20 09:33 Atorvastatin Calcium (Lipitor) 20 mg BEDTIME GT 05/21/20 21:00 08/19/20 20:59 05/27/20 20:08 Bisacodyl (Dulcolax) 10 mg DAILYPRN PRN RECTAL Constipation 05/21/20 15:15 08/19/20 15:14 Ceftriaxone Sodium 1 gm/ Dextrose 55 ml @ 110 mls/hr Q24H IVPB 05/24/20 21:30 05/31/20 21:29 05/27/20 20:32 Chlorhexidine Gluconate (Saba-Hex 2%) 1 applic DAILY@1999 TOPIC 05/22/20 20:00 08/20/20 19:59 05/27/20 20:08 Metoprolol Tartrate (Lopressor) 50 mg EVERY 12 HOURS GT 05/21/20 21:00 08/19/20 20:59 05/27/20 20:12 Sodium Hypochlorite (Dakin's Quarter Strength) 1 applic DAILY TOPIC 05/23/20 09:00 06/22/20 08:59 05/27/20 09:34 Sodium Hypochlorite (Dakin's Quarter Strength) 1 applic DAILY TOPIC 05/24/20 09:00 06/23/20 08:59 05/27/20 09:00 Vitamin B Complex/ Vit C/Folic Acid (Nephrovite) 1 tab DAILY GT 05/22/20 09:00 06/21/20 08:59 05/27/20 09:33 Vitamin D (Vitamin D) 400 unit DAILY ORAL 05/22/20 09:00 06/21/20 08:59 05/27/20 09:33 Last 24 Hour Vital Signs Date Time Temp Pulse Resp B/P (MAP) Pulse Ox O2 Delivery O2 Flow Rate FiO2 05/28/20 04:00 40 05/28/20 04:00 97.9 70 20 138/63 (88) 100 05/28/20 04:00 Mechanical Ventilator 05/28/20 03:09 69 05/28/20 03:01 63 21 40 05/28/20 00:00 98.1 69 18 128/76 (93) 100 05/28/20 00:00 40 05/28/20 00:00 Mechanical Ventilator 05/27/20 23:15 67 05/27/20 23:07 67 18 40 05/27/20 20:12 76 147/71 05/27/20 20:00 Mechanical Ventilator 05/27/20 20:00 98.0 74 18 147/71 (96) 100 05/27/20 20:00 40 05/27/20 19:03 73 05/27/20 18:19 74 20 40 05/27/20 16:00 40 05/27/20 16:00 98.1 71 19 118/64 (82) 100 05/27/20 16:00 Mechanical Ventilator 05/27/20 15:19 70 05/27/20 14:50 72 16 40 05/27/20 12:28 68 21 40 05/27/20 12:00 40 05/27/20 12:00 Mechanical Ventilator 05/27/20 11:52 97.7 65 16 111/60 (77) 96 05/27/20 11:43 65 05/27/20 09:33 66 123/65 05/27/20 08:00 Mechanical Ventilator 05/27/20 08:00 97.5 66 20 123/65 (84) 98 05/27/20 08:00 40 05/27/20 07:47 69 05/27/20 07:24 68 18 40 05/27/20 04:00 98.5 65 18 120/59 (79) 100 05/27/20 04:00 Mechanical Ventilator 05/27/20 04:00 40 05/27/20 03:49 64 05/27/20 02:57 62 20 40 05/27/20 01:38 98.3 05/27/20 00:26 68 05/27/20 00:00 Mechanical Ventilator 05/27/20 00:00 98.3 65 18 116/62 (80) 100 05/27/20 00:00 40 05/26/20 22:42 67 17 40 05/26/20 20:37 71 130/82 05/26/20 20:00 Mechanical Ventilator 05/26/20 20:00 40 05/26/20 20:00 98.0 71 20 130/82 (98) 100 05/26/20 19:50 76 05/26/20 18:44 74 19 40 05/26/20 16:00 40 05/26/20 16:00 Mechanical Ventilator 05/26/20 16:00 98.2 71 18 122/78 (93) 96 05/26/20 15:47 73 05/26/20 15:30 74 20 40 05/26/20 15:30 74 20 96 Mechanical Ventilator 40 05/26/20 12:00 97.9 66 18 112/64 (80) 100 05/26/20 12:00 Mechanical Ventilator 05/26/20 12:00 40 05/26/20 11:48 64 05/26/20 11:00 75 18 40 05/26/20 08:16 71 121/70 05/26/20 08:00 97.9 71 18 121/70 (87) 100 05/26/20 08:00 40 05/26/20 08:00 Mechanical Ventilator 05/26/20 07:51 71 05/26/20 07:15 71 18 40 Intake and Output 05/27/20 05/28/20 19:00 07:00 Intake Total 740 ml 705 ml Output Total 0 ml Balance 740 ml 705 ml Free Water 200 ml 100 ml IV Total 110 ml Tube Feeding 540 ml 495 ml Output Urine Total 0 ml # Bowel Movements 1 Labs Test 05/26/20 03:00 05/27/20 02:50 05/27/20 14:20 White Blood Count 9.2 K/UL (4.8-10.8) 7.4 K/UL (4.8-10.8) 7.6 K/UL (4.8-10.8) Red Blood Count 2.65 M/UL (4.70-6.10) 2.48 M/UL (4.70-6.10) 2.73 M/UL (4.70-6.10) Hemoglobin 7.7 G/DL (14.2-18.0) 7.3 G/DL (14.2-18.0) 8.0 G/DL (14.2-18.0) Hematocrit 24.5 % (42.0-52.0) 22.5 % (42.0-52.0) 25.1 % (42.0-52.0) Mean Corpuscular Volume 92 FL (80-99) 91 FL (80-99) 92 FL (80-99) Mean Corpuscular Hemoglobin 29.1 PG (27.0-31.0) 29.5 PG (27.0-31.0) 29.2 PG (27.0-31.0) Mean Corpuscular Hemoglobin Concent 31.6 G/DL (32.0-36.0) 32.4 G/DL (32.0-36.0) 31.8 G/DL (32.0-36.0) Red Cell Distribution Width 16.2 % (11.6-14.8) 16.1 % (11.6-14.8) 16.2 % (11.6-14.8) Platelet Count 176 K/UL (150-450) 164 K/UL (150-450) 166 K/UL (150-450) Mean Platelet Volume 6.5 FL (6.5-10.1) 6.7 FL (6.5-10.1) 6.3 FL (6.5-10.1) Neutrophils (%) (Auto) % (45.0-75.0) % (45.0-75.0) 76.2 % (45.0-75.0) Lymphocytes (%) (Auto) % (20.0-45.0) % (20.0-45.0) 9.0 % (20.0-45.0) Monocytes (%) (Auto) % (1.0-10.0) % (1.0-10.0) 8.2 % (1.0-10.0) Eosinophils (%) (Auto) % (0.0-3.0) % (0.0-3.0) 4.4 % (0.0-3.0) Basophils (%) (Auto) % (0.0-2.0) % (0.0-2.0) 2.2 % (0.0-2.0) Sodium Level 134 MMOL/L (136-145) 134 MMOL/L (136-145) 133 MMOL/L (136-145) Potassium Level 4.5 MMOL/L (3.5-5.1) 4.5 MMOL/L (3.5-5.1) 4.9 MMOL/L (3.5-5.1) Chloride Level 97 MMOL/L (98-107) 96 MMOL/L (98-107) 95 MMOL/L (98-107) Carbon Dioxide Level 30 MMOL/L (21-32) 28 MMOL/L (21-32) 30 MMOL/L (21-32) Anion Gap 7 mmol/L (5-15) 10 mmol/L (5-15) 8 mmol/L (5-15) Blood Urea Nitrogen 91 mg/dL (7-18) 105 mg/dL (7-18) 115 mg/dL (7-18) Creatinine 3.7 MG/DL (0.55-1.30) 4.4 MG/DL (0.55-1.30) 4.5 MG/DL (0.55-1.30) Estimat Glomerular Filtration Rate 17.5 mL/min (>60) 14.3 mL/min (>60) 13.9 mL/min (>60) Glucose Level 144 MG/DL (74-106) 119 MG/DL (74-106) 119 MG/DL (74-106) Calcium Level 8.4 MG/DL (8.5-10.1) 8.3 MG/DL (8.5-10.1) 8.1 MG/DL (8.5-10.1) Phosphorus Level 1.8 MG/DL (2.5-4.9) 2.9 MG/DL (2.5-4.9) Magnesium Level 2.6 MG/DL (1.8-2.4) Total Bilirubin 0.7 MG/DL (0.2-1.0) 0.6 MG/DL (0.2-1.0) Aspartate Amino Transf (AST/SGOT) 19 U/L (15-37) 27 U/L (15-37) Alanine Aminotransferase (ALT/SGPT) 17 U/L (12-78) 12 U/L (12-78) Alkaline Phosphatase 367 U/L (46-116) 376 U/L (46-116) Total Protein 7.1 G/DL (6.4-8.2) 6.6 G/DL (6.4-8.2) Albumin 2.3 G/DL (3.4-5.0) 2.0 G/DL (3.4-5.0) Globulin 4.8 g/dL 4.6 g/dL Albumin/Globulin Ratio 0.5 (1.0-2.7) 0.4 (1.0-2.7) Height (Feet): 5 Height (Inches): 7.00 Weight (Pounds): 143 Objective Physical Exam Vitals: reviewed, normal General Appearance: no apparent distress, other - Nonverbal Head: normocephalic, atraumatic: no angioedema, normal voice Neck: full range of motion, supple/symm/no masses Respiratory: chest non-tender, lungs clear, +++vent/trach Cardiovascular: regular rate, rhythm, no edema Gastrointestinal: normal bowel sounds, ++gt Genitourinary: normal inspection, no CVA tenderness Musculoskeletal: back normal, normal range of motion Neurologic: other - Nonverbal Psychiatric: other - Nonverbal Lymphatic: no adenopathy Nick Whiteside MD May 28, 2020 06:36
--- NOTE | 2020-05-28 07:02 | NUR ---
NURSE HAND-OFF REPORT: Important Events on Shift:none- aware to f/u on HD and D/C Patient Status: stable Diet: Nephro Pending Orders: Pending Results/Labs: Pending MD notification: Latest Vital Signs: Temperature 97.9 , Pulse 70 , B/P 138 /63 , Respiratory Rate 20 , O2 SAT 100 , Mechanical Ventilator, O2 Flow Rate . Vital Sign Comment: EKG Rhythm: Sinus Rhythm Rhythm change?: N MD Notified?: N - MD Response: Latest Seay Fall Score: 75 Fall Risk: High Risk Safety Measures: Call light Within Reach, Bed Alarm Zone 1, Side Rails Side Rails x2, Bed position Low and Locked. Fall Precautions: Yellow Socks Patient Fall Education Report given to Jj Leslie, aware to f/u on any abnormal am labs.
--- NOTE | 2020-05-28 07:26 | NUR ---
NURSE NOTES: Received pt from AMELIE Rollins, pt is awake and confused, pt has trach to ventilator SIMV 10 TV 500 FIO2 40% PEEP 5, Pt has intact iv access RH 22G SL. Pt has g tube in place is running well. no complain of pain noted at this moment. Waiting for HD, all needs attended, bed is locked and is in the lowest position, call light within easy reach. will continue to monitor.
[2020-05-28 08:00] VITALS: BP 160/68
--- NOTE | 2020-05-28 08:37 | Consultation ---
History of Present Illness General Date patient seen: May 28, 2020 Time patient seen: 10:28 Chief Complaint: General Complaint Referring physician: PCP Reason for Consultation: R/o infection Present Illness HPI 50yo M from SNF who was admitted 05/20 for anemia on routine labs. ID c/s to eval for infection. Pt has been AF, HDS in house wo any leukocytosis. COVID neg C.dif neg Pt is on vent, NAD, somewhat interactive though nonverbal, doesn't follow simple commants Allergies: Coded Allergies: No Known Allergies (Unverified , 04/22/20) Medication History Scheduled Ascorbic Acid* (Vitamin C*), 500 MG GT DAILY, (Reported) Aspirin* (Aspirin*), 81 MG GT DAILY, (Reported) Atorvastatin Calcium* (Lipitor*), 20 MG GT BEDTIME, (Reported) Calcium Acetate (Calcium Acetate), 667 MG GT TID, (Reported) Cholecalciferol (Vitamin D3) (Vitamin D3), 125 MCG GT DAILY, (Reported) Gabapentin* (Gabapentin*), 100 MG GT DAILY, (Reported) Metoprolol Tartrate* (Metoprolol Tartrate*), 50 MG GT EVERY 12 HOURS, (Reported) Omeprazole (Omeprazole), 20 MG GT DAILY, (Reported) Sevelamer Carbonate* (Renvela*), 2,400 MG GT THREE TIMES A DAY, (Reported) Vitamin B Cmplx/Vit C/Folic AC (Nephro-Mann Tablet), 1 TAB GT DAILY, (Reported) Scheduled PRN Acetaminophen* (Acetaminophen 325MG Tablet*), 650 MG GT Q4H PRN for PAIN/FEVER, (Reported) Bisacodyl (Dulcolax), 10 MG RC DAILY PRN for Constipation, (Reported) Hydrocodone Bit/Acetaminophen 5-325* ([place] 5-325 Tablet*), 1 TAB GT DAY SHIFT PRN for For Pain, (Reported) Na Phos,M-B/Na Phos,Di-Ba* (Fleet Enema*), 133 ML RECTAL DAILY PRN for Constipation, (Reported) Discontinued Medications Ceftriaxone Sod (Rocephin), 1 GM IV DAILY, (Reported) Discontinued Reason: MD discontinued med Patient History Limited by: medical condition Healthcare decision maker Resuscitation status Advanced Directive on File Review of Systems ROS Narrative Unable to assess 2/2 pt condition Physical Exam Physical Exam Narrative Gen: NAD in bed HEENT: NCAT, trach CV: RRR Pulm: CTAB Abd: Soft, NTND Ext: R foot s/p all toes amputation w/ open wound there and open pressure wound on heal, both with drainage though no TTP and no surrounding erythema Neuro: Awake Last 24 Hour Vital Signs Date Time Temp Pulse Resp B/P (MAP) Pulse Ox O2 Delivery O2 Flow Rate FiO2 05/28/20 08:00 40 05/28/20 07:52 Mechanical Ventilator 05/28/20 04:00 40 05/28/20 04:00 97.9 70 20 138/63 (88) 100 05/28/20 04:00 Mechanical Ventilator 05/28/20 03:09 69 05/28/20 03:01 63 21 40 05/28/20 00:00 98.1 69 18 128/76 (93) 100 05/28/20 00:00 40 05/28/20 00:00 Mechanical Ventilator 05/27/20 23:15 67 05/27/20 23:07 67 18 40 05/27/20 20:12 76 147/71 05/27/20 20:00 Mechanical Ventilator 05/27/20 20:00 98.0 74 18 147/71 (96) 100 05/27/20 20:00 40 05/27/20 19:03 73 05/27/20 18:19 74 20 40 05/27/20 16:00 40 05/27/20 16:00 98.1 71 19 118/64 (82) 100 05/27/20 16:00 Mechanical Ventilator 05/27/20 15:19 70 05/27/20 14:50 72 16 40 05/27/20 12:28 68 21 40 05/27/20 12:00 40 05/27/20 12:00 Mechanical Ventilator 05/27/20 11:52 97.7 65 16 111/60 (77) 96 05/27/20 11:43 65 05/27/20 09:33 66 123/65 Intake and Output 05/27/20 05/28/20 19:00 07:00 Intake Total 740 ml 750 ml Output Total 0 ml Balance 740 ml 750 ml Free Water 200 ml 100 ml IV Total 110 ml Tube Feeding 540 ml 540 ml Output Urine Total 0 ml # Bowel Movements 1 Laboratory Tests Test 05/27/20 14:20 White Blood Count 7.6 K/UL (4.8-10.8) Red Blood Count 2.73 M/UL (4.70-6.10) L Hemoglobin 8.0 G/DL (14.2-18.0) L Hematocrit 25.1 % (42.0-52.0) L Mean Corpuscular Volume 92 FL (80-99) Mean Corpuscular Hemoglobin 29.2 PG (27.0-31.0) Mean Corpuscular Hemoglobin Concent 31.8 G/DL (32.0-36.0) L Red Cell Distribution Width 16.2 % (11.6-14.8) H Platelet Count 166 K/UL (150-450) Mean Platelet Volume 6.3 FL (6.5-10.1) L Neutrophils (%) (Auto) 76.2 % (45.0-75.0) H Lymphocytes (%) (Auto) 9.0 % (20.0-45.0) L Monocytes (%) (Auto) 8.2 % (1.0-10.0) Eosinophils (%) (Auto) 4.4 % (0.0-3.0) H Basophils (%) (Auto) 2.2 % (0.0-2.0) H Sodium Level 133 MMOL/L (136-145) L Potassium Level 4.9 MMOL/L (3.5-5.1) Chloride Level 95 MMOL/L (98-107) L Carbon Dioxide Level 30 MMOL/L (21-32) Anion Gap 8 mmol/L (5-15) Blood Urea Nitrogen 115 mg/dL (7-18) H Creatinine 4.5 MG/DL (0.55-1.30) H Estimat Glomerular Filtration Rate 13.9 mL/min (>60) Glucose Level 119 MG/DL (74-106) H Calcium Level 8.1 MG/DL (8.5-10.1) L Height (Feet): 5 Height (Inches): 7.00 Weight (Pounds): 143 Medications Current Medications Medications (Trade) Dose Ordered Sig/Titus Route PRN Reason Start Time Stop Time Status Last Admin Dose Admin Acetaminophen (Tylenol) 650 mg Q6H PRN GT Mild Pain (Pain Scale 1-3) 05/24/20 20:45 06/23/20 20:44 05/27/20 01:08 Acetaminophen/ Hydrocodone Bitart ([place] 5/325) 1 tab Q6H PRN GT For Pain 05/21/20 15:30 05/28/20 15:29 Ascorbic Acid (Vitamin C) 500 mg DAILY GT 05/22/20 09:00 06/21/20 08:59 05/27/20 09:33 Aspirin (ASA) 81 mg DAILY GT 05/22/20 09:00 07/06/20 08:59 05/27/20 09:33 Atorvastatin Calcium (Lipitor) 20 mg BEDTIME GT 05/21/20 21:00 08/19/20 20:59 05/27/20 20:08 Bisacodyl (Dulcolax) 10 mg DAILYPRN PRN RECTAL Constipation 05/21/20 15:15 08/19/20 15:14 Ceftriaxone Sodium 1 gm/ Dextrose 55 ml @ 110 mls/hr Q24H IVPB 05/24/20 21:30 05/31/20 21:29 05/27/20 20:32 Chlorhexidine Gluconate (Saba-Hex 2%) 1 applic DAILY@2000 TOPIC 05/22/20 20:00 08/20/20 19:59 05/27/20 20:08 Metoprolol Tartrate (Lopressor) 50 mg EVERY 12 HOURS GT 05/21/20 21:00 08/19/20 20:59 05/27/20 20:12 Sodium Hypochlorite (Dakin's Quarter Strength) 1 applic DAILY TOPIC 05/23/20 09:00 06/22/20 08:59 05/27/20 09:34 Sodium Hypochlorite ([place] Quarter Strength) 1 applic DAILY TOPIC 05/24/20 09:00 06/23/20 08:59 05/27/20 09:00 Vitamin B Complex/ Vit C/Folic Acid (Nephrovite) 1 tab DAILY GT 05/22/20 09:00 06/21/20 08:59 05/27/20 09:33 Vitamin D (Vitamin D) 400 unit DAILY ORAL 05/22/20 09:00 06/21/20 08:59 05/27/20 09:33 Assessment/Plan Assessment/Plan: 50yo M with: Afebrile Normal WBC COVID neg C.dif neg R foot pressure ulcerations - no active s/sx of infection, but needs aggressive wound care and debridement to promote healing Anemia prompting admission PMH: ESRD on HD Vent dependent H/o CVA Quadriplegic Plan: Stop CTX #5, no clear source for infection Recommend Podiatry evaluation of R foot pressure ulcerations for debridement, needs aggressive wound care, can be pursued as outpatient Monitor CBC/CMP Monitor temp curve, hemodynamics Monitor resp status D/w RN Thank you for this consult. [facility] will continue to follow. Heaven Salinas M.D. May 28, 2020 08:37
[2020-05-28] MEDS: Ascorbic Acid 500mg tab GT SCH (08:54)
[2020-05-28] MEDS: Aspirin Baby 81mg GT SCH (08:54)
[2020-05-28] MEDS: Vitamin D 400 units TAB ORAL SCH (08:54)
[2020-05-28] MEDS: Nephrovite tab (Rena-Vite) GT SCH (08:54)
[2020-05-28] MEDS: Metoprolol Tartrate 50mg tab GT SCH ×2 (08:55→21:51)
[2020-05-28] MEDS: Dakin's 0.125% Soln (Quarter Strength) 16oz TOPIC SCH ×2 (08:55)
--- NOTE | 2020-05-28 09:53 | NUR ---
NURSE NOTES: HD finished now with 2lit out put. pt is stable, no stress noted. will continue to monitor.
--- NOTE | 2020-05-28 10:09 | NUR ---
*-*DISCHARGE PLANNED*-* PATIENT HAS BEEN ACCEPTED AND WILL BE DISCHARGE: MIL[facility] CONV p: [phone] S/W SRINIVAS, WAITING TO [facility] TO ACCEPT THIS PATIENT FOR PATIENT TO ARRIVE FOR TODAY. ROOM# 2.C [facility] SET FOR WILL CALL S/W GARRY [phone].
--- NOTE | 2020-05-28 10:15 | NUR ---
NURSE NOTES: Dr Salinas visited pt and ordered to D/C Rocephin in SNF and stated pt doesn't need ABX only he needs good foot wound care and should be seen by podiatrics in SNF, noted and carried out. will continue to monitor.
--- NOTE | 2020-05-28 11:41 | NUR ---
NURSE NOTES: pt has fresh bleeding from rectal, Dr Whiteside is aware and ordered OB and consult with Dr Holley, and regarding infected foot ordered consult with Dr Chávez, noted and carried out, both MDs are aware, and also Dr Whiteside ordered hold discharge pt till clear by Dr Holley. will continue to monitor.
[2020-05-28 12:00] VITALS: BP 146/94
--- NOTE | 2020-05-28 12:29 | Consultation ---
History of Present Illness General Date patient seen: May 28, 2020 Time patient seen: 12:15 Chief Complaint: General Complaint Referring physician: PCP Reason for Consultation: Chronic wound right foot Present Illness Allergies: Coded Allergies: No Known Allergies (Unverified , 04/22/20) Medication History Scheduled Ascorbic Acid* (Vitamin C*), 500 MG GT DAILY, (Reported) Aspirin* (Aspirin*), 81 MG GT DAILY, (Reported) Atorvastatin Calcium* (Lipitor*), 20 MG GT BEDTIME, (Reported) Calcium Acetate (Calcium Acetate), 667 MG GT TID, (Reported) Cholecalciferol (Vitamin D3) (Vitamin D3), 125 MCG GT DAILY, (Reported) Gabapentin* (Gabapentin*), 100 MG GT DAILY, (Reported) Metoprolol Tartrate* (Metoprolol Tartrate*), 50 MG GT EVERY 12 HOURS, (Reported) Omeprazole (Omeprazole), 20 MG GT DAILY, (Reported) Sevelamer Carbonate* (Renvela*), 2,400 MG GT THREE TIMES A DAY, (Reported) Vitamin B Cmplx/Vit C/Folic AC (Nephro-Mann Tablet), 1 TAB GT DAILY, (Reported) Scheduled PRN Acetaminophen* (Acetaminophen 325MG Tablet*), 650 MG GT Q4H PRN for PAIN/FEVER, (Reported) Bisacodyl (Dulcolax), 10 MG RC DAILY PRN for Constipation, (Reported) Hydrocodone Bit/Acetaminophen 5-325* ([place] 5-325 Tablet*), 1 TAB GT DAY SHIFT PRN for For Pain, (Reported) Na Phos,M-B/Na Phos,Di-Ba* (Fleet Enema*), 133 ML RECTAL DAILY PRN for Constipation, (Reported) Discontinued Medications Ceftriaxone Sod (Rocephin), 1 GM IV DAILY, (Reported) Discontinued Reason: MD discontinued med Patient History Limited by: other - Trach History Provided By: Medical Record Healthcare decision maker Resuscitation status Advanced Directive on File Past Medical/Surgical History Past Medical/Surgical History: (1) DM (diabetes mellitus), type 2, uncontrolled, periph vascular complic (2) Coagulopathy (3) Chronic respiratory failure (4) End stage renal disease on dialysis (5) Anemia in chronic kidney disease (CKD) (6) Hypercalcemia (7) Anemia (8) Complications, dialysis, catheter, mechanical (9) Decubitus ulcer, heel (10) Ischemia of right lower extremity (11) GI bleed (12) infected feet Review of Systems ROS Narrative not able to obtain, patient is not verbal Physical Exam General Appearance: no apparent distress, alert Cardiovascular/Chest: other - nonpalpable pedal pulses, feet warm Extremities: other - bilateral rigid knee contractures Skin Exam: other - Full thickness ulceration right heel, open TMA site right foot with exposed bone that is necrotic. No acute signs of infection Last 24 Hour Vital Signs Date Time Temp Pulse Resp B/P (MAP) Pulse Ox O2 Delivery O2 Flow Rate FiO2 05/28/20 08:55 77 160/81 05/28/20 08:14 76 05/28/20 08:00 40 05/28/20 08:00 97.9 75 23 160/68 (98) 100 05/28/20 07:52 Mechanical Ventilator 05/28/20 04:00 40 05/28/20 04:00 97.9 70 20 138/63 (88) 100 05/28/20 04:00 Mechanical Ventilator 05/28/20 03:09 69 05/28/20 03:01 63 21 40 05/28/20 00:00 98.1 69 18 128/76 (93) 100 05/28/20 00:00 40 05/28/20 00:00 Mechanical Ventilator 05/27/20 23:15 67 05/27/20 23:07 67 18 40 05/27/20 20:12 76 147/71 05/27/20 20:00 Mechanical Ventilator 05/27/20 20:00 98.0 74 18 147/71 (96) 100 05/27/20 20:00 40 05/27/20 19:03 73 05/27/20 18:19 74 20 40 05/27/20 16:00 40 05/27/20 16:00 98.1 71 19 118/64 (82) 100 05/27/20 16:00 Mechanical Ventilator 05/27/20 15:19 70 05/27/20 14:50 72 16 40 05/27/20 12:28 68 21 40 Intake and Output 05/27/20 05/28/20 19:00 07:00 Intake Total 740 ml 750 ml Output Total 2000 ml Balance 740 ml -1250 ml Free Water 200 ml 100 ml IV Total 110 ml Tube Feeding 540 ml 540 ml Output Urine Total 0 ml Hemodialysis UF 2000 ml # Bowel Movements 1 Laboratory Tests Test 05/27/20 14:20 05/28/20 11:00 White Blood Count 7.6 K/UL (4.8-10.8) Red Blood Count 2.73 M/UL (4.70-6.10) L Hemoglobin 8.0 G/DL (14.2-18.0) L Hematocrit 25.1 % (42.0-52.0) L Mean Corpuscular Volume 92 FL (80-99) Mean Corpuscular Hemoglobin 29.2 PG (27.0-31.0) Mean Corpuscular Hemoglobin Concent 31.8 G/DL (32.0-36.0) L Red Cell Distribution Width 16.2 % (11.6-14.8) H Platelet Count 166 K/UL (150-450) Mean Platelet Volume 6.3 FL (6.5-10.1) L Neutrophils (%) (Auto) 76.2 % (45.0-75.0) H Lymphocytes (%) (Auto) 9.0 % (20.0-45.0) L Monocytes (%) (Auto) 8.2 % (1.0-10.0) Eosinophils (%) (Auto) 4.4 % (0.0-3.0) H Basophils (%) (Auto) 2.2 % (0.0-2.0) H Sodium Level 133 MMOL/L (136-145) L Potassium Level 4.9 MMOL/L (3.5-5.1) Chloride Level 95 MMOL/L (98-107) L Carbon Dioxide Level 30 MMOL/L (21-32) Anion Gap 8 mmol/L (5-15) Blood Urea Nitrogen 115 mg/dL (7-18) H Creatinine 4.5 MG/DL (0.55-1.30) H Estimat Glomerular Filtration Rate 13.9 mL/min (>60) Glucose Level 119 MG/DL (74-106) H Calcium Level 8.1 MG/DL (8.5-10.1) L Stool Occult Blood Pending Height (Feet): 5 Height (Inches): 7.00 Weight (Pounds): 143 Medications Current Medications Medications (Trade) Dose Ordered Sig/Titus Route PRN Reason Start Time Stop Time Status Last Admin Dose Admin Acetaminophen (Tylenol) 650 mg Q6H PRN GT Mild Pain (Pain Scale 1-3) 05/24/20 20:45 06/23/20 20:44 05/27/20 01:08 Acetaminophen/ Hydrocodone Bitart ([place] 5/325) 1 tab Q6H PRN GT For Pain 05/21/20 15:30 05/28/20 15:29 Ascorbic Acid (Vitamin C) 500 mg DAILY GT 05/22/20 09:00 06/21/20 08:59 05/28/20 08:54 Aspirin (ASA) 81 mg DAILY GT 05/22/20 09:00 07/06/20 08:59 05/28/20 08:54 Atorvastatin Calcium (Lipitor) 20 mg BEDTIME GT 05/21/20 21:00 08/19/20 20:59 05/27/20 20:08 Bisacodyl (Dulcolax) 10 mg DAILYPRN PRN RECTAL Constipation 05/21/20 15:15 08/19/20 15:14 Chlorhexidine Gluconate (Saba-Hex 2%) 1 applic DAILY@1999 TOPIC 05/22/20 20:00 08/20/20 19:59 05/27/20 20:08 Metoprolol Tartrate (Lopressor) 50 mg EVERY 12 HOURS GT 05/21/20 21:00 08/19/20 20:59 05/28/20 08:55 Sodium Hypochlorite (Dakin's Quarter Strength) 1 applic DAILY TOPIC 05/23/20 09:00 06/22/20 08:59 05/28/20 08:55 Sodium Hypochlorite (Dakin's Quarter Strength) 1 applic DAILY TOPIC 05/24/20 09:00 06/23/20 08:59 05/28/20 08:55 Vitamin B Complex/ Vit C/Folic Acid (Nephrovite) 1 tab DAILY GT 05/22/20 09:00 06/21/20 08:59 05/28/20 08:54 Vitamin D (Vitamin D) 400 unit DAILY ORAL 05/22/20 09:00 06/21/20 08:59 05/28/20 08:54 Assessment/Plan Assessment/Plan: A/ 1) Clinical Osteomyelitis right TMA stump 2) Complex wounds right TMA site and right heel 3) Rigid knee contractures bilateral 4) PVD 5) DM2 6) ESRD P/ 1) Agree with General Surgery. Foot is not salvageable and would benefit from BKA vs AKA. Wounds are extensive and due his extensive comorbidities, local care is unlikely to heal. Patient is also nonambulatory and would benefit from a definitive procedure. 2) Cont abx per ID 3) Cont wound care as ordered. Cont offloading. 4) Will sign off Thank you for the courtesy of the consultation. Mian Chávez DPM Board Certified [facility] Clinical Chief of Podiatry, [facility] Mian Chávez DPM May 28, 2020 12:29
--- NOTE | 2020-05-28 12:44 | General Progress Note ---
Subjective ROS Limited/Unobtainable: No Allergies: Coded Allergies: No Known Allergies (Unverified , 04/22/20) Objective Last 24 Hour Vital Signs Date Time Temp Pulse Resp B/P (MAP) Pulse Ox O2 Delivery O2 Flow Rate FiO2 05/28/20 12:00 40 05/28/20 12:00 Mechanical Ventilator 05/28/20 08:55 77 160/81 05/28/20 08:14 76 05/28/20 08:00 40 05/28/20 08:00 97.9 75 23 160/68 (98) 100 05/28/20 07:52 Mechanical Ventilator 05/28/20 04:00 40 05/28/20 04:00 97.9 70 20 138/63 (88) 100 05/28/20 04:00 Mechanical Ventilator 05/28/20 03:09 69 05/28/20 03:01 63 21 40 05/28/20 00:00 98.1 69 18 128/76 (93) 100 05/28/20 00:00 40 05/28/20 00:00 Mechanical Ventilator 05/27/20 23:15 67 05/27/20 23:07 67 18 40 05/27/20 20:12 76 147/71 05/27/20 20:00 Mechanical Ventilator 05/27/20 20:00 98.0 74 18 147/71 (96) 100 05/27/20 20:00 40 05/27/20 19:03 73 05/27/20 18:19 74 20 40 05/27/20 16:00 40 05/27/20 16:00 98.1 71 19 118/64 (82) 100 05/27/20 16:00 Mechanical Ventilator 05/27/20 15:19 70 05/27/20 14:50 72 16 40 Intake and Output 05/27/20 05/28/20 19:00 07:00 Intake Total 740 ml 750 ml Output Total 2000 ml Balance 740 ml -1250 ml Free Water 200 ml 100 ml IV Total 110 ml Tube Feeding 540 ml 540 ml Output Urine Total 0 ml Hemodialysis UF 2000 ml # Bowel Movements 1 Laboratory Tests 05/27/20 14:20: White Blood Count 7.6, Red Blood Count 2.73L, Hemoglobin 8.0L, Hematocrit 25.1L, Mean Corpuscular Volume 92, Mean Corpuscular Hemoglobin 29.2, Mean Corpuscular Hemoglobin Concent 31.8L, Red Cell Distribution Width 16.2H, Platelet Count 166, Mean Platelet Volume 6.3L, Neutrophils (%) (Auto) 76.2H, Lymphocytes (%) (Auto) 9.0L, Monocytes (%) (Auto) 8.2, Eosinophils (%) (Auto) 4.4H, Basophils (%) (Auto) 2.2H, Sodium Level 133L, Potassium Level 4.9, Chloride Level 95L, Carbon Dioxide Level 30, Anion Gap 8, Blood Urea Nitrogen 115H, Creatinine 4.5H, Est imat Glomerular Filtration Rate 13.9, Glucose Level 119H, Calcium Level 8.1L 05/28/20 11:00: Stool Occult Blood [Pending] Height (Feet): 5 Height (Inches): 7.00 Weight (Pounds): 143 General Appearance: no apparent distress EENT: normal ENT inspection Neck: supple Cardiovascular: normal rate Respiratory/Chest: decreased breath sounds Abdomen: normal bowel sounds, non tender, soft Extremities: non-tender Assessment/Plan Problem List: (1) Coagulopathy ICD Codes: D68.9 - Coagulation defect, unspecified SNOMED: 45328513 (2) Chronic respiratory failure ICD Codes: J96.10 - Chronic respiratory failure, unspecified whether with hypoxia or hypercapnia SNOMED: 98640004 (3) End stage renal disease on dialysis ICD Codes: N18.6 - End stage renal disease; Z99.2 - Dependence on renal dialysis SNOMED: 117815090 (4) Anemia in chronic kidney disease (CKD) ICD Codes: N18.9 - Chronic kidney disease, unspecified; D63.1 - Anemia in chronic kidney disease SNOMED: 775023296 (5) DM (diabetes mellitus), type 2, uncontrolled, periph vascular complic ICD Codes: E11.51 - Type 2 diabetes mellitus with diabetic peripheral angiopathy without gangrene; E11.65 - Type 2 diabetes mellitus with hyperglycemia SNOMED: 38946798, 742679744, 548527184 Assessment/Plan: rectal bleed active needs colonoscopy plan for tomorrow Ajay Holley MD May 28, 2020 12:44
--- NOTE | 2020-05-28 12:45 | NUR ---
NURSE NOTES: Telephone consent done from pt's brother Kevon Cuellar, ph [phone] with witness JED Glez.
--- NOTE | 2020-05-28 13:04 | NUR ---
CASE MANAGEMENT:REVIEW 05/28/20 SI: ANEMIA. HYPERCALCEMIA ESRD/HD. TRACH/VENT/GT 99.7 82 21 146/94 100% ON VENT SUPPORT W/40% FIO2 IS: IVF@75/HR RENVELA GT TID IV PROTONIX QD ASA GT QD LOPRESSOR GT Q12 : STEP DOWN UNIT DCP: FROM [place] ~ PLAN: PLAN WAS TO DISCHARGE BACK TO [facility] TODAY~ HOWEVER PATIENT BEGAN BLEEDING FROM [facility] DISCHARGE CANCELLED AND GI CONSULT CALLED
--- NOTE | 2020-05-28 13:11 | Nephrology Progress Note ---
Assessment/Plan Problem List: (1) End stage renal disease on dialysis (2) Hypercalcemia (3) Anemia (4) Chronic respiratory failure Assessment End-stage renal disease on dialysis Coagulopathy Anemia Chronic respiratory failure History of hypercalcemia, corrected serum calcium for low albumin remains elevated Plan May 28: Patient dialyzed today. Has rectal bleed. Due for colonoscopy tomorrow by GI. Continue to monitor renal parameters and CBC. Today's lab ordered and pending May 27: Last dialysis May 25. Will order dialysis for tomorrow. Labs reviewed. May 26: Dialyzed yesterday. Labs reviewed. Renvela discontinued. 1 dose of Neutra-Phos given. Continue to monitor renal parameters. May 25: Patient due for dialysis today. Labs reviewed. Medication list reviewed. Renvela dose adjusted. Continue to monitor electrolytes and renal parameters. May 24: No labs drawn today. Last dialysis May 22. Will check lab tomorrow. Will dialyze as needed. Hemodialysis yesterday May 22 Aredia 60 mg IV piggyback for hypercalcemia, given on May 22 Continue to monitor renal parameters calcium and phosphorus. Per orders, per PMD. Subjective ROS Limited/Unobtainable: Yes Objective Objective Last 24 Hour Vital Signs Date Time Temp Pulse Resp B/P (MAP) Pulse Ox O2 Delivery O2 Flow Rate FiO2 05/28/20 12:00 40 05/28/20 12:00 Mechanical Ventilator 05/28/20 12:00 99.7 82 21 146/94 (111) 100 05/28/20 11:41 79 05/28/20 08:55 77 160/81 05/28/20 08:14 76 05/28/20 08:00 40 05/28/20 08:00 97.9 75 23 160/68 (98) 100 05/28/20 07:52 Mechanical Ventilator 05/28/20 04:00 40 05/28/20 04:00 97.9 70 20 138/63 (88) 100 05/28/20 04:00 Mechanical Ventilator 05/28/20 03:09 69 05/28/20 03:01 63 21 40 05/28/20 00:00 98.1 69 18 128/76 (93) 100 05/28/20 00:00 40 05/28/20 00:00 Mechanical Ventilator 05/27/20 23:15 67 05/27/20 23:07 67 18 40 05/27/20 20:12 76 147/71 05/27/20 20:00 Mechanical Ventilator 05/27/20 20:00 98.0 74 18 147/71 (96) 100 05/27/20 20:00 40 05/27/20 19:03 73 05/27/20 18:19 74 20 40 05/27/20 16:00 40 05/27/20 16:00 98.1 71 19 118/64 (82) 100 05/27/20 16:00 Mechanical Ventilator 05/27/20 15:19 70 05/27/20 14:50 72 16 40 Intake and Output 05/27/20 05/28/20 19:00 07:00 Intake Total 740 ml 750 ml Output Total 2000 ml Balance 740 ml -1250 ml Free Water 200 ml 100 ml IV Total 110 ml Tube Feeding 540 ml 540 ml Output Urine Total 0 ml Hemodialysis UF 2000 ml # Bowel Movements 1 Current Medications Medications (Trade) Dose Ordered Sig/Titus Route PRN Reason Start Time Stop Time Status Last Admin Dose Admin Acetaminophen (Tylenol) 650 mg Q6H PRN GT Mild Pain (Pain Scale 1-3) 05/24/20 20:45 06/23/20 20:44 05/27/20 01:08 Acetaminophen/ Hydrocodone Bitart ([place] 5/325) 1 tab Q6H PRN GT For Pain 05/21/20 15:30 05/28/20 15:29 Ascorbic Acid (Vitamin C) 500 mg DAILY GT 05/22/20 09:00 06/21/20 08:59 05/28/20 08:54 Aspirin (ASA) 81 mg DAILY GT 05/22/20 09:00 07/06/20 08:59 05/28/20 08:54 Atorvastatin Calcium (Lipitor) 20 mg BEDTIME GT 05/21/20 21:00 08/19/20 20:59 05/27/20 20:08 Bisacodyl (Dulcolax) 10 mg DAILYPRN PRN RECTAL Constipation 05/21/20 15:15 08/19/20 15:14 Chlorhexidine Gluconate (Saba-Hex 2%) 1 applic DAILY@2000 TOPIC 05/22/20 20:00 08/20/20 19:59 05/27/20 20:08 Dextrose/ Electrolytes 1,000 ml @ 75 mls/hr [id number] IV 12/24/20 16:00 06/27/20 15:59 Metoprolol Tartrate (Lopressor) 50 mg EVERY 12 HOURS GT 05/21/20 21:00 08/19/20 20:59 05/28/20 08:55 Polyethylene Glycol/ Electrolytes (Golytely) 4,000 ml ONCE ORAL 05/28/20 14:00 05/28/20 23:59 Sodium Hypochlorite (Dakin's Quarter Strength) 1 applic DAILY TOPIC 05/23/20 09:00 06/22/20 08:59 05/28/20 08:55 Sodium Hypochlorite (Dakin's Quarter Strength) 1 applic DAILY TOPIC 05/24/20 09:00 06/23/20 08:59 05/28/20 08:55 Vitamin B Complex/ Vit C/Folic Acid (Nephrovite) 1 tab DAILY GT 05/22/20 09:00 06/21/20 08:59 05/28/20 08:54 Vitamin D (Vitamin D) 400 unit DAILY ORAL 05/22/20 09:00 06/21/20 08:59 05/28/20 08:54 Laboratory Tests 05/27/20 14:20: White Blood Count 7.6, Red Blood Count 2.73L, Hemoglobin 8.0L, Hematocrit 25.1L, Mean Corpuscular Volume 92, Mean Corpuscular Hemoglobin 29.2, Mean Corpuscular Hemoglobin Concent 31.8L, Red Cell Distribution Width 16.2H, Platelet Count 166, Mean Platelet Volume 6.3L, Neutrophils (%) (Auto) 76.2H, Lymphocytes (%) (Auto) 9.0L, Monocytes (%) (Auto) 8.2, Eosinophils (%) (Auto) 4.4H, Basophils (%) (Auto) 2.2H, Sodium Level 133L, Potassium Level 4.9, Chloride Level 95L, Carbon Dioxide Level 30, Anion Gap 8, Blood Urea Nitrogen 115H, Creatinine 4.5H, Estimat Glomerular Filtration Rate 13.9, Glucose Level 119H, Calcium Level 8.1L 05/28/20 11:00: Stool Occult Blood [Pending] Height (Feet): 5 Height (Inches): 7.00 Weight (Pounds): 143 General Appearance: no apparent distress EENT: other - Trach to vent Cardiovascular: normal rate Respiratory/Chest: decreased breath sounds Abdomen: distended Maurilio King MD May 28, 2020 13:11
[2020-05-28 13:24] LABS: BASOPHILS % (AUTO) 1.6 % (0.0-2.0); EOSINOPHILS % (AUTO) 2.6 % (0.0-3.0); HEMATOCRIT 26.9 % (42.0-52.0); HEMOGLOBIN 8.6 G/DL (14.2-18.0); LYMPHOCYTES % (AUTO) 9.8 % (20.0-45.0); MEAN CORPUSCULAR VOLUME 90 FL (80-99); MONOCYTES % (AUTO) 7.4 % (1.0-10.0); NEUTROPHILS % (AUTO) 78.7 % (45.0-75.0); PLATELET COUNT 189 K/UL (150-450); RED CELL DISTRIBUTION WIDTH 16.2 % (11.6-14.8); WHITE BLOOD COUNT 7.6 K/UL (4.8-10.8)
[2020-05-28 13:30] LABS: CALCIUM 8.5 MG/DL (8.5-10.1); CREATININE 3.7 MG/DL (0.55-1.30); POTASSIUM 4.6 MMOL/L (3.5-5.1)
[2020-05-28] MEDS ORDERED: Golytely 4L ORAL SCH (14:00)
--- NOTE | 2020-05-28 14:04 | Surgery Progress Note ---
Surgery Progress Note Subjective Additional Comments podiatry input appreciated rectal bleeding noted h/h stable gi input Objective Last 24 Hour Vital Signs Date Time Temp Pulse Resp B/P (MAP) Pulse Ox O2 Delivery O2 Flow Rate FiO2 05/28/20 12:00 40 05/28/20 12:00 Mechanical Ventilator 05/28/20 12:00 99.7 82 21 146/94 (111) 100 05/28/20 11:41 79 05/28/20 08:55 77 160/81 05/28/20 08:14 76 05/28/20 08:00 40 05/28/20 08:00 97.9 75 23 160/68 (98) 100 05/28/20 07:52 Mechanical Ventilator 05/28/20 04:00 40 05/28/20 04:00 97.9 70 20 138/63 (88) 100 05/28/20 04:00 Mechanical Ventilator 05/28/20 03:09 69 05/28/20 03:01 63 21 40 05/28/20 00:00 98.1 69 18 128/76 (93) 100 05/28/20 00:00 40 05/28/20 00:00 Mechanical Ventilator 05/27/20 23:15 67 05/27/20 23:07 67 18 40 05/27/20 20:12 76 147/71 05/27/20 20:00 Mechanical Ventilator 05/27/20 20:00 98.0 74 18 147/71 (96) 100 05/27/20 20:00 40 05/27/20 19:03 73 05/27/20 18:19 74 20 40 05/27/20 16:00 40 05/27/20 16:00 98.1 71 19 118/64 (82) 100 05/27/20 16:00 Mechanical Ventilator 05/27/20 15:19 70 05/27/20 14:50 72 16 40 I&O Intake and Output 05/27/20 05/28/20 19:00 07:00 Intake Total 740 ml 750 ml Output Total 2000 ml Balance 740 ml -1250 ml Free Water 200 ml 100 ml IV Total 110 ml Tube Feeding 540 ml 540 ml Output Urine Total 0 ml Hemodialysis UF 2000 ml # Bowel Movements 1 Dressing: saturated Cardiovascular: RSR Respiratory: decreased breath sounds Abdomen: non-tender, present bowel sounds Extremities: cyanosis, no tenderness, other Laboratory Tests Test 05/27/20 14:20 05/28/20 11:00 05/28/20 13:15 White Blood Count 7.6 K/UL (4.8-10.8) 7.6 K/UL (4.8-10.8) Red Blood Count 2.73 M/UL (4.70-6.10) L 3.00 M/UL (4.70-6.10) L Hemoglobin 8.0 G/DL (14.2-18.0) L 8.6 G/DL (14.2-18.0) L Hematocrit 25.1 % (42.0-52.0) L 26.9 % (42.0-52.0) L Mean Corpuscular Volume 92 FL (80-99) 90 FL (80-99) Mean Corpuscular Hemoglobin 29.2 PG (27.0-31.0) 28.8 PG (27.0-31.0) Mean Corpuscular Hemoglobin Concent 31.8 G/DL (32.0-36.0) L 32.2 G/DL (32.0-36.0) Red Cell Distribution Width 16.2 % (11.6-14.8) H 16.2 % (11.6-14.8) H Platelet Count 166 K/UL (150-450) 189 K/UL (150-450) Mean Platelet Volume 6.3 FL (6.5-10.1) L 5.8 FL (6.5-10.1) L Neutrophils (%) (Auto) 76.2 % (45.0-75.0) H 78.7 % (45.0-75.0) H Lymphocytes (%) (Auto) 9.0 % (20.0-45.0) L 9.8 % (20.0-45.0) L Monocytes (%) (Auto) 8.2 % (1.0-10.0) 7.4 % (1.0-10.0) Eosinophils (%) (Auto) 4.4 % (0.0-3.0) H 2.6 % (0.0-3.0) Basophils (%) (Auto) 2.2 % (0.0-2.0) H 1.6 % (0.0-2.0) Sodium Level 133 MMOL/L (136-145) L 134 MMOL/L (136-145) L Potassium Level 4.9 MMOL/L (3.5-5.1) 4.6 MMOL/L (3.5-5.1) Chloride Level 95 MMOL/L (98-107) L 96 MMOL/L (98-107) L Carbon Dioxide Level 30 MMOL/L (21-32) 30 MMOL/L (21-32) Anion Gap 8 mmol/L (5-15) 8 mmol/L (5-15) Blood Urea Nitrogen 115 mg/dL (7-18) H 90 mg/dL (7-18) H Creatinine 4.5 MG/DL (0.55-1.30) H 3.7 MG/DL (0.55-1.30) H Estimat Glomerular Filtration Rate 13.9 mL/min (>60) 17.5 mL/min (>60) Glucose Level 119 MG/DL (74-106) H 133 MG/DL (74-106) H Calcium Level 8.1 MG/DL (8.5-10.1) L 8.5 MG/DL (8.5-10.1) Stool Occult Blood Pending Plan Problems: (1) Complications, dialysis, catheter, mechanical (2) Decubitus ulcer, heel Assessment & Plan: 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 Heel ulcer identified as well. Foul-smelling. Fortunately this does not seem salvageable by any means given the extensive loss at the flap that has dehisced the exposed bone as well as the heel. Currently stable otherwise known chronic in nature not patient's acute problem. Will recommend that patient has a right BKA at some point given the current findings we will continue with local wound care tentatively. Patient identified to have a heel ulcer on the left side as well. Pt presented on admission with Tracheostomy ,GT and dehiscence of R TMA with necrosis extending into lateral aspect of R foot. Full thickness ulcer R heel with slough and necrosis. Moderate amt haemopurulent exudate noted from R heel.Wounds are malodorous. Pt exhibited distress with elevation of R leg during wound care. Haemosiderin deposit R lower ext. Dry eschar with cracking at base noted to L Hallux(L)3cm x (W)4.5cm. Dry eschar noted to dorsal L 1st,L 3rd, and L 5th metatarsals. L Heel is boggy with non-blanchable erythema. DTPI noted to upper R Buttocks(L)2.3cm x (W)4.5cm. Base of wound is indurated,purpuric with surrounding non-blanchable erythema.Non-Blanchable erythema without induration or fluctuance at Sacrum. Tx.Plan: Cleanse L foot wounds with Dakin's [place] 0.25%. Apply Dakin's moistened Kerlix to wounds. Apply Moisture Barrier periwound. Cover with ABD pads. Wrap with Kerlix Daily and prn. Apply Betadine to L Hallux ,L1st,L 3rd and L 5th metatarsals Daily. Leave open to Air. Apply Moisture Barrier Paste to Sacrum /R Buttocks. Cover with Optifoam drsgs. Change every 3 days and prn. Reposition at least every 2hours or as tolerated. Off-load heels with pillow. DAILY ESTIMATED NEEDS: Needs based on Critical care, wound, esrd on HD 65.1kg 25-30 kcals/kg 7933-3916 total kcals 1.5-2 g protein/kg 98-130 g total protein Fluid per MD, on HD NUTRITION DIAGNOSIS: Increased kcal and pro needs r/t renal dysfunction as evidenced by pt w/ ESRD on HD, notable open LE wounds, vent dep via trach and PEG dep. CURRENT TF: Nepro @55 ENTERAL NUTRITION RECOMMENDATIONS: Nepro LOWER to goal of 45ml/hr x24 hrs + Prosource BID to provide 1080ml, 1944 kcal, 87g pro, 785ml free H2O - Rec to LOWER goal rate of 45ml/hr - Add PROSOURCE 1 pack BID via PEG (11g pro/each) - On HD, water flush per MD - HOB over 30 degrees ADDITIONAL RECOMMENDATIONS: 1) maintain calibrated bed scale wt 2) Wound care: Vit C dosing per nephrology nephrovite qdaily. When tolerating TF at goal w/ Prosource BID-> add DEE BID (3) Ischemia of right lower extremity Assessment & Plan: prognosis of LE guarded cont with dressings may need amp at some point podiatry input appreciated agree with amputation when stable if medically clear and consent DAILY ESTIMATED NEEDS: Needs based on Critical care, wound, esrd on HD 65.1kg 25-30 kcals/kg 3918-6650 total kcals 1.5-2 g protein/kg 98-130 g total protein Fluid per MD, on HD NUTRITION DIAGNOSIS: Increased kcal and pro needs r/t renal dysfunction as evidenced by pt w/ ESRD on HD, notable open LE wounds, vent dep via trach and PEG dep. CURRENT TF: Nepro @45 + PS x2 ENTERAL NUTRITION RECOMMENDATIONS: Nepro goal of 45ml/hr x24 hrs + Prosource BID to provide 1080ml, 1944 kcal, 87g pro, 785ml free H2O - Maintain current rate 45ml/hr as tolerated. - Add PROSOURCE 1 pack BID via PEG - On HD, water flush per MD - HOB over 30 degrees ADDITIONAL RECOMMENDATIONS: 1) maintain calibrated bed scale wt 2) Wound care: Vit C dosing per nephrology nephrovite qdaily. When tolerating TF at goal w/ Prosource BID-> add DEE BID 3) Monitor wt trend (4) Hypercalcemia (5) Coagulopathy (6) Chronic respiratory failure (7) End stage renal disease on dialysis (8) Anemia in chronic kidney disease (CKD) (9) Anemia (10) GI bleed Dany Wilder May 28, 2020 14:04
[2020-05-28 16:00] VITALS: BP 146/93
[2020-05-28] MEDS ORDERED: D5 1/2NS w/KCl 20mEq 1,000 ML IV SCH (16:00)
--- NOTE | 2020-05-28 16:11 | NUR ---
NURSE NOTES: wound treatment done as order and pt tolerated well. gt dressing changed, no bleeding noted. will continue to monitor.
--- NOTE | 2020-05-28 19:16 | NUR ---
NURSE HAND-OFF REPORT: pt had rectum bleeding, plan for colonoscopy tomorrow. pt is NPO. Important Events on Shift: Patient Status: Diet: Pending Orders: Pending Results/Labs: Pending MD notification: Latest Vital Signs: Temperature 98.1 , Pulse 81 , B/P 146 /93 , Respiratory Rate 24 , O2 SAT 100 , Mechanical Ventilator, O2 Flow Rate . Vital Sign Comment: EKG Rhythm: Sinus Rhythm Rhythm change?: N MD Notified?: N - MD Response: Latest Seay Fall Score: 75 Fall Risk: High Risk Safety Measures: Call light Within Reach, Bed Alarm Zone 1, Side Rails Side Rails x2, Bed position Low and Locked. Fall Precautions: Yellow Socks Patient Fall Education Report given to . Pt is awake and stable, no stress noted, endorsed plan of care. Endorsed to continue to prep pt, and monitor pt for bleeding.
--- NOTE | 2020-05-28 19:20 | NUR ---
NURSE NOTES: Received patient and report from Mariama KINSEY.Awake no acute distress with Trach to vent . VSS. Afebrile. NPO for colonoscopy in AM tomorrow. No rectal bleeding at this time. On bowel preparation with brown liquid stool. Denies any pain at this moment.will continue plan of care.
[2020-05-28 20:00] VITALS: BP 146/85
[2020-05-28] MEDS: Dyna-Hex 2% Top Sol 2oz TOPIC SCH (21:51)
[2020-05-28] MEDS: Atorvastatin 20mg tab GT SCH (21:51)
[2020-05-29] VITALS: BP 129/72
--- NOTE | 2020-05-29 01:30 | NUR ---
NURSE NOTES: Pt is restless, attempting to get off the BW restraints. Pt does seems agitated at this time. Will continue to monitor.
--- NOTE | 2020-05-29 02:00 | NUR ---
NURSE NOTES: Patient asleep with no acute distress noted. keeps bowel preparation for colonoscopy. sponge bath given.
[2020-05-29 04:00] VITALS: BP 144/69
[2020-05-29 06:06] LABS: HEMATOCRIT 23.7 % (42.0-52.0); HEMOGLOBIN 7.3 G/DL (14.2-18.0); MEAN CORPUSCULAR VOLUME 93 FL (80-99); PLATELET COUNT 179 K/UL (150-450); RED BLOOD COUNT 2.54 M/UL (4.70-6.10); RED CELL DISTRIBUTION WIDTH 16.3 % (11.6-14.8); WHITE BLOOD COUNT 7.1 K/UL (4.8-10.8)
[2020-05-29 06:53] LABS: CREATININE 3.9 MG/DL (0.55-1.30); POTASSIUM 5.1 MMOL/L (3.5-5.1)
--- NOTE | 2020-05-29 07:00 | NUR ---
NURSE HAND-OFF REPORT: Important Events on Shift: colonoscopy in AM Patient Status: STABLE Diet: NPO Pending Orders: N Pending Results/Labs:N Pending MD notification:N Latest Vital Signs: Temperature 98.1 , Pulse 82 , B/P 144 /69 , Respiratory Rate 19 , O2 SAT 100 , Mechanical Ventilator, O2 Flow Rate . Vital Sign Comment: STABLE EKG Rhythm: SR w/ BBB Rhythm change?: N MD Notified?: N - MD Response: Latest Seay Fall Score: 75 Fall Risk: High Risk Safety Measures: Call light Within Reach, Bed Alarm Zone 1, Side Rails Side Rails x2, Bed position Low and Locked. Fall Precautions: Yellow Socks Patient Fall Education Report given to AIXA KINSEY.
--- NOTE | 2020-05-29 07:05 | NUR ---
NURSE NOTES: Received report from AMELIE Villareal. Patient is resting in bed, in stable condition. No s/sx of SOB, breathing is even and unlabored, on vent with vent settings as ordered. Patient is nonverbal, observed no presence of pain or discomfort at this time. Patient NPO at this time for colonoscopy today with Dr. Holley. Bed is in lowest position, brakes engaged. Call light is kept within easy reach. Will continue to monitor patient.
--- NOTE | 2020-05-29 07:20 | NUR ---
NURSE NOTES: Called and spoke with Dr. Holley via telephone, informed of hemoglobin level of 7.3 today and noted scheduled for colonoscopy today. Dr. Holley acknowledged and informed this nurse, no new orders, will proceed with colonoscopy today as planned. Noted. Will continue to monitor patient.
--- NOTE | 2020-05-29 07:45 | NUR ---
NURSE NOTES: Dr. Whiteside at nurse station, made aware of patient's hemoglobin level of 7.[address] Whiteside acknowledged and ordered to transfuse 1 unit of PRBC today. Order entered, noted, and carried out. Will continue to monitor patient.
[2020-05-29] MEDS ORDERED: fentaNYL 100 mcg/2 mL IV ONE (07:48)
[2020-05-29 08:00] VITALS: BP 103/56
[2020-05-29 08:25] LABS: CALCIUM 8.5 MG/DL (8.5-10.1)
--- NOTE | 2020-05-29 08:29 | Pre-Procedure Note/Attestation ---
Pre-Procedure Note/Attestation Complete Prior to Procedure Planned Procedure: not applicable Procedure Narrative: colonoscopy Indications for Procedure Pre-Operative Diagnosis: rectal bleed Attestation I attest that I discussed the nature of the procedure; its benefits; risks and complications; and alternatives (and the risks and benefits of such alternatives), prior to the procedure, with the patient (or the patient's legal insurance healthcare representative). I attest that, if there was a reasonable possibility of needing a blood transfusion, the patient (or the patient's legal insurance healthcare representative) was given the [facility] standardized written summary, pursuant to the Sergio Gee Blood Safety Act ([place] Health and Safety Code # 1645, as amended). I attest that I re-evaluated the patient just prior to the surgery and that there has been no change in the patient's H&P, except as documented below: Ajay Holley MD May 29, 2020 08:29
--- NOTE | 2020-05-29 08:31 | Endoscopy Procedure Note ---
Endoscopy Procedure Note General Indication for Procedure: rectal bleed Procedures Performed: colonoscopy Operative Findings/Diagnosis: hemorrhoids Specimen: yes Pt Tolerated Procedure Well: Yes Estimated Blood Loss: none Anesthesia Anesthesiologist: jackson Anesthesia: MAC Inserted Devices Implant(s) used?: No Quality Quality of Bowel Preparation: Good Did scope reach the cecum?: No Why scope didn't reach cecum: Therapeutic intervn only Was there any complications?: No GI Core Measures 50 yrs or older w/o bx or poly: Not Applicable 10yrs. F/U recommended: Not Applicable Ajay Holley MD May 29, 2020 08:31
--- NOTE | 2020-05-29 08:46 | Anethesia Preoperative Eval ---
Anesthesia Pre-op PMH/ROS General Date of Evaluation: May 29, 2020 Time of Evaluation: 07:50 Anesthesiologist: Nam ASA Score: ASA 4 Mallampati Score Class I : Soft palate, uvula, fauces, pillars visible Class II: Soft palate, uvula, fauces visible Class III: Soft palate, base of uvula visible Class IV: Only hard plate visible Mallampati Classification: Class III Surgeon: Leydi Diagnosis: Rectal bleed Surgical Procedure: Colonoscopy Anesthesia History: none Social History: smoking - h/o Family History: no anesthesia problems Allergies: Coded Allergies: No Known Allergies (Unverified , 04/22/20) Medications: see eMAR Patient NPO?: Yes Past Medical History Cardiovascular: Reports: HTN; Denies: CAD, [place], valve dz, arrhythmia, other Pulmonary: Reports: other - chronic respiratory failure, trach in place; Denies: asthma, COPD, ANCA Gastrointestinal/Genitourinary: Reports: GERD, ESRD - on HD; Denies: CRI, other Neurologic/Psychiatric: Reports: CVA, depression/anxiety, other - quadriplegic; Denies: dementia, TIA Endocrine: Reports: DM, hypothyroidism; Denies: steroids, other HEENT: Denies: cataract (L), cataract (R), glaucoma, [place] (L), [place] (R), other Hematology/Immune: Reports: anemia - of chronic d-s; Denies: DVT, bleeding disorder, other Musculoskeletal/Integumentary: Reports: other - contructed; Denies: OA, RA, DJD, DDD, edema Other: other - malnourished PMH Narrative: as above PSxH Narrative: see H&P Anesthesia Pre-op Phys. Exam Physician Exam Last Vital Signs Date Time Temp Pulse Resp B/P (MAP) Pulse Ox O2 Delivery O2 Flow Rate FiO2 05/29/20 07:18 82 19 40 05/29/20 04:00 98.1 144/69 (94) 100 05/29/20 04:00 Mechanical Ventilator Constitutional: NAD Neurologic: CN 2-12 intact, other - unable to obtaine Gastrointestinal: S/NT/ND Airway Exam Mallampati Score: Class III - trach in place MO: limited Neck: stiff ROM: limited Teeth: missing Dentures: no upper, no lower Anesthesia Pre-op A/P Labs Hematology Test 05/28/20 13:15 05/29/20 02:35 White Blood Count 7.6 K/UL (4.8-10.8) 7.1 K/UL (4.8-10.8) Red Blood Count 3.00 M/UL (4.70-6.10) L 2.54 M/UL (4.70-6.10) L Hemoglobin 8.6 G/DL (14.2-18.0) L 7.3 G/DL (14.2-18.0) L Hematocrit 26.9 % (42.0-52.0) L 23.7 % (42.0-52.0) L Mean Corpuscular Volume 90 FL (80-99) 93 FL (80-99) Mean Corpuscular Hemoglobin 28.8 PG (27.0-31.0) 28.8 PG (27.0-31.0) Mean Corpuscular Hemoglobin Concent 32.2 G/DL (32.0-36.0) 30.8 G/DL (32.0-36.0) L Red Cell Distribution Width 16.2 % (11.6-14.8) H 16.3 % (11.6-14.8) H Platelet Count 189 K/UL (150-450) 179 K/UL (150-450) Mean Platelet Volume 5.8 FL (6.5-10.1) L 6.8 FL (6.5-10.1) Neutrophils (%) (Auto) 78.7 % (45.0-75.0) H % (45.0-75.0) Lymphocytes (%) (Auto) 9.8 % (20.0-45.0) L % (20.0-45.0) Monocytes (%) (Auto) 7.4 % (1.0-10.0) % (1.0-10.0) Eosinophils (%) (Auto) 2.6 % (0.0-3.0) % (0.0-3.0) Basophils (%) (Auto) 1.6 % (0.0-2.0) % (0.0-2.0) Chemistry Test 05/28/20 13:15 05/29/20 02:35 Sodium Level 134 MMOL/L (136-145) L 137 MMOL/L (136-145) Potassium Level 4.6 MMOL/L (3.5-5.1) 5.1 MMOL/L (3.5-5.1) Chloride Level 96 MMOL/L (98-107) L 98 MMOL/L (98-107) Carbon Dioxide Level 30 MMOL/L (21-32) 28 MMOL/L (21-32) Anion Gap 8 mmol/L (5-15) 11 mmol/L (5-15) Blood Urea Nitrogen 90 mg/dL (7-18) H 94 mg/dL (7-18) H Creatinine 3.7 MG/DL (0.55-1.30) H 3.9 MG/DL (0.55-1.30) H Estimat Glomerular Filtration Rate 17.5 mL/min (>60) 16.4 mL/min (>60) Glucose Level 133 MG/DL (74-106) H 88 MG/DL (74-106) Calcium Level 8.5 MG/DL (8.5-10.1) 8.5 MG/DL (8.5-10.1) Risk Assessment & Plan Assessment: ASA 4 Plan: MAC Status Change Before Surgery: Jasmeet Chaudhari MD May 29, 2020 08:46
--- NOTE | 2020-05-29 08:48 | Immediate Post-Op Evaluation ---
Immediate Post-Op Evalulation Immediate Post-Op Evalulation Procedure: Colonoscopy polipectomy Date of Evaluation: May 29, 2020 Time of Evaluation: 08:40 IV Fluids: 100 Blood Products: none Estimated Blood Loss: none Urinary Output: n/a Blood Pressure Systolic: 136 - 72 Blood Pressure Diastolic: 72 Pulse Rate: 86 Respiratory Rate: 22 O2 Sat by Pulse Oximetry: 98 Temperature (Fahrenheit): 97.6 Pain Score (1-10): 1 Nausea: No Vomiting: No Complications none Patient Status: reacts, ventilated, none Hydration Status: adequate Jasmeet Browning MD May 29, 2020 08:48
--- NOTE | 2020-05-29 08:50 | 48 Hour Post Anesthesia Eval ---
Post Anesthesia Evaluation Procedure: Colonoscopy polipectomy Date of Evaluation: May 29, 2020 Time of Evaluation: 09:10 Blood Pressure Systolic: 118 0: 74 Pulse Rate: 76 Respiratory Rate: 20 Temperature (Fahrenheit): 97.6 O2 Sat by Pulse Oximetry: 99 Airway: other - ventilated Nausea: No Vomiting: No Pain Intensity: 1 Hydration Status: adequate Cardiopulmonary Status: stable Mental Status/LOC: patient returned to baseline Follow-up Care/Observations: n/a Post-Anesthesia Complications: none Follow-up care needed: N/A Jasmeet Browning MD May 29, 2020 08:50
[2020-05-29] MEDS: Aspirin Baby 81mg GT SCH (08:55)
[2020-05-29] MEDS: Metoprolol Tartrate 50mg tab GT SCH ×2 (08:55→20:20)
[2020-05-29] MEDS: Ascorbic Acid 500mg tab GT SCH (08:56)
[2020-05-29] MEDS: Vitamin D 400 units TAB ORAL SCH (08:56)
[2020-05-29] MEDS: Dakin's 0.125% Soln (Quarter Strength) 16oz TOPIC SCH ×2 (08:56)
[2020-05-29] MEDS: Nephrovite tab (Rena-Vite) GT SCH (08:56)
--- NOTE | 2020-05-29 08:58 | Hematology/Onc Progress Note ---
Assessment/Plan Assessment/Plan Covering Dr. Warren Assessment and Recs # Anemia due to likely chronic disease, ongoing, this is the first time he has been here --> anemia panel to order for downtrending hgb --> hgb 8.9-->9.4->8.4->>>8.7->8.1-->7.7->7.3 --> consider iron / epogen after anemia panel returns --> smear has been noted, no hemolysis --> 05/29 for endoscopy to be done today # Thrombocytopenia - potential causes multifactorial, evaluate liver and viral etiologies to begin, also could be related to underlying medications patient has received. --> Hep panel and HIV neg prior --> Ct a/p shows a normal appearing liver --> Peripheral smear ordered to evaluate for blasts /schistocytes --> abx and other meds have been reviewed --> ok for ppx if plt >50k w/ either heparin or lovenox --> plt 124-->186-->164 # Coagulopathy ongoing, ptt and inr elevated --> vitamin k given, as permacath to be removed --> get mixing study --> trend prn # Chronic respiratory failure --> per pulm --> vent + # End stage renal disease on dialysis --> Complications, dialysis, catheter,replacement as needed --> surg eval --> per renal # Right lung infection --> repeat cxr now # Gangrenous toe, as per surg # Dvt ppx scds Appreciate consultation and patty RN Subjective HEENT: Denies: no symptoms, eye pain, blurred vision, tearing, double vision, ear pain, ear discharge, nose pain, nose congestion, throat pain, throat swelling, mouth pain, mouth swelling, other Cardiovascular: Denies: no symptoms, chest pain, edema, irregular heart rate, lightheadedness, palpitations, syncope, other Allergies: Coded Allergies: No Known Allergies (Unverified , 04/22/20) All Systems: reviewed and negative except above Subjective 05/24 labs reviewed, cbc/bmp ordered, no bleeding on venttrach, gt 05/25 labs reviewed, was positive for large bm overnight, +ob, meds reviewed 05/26 rectal tube was removed, labs noted, no bleeding, labs reviewed 05/27 on vent hgb 7.3, no hemolysis, no night sweats 05/28 labs pending and hd today, may be close to dc 05/29 nv, no bleeding, labs noted, no bleeding, for colo today Objective Objective Current Medications Medications (Trade) Dose Ordered Sig/Titus Route PRN Reason Start Time Stop Time Status Last Admin Dose Admin Acetaminophen (Tylenol) 650 mg Q6H PRN GT Mild Pain (Pain Scale 1-3) 05/24/20 20:45 06/23/20 20:44 05/27/20 01:08 Ascorbic Acid (Vitamin C) 500 mg DAILY GT 05/22/20 09:00 06/21/20 08:59 05/29/20 08:56 Aspirin (ASA) 81 mg DAILY GT 05/22/20 09:00 07/06/20 08:59 05/28/20 08:54 Atorvastatin Calcium (Lipitor) 20 mg BEDTIME GT 05/21/20 21:00 08/19/20 20:59 05/28/20 21:51 Bisacodyl (Dulcolax) 10 mg DAILYPRN PRN RECTAL Constipation 05/21/20 15:15 08/19/20 15:14 Chlorhexidine Gluconate (Saba-Hex 2%) 1 applic DAILY@1999 TOPIC 05/22/20 20:00 08/20/20 19:59 05/28/20 21:51 Dextrose/ Electrolytes 1,000 ml @ 50 mls/hr Q20H IV 05/28/20 16:00 06/27/20 15:59 05/28/20 16:17 Metoprolol Tartrate (Lopressor) 50 mg EVERY 12 HOURS GT 05/21/20 21:00 08/19/20 20:59 05/28/20 21:51 Sodium Hypochlorite (Dakin's Quarter Strength) 1 applic DAILY TOPIC 05/23/20 09:00 06/22/20 08:59 05/29/20 08:56 Sodium Hypochlorite (Dakin's Quarter Strength) 1 applic DAILY TOPIC 05/24/20 09:00 06/23/20 08:59 05/29/20 08:56 Vitamin B Complex/ Vit C/Folic Acid (Nephrovite) 1 tab DAILY GT 05/22/20 09:00 06/21/20 08:59 12/25/20 08:56 Vitamin D (Vitamin D) 400 unit DAILY ORAL 05/22/20 09:00 06/21/20 08:59 05/29/20 08:56 Last 24 Hour Vital Signs Date Time Temp Pulse Resp B/P (MAP) Pulse Ox O2 Delivery O2 Flow Rate FiO2 05/29/20 08:50 76 20 99 05/29/20 08:48 86 22 98 05/29/20 07:18 82 19 40 05/29/20 04:00 98.1 68 18 144/69 (94) 100 05/29/20 04:00 Mechanical Ventilator 05/29/20 04:00 68 05/29/20 04:00 40 05/29/20 03:54 80 16 40 05/29/20 00:00 40 05/29/20 00:00 98.1 67 19 129/72 (91) 100 05/29/20 00:00 Mechanical Ventilator 05/28/20 23:49 65 05/28/20 23:15 78 14 40 05/28/20 21:51 70 146/85 05/28/20 20:00 Mechanical Ventilator 05/28/20 20:00 40 05/28/20 20:00 98.2 70 19 146/85 (105) 100 05/28/20 19:33 76 05/28/20 19:00 80 16 40 05/28/20 16:00 40 05/28/20 16:00 81 05/28/20 16:00 Mechanical Ventilator 05/28/20 16:00 98.1 79 24 146/93 (110) 100 05/28/20 15:10 79 22 40 05/28/20 12:00 40 05/28/20 12:00 Mechanical Ventilator 05/28/20 12:00 99.7 82 21 146/94 (111) 100 05/28/20 11:41 79 05/28/20 11:10 80 21 40 05/28/20 08:55 77 160/81 05/28/20 08:14 76 05/28/20 08:00 40 05/28/20 08:00 97.9 75 23 160/68 (98) 100 05/28/20 07:52 Mechanical Ventilator 05/28/20 07:10 77 21 40 05/28/20 04:00 40 05/28/20 04:00 97.9 70 20 138/63 (88) 100 05/28/20 04:00 Mechanical Ventilator 05/28/20 03:09 69 05/28/20 03:01 63 21 40 05/28/20 00:00 98.1 69 18 128/76 (93) 100 05/28/20 00:00 40 05/28/20 00:00 Mechanical Ventilator 05/27/20 23:15 67 05/27/20 23:07 67 18 40 05/27/20 20:12 76 147/71 05/27/20 20:00 Mechanical Ventilator 05/27/20 20:00 98.0 74 18 147/71 (96) 100 05/27/20 20:00 40 05/27/20 19:03 73 05/27/20 18:19 74 20 40 05/27/20 16:00 40 05/27/20 16:00 98.1 71 19 118/64 (82) 100 05/27/20 16:00 Mechanical Ventilator 05/27/20 15:19 70 05/27/20 14:50 72 16 40 05/27/20 12:28 68 21 40 05/27/20 12:00 40 05/27/20 12:00 Mechanical Ventilator 05/27/20 11:52 97.7 65 16 111/60 (77) 96 05/27/20 11:43 65 05/27/20 09:33 66 123/65 Intake and Output 05/28/20 05/29/20 19:00 07:00 Intake Total 2570 ml 2600 ml Balance 2570 ml 2600 ml Free Water 200 ml IV Total 100 ml 600 ml Tube Feeding 2270 ml 2000 ml # Bowel Movements 4 22 Labs Test 05/27/20 02:50 05/27/20 14:20 05/28/20 11:00 05/28/20 13:15 White Blood Count 7.4 K/UL (4.8-10.8) 7.6 K/UL (4.8-10.8) 7.6 K/UL (4.8-10.8) Red Blood Count 2.48 M/UL (4.70-6.10) 2.73 M/UL (4.70-6.10) 3.00 M/UL (4.70-6.10) Hemoglobin 7.3 G/DL (14.2-18.0) 8.0 G/DL (14.2-18.0) 8.6 G/DL (14.2-18.0) Hematocrit 22.5 % (42.0-52.0) 25.1 % (42.0-52.0) 26.9 % (42.0-52.0) Mean Corpuscular Volume 91 FL (80-99) 92 FL (80-99) 90 FL (80-99) Mean Corpuscular Hemoglobin 29.5 PG (27.0-31.0) 29.2 PG (27.0-31.0) 28.8 PG (27.0-31.0) Mean Corpuscular Hemoglobin Concent 32.4 G/DL (32.0-36.0) 31.8 G/DL (32.0-36.0) 32.2 G/DL (32.0-36.0) Red Cell Distribution Width 16.1 % (11.6-14.8) 16.2 % (11.6-14.8) 16.2 % (11.6-14.8) Platelet Count 164 K/UL (150-450) 166 K/UL (150-450) 189 K/UL (150-450) Mean Platelet Volume 6.7 FL (6.5-10.1) 6.3 FL (6.5-10.1) 5.8 FL (6.5-10.1) Neutrophils (%) (Auto) % (45.0-75.0) 76.2 % (45.0-75.0) 78.7 % (45.0-75.0) Lymphocytes (%) (Auto) % (20.0-45.0) 9.0 % (20.0-45.0) 9.8 % (20.0-45.0) Monocytes (%) (Auto) % (1.0-10.0) 8.2 % (1.0-10.0) 7.4 % (1.0-10.0) Eosinophils (%) (Auto) % (0.0-3.0) 4.4 % (0.0-3.0) 2.6 % (0.0-3.0) Basophils (%) (Auto) % (0.0-2.0) 2.2 % (0.0-2.0) 1.6 % (0.0-2.0) Sodium Level 134 MMOL/L (136-145) 133 MMOL/L (136-145) 134 MMOL/L (136-145) Potassium Level 4.5 MMOL/L (3.5-5.1) 4.9 MMOL/L (3.5-5.1) 4.6 MMOL/L (3.5-5.1) Chloride Level 96 MMOL/L (98-107) 95 MMOL/L (98-107) 96 MMOL/L (98-107) Carbon Dioxide Level 28 MMOL/L (21-32) 30 MMOL/L (21-32) 30 MMOL/L (21-32) Anion Gap 10 mmol/L (5-15) 8 mmol/L (5-15) 8 mmol/L (5-15) Blood Urea Nitrogen 105 mg/dL (7-18) 115 mg/dL (7-18) 90 mg/dL (7-18) Creatinine 4.4 MG/DL (0.55-1.30) 4.5 MG/DL (0.55-1.30) 3.7 MG/DL (0.55-1.30) Estimat Glomerular Filtration Rate 14.3 mL/min (>60) 13.9 mL/min (>60) 17.5 mL/min (>60) Glucose Level 119 MG/DL (74-106) 119 MG/DL (74-106) 133 MG/DL (74-106) Calcium Level 8.3 MG/DL (8.5-10.1) 8.1 MG/DL (8.5-10.1) 8.5 MG/DL (8.5-10.1) Phosphorus Level 2.9 MG/DL (2.5-4.9) Total Bilirubin 0.6 MG/DL (0.2-1.0) Aspartate Amino Transf (AST/SGOT) 27 U/L (15-37) Alanine Aminotransferase (ALT/SGPT) 12 U/L (12-78) Alkaline Phosphatase 376 U/L (46-116) Total Protein 6.6 G/DL (6.4-8.2) Albumin 2.0 G/DL (3.4-5.0) Globulin 4.6 g/dL Albumin/Globulin Ratio 0.4 (1.0-2.7) Stool Occult Blood Positive (NEGATIVE) Test 05/29/20 02:35 White Blood Count 7.1 K/UL (4.8-10.8) Red Blood Count 2.54 M/UL (4.70-6.10) Hemoglobin 7.3 G/DL (14.2-18.0) Hematocrit 23.7 % (42.0-52.0) Mean Corpuscular Volume 93 FL (80-99) Mean Corpuscular Hemoglobin 28.8 PG (27.0-31.0) Mean Corpuscular Hemoglobin Concent 30.8 G/DL (32.0-36.0) Red Cell Distribution Width 16.3 % (11.6-14.8) Platelet Count 179 K/UL (150-450) Mean Platelet Volume 6.8 FL (6.5-10.1) Neutrophils (%) (Auto) % (45.0-75.0) Lymphocytes (%) (Auto) % (20.0-45.0) Monocytes (%) (Auto) % (1.0-10.0) Eosinophils (%) (Auto) % (0.0-3.0) Basophils (%) (Auto) % (0.0-2.0) Sodium Level 137 MMOL/L (136-145) Potassium Level 5.1 MMOL/L (3.5-5.1) Chloride Level 98 MMOL/L (98-107) Carbon Dioxide Level 28 MMOL/L (21-32) Anion Gap 11 mmol/L (5-15) Blood Urea Nitrogen 94 mg/dL (7-18) Creatinine 3.9 MG/DL (0.55-1.30) Estimat Glomerular Filtration Rate 16.4 mL/min (>60) Glucose Level 88 MG/DL (74-106) Calcium Level 8.5 MG/DL (8.5-10.1) Height (Feet): 5 Height (Inches): 6.00 Weight (Pounds): 138 Objective Physical Exam Vitals: reviewed, normal General Appearance: no apparent distress, other - Nonverbal Head: normocephalic, atraumatic: no angioedema, normal voice Neck: full range of motion, supple/symm/no masses Respiratory: chest non-tender, lungs clear, +++vent/trach Cardiovascular: regular rate, rhythm, no edema Gastrointestinal: normal bowel sounds, ++gt Genitourinary: normal inspection, no CVA tenderness Musculoskeletal: back normal, normal range of motion Neurologic: other - Nonverbal Psychiatric: other - Nonverbal Lymphatic: no adenopathy Nick Whiteside MD May 29, 2020 08:58
--- NOTE | 2020-05-29 10:01 | Procedure Note ---
DATE OF PROCEDURE: 05/29/2020 SURGEON: Ajay Holley MD. PROCEDURE: Colonoscopy with biopsy. ANESTHESIA: Per Jasmeet Browning MD. INSTRUMENT: Olympus adult flexible colonoscope. INDICATION: Rectal bleeding. REASON FOR PROCEDURE: The procedure, risks, benefits, and possible consequences, including hemorrhage, aspiration, perforation and infection, and alternative treatments, were explained to the patient/legal guardian by Dr. Ajay Holley and the patient/legal guardian understood and accepted these risks. PROCEDURE IN DETAIL: After informed consent was obtained and the patient was adequately sedated, first rectal exam was performed, which was positive for internal hemorrhoids. Then, the scope was advanced from the rectum into the ascending colon. We could not pass the scope into the cecum given they had difficulty with placing the patient in position being on a vent. There was no evidence of any active bleeding at this time. There was one polyp in the rectum, in the rectosigmoid area measured roughly about 3 mm, removed with cold biopsy forceps technique. Retroflexion in the rectum showed evidence of internal hemorrhoids, most probably the source of bleeding. SUMMARY OF FINDINGS: 1. One rectosigmoid polyp removed, see above for details. 2. Internal hemorrhoids, most probably the source of bleeding. RECOMMENDATIONS: 1. Resume tube feeding. 2. Treat for hemorrhoids aggressively. 3. Follow labs. Ajay Holley M.D. DR: NEGRO JOB#: [id number] CC:
--- NOTE | 2020-05-29 11:22 | Surgery Progress Note ---
Surgery Progress Note Subjective Additional Comments scope with polypectomy no n/v dressings okay Objective Last 24 Hour Vital Signs Date Time Temp Pulse Resp B/P (MAP) Pulse Ox O2 Delivery O2 Flow Rate FiO2 05/29/20 11:13 67 17 40 05/29/20 08:50 76 20 99 05/29/20 08:48 86 22 98 05/29/20 08:00 Mechanical Ventilator 05/29/20 08:00 71 05/29/20 08:00 98.1 60 18 103/56 (72) 100 05/29/20 08:00 40 05/29/20 07:18 82 19 40 05/29/20 04:00 98.1 68 18 144/69 (94) 100 05/29/20 04:00 Mechanical Ventilator 05/29/20 04:00 68 05/29/20 04:00 40 05/29/20 03:54 80 16 40 05/29/20 00:00 40 05/29/20 00:00 98.1 67 19 129/72 (91) 100 05/29/20 00:00 Mechanical Ventilator 05/28/20 23:49 65 05/28/20 23:15 78 14 40 05/28/20 21:51 70 146/85 05/28/20 20:00 Mechanical Ventilator 05/28/20 20:00 40 05/28/20 20:00 98.2 70 19 146/85 (105) 100 05/28/20 19:33 76 05/28/20 19:00 80 16 40 05/28/20 16:00 40 05/28/20 16:00 81 05/28/20 16:00 Mechanical Ventilator 05/28/20 16:00 98.1 79 24 146/93 (110) 100 05/28/20 15:10 79 22 40 05/28/20 12:00 40 05/28/20 12:00 Mechanical Ventilator 05/28/20 12:00 99.7 82 21 146/94 (111) 100 05/28/20 11:41 79 I&O Intake and Output 05/28/20 05/29/20 18:59 06:59 Intake Total 2615 ml 2550 ml Output Total 2000 ml Balance 615 ml 2550 ml Free Water 200 ml IV Total 100 ml 550 ml Tube Feeding 2315 ml 2000 ml Hemodialysis UF 2000 ml # Bowel Movements 4 22 Dressing: saturated Cardiovascular: RSR Respiratory: decreased breath sounds Abdomen: soft, non-tender, present bowel sounds Extremities: no tenderness, other Laboratory Tests Test 05/28/20 13:15 05/29/20 02:35 White Blood Count 7.6 K/UL (4.8-10.8) 7.1 K/UL (4.8-10.8) Red Blood Count 3.00 M/UL (4.70-6.10) L 2.54 M/UL (4.70-6.10) L Hemoglobin 8.6 G/DL (14.2-18.0) L 7.3 G/DL (14.2-18.0) L Hematocrit 26.9 % (42.0-52.0) L 23.7 % (42.0-52.0) L Mean Corpuscular Volume 90 FL (80-99) 93 FL (80-99) Mean Corpuscular Hemoglobin 28.8 PG (27.0-31.0) 28.8 PG (27.0-31.0) Mean Corpuscular Hemoglobin Concent 32.2 G/DL (32.0-36.0) 30.8 G/DL (32.0-36.0) L Red Cell Distribution Width 16.2 % (11.6-14.8) H 16.3 % (11.6-14.8) H Platelet Count 189 K/UL (150-450) 179 K/UL (150-450) Mean Platelet Volume 5.8 FL (6.5-10.1) L 6.8 FL (6.5-10.1) Neutrophils (%) (Auto) 78.7 % (45.0-75.0) H % (45.0-75.0) Lymphocytes (%) (Auto) 9.8 % (20.0-45.0) L % (20.0-45.0) Monocytes (%) (Auto) 7.4 % (1.0-10.0) % (1.0-10.0) Eosinophils (%) (Auto) 2.6 % (0.0-3.0) % (0.0-3.0) Basophils (%) (Auto) 1.6 % (0.0-2.0) % (0.0-2.0) Sodium Level 134 MMOL/L (136-145) L 137 MMOL/L (136-145) Potassium Level 4.6 MMOL/L (3.5-5.1) 5.1 MMOL/L (3.5-5.1) Chloride Level 96 MMOL/L (98-107) L 98 MMOL/L (98-107) Carbon Dioxide Level 30 MMOL/L (21-32) 28 MMOL/L (21-32) Anion Gap 8 mmol/L (5-15) 11 mmol/L (5-15) Blood Urea Nitrogen 90 mg/dL (7-18) H 94 mg/dL (7-18) H Creatinine 3.7 MG/DL (0.55-1.30) H 3.9 MG/DL (0.55-1.30) H Estimat Glomerular Filtration Rate 17.5 mL/min (>60) 16.4 mL/min (>60) Glucose Level 133 MG/DL (74-106) H 88 MG/DL (74-106) Calcium Level 8.5 MG/DL (8.5-10.1) 8.5 MG/DL (8.5-10.1) Plan Problems: (1) Complications, dialysis, catheter, mechanical (2) Decubitus ulcer, heel Assessment & Plan: 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 Heel ulcer identified as well. Foul-smelling. Fortunately this does not seem salvageable by any means given the extensive loss at the flap that has dehisced the exposed bone as well as the heel. Currently stable otherwise known chronic in nature not patient's acute problem. Will recommend that patient has a right BKA at some point given the current findings we will continue with local wound care tentatively. Patient identified to have a heel ulcer on the left side as well. Pt presented on admission with Tracheostomy ,GT and dehiscence of R TMA with necrosis extending into lateral aspect of R foot. Full thickness ulcer R heel with slough and necrosis. Moderate amt haemopurulent exudate noted from R heel.Wounds are malodorous. Pt exhibited distress with elevation of R leg during wound care. Haemosiderin deposit R lower ext. Dry eschar with cracking at base noted to L Hallux(L)3cm x (W)4.5cm. Dry eschar noted to dorsal L 1st,L 3rd, and L 5th metatarsals. L Heel is boggy with non-blanchable erythema. DTPI noted to upper R Buttocks(L)2.3cm x (W)4.5cm. Base of wound is indurated,purpuric with surrounding non-blanchable erythema.Non-Blanchable erythema without induration or fluctuance at Sacrum. Tx.Plan: Cleanse L foot wounds with Dakin's [place] 0.25%. Apply Dakin's moistened Kerlix to wounds. Apply Moisture Barrier periwound. Cover with ABD pads. Wrap with Kerlix Daily and prn. Apply Betadine to L Hallux ,L1st,L 3rd and L 5th metatarsals Daily. Leave open to Air. Apply Moisture Barrier Paste to Sacrum /R Buttocks. Cover with Optifoam drsgs. Change every 3 days and prn. Reposition at least every 2hours or as tolerated. Off-load heels with pillow. DAILY ESTIMATED NEEDS: Needs based on Critical care, wound, esrd on HD 65.1kg 25-30 kcals/kg 1389-3672 total kcals 1.5-2 g protein/kg 98-130 g total protein Fluid per MD, on HD NUTRITION DIAGNOSIS: Increased kcal and pro needs r/t renal dysfunction as evidenced by pt w/ ESRD on HD, notable open LE wounds, vent dep via trach and PEG dep. CURRENT TF: Nepro @55 ENTERAL NUTRITION RECOMMENDATIONS: Nepro LOWER to goal of 45ml/hr x24 hrs + Prosource BID to provide 1080ml, 1944 kcal, 87g pro, 785ml free H2O - Rec to LOWER goal rate of 45ml/hr - Add PROSOURCE 1 pack BID via PEG (11g pro/each) - On HD, water flush per MD - HOB over 30 degrees ADDITIONAL RECOMMENDATIONS: 1) maintain calibrated bed scale wt 2) Wound care: Vit C dosing per nephrology nephrovite qdaily. When tolerating TF at goal w/ Prosource BID-> add DEE BID (3) Ischemia of right lower extremity Assessment & Plan: prognosis of LE guarded cont with dressings may need amp at some point podiatry input appreciated agree with amputation when stable if medically clear and consent DAILY ESTIMATED NEEDS: Needs based on Critical care, wound, esrd on HD 65.1kg 25-30 kcals/kg 4940-4227 total kcals 1.5-2 g protein/kg 98-130 g total protein Fluid per MD, on HD NUTRITION DIAGNOSIS: Increased kcal and pro needs r/t renal dysfunction as evidenced by pt w/ ESRD on HD, notable open LE wounds, vent dep via trach and PEG dep. CURRENT TF: Nepro @45 + PS x2 ENTERAL NUTRITION RECOMMENDATIONS: Nepro goal of 45ml/hr x24 hrs + Prosource BID to provide 1080ml, 1944 kcal, 87g pro, 785ml free H2O - Maintain current rate 45ml/hr as tolerated. - Add PROSOURCE 1 pack BID via PEG - On HD, water flush per MD - HOB over 30 degrees ADDITIONAL RECOMMENDATIONS: 1) maintain calibrated bed scale wt 2) Wound care: Vit C dosing per nephrology nephrovite qdaily. When tolerating TF at goal w/ Prosource BID-> add DEE BID 3) Monitor wt trend (4) Hypercalcemia (5) Coagulopathy (6) Chronic respiratory failure (7) End stage renal disease on dialysis (8) Anemia in chronic kidney disease (CKD) (9) Anemia (10) GI bleed Dany Wilder May 29, 2020 11:22
[2020-05-29 12:00] VITALS: BP 130/67
--- NOTE | 2020-05-29 14:04 | Nephrology Progress Note ---
Assessment/Plan Problem List: (1) End stage renal disease on dialysis (2) Hypercalcemia (3) Anemia (4) Chronic respiratory failure Assessment End-stage renal disease on dialysis Coagulopathy Anemia Chronic respiratory failure History of hypercalcemia, corrected serum calcium for low albumin remains elevated Plan May 29: Patient last dialyzed May 28. Had colonoscopy for rectal bleed. Hemoglobin lower. Transfusion per autos disassembler if needed. Monitor renal parameters. Hemodialysis as needed. Per orders. May 28: Patient dialyzed today. Has rectal bleed. Due for colonoscopy tomorrow by GI. Continue to monitor renal parameters and CBC. Today's lab ordered and pending May 27: Last dialysis May 25. Will order dialysis for tomorrow. Labs reviewed. May 26: Dialyzed yesterday. Labs reviewed. Renvela discontinued. 1 dose of Neutra-Phos given. Continue to monitor renal parameters. May 25: Patient due for dialysis today. Labs reviewed. Medication list reviewed. Renvela dose adjusted. Continue to monitor electrolytes and renal parameters. May 24: No labs drawn today. Last dialysis May 22. Will check lab tomorrow. Will dialyze as needed. Hemodialysis yesterday May 22 Aredia 60 mg IV piggyback for hypercalcemia, given on May 22 Continue to monitor renal parameters calcium and phosphorus. Per orders, per PMD. Subjective ROS Limited/Unobtainable: Yes Objective Objective Last 24 Hour Vital Signs Date Time Temp Pulse Resp B/P (MAP) Pulse Ox O2 Delivery O2 Flow Rate FiO2 05/29/20 12:00 40 05/29/20 12:00 Mechanical Ventilator 05/29/20 12:00 97.7 67 18 130/67 (88) 100 05/29/20 11:13 67 17 40 05/29/20 08:50 76 20 99 05/29/20 08:48 86 22 98 05/29/20 08:00 Mechanical Ventilator 05/29/20 08:00 71 05/29/20 08:00 98.1 60 18 103/56 (72) 100 05/29/20 08:00 40 05/29/20 07:18 82 19 40 05/29/20 04:00 98.1 68 18 144/69 (94) 100 05/29/20 04:00 Mechanical Ventilator 05/29/20 04:00 68 05/29/20 04:00 40 05/29/20 03:54 80 16 40 05/29/20 00:00 40 05/29/20 00:00 98.1 67 19 129/72 (91) 100 05/29/20 00:00 Mechanical Ventilator 05/28/20 23:49 65 05/28/20 23:15 78 14 40 05/28/20 21:51 70 146/85 05/28/20 20:00 Mechanical Ventilator 05/28/20 20:00 40 05/28/20 20:00 98.2 70 19 146/85 (105) 100 05/28/20 19:33 76 05/28/20 19:00 80 16 40 05/28/20 16:00 40 05/28/20 16:00 81 05/28/20 16:00 Mechanical Ventilator 05/28/20 16:00 98.1 79 24 146/93 (110) 100 05/28/20 15:10 79 22 40 Intake and Output 05/28/20 05/29/20 19:00 07:00 Intake Total 2570 ml 2600 ml Balance 2570 ml 2600 ml Free Water 200 ml IV Total 100 ml 600 ml Tube Feeding 2270 ml 2000 ml # Bowel Movements 4 22 Laboratory Tests 05/29/20 02:35: White Blood Count 7.1, Red Blood Count 2.54L, Hemoglobin 7.3L, Hematocrit 23.7L, Mean Corpuscular Volume 93, Mean Corpuscular Hemoglobin 28.8, Mean Corpuscular Hemoglobin Concent 30.8L, Red Cell Distribution Width 16.3H, Platelet Count 179, Mean Platelet Volume 6.8, Neutrophils (%) (Auto) , Lymphocytes (%) (Auto) , Monocytes (%) (Auto) , Eosinophils (%) (Auto) , Basophils (%) (Auto) , Sodium Level 137, Potassium Level 5.1, Chloride Level 98, Carbon Dioxide Level 28, Anion Gap 11, Blood Urea Nitrogen 94H, Creatinine 3.9H, Estimat Glomerular Filtration Rate 16.4, Glucose Level 88, Calcium Level 8.5 Height (Feet): 5 Height (Inches): 6.00 Weight (Pounds): 138 General Appearance: no apparent distress EENT: other - Trach to vent Respiratory/Chest: decreased breath sounds Abdomen: distended Maurilio King MD May 29, 2020 14:04
--- NOTE | 2020-05-29 15:10 | NUR ---
NURSE NOTES: Began 1 unit PRBC transfusion per Dr. Whiteside, BP 127/63, HR 68, Temp. 97.9F.
--- NOTE | 2020-05-29 15:25 | NUR ---
NURSE NOTES: 15 minute vital signs check for 1 unit PRBC transfusion: BP 144/76, HR 68, Temperature 98.1 F. No adverse reactions noted. Will continue to monitor patient.
[2020-05-29 15:53] VITALS: BP 146/85
--- NOTE | 2020-05-29 17:10 | NUR ---
NURSE NOTES: 1 unit PRBC transfusion completed. No adverse reactions noted. BP 140/73, HR 73, Temperature 97.9F. Will continue to monitor patient.
--- NOTE | 2020-05-29 19:18 | NUR ---
NURSE HAND-OFF REPORT: Important Events on Shift: Patient Status: Stable Diet: Nepro 40 ml/hr Pending Orders: None Pending Results/Labs:None Pending MD notification:None Latest Vital Signs: Temperature 97.5 , Pulse 63 , B/P 146 /85 , Respiratory Rate 18 , O2 SAT 100 , Mechanical Ventilator, O2 Flow Rate . Vital Sign Comment: Stable EKG Rhythm: SR w/ BBB Rhythm change?: N MD Notified?: N - MD Response: Latest Seay Fall Score: 75 Fall Risk: High Risk Safety Measures: Call light Within Reach, Bed Alarm Zone 1, Side Rails Side Rails x2, Bed position Low and Locked. Fall Precautions: Yellow Socks Patient Fall Education Report given to AMELIE Rocha.
--- NOTE | 2020-05-29 19:26 | NUR ---
NURSE NOTES: Received report from AMELIE Cain. Pt is awake, non-verbal, follows commands. No signs of distress noted. residential monitor shows SR and O2 saturation is 100% on SIMV 10, TV 500, FiO2 40%, PEEP 5. No signs of pain noted. GT dressing is intact and dry, running Nepro 40cc/hr, no residuals noted. Pt had large liquid BM, hx of colonoscopy earlier in the day. L FA 22g intact and asymptomatic, flushing well. L permacath intact and dry. Skin issues noted. Code status, allergy status, and fall/aspiration risk noted and reinforced. HOB elevated, side rails x3, bed alarmed, locked, and in lowest position. Will continue to monitor. Will continue plan of care.
[2020-05-29 20:00] VITALS: BP 142/91
[2020-05-29] MEDS: Atorvastatin 20mg tab GT SCH (20:20)
[2020-05-29] MEDS: Dyna-Hex 2% Top Sol 2oz TOPIC SCH (20:20)
--- NOTE | 2020-05-29 21:10 | NUR ---
NURSE NOTES: Pt pulled out IV. New IV inserted into L hand 22g, asymptomatic and flushing well. Pt was combative and during IV insertion.
[2020-05-30] VITALS: BP 152/60
--- NOTE | 2020-05-30 01:30 | NUR ---
NURSE NOTES: Pt is restless, attempting to get off the BW restraints. Pt does seems agitated at this time. Will continue to monitor.
[2020-05-30 04:00] VITALS: BP 148/70
--- NOTE | 2020-05-30 04:20 | NUR ---
NURSE NOTES: Gave pt a partial bed bath and changed linens. Pt had one small brown liquid BM. Dressing changed for wounds. Will continue plan of care. will continue to monitor.
[2020-05-30 04:54] LABS: BASOPHILS % (AUTO) 1.4 % (0.0-2.0); EOSINOPHILS % (AUTO) 3.5 % (0.0-3.0); HEMATOCRIT 25.9 % (42.0-52.0); HEMOGLOBIN 8.7 G/DL (14.2-18.0); LYMPHOCYTES % (AUTO) 8.5 % (20.0-45.0); MEAN CORPUSCULAR VOLUME 88 FL (80-99); MONOCYTES % (AUTO) 5.9 % (1.0-10.0); NEUTROPHILS % (AUTO) 80.6 % (45.0-75.0); PLATELET COUNT 188 K/UL (150-450); RED BLOOD COUNT 2.96 M/UL (4.70-6.10); RED CELL DISTRIBUTION WIDTH 17.1 % (11.6-14.8); WHITE BLOOD COUNT 7.7 K/UL (4.8-10.8)
--- NOTE | 2020-05-30 05:12 | NUR ---
NURSE NOTES: Pt complained of pain, unspecified location. Tylenol 650mg GT given. Will reassess in 30 minutes.
[2020-05-30] MEDS: Acetaminophen 650mg/20.3ml GT PRN (05:16)
[2020-05-30 05:36] LABS: ALANINE AMINOTRANSFERASE 78 U/L (12-78); ALBUMIN 2.2 G/DL (3.4-5.0); ALBUMIN/GLOBULIN RATIO 0.4 (1.0-2.7); ALKALINE PHOSPHATASE 433 U/L (46-116); ANION GAP 9 mmol/L (5-15); ASPARTATE AMINO TRANSFERASE 69 U/L (15-37); BILIRUBIN,TOTAL 0.7 MG/DL (0.2-1.0); BLOOD UREA NITROGEN 101 mg/dL (7-18); CALCIUM 8.9 MG/DL (8.5-10.1); CARBON DIOXIDE 28 MMOL/L (21-32); CHLORIDE 100 MMOL/L (98-107); CREATININE 4.4 MG/DL (0.55-1.30); PHOSPHORUS 4.8 MG/DL (2.5-4.9); POTASSIUM 4.9 MMOL/L (3.5-5.1); SODIUM 137 MMOL/L (136-145)
--- NOTE | 2020-05-30 07:00 | NUR ---
NURSE NOTES: Received patient from AMELIE Rocha. patient is sleeping in bed. sinus rhythm on the monitor. trach to vent at prescribed settings, tolerating well. gtube and tube feeding running at prescribed rate, tolerating well. bilateral soft restraints are in place. bed to lowest position and locked. call light within easy reach. Will continue plan of care.
--- NOTE | 2020-05-30 07:18 | NUR ---
NURSE HAND-OFF REPORT: Important Events on Shift:[Placed on BW restraints for combativeness, pulling medical devices] Patient Status: [Stable] Diet: [Nepro 40cc/hr] Pending Orders: [NA] Pending Results/Labs:[NA] Pending MD notification:[NA] Latest Vital Signs: Temperature 97.7 , Pulse 68 , B/P 148 /70 , Respiratory Rate 18 , O2 SAT 100 , Mechanical Ventilator, O2 Flow Rate . Vital Sign Comment: [Stable] EKG Rhythm: SR, BBB Rhythm change?: N MD Notified?: N - MD Response: Latest Seay Fall Score: 75 Fall Risk: High Risk Safety Measures: Call light Within Reach, Bed Alarm Zone 1, Side Rails Side Rails x2, Bed position Low and Locked. Fall Precautions: Yellow Socks Patient Fall Education Report given to [AMELIE Hurley].
[2020-05-30 08:00] VITALS: BP 139/74
[2020-05-30] MEDS: Dakin's 0.125% Soln (Quarter Strength) 16oz TOPIC SCH ×2 (09:00→09:06)
[2020-05-30] MEDS: Ascorbic Acid 500mg tab GT SCH (09:05)
[2020-05-30] MEDS: Aspirin Baby 81mg GT SCH (09:05)
[2020-05-30] MEDS: Metoprolol Tartrate 50mg tab GT SCH ×2 (09:05→23:13)
[2020-05-30] MEDS: Vitamin D 400 units TAB ORAL SCH (09:06)
[2020-05-30] MEDS: Nephrovite tab (Rena-Vite) GT SCH (09:06)
--- NOTE | 2020-05-30 10:12 | General Progress Note ---
Subjective ROS Limited/Unobtainable: No Allergies: Coded Allergies: No Known Allergies (Unverified , 04/22/20) Objective Last 24 Hour Vital Signs Date Time Temp Pulse Resp B/P (MAP) Pulse Ox O2 Delivery O2 Flow Rate FiO2 05/30/20 09:05 68 139/74 05/30/20 09:00 40 05/30/20 08:00 97.7 68 20 139/74 (95) 100 05/30/20 08:00 Mechanical Ventilator 05/30/20 07:10 68 20 40 05/30/20 04:00 Mechanical Ventilator 05/30/20 04:00 40 05/30/20 04:00 97.7 68 18 148/70 (96) 100 05/30/20 03:54 68 05/30/20 01:10 70 19 40 05/30/20 00:00 97.9 67 18 152/60 (90) 100 05/30/20 00:00 40 05/30/20 00:00 Mechanical Ventilator 05/29/20 23:58 67 05/29/20 22:50 67 19 40 05/29/20 20:20 87 142/91 05/29/20 20:00 97.9 87 18 142/91 (108) 100 05/29/20 20:00 40 05/29/20 20:00 Mechanical Ventilator 05/29/20 19:36 76 16 40 05/29/20 19:27 71 05/29/20 16:00 63 05/29/20 15:55 40 05/29/20 15:54 Mechanical Ventilator 05/29/20 15:53 97.5 73 18 146/85 (105) 100 05/29/20 15:14 70 17 40 05/29/20 12:00 40 05/29/20 12:00 68 05/29/20 12:00 Mechanical Ventilator 05/29/20 12:00 97.7 67 18 130/67 (88) 100 05/29/20 11:13 67 17 40 Intake and Output 05/29/20 05/30/20 19:00 07:00 Intake Total 800 ml 680 ml Balance 800 ml 680 ml Free Water 400 ml 200 ml Tube Feeding 400 ml 480 ml # Bowel Movements 17 6 Laboratory Tests 05/30/20 03:45: White Blood Count 7.7, Red Blood Count 2.96L, Hemoglobin 8.7L, Hematocrit 25.9L, Mean Corpuscular Volume 88, Mean Corpuscular Hemoglobin 29.5, Mean Corpuscular Hemoglobin Concent 33.7, Red Cell Distribution Width 17.1H, Platelet Count 188, Mean Platelet Volume 7.0, Neutrophils (%) (Auto) 80.6H, Lymphocytes (%) (Auto) 8.5L, Monocytes (%) (Auto) 5.9, Eosinophils (%) (Auto) 3.5H, Basophils (%) (Auto) 1.4, Sodium Level 137, Potassium Level 4.9, Chloride Level 100, Carbon Dioxide Level 28, Anion Gap 9, Blood Urea Nitrogen 101H, Creatinine 4.4H, Estimat Glomerular Filtration Rate 14.3, Glucose Level 123H, Calcium Level 8.9, Phosphorus Level 4.8, Magnesium Level 2.8H, Total Bilirubin 0.7, Aspartate Amino Transf (AST/SGOT) 69H, Alanine Aminotransferase (ALT/SGPT) 78, Alkaline Phosphatase 433H, C-Reactive Protein, Quantitative 8.6H, Pro-B-Type Natriuretic Peptide > [id number], Total Protein 7.3, Albumin 2.2L, Globulin 5.1, Albumin/Globulin Ratio 0.4L Height (Feet): 5 Height (Inches): 6.00 Weight (Pounds): 138 General Appearance: no apparent distress EENT: normal ENT inspection Neck: supple Cardiovascular: normal rate Respiratory/Chest: decreased breath sounds Abdomen: normal bowel sounds, non tender, soft Extremities: non-tender Assessment/Plan Problem List: (1) Coagulopathy ICD Codes: D68.9 - Coagulation defect, unspecified SNOMED: 63336382 (2) Chronic respiratory failure ICD Codes: J96.10 - Chronic respiratory failure, unspecified whether with hypoxia or hypercapnia SNOMED: 10098685 (3) End stage renal disease on dialysis ICD Codes: N18.6 - End stage renal disease; Z99.2 - Dependence on renal dialysis SNOMED: 006862491 (4) Anemia in chronic kidney disease (CKD) ICD Codes: N18.9 - Chronic kidney disease, unspecified; D63.1 - Anemia in chronic kidney disease SNOMED: 414625645 (5) DM (diabetes mellitus), type 2, uncontrolled, periph vascular complic ICD Codes: E11.51 - Type 2 diabetes mellitus with diabetic peripheral angiopathy without gangrene; E11.65 - Type 2 diabetes mellitus with hyperglycemia SNOMED: 66982832, 842719746, 207500617 Assessment/Plan: s/p colonoscopy stable H&H GTF dc planning per primary team Ajay Holley MD May 30, 2020 10:12
--- NOTE | 2020-05-30 11:05 | Infectious Diseases Prog Note ---
Assessment/Plan 50yo M with: Afebrile Normal WBC COVID neg C.dif neg R foot pressure ulcerations - no active s/sx of infection, but needs aggressive wound care and debridement to promote healing Anemia prompting admission PMH: ESRD on HD Vent dependent H/o CVA Quadriplegic Plan: Cont to monitor off abx Recommend Podiatry evaluation of R foot pressure ulcerations for debridement, needs aggressive wound care, can be pursued as outpatient 05/28 SP CTX #5 empiric Monitor CBC/CMP Monitor temp curve, hemodynamics Monitor resp status D/w RN Thank you for this consult. [facility] will continue to follow. Subjective Allergies: Coded Allergies: No Known Allergies (Unverified , 04/22/20) AF WBC 7.7 NAD off abx Objective Last 24 Hour Vital Signs Date Time Temp Pulse Resp B/P (MAP) Pulse Ox O2 Delivery O2 Flow Rate FiO2 05/30/20 09:05 68 139/74 05/30/20 09:00 40 05/30/20 08:00 97.7 68 20 139/74 (95) 100 05/30/20 08:00 Mechanical Ventilator 05/30/20 07:10 68 20 40 05/30/20 04:00 Mechanical Ventilator 05/30/20 04:00 40 05/30/20 04:00 97.7 68 18 148/70 (96) 100 05/30/20 03:54 68 05/30/20 01:10 70 19 40 05/30/20 00:00 97.9 67 18 152/60 (90) 100 05/30/20 00:00 40 05/30/20 00:00 Mechanical Ventilator 05/29/20 23:58 67 05/29/20 22:50 67 19 40 05/29/20 20:20 87 142/91 05/29/20 20:00 97.9 87 18 142/91 (108) 100 05/29/20 20:00 40 05/29/20 20:00 Mechanical Ventilator 05/29/20 19:36 76 16 40 05/29/20 19:27 71 05/29/20 16:00 63 05/29/20 15:55 40 05/29/20 15:54 Mechanical Ventilator 05/29/20 15:53 97.5 73 18 146/85 (105) 100 05/29/20 15:14 70 17 40 05/29/20 12:00 40 05/29/20 12:00 68 05/29/20 12:00 Mechanical Ventilator 05/29/20 12:00 97.7 67 18 130/67 (88) 100 05/29/20 11:13 67 17 40 Height (Feet): 5 Height (Inches): 6.00 Weight (Pounds): 138 Gen: NAD in bed HEENT: NCAT, trach CV: RRR Pulm: CTAB Abd: Soft, NTND Ext: R foot s/p all toes amputation w/ open wound there and open pressure wound on heal, both with drainage though no TTP and no surrounding erythema Neuro: Awake Laboratory Tests Test 05/30/20 03:45 White Blood Count 7.7 K/UL (4.8-10.8) Red Blood Count 2.96 M/UL (4.70-6.10) L Hemoglobin 8.7 G/DL (14.2-18.0) L Hematocrit 25.9 % (42.0-52.0) L Mean Corpuscular Volume 88 FL (80-99) Mean Corpuscular Hemoglobin 29.5 PG (27.0-31.0) Mean Corpuscular Hemoglobin Concent 33.7 G/DL (32.0-36.0) Red Cell Distribution Width 17.1 % (11.6-14.8) H Platelet Count 188 K/UL (150-450) Mean Platelet Volume 7.0 FL (6.5-10.1) Neutrophils (%) (Auto) 80.6 % (45.0-75.0) H Lymphocytes (%) (Auto) 8.5 % (20.0-45.0) L Monocytes (%) (Auto) 5.9 % (1.0-10.0) Eosinophils (%) (Auto) 3.5 % (0.0-3.0) H Basophils (%) (Auto) 1.4 % (0.0-2.0) Sodium Level 137 MMOL/L (136-145) Potassium Level 4.9 MMOL/L (3.5-5.1) Chloride Level 100 MMOL/L (98-107) Carbon Dioxide Level 28 MMOL/L (21-32) Anion Gap 9 mmol/L (5-15) Blood Urea Nitrogen 101 mg/dL (7-18) H Creatinine 4.4 MG/DL (0.55-1.30) H Estimat Glomerular Filtration Rate 14.3 mL/min (>60) Glucose Level 123 MG/DL (74-106) H Calcium Level 8.9 MG/DL (8.5-10.1) Phosphorus Level 4.8 MG/DL (2.5-4.9) Magnesium Level 2.8 MG/DL (1.8-2.4) H Total Bilirubin 0.7 MG/DL (0.2-1.0) Aspartate Amino Transf (AST/SGOT) 69 U/L (15-37) H Alanine Aminotransferase (ALT/SGPT) 78 U/L (12-78) Alkaline Phosphatase 433 U/L (46-116) H C-Reactive Protein, Quantitative 8.6 mg/dL (0.00-0.90) H Pro-B-Type Natriuretic Peptide > 73480 pg/mL (0-125) H Total Protein 7.3 G/DL (6.4-8.2) Albumin 2.2 G/DL (3.4-5.0) L Globulin 5.1 g/dL Albumin/Globulin Ratio 0.4 (1.0-2.7) L Current Medications Medications (Trade) Dose Ordered Sig/Titus Route PRN Reason Start Time Stop Time Status Last Admin Dose Admin Acetaminophen (Tylenol) 650 mg Q6H PRN GT Mild Pain (Pain Scale 1-3) 05/24/20 20:45 06/23/20 20:44 05/30/20 05:16 Ascorbic Acid (Vitamin C) 500 mg DAILY GT 05/22/20 09:00 06/21/20 08:59 05/30/20 09:05 Aspirin (ASA) 81 mg DAILY GT 05/22/20 09:00 07/06/20 08:59 05/30/20 09:05 Atorvastatin Calcium (Lipitor) 20 mg BEDTIME GT 05/21/20 21:00 08/19/20 20:59 05/29/20 20:20 Bisacodyl (Dulcolax) 10 mg DAILYPRN PRN RECTAL Constipation 05/21/20 15:15 08/19/20 15:14 Chlorhexidine Gluconate (Saba-Hex 2%) 1 applic DAILY@1999 TOPIC 05/22/20 20:00 08/20/20 19:59 05/29/20 20:20 Metoprolol Tartrate (Lopressor) 50 mg EVERY 12 HOURS GT 05/21/20 21:00 08/19/20 20:59 05/30/20 09:05 Sodium Hypochlorite (Dakin's Quarter Strength) 1 applic DAILY TOPIC 05/23/20 09:00 06/22/20 08:59 05/30/20 09:06 Sodium Hypochlorite (Dakin's Quarter Strength) 1 applic DAILY TOPIC 05/24/20 09:00 06/23/20 08:59 05/29/20 08:56 Vitamin B Complex/ Vit C/Folic Acid (Nephrovite) 1 tab DAILY GT 05/22/20 09:00 06/21/20 08:59 05/30/20 09:06 Vitamin D (Vitamin D) 400 unit DAILY ORAL 05/22/20 09:00 06/21/20 08:59 05/30/20 09:06 Heaven Salinas M.D. May 30, 2020 11:05
[2020-05-30 12:00] VITALS: BP 106/65
--- NOTE | 2020-05-30 12:35 | Nephrology Progress Note ---
Assessment/Plan Problem List: (1) End stage renal disease on dialysis (2) Hypercalcemia (3) Anemia (4) Chronic respiratory failure Assessment End-stage renal disease on dialysis Coagulopathy Anemia Chronic respiratory failure History of hypercalcemia, corrected serum calcium for low albumin remains elevated Plan May 30: Patient last dialyzed May 28. Will order dialysis tomorrow. Hemoglobin higher. Renal parameters reviewed. Abnormal electrolytes addressed. May 29: Patient last dialyzed May 28. Had colonoscopy for rectal bleed. Hemoglobin lower. Transfusion per television reporter if needed. Monitor renal parameters. Hemodialysis as needed. Per orders. May 28: Patient dialyzed today. Has rectal bleed. Due for colonoscopy tomorrow by GI. Continue to monitor renal parameters and CBC. Today's lab ordered and pending May 27: Last dialysis May 25. Will order dialysis for tomorrow. Labs reviewed. May 26: Dialyzed yesterday. Labs reviewed. Renvela discontinued. 1 dose of Neutra-Phos given. Continue to monitor renal parameters. May 25: Patient due for dialysis today. Labs reviewed. Medication list reviewed. Renvela dose adjusted. Continue to monitor electrolytes and renal parameters. May 24: No labs drawn today. Last dialysis May 22. Will check lab tomorrow. Will dialyze as needed. Hemodialysis yesterday May 22 Aredia 60 mg IV piggyback for hypercalcemia, given on May 22 Continue to monitor renal parameters calcium and phosphorus. Per orders, per PMD. Subjective ROS Limited/Unobtainable: Yes Objective Objective Last 24 Hour Vital Signs Date Time Temp Pulse Resp B/P (MAP) Pulse Ox O2 Delivery O2 Flow Rate FiO2 05/30/20 12:00 40 05/30/20 09:05 68 139/74 05/30/20 09:00 40 05/30/20 08:00 97.7 68 20 139/74 (95) 100 05/30/20 08:00 Mechanical Ventilator 05/30/20 08:00 65 05/30/20 07:10 68 20 40 05/30/20 04:00 Mechanical Ventilator 05/30/20 04:00 40 05/30/20 04:00 97.7 68 18 148/70 (96) 100 05/30/20 03:54 68 05/30/20 01:10 70 19 40 05/30/20 00:00 97.9 67 18 152/60 (90) 100 05/30/20 00:00 40 05/30/20 00:00 Mechanical Ventilator 05/29/20 23:58 67 05/29/20 22:50 67 19 40 05/29/20 20:20 87 142/91 05/29/20 20:00 97.9 87 18 142/91 (108) 100 05/29/20 20:00 40 05/29/20 20:00 Mechanical Ventilator 05/29/20 19:36 76 16 40 05/29/20 19:27 71 05/29/20 16:00 63 05/29/20 15:55 40 05/29/20 15:54 Mechanical Ventilator 05/29/20 15:53 97.5 73 18 146/85 (105) 100 05/29/20 15:14 70 17 40 Intake and Output 05/29/20 05/30/20 19:00 07:00 Intake Total 800 ml 680 ml Balance 800 ml 680 ml Free Water 400 ml 200 ml Tube Feeding 400 ml 480 ml # Bowel Movements 17 6 Laboratory Tests 05/30/20 03:45: White Blood Count 7.7, Red Blood Count 2.96L, Hemoglobin 8.7L, Hematocrit 25.9L, Mean Corpuscular Volume 88, Mean Corpuscular Hemoglobin 29.5, Mean Corpuscular Hemoglobin Concent 33.7, Red Cell Distribution Width 17.1H, Platelet Count 188, Mean Platelet Volume 7.0, Neutrophils (%) (Auto) 80.6H, Lymphocytes (%) (Auto) 8.5L, Monocytes (%) (Auto) 5.9, Eosinophils (%) (Auto) 3.5H, Basophils (%) (Auto) 1.4, Sodium Level 137, Potassium Level 4.9, Chloride Level 100, Carbon Dioxide Level 28, Anion Gap 9, Blood Urea Nitrogen 101H, Creatinine 4.4H, Estimat Glomerular Filtration Rate 14.3, Glucose Level 123H, Calcium Level 8.9, Phosphorus Level 4.8, Magnesium Level 2.8H, Total Bilirubin 0.7, Aspartate Amino Transf (AST/SGOT) 69H, Alanine Aminotransferase (ALT/SGPT) 78, Alkaline Phosp hatase 433H, C-Reactive Protein, Quantitative 8.6H, Pro-B-Type Natriuretic Peptide > 63854S, Total Protein 7.3, Albumin 2.2L, Globulin 5.1, Albumin/Globulin Ratio 0.4L Height (Feet): 5 Height (Inches): 6.00 Weight (Pounds): 138 General Appearance: no apparent distress EENT: other - Trach to vent Cardiovascular: normal rate Respiratory/Chest: decreased breath sounds Abdomen: distended Maurilio King MD May 30, 2020 12:35
--- NOTE | 2020-05-30 13:57 | Surgery Progress Note ---
Surgery Progress Note Subjective Additional Comments no acute events Objective Last 24 Hour Vital Signs Date Time Temp Pulse Resp B/P (MAP) Pulse Ox O2 Delivery O2 Flow Rate FiO2 05/30/20 12:00 Mechanical Ventilator 05/30/20 12:00 40 05/30/20 12:00 65 05/30/20 12:00 98.1 60 19 106/65 (79) 100 05/30/20 09:05 68 139/74 05/30/20 09:00 40 05/30/20 08:00 97.7 68 20 139/74 (95) 100 05/30/20 08:00 Mechanical Ventilator 05/30/20 08:00 65 05/30/20 07:10 68 20 40 05/30/20 04:00 Mechanical Ventilator 05/30/20 04:00 40 05/30/20 04:00 97.7 68 18 148/70 (96) 100 05/30/20 03:54 68 05/30/20 01:10 70 19 40 05/30/20 00:00 97.9 67 18 152/60 (90) 100 05/30/20 00:00 40 05/30/20 00:00 Mechanical Ventilator 05/29/20 23:58 67 05/29/20 22:50 67 19 40 05/29/20 20:20 87 142/91 05/29/20 20:00 97.9 87 18 142/91 (108) 100 05/29/20 20:00 40 05/29/20 20:00 Mechanical Ventilator 05/29/20 19:36 76 16 40 05/29/20 19:27 71 05/29/20 16:00 63 05/29/20 15:55 40 05/29/20 15:54 Mechanical Ventilator 05/29/20 15:53 97.5 73 18 146/85 (105) 100 05/29/20 15:14 70 17 40 I&O Intake and Output 05/29/20 05/30/20 19:00 07:00 Intake Total 800 ml 680 ml Balance 800 ml 680 ml Free Water 400 ml 200 ml Tube Feeding 400 ml 480 ml # Bowel Movements 17 6 Dressing: saturated Cardiovascular: RSR Respiratory: decreased breath sounds Abdomen: soft, non-tender, present bowel sounds Extremities: no tenderness, no cyanosis Laboratory Tests Test 05/30/20 03:45 White Blood Count 7.7 K/UL (4.8-10.8) Red Blood Count 2.96 M/UL (4.70-6.10) L Hemoglobin 8.7 G/DL (14.2-18.0) L Hematocrit 25.9 % (42.0-52.0) L Mean Corpuscular Volume 88 FL (80-99) Mean Corpuscular Hemoglobin 29.5 PG (27.0-31.0) Mean Corpuscular Hemoglobin Concent 33.7 G/DL (32.0-36.0) Red Cell Distribution Width 17.1 % (11.6-14.8) H Platelet Count 188 K/UL (150-450) Mean Platelet Volume 7.0 FL (6.5-10.1) Neutrophils (%) (Auto) 80.6 % (45.0-75.0) H Lymphocytes (%) (Auto) 8.5 % (20.0-45.0) L Monocytes (%) (Auto) 5.9 % (1.0-10.0) Eosinophils (%) (Auto) 3.5 % (0.0-3.0) H Basophils (%) (Auto) 1.4 % (0.0-2.0) Sodium Level 137 MMOL/L (136-145) Potassium Level 4.9 MMOL/L (3.5-5.1) Chloride Level 100 MMOL/L (98-107) Carbon Dioxide Level 28 MMOL/L (21-32) Anion Gap 9 mmol/L (5-15) Blood Urea Nitrogen 101 mg/dL (7-18) H Creatinine 4.4 MG/DL (0.55-1.30) H Estimat Glomerular Filtration Rate 14.3 mL/min (>60) Glucose Level 123 MG/DL (74-106) H Calcium Level 8.9 MG/DL (8.5-10.1) Phosphorus Level 4.8 MG/DL (2.5-4.9) Magnesium Level 2.8 MG/DL (1.8-2.4) H Total Bilirubin 0.7 MG/DL (0.2-1.0) Aspartate Amino Transf (AST/SGOT) 69 U/L (15-37) H Alanine Aminotransferase (ALT/SGPT) 78 U/L (12-78) Alkaline Phosphatase 433 U/L (46-116) H C-Reactive Protein, Quantitative 8.6 mg/dL (0.00-0.90) H Pro-B-Type Natriuretic Peptide > 73154 pg/mL (0-125) H Total Protein 7.3 G/DL (6.4-8.2) Albumin 2.2 G/DL (3.4-5.0) L Globulin 5.1 g/dL Albumin/Globulin Ratio 0.4 (1.0-2.7) L Plan Problems: (1) Complications, dialysis, catheter, mechanical (2) Decubitus ulcer, heel Assessment & Plan: 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 Heel ulcer identified as well. Foul-smelling. Fortunately this does not seem salvageable by any means given the extensive loss at the flap that has dehisced the exposed bone as well as the heel. Currently stable otherwise known chronic in nature not patient's acute problem. Will recommend that patient has a right BKA at some point given the current findings we will continue with local wound care tentatively. Patient identified to have a heel ulcer on the left side as well. Pt presented on admission with Tracheostomy ,GT and dehiscence of R TMA with necrosis extending into lateral aspect of R foot. Full thickness ulcer R heel with slough and necrosis. Moderate amt haemopurulent exudate noted from R lexi l.Wounds are malodorous. Pt exhibited distress with elevation of R leg during wound care. Haemosiderin deposit R lower ext. Dry eschar with cracking at base noted to L Hallux(L)3cm x (W)4.5cm. Dry eschar noted to dorsal L 1st,L 3rd, and L 5th metatarsals. L Heel is boggy with non-blanchable erythema. DTPI noted to upper R Buttocks(L)2.3cm x (W)4.5cm. Base of wound is indurated,pu rpuric with surrounding non-blanchable erythema.Non-Blanchable erythema without induration or fluctuance at Sacrum. Tx.Plan: Cleanse L foot wounds with Dakin's [place] 0.25%. Apply Dakin's moistened Kerlix to wounds. Apply Moisture Barrier periwound. Cover with ABD pads. Wrap with Kerlix Daily and prn. Apply Betadine to L Hallux ,L1st,L 3rd and L 5th metatarsals Daily. Leave open to Air. Apply Moisture Barrier Paste to Sacrum /R Buttocks. Cover with Optifoam drsgs. Change every 3 days and prn. Reposition at least every 2hours or as tolerated. Off-load heels with pillow. DAILY ESTIMATED NEEDS: Needs based on Critical care, wound, esrd on HD 65.1kg 25-30 kcals/kg 0083-7851 total kcals 1.5-2 g protein/kg 98-130 g total protein Fluid per MD, on HD NUTRITION DIAGNOSIS: Increased kcal and pro needs r/t renal dysfunction as evidenced by pt w/ ESRD on HD, notable open LE wounds, vent dep via trach and PEG dep. CURRENT TF: Nepro @55 ENTERAL NUTRITION RECOMMENDATIONS: Nepro LOWER to goal of 45ml/hr x24 hrs + Prosource BID to provide 1080ml, 1944 kcal, 87g pro, 785ml free H2O - Rec to LOWER goal rate of 45ml/hr - Add PROSOURCE 1 pack BID via PEG (11g pro/each) - On HD, water flush per MD - HOB over 30 degrees ADDITIONAL RECOMMENDATIONS: 1) maintain calibrated bed scale wt 2) Wound care: Vit C dosing per nephrology nephrovite qdaily. When tolerating TF at goal w/ Prosource BID-> add DEE BID (3) Ischemia of right lower extremity Assessment & Plan: prognosis of LE guarded cont with dressings may need amp at some point podiatry input appreciated agree with amputation when stable if medically clear and consent DAILY ESTIMATED NEEDS: Needs based on Critical care, wound, esrd on HD 65.1kg 25-30 kcals/kg 9463-2196 total kcals 1.5-2 g protein/kg 98-130 g total protein Fluid per MD, on HD NUTRITION DIAGNOSIS: Increased kcal and pro needs r/t renal dysfunction as evidenced by pt w/ ESRD on HD, notable open LE wounds, vent dep via trach and PEG dep. CURRENT TF: Nepro @45 + PS x2 ENTERAL NUTRITION RECOMMENDATIONS: Nepro goal of 45ml/hr x24 hrs + Prosource BID to provide 1080ml, 1944 kcal, 87g pro, 785ml free H2O - Maintain current rate 45ml/hr as tolerated. - Add PROSOURCE 1 pack BID via PEG - On HD, water flush per MD Rivera STEELE over 30 degrees ADDITIONAL RECOMMENDATIONS: 1) maintain calibrated bed scale wt 2) Wound care: Vit C dosing per nephrology nephrovite qdaily. When tolerating TF at goal w/ Prosource BID-> add DEE BID 3) Monitor wt trend (4) Hypercalcemia (5) Coagulopathy (6) Chronic respiratory failure (7) End stage renal disease on dialysis (8) Anemia in chronic kidney disease (CKD) (9) Anemia (10) GI bleed Dany Wilder May 30, 2020 13:57
--- NOTE | 2020-05-30 15:07 | NUR ---
CASE MANAGEMENT:REVIEW SI;ANEMIA. ESRD/HD. TRACH/VENT/GT 97.9 70 19 152/60 100% TRACH/VENT FIO2 40% H/H 8.7/25.9 BUN 101 CR 4.4 MAG 2.8 AST 69 ALP 433 CRP 8.6 BNP >23781 ALB 2.2 IS;LOPRESSOR GT Q12 ASA GT QD TYLENOL GT Q6 PRN NEPHROVITE GT QD SDU STATUS DCP;FROM [facility]
[2020-05-30 16:00] VITALS: BP 110/71
--- NOTE | 2020-05-30 19:00 | NUR ---
NURSE NOTES: Received pt in bed, no signs of distress noted. Remain confuse and disoriented. Soft restraints bilaterally in place. Respirations even and unlabored. Patient is trach to vent and tolerating well. GT feeding of nepro at 40 cc/hr..tolerating well. Patient has left subclavian access for dialysis. Rt hand 22 patent and intact. SR-ST on residential monitor. HOB elevated, bed is on lowest position, locked, side rails up, call light within reach. Patient will continue to be monitored.
--- NOTE | 2020-05-30 19:30 | NUR ---
NURSE HAND-OFF REPORT: Important Events on Shift:HD today Patient Status: FULL CODE Diet: nepro 40ml/hr Pending Orders: [] Pending Results/Labs:[] Pending MD notification:[] Latest Vital Signs: Temperature 98.9 , Pulse 70 , B/P 110 /71 , Respiratory Rate 19 , O2 SAT 100 , Mechanical Ventilator, O2 Flow Rate . Vital Sign Comment: stable EKG Rhythm: Sinus Rhythm Rhythm change?: N MD Notified?: N - MD Response: Latest Seay Fall Score: 75 Fall Risk: High Risk Safety Measures: Call light Within Reach, Bed Alarm Zone 1, Side Rails Side Rails x2, Bed position Low and Locked. Fall Precautions: Yellow Socks Patient Fall Education Report given to Ant charge nurse.
[2020-05-30 20:00] VITALS: BP 105/68
[2020-05-30] MEDS: Atorvastatin 20mg tab GT SCH (23:11)
[2020-05-30] MEDS: Dyna-Hex 2% Top Sol 2oz TOPIC SCH (23:11)
[2020-05-31] VITALS: BP 140/76
--- NOTE | 2020-05-31 | NUR ---
NURSE NOTES: Condition unchanged. In no apparent distress. VSS. Afebrile. Tolerating GT feeing well. Will continue to monitor.
[2020-05-31 04:00] VITALS: BP 129/70
--- NOTE | 2020-05-31 04:00 | NUR ---
NURSE NOTES: No distress noted. Respirations even and unlabored. Continue GT feeding of nepro at 40 cc/hr. and tolerating well. Pt is anuric. HOB elevated in lowest position, locked, side rails X2 up, call light within reach. Sr on head pumper. Patient will continue POC.
--- NOTE | 2020-05-31 07:20 | NUR ---
HAND-OFF: Report given to AMELIE Rico.
[2020-05-31 08:00] VITALS: BP 146/86
[2020-05-31] MEDS: Metoprolol Tartrate 50mg tab GT SCH ×2 (09:00→22:54)
[2020-05-31] MEDS: Vitamin D 400 units TAB ORAL SCH (09:09)
[2020-05-31] MEDS: Ascorbic Acid 500mg tab GT SCH (09:10)
[2020-05-31] MEDS: Nephrovite tab (Rena-Vite) GT SCH (09:10)
[2020-05-31] MEDS: Aspirin Baby 81mg GT SCH (09:10)
[2020-05-31] MEDS: Dakin's 0.125% Soln (Quarter Strength) 16oz TOPIC SCH ×2 (09:13)
--- NOTE | 2020-05-31 09:45 | Hematology/Onc Progress Note ---
Assessment/Plan Assessment/Plan Covering Dr. Warren Assessment and Recs # Anemia due to likely chronic disease, ongoing, this is the first time he has been here --> anemia panel to order for downtrending hgb --> hgb 8.9-->9.4->8.4->>>8.7->8.1-->7.7->7.3->8.7 --> consider iron / epogen after anemia panel returns --> smear has been noted, no hemolysis --> 05/29 for endoscopy done, peg placed # Thrombocytopenia - potential causes multifactorial, evaluate liver and viral etiologies to begin, also could be related to underlying medications patient has received. --> Hep panel and HIV neg prior --> Ct a/p shows a normal appearing liver --> Peripheral smear ordered to evaluate for blasts /schistocytes --> abx and other meds have been reviewed --> ok for ppx if plt >50k w/ either heparin or lovenox --> plt 124-->186-->164 # Coagulopathy ongoing, ptt and inr elevated --> vitamin k given, as permacath to be removed --> get mixing study --> trend prn # Chronic respiratory failure --> per pulm --> vent + # End stage renal disease on dialysis --> Complications, dialysis, catheter,replacement as needed --> surg eval --> per renal # Dysphagia --> is s/p peg placement # Right lung infection --> repeat cxr now # Gangrenous toe, as per surg # Dvt ppx scds Appreciate consultation and patty RN Subjective Allergies: Coded Allergies: No Known Allergies (Unverified , 04/22/20) All Systems: reviewed and negative except above Subjective 05/24 labs reviewed, cbc/bmp ordered, no bleeding on venttrach, gt 05/25 labs reviewed, was positive for large bm overnight, +ob, meds reviewed 05/26 rectal tube was removed, labs noted, no bleeding, labs reviewed 05/27 on vent hgb 7.3, no hemolysis, no night sweats 05/28 labs pending and hd today, may be close to dc 05/29 nv, no bleeding, labs noted, no bleeding, for colo today 05/31 colo reviewed, on vent, no bleeding, trach, no major changes, hd Objective Objective Current Medications Medications (Trade) Dose Ordered Sig/Titus Route PRN Reason Start Time Stop Time Status Last Admin Dose Admin Acetaminophen (Tylenol) 650 mg Q6H PRN GT Mild Pain (Pain Scale 1-3) 05/24/20 20:45 06/23/20 20:44 05/30/20 05:16 Ascorbic Acid (Vitamin C) 500 mg DAILY GT 05/22/20 09:00 06/21/20 08:59 05/31/20 09:10 Aspirin (ASA) 81 mg DAILY GT 05/22/20 09:00 07/06/20 08:59 05/31/20 09:10 Atorvastatin Calcium (Lipitor) 20 mg BEDTIME GT 05/21/20 21:00 08/19/20 20:59 05/30/20 23:11 Bisacodyl (Dulcolax) 10 mg DAILYPRN PRN RECTAL Constipation 05/21/20 15:15 08/19/20 15:14 Chlorhexidine Gluconate (Saba-Hex 2%) 1 applic DAILY@1999 TOPIC 05/22/20 20:00 08/20/20 19:59 05/30/20 23:11 Metoprolol Tartrate (Lopressor) 50 mg EVERY 12 HOURS GT 05/21/20 21:00 08/19/20 20:59 05/30/20 23:13 Sodium Hypochlorite (Dakin's Quarter Strength) 1 applic DAILY TOPIC 05/23/20 09:00 06/22/20 08:59 05/31/20 09:13 Sodium Hypochlorite (Dakin's Quarter Strength) 1 applic DAILY TOPIC 05/24/20 09:00 06/23/20 08:59 05/31/20 09:13 Vitamin B Complex/ Vit C/Folic Acid (Nephrovite) 1 tab DAILY GT 05/22/20 09:00 06/21/20 08:59 05/31/20 09:10 Vitamin D (Vitamin D) 400 unit DAILY ORAL 05/22/20 09:00 06/21/20 08:59 05/31/20 09:09 Last 24 Hour Vital Signs Date Time Temp Pulse Resp B/P (MAP) Pulse Ox O2 Delivery O2 Flow Rate FiO2 05/31/20 09:00 48 144/80 05/31/20 07:10 72 16 40 05/31/20 06:00 40 05/31/20 04:00 73 05/31/20 04:00 Mechanical Ventilator 05/31/20 04:00 40 05/31/20 04:00 98.4 73 18 129/70 (89) 99 05/31/20 01:30 60 20 40 05/31/20 00:00 40 05/31/20 00:00 72 05/31/20 00:00 98.9 72 18 140/76 (97) 100 05/31/20 00:00 Mechanical Ventilator 05/30/20 23:13 81 165/80 05/30/20 20:00 99.1 61 18 105/68 (80) 100 05/30/20 20:00 80 05/30/20 20:00 Mechanical Ventilator 05/30/20 20:00 40 05/30/20 19:30 65 22 40 05/30/20 16:00 70 05/30/20 16:00 40 05/30/20 16:00 Mechanical Ventilator 05/30/20 16:00 98.9 63 19 110/71 (84) 100 05/30/20 13:00 66 18 40 05/30/20 12:00 Mechanical Ventilator 05/30/20 12:00 40 05/30/20 12:00 65 05/30/20 12:00 98.1 60 19 106/65 (79) 100 05/30/20 09:05 68 139/74 05/30/20 09:00 40 05/30/20 08:00 97.7 68 20 139/74 (95) 100 05/30/20 08:00 Mechanical Ventilator 05/30/20 08:00 65 05/30/20 07:10 68 20 40 05/30/20 04:00 Mechanical Ventilator 05/30/20 04:00 40 05/30/20 04:00 97.7 68 18 148/70 (96) 100 05/30/20 03:54 68 05/30/20 01:10 70 19 40 05/30/20 00:00 97.9 67 18 152/60 (90) 100 05/30/20 00:00 40 05/30/20 00:00 Mechanical Ventilator 05/29/20 23:58 67 05/29/20 22:50 67 19 40 05/29/20 20:20 87 142/91 05/29/20 20:00 97.9 87 18 142/91 (108) 100 05/29/20 20:00 40 05/29/20 20:00 Mechanical Ventilator 05/29/20 19:36 76 16 40 05/29/20 19:27 71 05/29/20 16:00 63 05/29/20 15:55 40 05/29/20 15:54 Mechanical Ventilator 05/29/20 15:53 97.5 73 18 146/85 (105) 100 05/29/20 15:14 70 17 40 05/29/20 12:00 40 05/29/20 12:00 68 05/29/20 12:00 Mechanical Ventilator 05/29/20 12:00 97.7 67 18 130/67 (88) 100 05/29/20 11:13 67 17 40 Intake and Output 05/30/20 05/31/20 19:00 07:00 Intake Total 580 ml 490 ml Output Total 2000 ml Balance 580 ml -1510 ml Free Water 100 ml 50 ml Tube Feeding 480 ml 440 ml Hemodialysis UF 2000 ml # Bowel Movements 1 3 Labs Test 05/28/20 11:00 05/28/20 13:15 05/29/20 02:35 05/30/20 03:45 Stool Occult Blood Positive (NEGATIVE) White Blood Count 7.6 K/UL (4.8-10.8) 7.1 K/UL (4.8-10.8) 7.7 K/UL (4.8-10.8) Red Blood Count 3.00 M/UL (4.70-6.10) 2.54 M/UL (4.70-6.10) 2.96 M/UL (4.70-6.10) Hemoglobin 8.6 G/DL (14.2-18.0) 7.3 G/DL (14.2-18.0) 8.7 G/DL (14.2-18.0) Hematocrit 26.9 % (42.0-52.0) 23.7 % (42.0-52.0) 25.9 % (42.0-52.0) Mean Corpuscular Volume 90 FL (80-99) 93 FL (80-99) 88 FL (80-99) Mean Corpuscular Hemoglobin 28.8 PG (27.0-31.0) 28.8 PG (27.0-31.0) 29.5 PG (27.0-31.0) Mean Corpuscular Hemoglobin Concent 32.2 G/DL (32.0-36.0) 30.8 G/DL (32.0-36.0) 33.7 G/DL (32.0-36.0) Red Cell Distribution Width 16.2 % (11.6-14.8) 16.3 % (11.6-14.8) 17.1 % (11.6-14.8) Platelet Count 189 K/UL (150-450) 179 K/UL (150-450) 188 K/UL (150-450) Mean Platelet Volume 5.8 FL (6.5-10.1) 6.8 FL (6.5-10.1) 7.0 FL (6.5-10.1) Neutrophils (%) (Auto) 78.7 % (45.0-75.0) % (45.0-75.0) 80.6 % (45.0-75.0) Lymphocytes (%) (Auto) 9.8 % (20.0-45.0) % (20.0-45.0) 8.5 % (20.0-45.0) Monocytes (%) (Auto) 7.4 % (1.0-10.0) % (1.0-10.0) 5.9 % (1.0-10.0) Eosinophils (%) (Auto) 2.6 % (0.0-3.0) % (0.0-3.0) 3.5 % (0.0-3.0) Basophils (%) (Auto) 1.6 % (0.0-2.0) % (0.0-2.0) 1.4 % (0.0-2.0) Sodium Level 134 MMOL/L (136-145) 137 MMOL/L (136-145) 137 MMOL/L (136-145) Potassium Level 4.6 MMOL/L (3.5-5.1) 5.1 MMOL/L (3.5-5.1) 4.9 MMOL/L (3.5-5.1) Chloride Level 96 MMOL/L (98-107) 98 MMOL/L (98-107) 100 MMOL/L (98-107) Carbon Dioxide Level 30 MMOL/L (21-32) 28 MMOL/L (21-32) 28 MMOL/L (21-32) Anion Gap 8 mmol/L (5-15) 11 mmol/L (5-15) 9 mmol/L (5-15) Blood Urea Nitrogen 90 mg/dL (7-18) 94 mg/dL (7-18) 101 mg/dL (7-18) Creatinine 3.7 MG/DL (0.55-1.30) 3.9 MG/DL (0.55-1.30) 4.4 MG/DL (0.55-1.30) Estimat Glomerular Filtration Rate 17.5 mL/min (>60) 16.4 mL/min (>60) 14.3 mL/min (>60) Glucose Level 133 MG/DL (74-106) 88 MG/DL (74-106) 123 MG/DL (74-106) Calcium Level 8.5 MG/DL (8.5-10.1) 8.5 MG/DL (8.5-10.1) 8.9 MG/DL (8.5-10.1) Phosphorus Level 4.8 MG/DL (2.5-4.9) Magnesium Level 2.8 MG/DL (1.8-2.4) Total Bilirubin 0.7 MG/DL (0.2-1.0) Aspartate Amino Transf (AST/SGOT) 69 U/L (15-37) Alanine Aminotransferase (ALT/SGPT) 78 U/L (12-78) Alkaline Phosphatase 433 U/L (46-116) C-Reactive Protein, Quantitative 8.6 mg/dL (0.00-0.90) Pro-B-Type Natriuretic Peptide > 32215 pg/mL (0-125) Total Protein 7.3 G/DL (6.4-8.2) Albumin 2.2 G/DL (3.4-5.0) Globulin 5.1 g/dL Albumin/Globulin Ratio 0.4 (1.0-2.7) Test 05/31/20 08:20 Height (Feet): 5 Height (Inches): 6.00 Weight (Pounds): 138 Objective Physical Exam Vitals: reviewed, normal General Appearance: no apparent distress, other - Nonverbal Head: normocephalic, atraumatic: no angioedema, normal voice Neck: full range of motion, supple/symm/no masses Respiratory: chest non-tender, lungs clear, +++vent/trach Cardiovascular: regular rate, rhythm, no edema Gastrointestinal: normal bowel sounds, ++gt Genitourinary: normal inspection, no CVA tenderness Musculoskeletal: back normal, normal range of motion Neurologic: other - Nonverbal Psychiatric: other - Nonverbal Lymphatic: no adenopathy Nick Whiteside MD May 31, 2020 09:45
[2020-05-31 09:47] LABS: HEMATOCRIT 26.4 % (42.0-52.0); HEMOGLOBIN 8.6 G/DL (14.2-18.0); LYMPHOCYTES % (AUTO) 11.8 % (20.0-45.0); MEAN CORPUSCULAR VOLUME 88 FL (80-99); MONOCYTES % (AUTO) 5.3 % (1.0-10.0); NEUTROPHILS % (AUTO) 78.9 % (45.0-75.0); PLATELET COUNT 180 K/UL (150-450); RED BLOOD COUNT 3.01 M/UL (4.70-6.10); RED CELL DISTRIBUTION WIDTH 17.8 % (11.6-14.8); WHITE BLOOD COUNT 7.2 K/UL (4.8-10.8)
[2020-05-31 10:30] LABS: CREATININE 3.1 MG/DL (0.55-1.30); POTASSIUM 4.2 MMOL/L (3.5-5.1)
[2020-05-31 10:50] LABS: ALANINE AMINOTRANSFERASE 137 U/L (12-78); ALBUMIN 2.2 G/DL (3.4-5.0); ALKALINE PHOSPHATASE 467 U/L (46-116); ASPARTATE AMINO TRANSFERASE 133 U/L (15-37); BILIRUBIN,DIRECT 0.4 MG/DL (0.0-0.3); BILIRUBIN,TOTAL 0.7 MG/DL (0.2-1.0); PHOSPHORUS 3.9 MG/DL (2.5-4.9)
--- NOTE | 2020-05-31 10:51 | General Progress Note ---
Subjective ROS Limited/Unobtainable: No Allergies: Coded Allergies: No Known Allergies (Unverified , 04/22/20) Objective Last 24 Hour Vital Signs Date Time Temp Pulse Resp B/P (MAP) Pulse Ox O2 Delivery O2 Flow Rate FiO2 05/31/20 09:00 48 144/80 05/31/20 07:10 72 16 40 05/31/20 06:00 40 05/31/20 04:00 73 05/31/20 04:00 Mechanical Ventilator 05/31/20 04:00 40 05/31/20 04:00 98.4 73 18 129/70 (89) 99 05/31/20 01:30 60 20 40 05/31/20 00:00 40 05/31/20 00:00 72 05/31/20 00:00 98.9 72 18 140/76 (97) 100 05/31/20 00:00 Mechanical Ventilator 05/30/20 23:13 81 165/80 05/30/20 20:00 99.1 61 18 105/68 (80) 100 05/30/20 20:00 80 05/30/20 20:00 Mechanical Ventilator 05/30/20 20:00 40 05/30/20 19:30 65 22 40 05/30/20 16:00 70 05/30/20 16:00 40 05/30/20 16:00 Mechanical Ventilator 05/30/20 16:00 98.9 63 19 110/71 (84) 100 05/30/20 13:00 66 18 40 05/30/20 12:00 Mechanical Ventilator 05/30/20 12:00 40 05/30/20 12:00 65 05/30/20 12:00 98.1 60 19 106/65 (79) 100 Intake and Output 05/30/20 05/31/20 19:00 07:00 Intake Total 580 ml 490 ml Output Total 2000 ml Balance 580 ml -1510 ml Free Water 100 ml 50 ml Tube Feeding 480 ml 440 ml Hemodialysis UF 2000 ml # Bowel Movements 1 3 Laboratory Tests 05/31/20 08:20: White Blood Count 7.2, Red Blood Count 3.01L, Hemoglobin 8.6L, Hematocrit 26.4L, Mean Corpuscular Volume 88, Mean Corpuscular Hemoglobin 28.5, Mean Corpuscular Hemoglobin Concent 32.4, Red Cell Distribution Width 17.8H, Platelet Count 180, Mean Platelet Volume 6.8, Neutrophils (%) (Auto) 78.9H, Lymphocytes (%) (Auto) 11.8L, Monocytes (%) (Auto) 5.3, Eosinophils (%) (Auto) 3.0, Basophils (%) (Auto) 1.0, Sodium Level 140, Potassium Level 4.2, Chloride Level 101, Carbon Dioxide Level 32, Anion Gap 7, Blood Urea Nitrogen 61H, Creatinine 3.1H, Estimat Glomerular Filtration Rate 21.4, Glucose Level 115H, Calcium Level 9.0, Phosphorus Level [Pending], Magnesium Level [Pending], Total Bilirubin [Pending], Direct Bilirubin [Pending], Aspartate Amino Transf (AST/SGOT) [Pending], Alanine Aminotransferase (ALT/SGPT) [Pending], Alkaline Phosphatase [Pending], Total Protein [Pending], Albumin [Pending], Vitamin D 25-Hydroxy [Pending], 25-Hydroxy Vitamin D2 [Pending], 25-Hydroxy Vitamin D3 [Pending] Height (Feet): 5 Height (Inches): 6.00 Weight (Pounds): 138 General Appearance: no apparent distress EENT: PERRL/EOMI Neck: supple Cardiovascular: normal rate Respiratory/Chest: decreased breath sounds Abdomen: hypoactive bowel sounds Extremities: non-tender Assessment/Plan Problem List: (1) Coagulopathy ICD Codes: D68.9 - Coagulation defect, unspecified SNOMED: 29113921 (2) Chronic respiratory failure ICD Codes: J96.10 - Chronic respiratory failure, unspecified whether with hypoxia or hypercapnia SNOMED: 52290928 (3) End stage renal disease on dialysis ICD Codes: N18.6 - End stage renal disease; Z99.2 - Dependence on renal dialysis SNOMED: 139879553 (4) Anemia in chronic kidney disease (CKD) ICD Codes: N18.9 - Chronic kidney disease, unspecified; D63.1 - Anemia in chronic kidney disease SNOMED: 193826584 (5) DM (diabetes mellitus), type 2, uncontrolled, periph vascular complic ICD Codes: E11.51 - Type 2 diabetes mellitus with diabetic peripheral angiopathy without gangrene; E11.65 - Type 2 diabetes mellitus with hyperglycemia SNOMED: 06592395, 782193794, 434349074 Assessment/Plan: s/p colonoscopy stable H&H GTF dc planning per primary team Ajay Holley MD May 31, 2020 10:50
[2020-05-31 12:00] VITALS: BP 157/86
--- NOTE | 2020-05-31 12:30 | NUR ---
NURSE NOTES: Assumed pt care,report received from Trisha Slaughter RN.Pt resting quietly in bed noted no resp distress with trache tube to vent ordered vent settings tolerated,no signs of pain or discomfort SR on the monitor,GTF Nepro 1.8 at 40 ml/hr,no residual,anuric,HD pt,dialyzed yesterday ,HD access LT SC Perma cath intact,skin warm and dry IV HL to RH,site intact,SR up x2 HOB elevated,bed lock in lowest position will continue with plans of care.
--- NOTE | 2020-05-31 12:48 | NUR ---
RD ASSESSMENT & RECOMMENDATIONS SEE CARE ACTIVITY FOR COMPLETE ASSESSMENT DAILY ESTIMATED NEEDS: Needs based on Critical care, wound, esrd on HD 65.1kg 25-30 kcals/kg 8706-3773 total kcals 1.5-2 g protein/kg 98-130 g total protein Fluid per MD, on HD NUTRITION DIAGNOSIS: Increased kcal and pro needs r/t renal dysfunction as evidenced by pt w/ ESRD on HD, notable open LE wounds, vent dep via trach and PEG dep. CURRENT TF: Nepro @40 ENTERAL NUTRITION RECOMMENDATIONS: Nepro goal of 45ml/hr x24 hrs + Prosource BID to provide 1080ml, 1944 kcal, 87g pro, 785ml free H2O - Maintain current rate 45ml/hr as tolerated. - Add PROSOURCE 1 pack BID via PEG - On HD, water flush per MD - HOB over 30 degrees ADDITIONAL RECOMMENDATIONS: 1) maintain calibrated bed scale wt 2) Wound care: Vit C dosing per nephrology nephrovite qdaily. When tolerating TF at goal w/ Prosource BID-> add DEE BID 3) Monitor wt trend
--- NOTE | 2020-05-31 14:26 | Nephrology Progress Note ---
Assessment/Plan Problem List: (1) End stage renal disease on dialysis (2) Hypercalcemia (3) Anemia (4) Chronic respiratory failure Assessment End-stage renal disease on dialysis Coagulopathy Anemia Chronic respiratory failure History of hypercalcemia, corrected serum calcium for low albumin remains elevated Plan May 31: Patient dialyzed yesterday. Labs reviewed. Continue monitor renal parameters and order dialysis as needed. Continue per consultants. May 30: Patient last dialyzed May 28. Will order dialysis tomorrow. Hemoglobin higher. Renal parameters reviewed. Abnormal electrolytes addressed. May 29: Patient last dialyzed May 28. Had colonoscopy for rectal bleed. Hemoglobin lower. Transfusion per internet marketing strategist if needed. Monitor renal parameters. Hemodialysis as needed. Per orders. May 28: Patient dialyzed today. Has rectal bleed. Due for colonoscopy tomorrow by GI. Continue to monitor renal parameters and CBC. Today's lab ordered and pending May 27: Last dialysis May 25. Will order dialysis for tomorrow. Labs reviewed. May 26: Dialyzed yesterday. Labs reviewed. Renvela discontinued. 1 dose of Neutra-Phos given. Continue to monitor renal parameters. May 25: Patient due for dialysis today. Labs reviewed. Medication list reviewed. Renvela dose adjusted. Continue to monitor electrolytes and renal parameters. May 24: No labs drawn today. Last dialysis May 22. Will check lab tomorrow. Will dialyze as needed. Hemodialysis yesterday May 22 Aredia 60 mg IV piggyback for hypercalcemia, given on May 22 Continue to monitor renal parameters calcium and phosphorus. Per orders, per PMD. Subjective ROS Limited/Unobtainable: Yes Objective Objective Last 24 Hour Vital Signs Date Time Temp Pulse Resp B/P (MAP) Pulse Ox O2 Delivery O2 Flow Rate FiO2 05/31/20 12:00 73 05/31/20 12:00 98.1 71 17 157/86 (109) 100 05/31/20 12:00 40 05/31/20 12:00 Mechanical Ventilator 05/31/20 11:05 71 18 40 05/31/20 11:05 71 20 100 Mechanical Ventilator 40 05/31/20 09:00 48 144/80 05/31/20 08:00 74 05/31/20 08:00 Mechanical Ventilator 05/31/20 08:00 98.8 76 19 146/86 (106) 100 05/31/20 07:10 72 16 40 05/31/20 06:00 40 05/31/20 04:00 73 05/31/20 04:00 Mechanical Ventilator 05/31/20 04:00 40 05/31/20 04:00 98.4 73 18 129/70 (89) 99 05/31/20 01:30 60 20 40 05/31/20 00:00 40 05/31/20 00:00 72 05/31/20 00:00 98.9 72 18 140/76 (97) 100 05/31/20 00:00 Mechanical Ventilator 05/30/20 23:13 81 165/80 05/30/20 20:00 99.1 61 18 105/68 (80) 100 05/30/20 20:00 80 05/30/20 20:00 Mechanical Ventilator 05/30/20 20:00 40 05/30/20 19:30 65 22 40 05/30/20 16:00 70 05/30/20 16:00 40 05/30/20 16:00 Mechanical Ventilator 05/30/20 16:00 98.9 63 19 110/71 (84) 100 Intake and Output 05/30/20 05/31/20 19:00 07:00 Intake Total 580 ml 490 ml Output Total 2000 ml Balance 580 ml -1510 ml Free Water 100 ml 50 ml Tube Feeding 480 ml 440 ml Hemodialysis UF 2000 ml # Bowel Movements 1 3 Laboratory Tests 05/31/20 08:20: White Blood Count 7.2, Red Blood Count 3.01L, Hemoglobin 8.6L, Hematocrit 26.4L, Mean Corpuscular Volume 88, Mean Corpuscular Hemoglobin 28.5, Mean Corpuscular Hemoglobin Concent 32.4, Red Cell Distribution Width 17.8H, Platelet Count 180, Mean Platelet Volume 6.8, Neutrophils (%) (Auto) 78.9H, Lymphocytes (%) (Auto) 11.8L, Monocytes (%) (Auto) 5.3, Eosinophils (%) (Auto) 3.0, Basophils (%) (Auto) 1.0, Sodium Level 140, Potassium Level 4.2, Chloride Level 101, Carbon Dioxide Level 32, Anion Gap 7, Blood Urea Nitrogen 61H, Creatinine 3.1H, Estimat Glomerular Filtration Rate 21.4, Glucose Level 115H, Calcium Level 9.0, Phosphorus Level 3.9, Magnesium Level 2.6H, Total Bilirubin 0.7, Direct Bilirubin 0.4H, Aspartate Amino Transf (AST/SGOT) 133H, Alanine Aminotransferase (ALT/SGPT) 137H, Alkaline Phosphatase 467H, Total Protein 7.2, Albumin 2.2L, Vitamin D 25-Hydroxy [Pending], 25-Hydroxy Vitamin D2 [Pending], 25-Hydroxy Vitamin D3 [Pending] Height (Feet): 5 Height (Inches): 6.00 Weight (Pounds): 138 General Appearance: no apparent distress EENT: other - Trach to vent Cardiovascular: normal rate Respiratory/Chest: decreased breath sounds Abdomen: distended Maurilio King MD May 31, 2020 14:26
--- NOTE | 2020-05-31 15:00 | NUR ---
NURSE NOTES: Pt stable ,awake at this time ,no respiratory distress presented.
[2020-05-31 16:00] VITALS: BP 153/89
--- NOTE | 2020-05-31 18:08 | Surgery Progress Note ---
Surgery Progress Note Subjective Additional Comments aureliano cute events comfortable Objective Last 24 Hour Vital Signs Date Time Temp Pulse Resp B/P (MAP) Pulse Ox O2 Delivery O2 Flow Rate FiO2 05/31/20 16:00 40 05/31/20 16:00 Mechanical Ventilator 05/31/20 16:00 98.2 79 20 153/89 (110) 100 05/31/20 16:00 79 05/31/20 15:03 72 17 40 05/31/20 12:00 73 05/31/20 12:00 98.1 71 17 157/86 (109) 100 05/31/20 12:00 40 05/31/20 12:00 Mechanical Ventilator 05/31/20 11:05 71 18 40 05/31/20 11:05 71 20 100 Mechanical Ventilator 40 05/31/20 09:00 48 144/80 05/31/20 08:00 74 05/31/20 08:00 Mechanical Ventilator 05/31/20 08:00 98.8 76 19 146/86 (106) 100 05/31/20 07:10 72 16 40 05/31/20 06:00 40 05/31/20 04:00 73 05/31/20 04:00 Mechanical Ventilator 05/31/20 04:00 40 05/31/20 04:00 98.4 73 18 129/70 (89) 99 05/31/20 01:30 60 20 40 05/31/20 00:00 40 05/31/20 00:00 72 05/31/20 00:00 98.9 72 18 140/76 (97) 100 05/31/20 00:00 Mechanical Ventilator 05/30/20 23:13 81 165/80 05/30/20 20:00 99.1 61 18 105/68 (80) 100 05/30/20 20:00 80 05/30/20 20:00 Mechanical Ventilator 05/30/20 20:00 40 05/30/20 19:30 65 22 40 I&O Intake and Output 05/30/20 05/31/20 19:00 07:00 Intake Total 580 ml 490 ml Output Total 2000 ml Balance 580 ml -1510 ml Free Water 100 ml 50 ml Tube Feeding 480 ml 440 ml Hemodialysis UF 2000 ml # Bowel Movements 1 3 Dressing: saturated Cardiovascular: RSR Respiratory: decreased breath sounds Abdomen: soft, non-tender, absent bowel sounds Extremities: other Laboratory Tests Test 05/31/20 08:20 White Blood Count 7.2 K/UL (4.8-10.8) Red Blood Count 3.01 M/UL (4.70-6.10) L Hemoglobin 8.6 G/DL (14.2-18.0) L Hematocrit 26.4 % (42.0-52.0) L Mean Corpuscular Volume 88 FL (80-99) Mean Corpuscular Hemoglobin 28.5 PG (27.0-31.0) Mean Corpuscular Hemoglobin Concent 32.4 G/DL (32.0-36.0) Red Cell Distribution Width 17.8 % (11.6-14.8) H Platelet Count 180 K/UL (150-450) Mean Platelet Volume 6.8 FL (6.5-10.1) Neutrophils (%) (Auto) 78.9 % (45.0-75.0) H Lymphocytes (%) (Auto) 11.8 % (20.0-45.0) L Monocytes (%) (Auto) 5.3 % (1.0-10.0) Eosinophils (%) (Auto) 3.0 % (0.0-3.0) Basophils (%) (Auto) 1.0 % (0.0-2.0) Sodium Level 140 MMOL/L (136-145) Potassium Level 4.2 MMOL/L (3.5-5.1) Chloride Level 101 MMOL/L (98-107) Carbon Dioxide Level 32 MMOL/L (21-32) Anion Gap 7 mmol/L (5-15) Blood Urea Nitrogen 61 mg/dL (7-18) H Creatinine 3.1 MG/DL (0.55-1.30) H Estimat Glomerular Filtration Rate 21.4 mL/min (>60) Glucose Level 115 MG/DL (74-106) H Calcium Level 9.0 MG/DL (8.5-10.1) Phosphorus Level 3.9 MG/DL (2.5-4.9) Magnesium Level 2.6 MG/DL (1.8-2.4) H Total Bilirubin 0.7 MG/DL (0.2-1.0) Direct Bilirubin 0.4 MG/DL (0.0-0.3) H Aspartate Amino Transf (AST/SGOT) 133 U/L (15-37) H Alanine Aminotransferase (ALT/SGPT) 137 U/L (12-78) H Alkaline Phosphatase 467 U/L (46-116) H Total Protein 7.2 G/DL (6.4-8.2) Albumin 2.2 G/DL (3.4-5.0) L Vitamin D 25-Hydroxy Pending 25-Hydroxy Vitamin D2 Pending 25-Hydroxy Vitamin D3 Pending Plan Problems: (1) Complications, dialysis, catheter, mechanical (2) Decubitus ulcer, heel Assessment & Plan: 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 Heel ulcer identified as well. Foul-smelling. Fortunately this does not seem salvageable by any means given the extensive loss at the flap that has dehisced the exposed bone as well as the heel. Currently stable otherwise known chronic in nature not patient's acute problem. Will recommend that patient has a right BKA at some point given the current findings we will continue with local wound care tentatively. Patient identified to have a heel ulcer on the left side as well. Pt presented on admission with Tracheostomy ,GT and dehiscence of R TMA with necrosis extending into lateral aspect of R foot. Full thickness ulcer R heel with slough and necrosis. Moderate amt haemopurulent exudate noted from R heel.Wounds are malodorous. Pt exhibited distress with elevation of R leg during wound care. Haemosiderin deposit R lower ext. Dry eschar with cracking at base noted to L Hallux(L)3cm x (W)4.5cm. Dry eschar noted to dorsal L 1st,L 3rd, and L 5th metatarsals. L Heel is boggy with non-blanchable erythema. DTPI noted to upper R Buttocks(L)2.3cm x (W)4.5cm. Base of wound is indurated,purpuric with surrounding non-blanchable erythema.Non-Blanchable erythema without induration or fluctuance at Sacrum. Tx.Plan: Cleanse L foot wounds with Dakin's [place] 0.25%. Apply Dakin's moistened Kerlix to wounds. Apply Moisture Barrier periwound. Cover with ABD pads. Wrap with Kerlix Daily and prn. Apply Betadine to L Hallux ,L1st,L 3rd and L 5th metatarsals Daily. Leave open to Air. Apply Moisture Barrier Paste to Sacrum /R Buttocks. Cover with Optifoam drsgs. Change every 3 days and prn. Reposition at least every 2hours or as tolerated. Off-load heels with pillow. DAILY ESTIMATED NEEDS: Needs based on Critical care, wound, esrd on HD 65.1kg 25-30 kcals/kg 4089-4676 total kcals 1.5-2 g protein/kg 98-130 g total protein Fluid per MD, on HD NUTRITION DIAGNOSIS: Increased kcal and pro needs r/t renal dysfunction as evidenced by pt w/ ESRD on HD, notable open LE wounds, vent dep via trach and PEG dep. CURRENT TF: Nepro @55 ENTERAL NUTRITION RECOMMENDATIONS: Nepro LOWER to goal of 45ml/hr x24 hrs + Prosource BID to provide 1080ml, 1944 kcal, 87g pro, 785ml free H2O - Rec to LOWER goal rate of 45ml/hr - Add PROSOURCE 1 pack BID via PEG (11g pro/each) - On HD, water flush per MD - HOB over 30 degrees ADDITIONAL RECOMMENDATIONS: 1) maintain calibrated bed scale wt 2) Wound care: Vit C dosing per nephrology nephrovite qdaily. When tolerating TF at goal w/ Prosource BID-> add DEE BID (3) Ischemia of right lower extremity Assessment & Plan: prognosis of LE guarded cont with dressings may need amp at some point podiatry input appreciated agree with amputation when stable if medically clear and consent DAILY ESTIMATED NEEDS: Needs based on Critical care, wound, esrd on HD 65.1kg 25-30 kcals/kg 6001-9907 total kcals 1.5-2 g protein/kg 98-130 g total protein Fluid per MD, on HD NUTRITION DIAGNOSIS: Increased kcal and pro needs r/t renal dysfunction as evidenced by pt w/ ESRD on HD, notable open LE wounds, vent dep via trach and PEG dep. CURRENT TF: Nepro @45 + PS x2 ENTERAL NUTRITION RECOMMENDATIONS: Nepro goal of 45ml/hr x24 hrs + Prosource BID to provide 1080ml, 1944 kcal, 87g pro, 785ml free H2O - Maintain current rate 45ml/hr as tolerated. - Add PROSOURCE 1 pack BID via PEG - On HD, water flush per MD Rivera STEELE over 30 degrees ADDITIONAL RECOMMENDATIONS: 1) maintain calibrated bed scale wt 2) Wound care: Vit C dosing per nephrology nephrovite qdaily. When tolerating TF at goal w/ Prosource BID-> add DEE BID 3) Monitor wt trend (4) Hypercalcemia (5) Coagulopathy (6) Chronic respiratory failure (7) End stage renal disease on dialysis (8) Anemia in chronic kidney disease (CKD) (9) Anemia (10) GI bleed Dany Wilder May 31, 2020 18:08
--- NOTE | 2020-05-31 18:31 | NUR ---
NURSE NOTES: Pt pulled up, repositioned ,suctioned PRN,stable.
--- NOTE | 2020-05-31 19:15 | NUR ---
NURSE NOTES: Received pt in bed, no signs of distress noted. Confuse and disoriented. Soft restraints bilaterally in place. Respirations even and unlabored. Patient is trach to vent and tolerating well. GT feeding of nepro at 40 cc/hr. w/no residual noted. Patient has left subclavian access for dialysis. Rt hand 22 patent and intact. SR-ST on gambling monitor. HOB elevated, bed is on lowest position, locked, side rails up, call light within reach. Patient will continue to be monitored.
--- NOTE | 2020-05-31 19:17 | NUR ---
NURSE HAND-OFF REPORT: Important Events on Shift:N/A Patient Status: stable Diet: Nepro at 40 ml/hr GT Pending Orders: N/A Pending Results/Labs:N/A Pending MD notification:N/A Latest Vital Signs: Temperature 98.2 , Pulse 72 , B/P 153 /89 , Respiratory Rate 24 , O2 SAT 100 , Mechanical Ventilator, O2 Flow Rate . Vital Sign Comment: stable EKG Rhythm: Sinus Rhythm Rhythm change?: N MD Notified?: N - MD Response: Latest Seay Fall Score: 75 Fall Risk: High Risk Safety Measures: Call light Within Reach, Bed Alarm Zone 1, Side Rails Side Rails x2, Bed position Low and Locked. Fall Precautions: Yellow Socks Yellow Gown Door Sign Patient Fall Education Report given to Ant Zuniga RN..
[2020-05-31 20:00] VITALS: BP 149/75
[2020-05-31] MEDS: Dyna-Hex 2% Top Sol 2oz TOPIC SCH (22:53)
[2020-05-31] MEDS: Atorvastatin 20mg tab GT SCH (22:54)
[2020-06-01] VITALS: BP 145/76
--- NOTE | 2020-06-01 | NUR ---
NURSE NOTES: No distress noted. VSS Afebrile. Respirations even and unlabored. Continue to tolerate GT feeding of nepro at 40 cc/hr. Pt is anuric. HOB elevated in lowest position, locked, side rails X2 up, call light within reach. Sr on monitoring specialist. Patient will continue POC.
--- NOTE | 2020-06-01 | NUR ---
NURSE NOTES: In no apparent distress. VSS afebrile. Sr on school bus monitor. Tolerating GT feeding with no residual. Large watery brown stool.Will continue to monitor.
--- NOTE | 2020-06-01 03:45 | NUR ---
NURSE NOTES: Pt sleeping. No distress noted. Respirations even and unlabored. Continue to tolerate well GT feeding of nepro at 40 cc/hr. HOB elevated in lowest position, locked, side rails X2 up, call light within reach. Sr on library monitor. Patient will continue POC.
[2020-06-01 04:00] VITALS: BP 129/67
--- NOTE | 2020-06-01 06:00 | NUR ---
NURSE NOTES: No significant changes. Tolerating GT feeding well with no residual noted. SR in secured entrance monitor. In no apparent distress. Will continue to monitor
--- NOTE | 2020-06-01 06:46 | Hematology/Onc Progress Note ---
Assessment/Plan Assessment/Plan Covering Dr. Warren Assessment and Recs # Anemia due to likely chronic disease, ongoing, this is the first time he has been here --> anemia panel to order for downtrending hgb --> hgb 8.9-->9.4->8.4->>>8.7->8.1-->7.7->7.3->8.7 --> consider iron / epogen after anemia panel returns --> smear has been noted, no hemolysis --> 05/29 for endoscopy done, peg placed # Thrombocytopenia - potential causes multifactorial, evaluate liver and viral etiologies to begin, also could be related to underlying medications patient has received. --> Hep panel and HIV neg prior --> Ct a/p shows a normal appearing liver --> Peripheral smear ordered to evaluate for blasts /schistocytes --> abx and other meds have been reviewed --> ok for ppx if plt >50k w/ either heparin or lovenox --> plt 124-->186-->164 # Coagulopathy ongoing, ptt and inr elevated --> vitamin k given, as permacath to be removed --> get mixing study --> trend prn # Chronic respiratory failure --> per pulm --> vent + # End stage renal disease on dialysis --> Complications, dialysis, catheter,replacement as needed --> surg eval --> per renal # Dysphagia --> is s/p peg placement # Right lung infection --> repeat cxr now # Gangrenous toe, as per surg # Dvt ppx scds Appreciate consultation and patty RN Subjective HEENT: Denies: no symptoms, eye pain, blurred vision, tearing, double vision, ear pain, ear discharge, nose pain, nose congestion, throat pain, throat swelling, mouth pain, mouth swelling, other Respiratory: Denies: no symptoms, cough, shortness of breath, SOB with excertion, SOB at rest, sputum, wheezing, other Gastrointestinal/Abdominal: Denies: no symptoms, abdomen distended, abdominal pain, black stools, tarry stools, blood in stool, constipated, diarrhea, difficulty swallowing, nausea, poor appetite, poor fluid intake, rectal bleeding, vomiting, other Genitourinary: Denies: no symptoms, burning, discharge, frequency, flank pain, hematuria, incontinence, pain, urgency, other Neurologic/Psychiatric: Denies: no symptoms, anxiety, depressed, emotional problems, headache, numbness, paresthesia, pre-existing deficit, seizure, tingling, tremors, weakness, other Endocrine: Denies: no symptoms, excessive sweating, flushing, intolerance to cold, intolerance to heat, increased hunger, increased thirst, increased urine, unexplained weight gain, unexplained weight loss, other Hematologic/Lymphatic: Denies: no symptoms, anemia, easy bleeding, easy bruising, adenopathy, other Allergies: Coded Allergies: No Known Allergies (Unverified , 04/22/20) Subjective 05/24 labs reviewed, cbc/bmp ordered, no bleeding on venttrach, gt 05/25 labs reviewed, was positive for large bm overnight, +ob, meds reviewed 05/26 rectal tube was removed, labs noted, no bleeding, labs reviewed 05/27 on vent hgb 7.3, no hemolysis, no night sweats 05/28 labs pending and hd today, may be close to dc 05/29 nv, no bleeding, labs noted, no bleeding, for colo today 05/31 colo reviewed, on vent, no bleeding, trach, no major changes, hd 06/01 gtube feeds ongoing, is on vent, labs noted, meds reivewed Objective Objective Current Medications Medications (Trade) Dose Ordered Sig/Titus Route PRN Reason Start Time Stop Time Status Last Admin Dose Admin Acetaminophen (Tylenol) 650 mg Q6H PRN GT Mild Pain (Pain Scale 1-3) 05/24/20 20:45 06/23/20 20:44 05/30/20 05:16 Ascorbic Acid (Vitamin C) 500 mg DAILY GT 05/22/20 09:00 06/21/20 08:59 05/31/20 09:10 Aspirin (ASA) 81 mg DAILY GT 05/22/20 09:00 07/06/20 08:59 05/31/20 09:10 Atorvastatin Calcium (Lipitor) 20 mg BEDTIME GT 05/21/20 21:00 08/19/20 20:59 05/31/20 22:54 Bisacodyl (Dulcolax) 10 mg DAILYPRN PRN RECTAL Constipation 05/21/20 15:15 08/19/20 15:14 Chlorhexidine Gluconate (Saba-Hex 2%) 1 applic DAILY@1999 TOPIC 05/22/20 20:00 08/20/20 19:59 05/31/20 22:53 Metoprolol Tartrate (Lopressor) 50 mg EVERY 12 HOURS GT 05/21/20 21:00 08/19/20 20:59 05/31/20 22:54 Sodium Hypochlorite (Dakin's Quarter Strength) 1 applic DAILY TOPIC 05/23/20 09:00 06/22/20 08:59 05/31/20 09:13 Sodium Hypochlorite (Dakin's Quarter Strength) 1 applic DAILY TOPIC 05/24/20 09:00 06/23/20 08:59 05/31/20 09:13 Vitamin B Complex/ Vit C/Folic Acid (Nephrovite) 1 tab DAILY GT 05/22/20 09:00 06/21/20 08:59 05/31/20 09:10 Vitamin D (Vitamin D) 400 unit DAILY ORAL 05/22/20 09:00 06/21/20 08:59 05/31/20 09:09 Last 24 Hour Vital Signs Date Time Temp Pulse Resp B/P (MAP) Pulse Ox O2 Delivery O2 Flow Rate FiO2 06/01/20 04:00 Mechanical Ventilator 06/01/20 04:00 62 06/01/20 04:00 40 06/01/20 04:00 98.0 74 16 129/67 (87) 100 06/01/20 02:50 62 15 40 06/01/20 00:03 40 06/01/20 00:01 Mechanical Ventilator 06/01/20 00:00 98.1 72 20 145/76 (99) 100 06/01/20 00:00 77 05/31/20 23:08 74 18 40 05/31/20 22:54 77 149/75 05/31/20 20:00 69 05/31/20 20:00 99.0 77 20 149/75 (99) 100 05/31/20 19:59 40 05/31/20 19:58 Mechanical Ventilator 05/31/20 18:57 72 24 40 05/31/20 16:00 40 05/31/20 16:00 Mechanical Ventilator 05/31/20 16:00 98.2 79 20 153/89 (110) 100 05/31/20 16:00 79 05/31/20 15:03 72 17 40 05/31/20 12:00 73 05/31/20 12:00 98.1 71 17 157/86 (109) 100 05/31/20 12:00 40 05/31/20 12:00 Mechanical Ventilator 05/31/20 11:05 71 18 40 05/31/20 11:05 71 20 100 Mechanical Ventilator 40 05/31/20 09:00 48 144/80 05/31/20 08:00 74 05/31/20 08:00 Mechanical Ventilator 05/31/20 08:00 98.8 76 19 146/86 (106) 100 05/31/20 07:10 72 16 40 05/31/20 06:00 40 05/31/20 04:00 73 05/31/20 04:00 Mechanical Ventilator 05/31/20 04:00 40 05/31/20 04:00 98.4 73 18 129/70 (89) 99 05/31/20 01:30 60 20 40 05/31/20 00:00 40 05/31/20 00:00 72 05/31/20 00:00 98.9 72 18 140/76 (97) 100 05/31/20 00:00 Mechanical Ventilator 05/30/20 23:13 81 165/80 05/30/20 20:00 99.1 61 18 105/68 (80) 100 05/30/20 20:00 80 05/30/20 20:00 Mechanical Ventilator 05/30/20 20:00 40 05/30/20 19:30 65 22 40 05/30/20 16:00 70 05/30/20 16:00 40 05/30/20 16:00 Mechanical Ventilator 05/30/20 16:00 98.9 63 19 110/71 (84) 100 05/30/20 13:00 66 18 40 05/30/20 12:00 Mechanical Ventilator 05/30/20 12:00 40 05/30/20 12:00 65 05/30/20 12:00 98.1 60 19 106/65 (79) 100 05/30/20 09:05 68 139/74 05/30/20 09:00 40 05/30/20 08:00 97.7 68 20 139/74 (95) 100 05/30/20 08:00 Mechanical Ventilator 05/30/20 08:00 65 05/30/20 07:10 68 20 40 Intake and Output 05/31/20 06/01/20 19:00 07:00 Intake Total 380 ml 490 ml Balance 380 ml 490 ml Free Water 100 ml 50 ml Tube Feeding 280 ml 440 ml Labs Test 05/30/20 03:45 05/31/20 08:20 06/01/20 03:45 White Blood Count 7.7 K/UL (4.8-10.8) 7.2 K/UL (4.8-10.8) Red Blood Count 2.96 M/UL (4.70-6.10) 3.01 M/UL (4.70-6.10) Hemoglobin 8.7 G/DL (14.2-18.0) 8.6 G/DL (14.2-18.0) Hematocrit 25.9 % (42.0-52.0) 26.4 % (42.0-52.0) Mean Corpuscular Volume 88 FL (80-99) 88 FL (80-99) Mean Corpuscular Hemoglobin 29.5 PG (27.0-31.0) 28.5 PG (27.0-31.0) Mean Corpuscular Hemoglobin Concent 33.7 G/DL (32.0-36.0) 32.4 G/DL (32.0-36.0) Red Cell Distribution Width 17.1 % (11.6-14.8) 17.8 % (11.6-14.8) Platelet Count 188 K/UL (150-450) 180 K/UL (150-450) Mean Platelet Volume 7.0 FL (6.5-10.1) 6.8 FL (6.5-10.1) Neutrophils (%) (Auto) 80.6 % (45.0-75.0) 78.9 % (45.0-75.0) Lymphocytes (%) (Auto) 8.5 % (20.0-45.0) 11.8 % (20.0-45.0) Monocytes (%) (Auto) 5.9 % (1.0-10.0) 5.3 % (1.0-10.0) Eosinophils (%) (Auto) 3.5 % (0.0-3.0) 3.0 % (0.0-3.0) Basophils (%) (Auto) 1.4 % (0.0-2.0) 1.0 % (0.0-2.0) Sodium Level 137 MMOL/L (136-145) 140 MMOL/L (136-145) Potassium Level 4.9 MMOL/L (3.5-5.1) 4.2 MMOL/L (3.5-5.1) Chloride Level 100 MMOL/L (98-107) 101 MMOL/L (98-107) Carbon Dioxide Level 28 MMOL/L (21-32) 32 MMOL/L (21-32) Anion Gap 9 mmol/L (5-15) 7 mmol/L (5-15) Blood Urea Nitrogen 101 mg/dL (7-18) 61 mg/dL (7-18) Creatinine 4.4 MG/DL (0.55-1.30) 3.1 MG/DL (0.55-1.30) Estimat Glomerular Filtration Rate 14.3 mL/min (>60) 21.4 mL/min (>60) Glucose Level 123 MG/DL (74-106) 115 MG/DL (74-106) Calcium Level 8.9 MG/DL (8.5-10.1) 9.0 MG/DL (8.5-10.1) Phosphorus Level 4.8 MG/DL (2.5-4.9) 3.9 MG/DL (2.5-4.9) Magnesium Level 2.8 MG/DL (1.8-2.4) 2.6 MG/DL (1.8-2.4) Total Bilirubin 0.7 MG/DL (0.2-1.0) 0.7 MG/DL (0.2-1.0) Aspartate Amino Transf (AST/SGOT) 69 U/L (15-37) 133 U/L (15-37) Alanine Aminotransferase (ALT/SGPT) 78 U/L (12-78) 137 U/L (12-78) Alkaline Phosphatase 433 U/L (46-116) 467 U/L (46-116) C-Reactive Protein, Quantitative 8.6 mg/dL (0.00-0.90) Pro-B-Type Natriuretic Peptide > 59850 pg/mL (0-125) Total Protein 7.3 G/DL (6.4-8.2) 7.2 G/DL (6.4-8.2) Albumin 2.2 G/DL (3.4-5.0) 2.2 G/DL (3.4-5.0) Globulin 5.1 g/dL Albumin/Globulin Ratio 0.4 (1.0-2.7) Direct Bilirubin 0.4 MG/DL (0.0-0.3) Height (Feet): 5 Height (Inches): 6.00 Weight (Pounds): 138 Objective Physical Exam Vitals: reviewed, normal General Appearance: no apparent distress, other - Nonverbal Head: normocephalic, atraumatic: no angioedema, normal voice Neck: full range of motion, supple/symm/no masses Respiratory: chest non-tender, lungs clear, +++vent/trach Cardiovascular: regular rate, rhythm, no edema Gastrointestinal: normal bowel sounds, ++gt Genitourinary: normal inspection, no CVA tenderness Musculoskeletal: back normal, normal range of motion Neurologic: other - Nonverbal Psychiatric: other - Nonverbal Lymphatic: no adenopathy Nick Whiteside MD Jun 01, 2020 06:45
[2020-06-01 06:54] LABS: EOSINOPHILS % (AUTO) 3.5 % (0.0-3.0); HEMOGLOBIN 8.8 G/DL (14.2-18.0); LYMPHOCYTES % (AUTO) 13.7 % (20.0-45.0); MEAN CORPUSCULAR VOLUME 92 FL (80-99); NEUTROPHILS % (AUTO) 76.8 % (45.0-75.0); PLATELET COUNT 175 K/UL (150-450); RED BLOOD COUNT 2.94 M/UL (4.70-6.10); RED CELL DISTRIBUTION WIDTH 16.4 % (11.6-14.8)
--- NOTE | 2020-06-01 07:21 | NUR ---
HAND-OFF: Report given to Trisha Slaughter RN.
[2020-06-01 07:31] LABS: ALBUMIN 2.2 G/DL (3.4-5.0); ALBUMIN/GLOBULIN RATIO 0.4 (1.0-2.7); BILIRUBIN,TOTAL 0.8 MG/DL (0.2-1.0); CALCIUM 9.3 MG/DL (8.5-10.1); CREATININE 3.6 MG/DL (0.55-1.30); PHOSPHORUS 4.7 MG/DL (2.5-4.9); POTASSIUM 4.2 MMOL/L (3.5-5.1)
[2020-06-01 08:00] VITALS: BP 137/77
--- NOTE | 2020-06-01 08:08 | General Progress Note ---
Subjective ROS Limited/Unobtainable: No Allergies: Coded Allergies: No Known Allergies (Unverified , 04/22/20) Objective Last 24 Hour Vital Signs Date Time Temp Pulse Resp B/P (MAP) Pulse Ox O2 Delivery O2 Flow Rate FiO2 06/01/20 04:00 Mechanical Ventilator 06/01/20 04:00 62 06/01/20 04:00 40 06/01/20 04:00 98.0 74 16 129/67 (87) 100 06/01/20 02:50 62 15 40 06/01/20 00:03 40 06/01/20 00:01 Mechanical Ventilator 06/01/20 00:00 98.1 72 20 145/76 (99) 100 06/01/20 00:00 77 05/31/20 23:08 74 18 40 05/31/20 22:54 77 149/75 05/31/20 20:00 69 05/31/20 20:00 99.0 77 20 149/75 (99) 100 05/31/20 19:59 40 05/31/20 19:58 Mechanical Ventilator 05/31/20 18:57 72 24 40 05/31/20 16:00 40 05/31/20 16:00 Mechanical Ventilator 05/31/20 16:00 98.2 79 20 153/89 (110) 100 05/31/20 16:00 79 05/31/20 15:03 72 17 40 05/31/20 12:00 73 05/31/20 12:00 98.1 71 17 157/86 (109) 100 05/31/20 12:00 40 05/31/20 12:00 Mechanical Ventilator 05/31/20 11:05 71 18 40 05/31/20 11:05 71 20 100 Mechanical Ventilator 40 05/31/20 09:00 48 144/80 Intake and Output 05/31/20 06/01/20 19:00 07:00 Intake Total 380 ml 490 ml Balance 380 ml 490 ml Free Water 100 ml 50 ml Tube Feeding 280 ml 440 ml Laboratory Tests 05/31/20 08:20: White Blood Count 7.2, Red Blood Count 3.01L, Hemoglobin 8.6L, Hematocrit 26.4L, Mean Corpuscular Volume 88, Mean Corpuscular Hemoglobin 28.5, Mean Corpuscular Hemoglobin Concent 32.4, Red Cell Distribution Width 17.8H, Platelet Count 180, Mean Platelet Volume 6.8, Neutrophils (%) (Auto) 78.9H, Lymphocytes (%) (Auto) 11.8L, Monocytes (%) (Auto) 5.3, Eosinophils (%) (Auto) 3.0, Basophils (%) (Auto) 1.0, Sodium Level 140, Potassium Level 4.2, Chloride Level 101, Carbon Dioxide Level 32, Anion Gap 7, Blood Urea Nitrogen 61H, Creatinine 3.1H, Estimat Glomerular Filtration Rate 21.4, Glucose Level 115H, Calcium Level 9.0, Phosphorus Level 3.9, Magnesium Level 2.6H, Total Bilirubin 0.7, Direct Bilirubin 0.4H, Aspartate Amino Transf (AST/SGOT) 133H, Alanine Aminotransferase (ALT/SGPT) 137H, Alkaline Phosphatase 467H, Total Protein 7.2, Albumin 2.2L, Vitamin D 25-Hydroxy [Pending], 25-Hydroxy Vitamin D2 [Pending], 25-Hydroxy Vitamin D3 [Pending] 06/01/20 03:45: White Blood Count 8.0, Red Blood Count 2.94L, Hemoglobin 8.8L, Hematocrit 27.0L, Mean Corpuscular Volume 92, Mean Corpuscular Hemoglobin 29.9, Mean Corpuscular Hemoglobin Concent 32.6, Red Cell Distribution Width 16.4H, Platelet Count 175, Mean Platelet Volume 6.4L, Neutrophils (%) (Auto) 76.8H, Lymphocytes (%) (Auto) 13.7L, Monocytes (%) (Auto) 5.0, Eosinophils (%) (Auto) 3.5H, Basophils (%) (Auto) 1.0, Sodium Level 136, Potassium Level 4.2, Chloride Level 99, Carbon Dioxide Level 31, Anion Gap 6, Blood Urea Nitrogen 76H, Creatinine 3.6H, Estimat Glomerular Filtration Rate 18.0, Glucose Level 76, Calcium Level 9.3, Phosphorus Level 4.7, Magnesium Level 2.7H, Total Bilirubin 0.8, Aspartate Amino Transf (AST/SGOT) 128H, Alanine Aminotransferase (ALT/SGPT) 153H, Alkaline Phosphatase 441H, Total Protein 7.1, Albumin 2.2L, C-Reactive Protein, Quantitat jaya 5.9H, Globulin 4.9, Albumin/Globulin Ratio 0.4L Height (Feet): 5 Height (Inches): 6.00 Weight (Pounds): 138 General Appearance: no apparent distress EENT: normal ENT inspection Neck: supple Cardiovascular: normal rate Respiratory/Chest: lungs clear Abdomen: hypoactive bowel sounds Extremities: non-tender Assessment/Plan Problem List: (1) Coagulopathy ICD Codes: D68.9 - Coagulation defect, unspecified SNOMED: 82252511 (2) Chronic respiratory failure ICD Codes: J96.10 - Chronic respiratory failure, unspecified whether with hypoxia or hypercapnia SNOMED: 54550683 (3) End stage renal disease on dialysis ICD Codes: N18.6 - End stage renal disease; Z99.2 - Dependence on renal dialysis SNOMED: 891622268 (4) Anemia in chronic kidney disease (CKD) ICD Codes: N18.9 - Chronic kidney disease, unspecified; D63.1 - Anemia in chronic kidney disease SNOMED: 117549539 (5) DM (diabetes mellitus), type 2, uncontrolled, periph vascular complic ICD Codes: E11.51 - Type 2 diabetes mellitus with diabetic peripheral angiopathy without gangrene; E11.65 - Type 2 diabetes mellitus with hyperglycemia SNOMED: 55742562, 489024156, 086885612 Assessment/Plan: s/p colonoscopy stable H&H GTF dc planning per primary team Ajay Holley MD Jun 01, 2020 08:07
--- NOTE | 2020-06-01 08:11 | Infectious Diseases Prog Note ---
Assessment/Plan 50yo M with: Afebrile Normal WBC COVID neg C.dif neg R foot pressure ulcerations - no active s/sx of infection, but needs aggressive wound care and debridement to promote healing Anemia prompting admission PMH: ESRD on HD Vent dependent H/o CVA Quadriplegic Plan: Cont to monitor off abx Recommend Podiatry evaluation of R foot pressure ulcerations for debridement, needs aggressive wound care 05/28 SP CTX #5 empiric Monitor CBC/CMP Monitor temp curve, hemodynamics Monitor resp status D/w RN Thank you for this consult. [facility] will continue to follow. Subjective Allergies: Coded Allergies: No Known Allergies (Unverified , 04/22/20) AF WBC 8.0 NAD off abx, on vent 40% PEEP 5 Objective Last 24 Hour Vital Signs Date Time Temp Pulse Resp B/P (MAP) Pulse Ox O2 Delivery O2 Flow Rate FiO2 06/01/20 04:00 Mechanical Ventilator 06/01/20 04:00 62 06/01/20 04:00 40 06/01/20 04:00 98.0 74 16 129/67 (87) 100 06/01/20 02:50 62 15 40 06/01/20 00:03 40 06/01/20 00:01 Mechanical Ventilator 06/01/20 00:00 98.1 72 20 145/76 (99) 100 06/01/20 00:00 77 05/31/20 23:08 74 18 40 05/31/20 22:54 77 149/75 05/31/20 20:00 69 05/31/20 20:00 99.0 77 20 149/75 (99) 100 05/31/20 19:59 40 05/31/20 19:58 Mechanical Ventilator 05/31/20 18:57 72 24 40 05/31/20 16:00 40 05/31/20 16:00 Mechanical Ventilator 05/31/20 16:00 98.2 79 20 153/89 (110) 100 05/31/20 16:00 79 05/31/20 15:03 72 17 40 05/31/20 12:00 73 05/31/20 12:00 98.1 71 17 157/86 (109) 100 05/31/20 12:00 40 05/31/20 12:00 Mechanical Ventilator 05/31/20 11:05 71 18 40 05/31/20 11:05 71 20 100 Mechanical Ventilator 40 05/31/20 09:00 48 144/80 Height (Feet): 5 Height (Inches): 6.00 Weight (Pounds): 138 Gen: NAD in bed HEENT: NCAT, trach CV: RRR Pulm: CTAB Abd: Soft, NTND Ext: R foot s/p all toes amputation w/ open wound there and open pressure wound on heal, both with drainage though no TTP and no surrounding erythema Neuro: Awake Laboratory Tests Test 05/31/20 08:20 06/01/20 03:45 White Blood Count 7.2 K/UL (4.8-10.8) 8.0 K/UL (4.8-10.8) Red Blood Count 3.01 M/UL (4.70-6.10) L 2.94 M/UL (4.70-6.10) L Hemoglobin 8.6 G/DL (14.2-18.0) L 8.8 G/DL (14.2-18.0) L Hematocrit 26.4 % (42.0-52.0) L 27.0 % (42.0-52.0) L Mean Corpuscular Volume 88 FL (80-99) 92 FL (80-99) Mean Corpuscular Hemoglobin 28.5 PG (27.0-31.0) 29.9 PG (27.0-31.0) Mean Corpuscular Hemoglobin Concent 32.4 G/DL (32.0-36.0) 32.6 G/DL (32.0-36.0) Red Cell Distribution Width 17.8 % (11.6-14.8) H 16.4 % (11.6-14.8) H Platelet Count 180 K/UL (150-450) 175 K/UL (150-450) Mean Platelet Volume 6.8 FL (6.5-10.1) 6.4 FL (6.5-10.1) L Neutrophils (%) (Auto) 78.9 % (45.0-75.0) H 76.8 % (45.0-75.0) H Lymphocytes (%) (Auto) 11.8 % (20.0-45.0) L 13.7 % (20.0-45.0) L Monocytes (%) (Auto) 5.3 % (1.0-10.0) 5.0 % (1.0-10.0) Eosinophils (%) (Auto) 3.0 % (0.0-3.0) 3.5 % (0.0-3.0) H Basophils (%) (Auto) 1.0 % (0.0-2.0) 1.0 % (0.0-2.0) Sodium Level 140 MMOL/L (136-145) 136 MMOL/L (136-145) Potassium Level 4.2 MMOL/L (3.5-5.1) 4.2 MMOL/L (3.5-5.1) Chloride Level 101 MMOL/L (98-107) 99 MMOL/L (98-107) Carbon Dioxide Level 32 MMOL/L (21-32) 31 MMOL/L (21-32) Anion Gap 7 mmol/L (5-15) 6 mmol/L (5-15) Blood Urea Nitrogen 61 mg/dL (7-18) H 76 mg/dL (7-18) H Creatinine 3.1 MG/DL (0.55-1.30) H 3.6 MG/DL (0.55-1.30) H Estimat Glomerular Filtration Rate 21.4 mL/min (>60) 18.0 mL/min (>60) Glucose Level 115 MG/DL (74-106) H 76 MG/DL (74-106) Calcium Level 9.0 MG/DL (8.5-10.1) 9.3 MG/DL (8.5-10.1) Phosphorus Level 3.9 MG/DL (2.5-4.9) 4.7 MG/DL (2.5-4.9) Magnesium Level 2.6 MG/DL (1.8-2.4) H 2.7 MG/DL (1.8-2.4) H Total Bilirubin 0.7 MG/DL (0.2-1.0) 0.8 MG/DL (0.2-1.0) Direct Bilirubin 0.4 MG/DL (0.0-0.3) H Aspartate Amino Transf (AST/SGOT) 133 U/L (15-37) H 128 U/L (15-37) H Alanine Aminotransferase (ALT/SGPT) 137 U/L (12-78) H 153 U/L (12-78) H Alkaline Phosphatase 467 U/L (46-116) H 441 U/L (46-116) H Total Protein 7.2 G/DL (6.4-8.2) 7.1 G/DL (6.4-8.2) Albumin 2.2 G/DL (3.4-5.0) L 2.2 G/DL (3.4-5.0) L Vitamin D 25-Hydroxy Pending 25-Hydroxy Vitamin D2 Pending 25-Hydroxy Vitamin D3 Pending C-Reactive Protein, Quantitative 5.9 mg/dL (0.00-0.90) H Globulin 4.9 g/dL Albumin/Globulin Ratio 0.4 (1.0-2.7) L Current Medications Medications (Trade) Dose Ordered Sig/Titus Route PRN Reason Start Time Stop Time Status Last Admin Dose Admin Acetaminophen (Tylenol) 650 mg Q6H PRN GT Mild Pain (Pain Scale 1-3) 05/24/20 20:45 06/23/20 20:44 05/30/20 05:16 Ascorbic Acid (Vitamin C) 500 mg DAILY GT 05/22/20 09:00 06/21/20 08:59 05/31/20 09:10 Aspirin (ASA) 81 mg DAILY GT 05/22/20 09:00 07/06/20 08:59 05/31/20 09:10 Atorvastatin Calcium (Lipitor) 20 mg BEDTIME GT 05/21/20 21:00 08/19/20 20:59 05/31/20 22:54 Bisacodyl (Dulcolax) 10 mg DAILYPRN PRN RECTAL Constipation 05/21/20 15:15 08/19/20 15:14 Chlorhexidine Gluconate (Saba-Hex 2%) 1 applic DAILY@1999 TOPIC 05/22/20 20:00 08/20/20 19:59 05/31/20 22:53 Metoprolol Tartrate (Lopressor) 50 mg EVERY 12 HOURS GT 05/21/20 21:00 08/19/20 20:59 05/31/20 22:54 Sodium Hypochlorite (Dakin's Quarter Strength) 1 applic DAILY TOPIC 05/23/20 09:00 06/22/20 08:59 05/31/20 09:13 Sodium Hypochlorite (Dakin's Quarter Strength) 1 applic DAILY TOPIC 05/24/20 09:00 06/23/20 08:59 05/31/20 09:13 Vitamin B Complex/ Vit C/Folic Acid (Nephrovite) 1 tab DAILY GT 05/22/20 09:00 06/21/20 08:59 05/31/20 09:10 Vitamin D (Vitamin D) 400 unit DAILY ORAL 05/22/20 09:00 06/21/20 08:59 05/31/20 09:09 Heaven Salinas M.D. Jun 01, 2020 08:11
[2020-06-01] MEDS: Vitamin D 400 units TAB ORAL SCH (09:03)
[2020-06-01] MEDS: Aspirin Baby 81mg GT SCH (09:03)
[2020-06-01] MEDS: Nephrovite tab (Rena-Vite) GT SCH (09:03)
[2020-06-01] MEDS: Metoprolol Tartrate 50mg tab GT SCH ×2 (09:03→22:00)
[2020-06-01] MEDS: Ascorbic Acid 500mg tab GT SCH (09:03)
[2020-06-01] MEDS: Dakin's 0.125% Soln (Quarter Strength) 16oz TOPIC SCH ×2 (09:05)
--- NOTE | 2020-06-01 10:56 | Nephrology Progress Note ---
Assessment/Plan Problem List: (1) End stage renal disease on dialysis (2) Hypercalcemia (3) Anemia (4) Chronic respiratory failure Assessment End-stage renal disease on dialysis Coagulopathy Anemia Chronic respiratory failure History of hypercalcemia, corrected serum calcium for low albumin remains elevated Plan June 01: Patient last dialyzed May 30. Labs reviewed. Continue to monitor renal parameters and arrange for dialysis as needed. Continue per consultants. May 31: Patient dialyzed yesterday. Labs reviewed. Continue monitor renal parameters and order dialysis as needed. Continue per consultants. May 30: Patient last dialyzed May 28. Will order dialysis tomorrow. Hemoglobin higher. Renal parameters reviewed. Abnormal electrolytes addressed. May 29: Patient last dialyzed May 28. Had colonoscopy for rectal bleed. Hemoglobin lower. Transfusion per manual arts therapy teacher if needed. Monitor renal parameters. Hemodialysis as needed. Per orders. May 28: Patient dialyzed today. Has rectal bleed. Due for colonoscopy tomorrow by GI. Continue to monitor renal parameters and CBC. Today's lab ordered and pending May 27: Last dialysis May 25. Will order dialysis for tomorrow. Labs reviewed. May 26: Dialyzed yesterday. Labs reviewed. Renvela discontinued. 1 dose of Neutra-Phos given. Continue to monitor renal parameters. May 25: Patient due for dialysis today. Labs reviewed. Medication list reviewed. Renvela dose adjusted. Continue to monitor electrolytes and renal parameters. May 24: No labs drawn today. Last dialysis May 22. Will check lab tomorrow. Will dialyze as needed. Hemodialysis yesterday May 22 Aredia 60 mg IV piggyback for hypercalcemia, given on May 22 Continue to monitor renal parameters calcium and phosphorus. Per orders, per PMD. Subjective ROS Limited/Unobtainable: Yes Objective Objective Last 24 Hour Vital Signs Date Time Temp Pulse Resp B/P (MAP) Pulse Ox O2 Delivery O2 Flow Rate FiO2 06/01/20 09:03 72 137/77 06/01/20 08:00 68 06/01/20 08:00 40 06/01/20 08:00 97.9 72 16 137/77 (97) 100 06/01/20 08:00 Mechanical Ventilator 06/01/20 07:36 68 16 40 06/01/20 04:00 Mechanical Ventilator 06/01/20 04:00 62 06/01/20 04:00 40 06/01/20 04:00 98.0 74 16 129/67 (87) 100 06/01/20 02:50 62 15 40 06/01/20 00:03 40 06/01/20 00:01 Mechanical Ventilator 06/01/20 00:00 98.1 72 20 145/76 (99) 100 06/01/20 00:00 77 05/31/20 23:08 74 18 40 05/31/20 22:54 77 149/75 05/31/20 20:00 69 05/31/20 20:00 99.0 77 20 149/75 (99) 100 05/31/20 19:59 40 05/31/20 19:58 Mechanical Ventilator 05/31/20 18:57 72 24 40 05/31/20 16:00 40 05/31/20 16:00 Mechanical Ventilator 05/31/20 16:00 98.2 79 20 153/89 (110) 100 05/31/20 16:00 79 05/31/20 15:03 72 17 40 05/31/20 12:00 73 05/31/20 12:00 98.1 71 17 157/86 (109) 100 05/31/20 12:00 40 05/31/20 12:00 Mechanical Ventilator 05/31/20 11:05 71 18 40 05/31/20 11:05 71 20 100 Mechanical Ventilator 40 Intake and Output 05/31/20 06/01/20 19:00 07:00 Intake Total 380 ml 490 ml Balance 380 ml 490 ml Free Water 100 ml 50 ml Tube Feeding 280 ml 440 ml Laboratory Tests 06/01/20 03:45: White Blood Count 8.0, Red Blood Count 2.94L, Hemoglobin 8.8L, Hematocrit 27.0L, Mean Corpuscular Volume 92, Mean Corpuscular Hemoglobin 29.9, Mean Corpuscular Hemoglobin Concent 32.6, Red Cell Distribution Width 16.4H, Platelet Count 175, Mean Platelet Volume 6.4L, Neutrophils (%) (Auto) 76.8H, Lymphocytes (%) (Auto) 13.7L, Monocytes (%) (Auto) 5.0, Eosinophils (%) (Auto) 3.5H, Basophils (%) (Auto) 1.0, Sodium Level 136, Potassium Level 4.2, Chloride Level 99, Carbon Dioxide Level 31, Anion Gap 6, Blood Urea Nitrogen 76H, Creatinine 3.6H, Estimat Glomerular Filtration Rate 18.0, Glucose Level 76, Calcium Level 9.3, Phosphorus Level 4.7, Magnesium Level 2.7H, Total Bilirubin 0.8, Aspartate Amino Transf (AST/SGOT) 128H, Alanine Aminotransferase (ALT/SGPT) 153H, Alkaline Phosphatase 441H, C-Reactive Protein, Quantitative 5.9H, Total Protein 7.1, Albumin 2.2L, Globulin 4.9, Albumin/Globulin Ratio 0.4L Height (Feet): 5 Height (Inches): 6.00 Weight (Pounds): 138 General Appearance: no apparent distress Cardiovascular: normal rate Respiratory/Chest: decreased breath sounds Abdomen: distended Maurilio King MD Jun 01, 2020 10:56
[2020-06-01 12:00] VITALS: BP 140/76
[2020-06-01 16:00] VITALS: BP 132/85
--- NOTE | 2020-06-01 17:19 | Surgery Progress Note ---
Surgery Progress Note Subjective Additional Comments ill appearing no n/v on support dressings going well d/c planning Objective Last 24 Hour Vital Signs Date Time Temp Pulse Resp B/P (MAP) Pulse Ox O2 Delivery O2 Flow Rate FiO2 06/01/20 15:38 69 13 40 06/01/20 12:00 97.8 66 18 140/76 (97) 99 06/01/20 12:00 Mechanical Ventilator 06/01/20 12:00 95 06/01/20 12:00 40 06/01/20 11:38 67 16 40 06/01/20 09:03 72 137/77 06/01/20 08:00 68 06/01/20 08:00 40 06/01/20 08:00 97.9 72 16 137/77 (97) 100 06/01/20 08:00 Mechanical Ventilator 06/01/20 07:36 68 16 40 06/01/20 04:00 Mechanical Ventilator 06/01/20 04:00 62 06/01/20 04:00 40 06/01/20 04:00 98.0 74 16 129/67 (87) 100 06/01/20 02:50 62 15 40 06/01/20 00:03 40 06/01/20 00:01 Mechanical Ventilator 06/01/20 00:00 98.1 72 20 145/76 (99) 100 06/01/20 00:00 77 05/31/20 23:08 74 18 40 05/31/20 22:54 77 149/75 05/31/20 20:00 69 05/31/20 20:00 99.0 77 20 149/75 (99) 100 05/31/20 19:59 40 05/31/20 19:58 Mechanical Ventilator 05/31/20 18:57 72 24 40 I&O Intake and Output 05/31/20 06/01/20 19:00 07:00 Intake Total 380 ml 530 ml Balance 380 ml 530 ml Free Water 100 ml 50 ml Tube Feeding 280 ml 480 ml Dressing: saturated Cardiovascular: RSR Respiratory: decreased breath sounds Abdomen: soft, non-tender, present bowel sounds Extremities: cyanosis, no tenderness, other Laboratory Tests Test 06/01/20 03:45 White Blood Count 8.0 K/UL (4.8-10.8) Red Blood Count 2.94 M/UL (4.70-6.10) L Hemoglobin 8.8 G/DL (14.2-18.0) L Hematocrit 27.0 % (42.0-52.0) L Mean Corpuscular Volume 92 FL (80-99) Mean Corpuscular Hemoglobin 29.9 PG (27.0-31.0) Mean Corpuscular Hemoglobin Concent 32.6 G/DL (32.0-36.0) Red Cell Distribution Width 16.4 % (11.6-14.8) H Platelet Count 175 K/UL (150-450) Mean Platelet Volume 6.4 FL (6.5-10.1) L Neutrophils (%) (Auto) 76.8 % (45.0-75.0) H Lymphocytes (%) (Auto) 13.7 % (20.0-45.0) L Monocytes (%) (Auto) 5.0 % (1.0-10.0) Eosinophils (%) (Auto) 3.5 % (0.0-3.0) H Basophils (%) (Auto) 1.0 % (0.0-2.0) Sodium Level 136 MMOL/L (136-145) Potassium Level 4.2 MMOL/L (3.5-5.1) Chloride Level 99 MMOL/L (98-107) Carbon Dioxide Level 31 MMOL/L (21-32) Anion Gap 6 mmol/L (5-15) Blood Urea Nitrogen 76 mg/dL (7-18) H Creatinine 3.6 MG/DL (0.55-1.30) H Estimat Glomerular Filtration Rate 18.0 mL/min (>60) Glucose Level 76 MG/DL (74-106) Calcium Level 9.3 MG/DL (8.5-10.1) Phosphorus Level 4.7 MG/DL (2.5-4.9) Magnesium Level 2.7 MG/DL (1.8-2.4) H Total Bilirubin 0.8 MG/DL (0.2-1.0) Aspartate Amino Transf (AST/SGOT) 128 U/L (15-37) H Alanine Aminotransferase (ALT/SGPT) 153 U/L (12-78) H Alkaline Phosphatase 441 U/L (46-116) H C-Reactive Protein, Quantitative 5.9 mg/dL (0.00-0.90) H Total Protein 7.1 G/DL (6.4-8.2) Albumin 2.2 G/DL (3.4-5.0) L Globulin 4.9 g/dL Albumin/Globulin Ratio 0.4 (1.0-2.7) L Plan Problems: (1) Complications, dialysis, catheter, mechanical (2) Decubitus ulcer, heel Assessment & Plan: 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 Heel ulcer identified as well. Foul-smelling. Fortunately this does not seem salvageable by any means given the extensive loss at the flap that has dehisced the exposed bone as well as the heel. Currently stable otherwise known chronic in nature not patient's acute problem. Will recommend that patient has a right BKA at some point given the current findings we will continue with local wound care tentatively. Patient identified to have a heel ulcer on the left side as well. Pt presented on admission with Tracheostomy ,GT and dehiscence of R TMA with necrosis extending into lateral aspect of R foot. Full thickness ulcer R heel with slough and necrosis. Moderate amt haemopurulent exudate noted from R heel.Wounds are malodorous. Pt exhibited distress with elevation of R leg during wound care. Haemosiderin deposit R lower ext. Dry eschar with cracking at base noted to L Hallux(L)3cm x (W)4.5cm. Dry eschar noted to dorsal L 1st,L 3rd, and L 5th metatarsals. L Heel is boggy w ith non-blanchable erythema. DTPI noted to upper R Buttocks(L)2.3cm x (W)4.5cm. Base of wound is indurated,purpuric with surrounding non-blanchable erythema.Non-Blanchable erythema without induration or fluctuance at Sacrum. Tx.Plan: Cleanse L foot wounds with Dakin's [place] 0.25%. Apply Dakin's moistened Kerlix to wounds. Apply Moisture Barrier periwound. Cover with ABD pads. Wrap with Kerlix Daily and prn. Apply Betadine to L Hallux ,L1st,L 3rd and L 5th metatarsals Daily. Leave open to Air. Apply Moisture Barrier Paste to Sacrum /R Buttocks. Cover with Optifoam drsgs. Change every 3 days and prn. Reposition at least every 2hours or as tolerated. Off-load heels with pillow. DAILY ESTIMATED NEEDS: Needs based on Critical care, wound, esrd on HD 65.1kg 25-30 kcals/kg 3810-5695 total kcals 1.5-2 g protein/kg 98-130 g total protein Fluid per MD, on HD NUTRITION DIAGNOSIS: Increased kcal and pro needs r/t renal dysfunction as evidenced by pt w/ ESRD on HD, notable open LE wounds, vent dep via trach and PEG dep. CURRENT TF: Nepro @55 ENTERAL NUTRITION RECOMMENDATIONS: Nepro LOWER to goal of 45ml/hr x24 hrs + Prosource BID to provide 1080ml, 1944 kcal, 87g pro, 785ml free H2O - Rec to LOWER goal rate of 45ml/hr - Add PROSOURCE 1 pack BID via PEG (11g pro/each) - On HD, water flush per MD - HOB over 30 degrees ADDITIONAL RECOMMENDATIONS: 1) maintain calibrated bed scale wt 2) Wound care: Vit C dosing per nephrology nephrovite qdaily. When tolerating TF at goal w/ Prosource BID-> add DEE BID (3) Ischemia of right lower extremity Assessment & Plan: prognosis of LE guarded cont with dressings may need amp at some point podiatry input appreciated agree with amputation when stable if medically clear and consent DAILY ESTIMATED NEEDS: Needs based on Critical care, wound, esrd on HD 65.1kg 25-30 kcals/kg 3786-6806 total kcals 1.5-2 g protein/kg 98-130 g total protein Fluid per MD, on HD NUTRITION DIAGNOSIS: Increased kcal and pro needs r/t renal dysfunction as evidenced by pt w/ ESRD on HD, notable open LE wounds, vent dep via trach and PEG dep. CURRENT TF: Nepro @45 + PS x2 ENTERAL NUTRITION RECOMMENDATIONS: Nepro goal of 45ml/hr x24 hrs + Prosource BID to provide 1080ml, 1944 kcal, 87g pro, 785ml free H2O - Maintain current rate 45ml/hr as tolerated. - Add PROSOURCE 1 pack BID via PEG - On HD, water flush per MD - HOB over 30 degrees ADDITIONAL RECOMMENDATIONS: 1) maintain calibrated bed scale wt 2) Wound care: Vit C dosing per nephrology nephrovite qdaily. When tolerating TF at goal w/ Prosource BID-> add DEE BID 3) Monitor wt trend (4) Hypercalcemia (5) Coagulopathy (6) Chronic respiratory failure (7) End stage renal disease on dialysis (8) Anemia in chronic kidney disease (CKD) (9) Anemia (10) GI bleed Dany Wilder Jun 01, 2020 17:19
--- NOTE | 2020-06-01 19:00 | NUR ---
NURSE NOTES: Received from Trisha. pt in bed, no signs of distress noted. Alert and oriented X1. Bilateral soft restraints in place. Respirations even and unlabored. Trach to vent and tolerating setting well with saturation of 99% at present moment. GT feeding of nepro at 40 cc/hr. w/no residual noted. Patient has left subclavian access for dialysis. Rt hand 22 patent and intact. SR on kitchen helper. HOB elevated, bed is on lowest position, locked, side rails up and alarm engaged. call light within reach. Will continue POC.
[2020-06-01 20:00] VITALS: BP 133/77
[2020-06-01] MEDS: Dyna-Hex 2% Top Sol 2oz TOPIC SCH (21:58)
[2020-06-01] MEDS: Atorvastatin 20mg tab GT SCH (21:59)
[2020-06-02] VITALS: BP 147/79
--- NOTE | 2020-06-02 | NUR ---
NURSE NOTES: In no apparent distress. Respirations even and unlabored. VSS afebrile. 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 Tolerating GT feeding with no residual. Large watery brown stool. Will continue to monitor.
[2020-06-02 04:00] VITALS: BP 147/79
--- NOTE | 2020-06-02 04:00 | NUR ---
NURSE NOTES: Pt sleeping. No distress noted. Respirations even and unlabored. Continue to tolerate well GT feeding of Nepro at 40 cc/hr. HOB elevated in lowest position, locked, side rails X2 up, call light within reach. Remain SR on media monitor. Will continue POC.
[2020-06-02 05:51] LABS: BASOPHILS % (AUTO) 1.5 % (0.0-2.0); EOSINOPHILS % (AUTO) 2.9 % (0.0-3.0); HEMATOCRIT 29.7 % (42.0-52.0); HEMOGLOBIN 9.2 G/DL (14.2-18.0); LYMPHOCYTES % (AUTO) 11.6 % (20.0-45.0); MEAN CORPUSCULAR VOLUME 94 FL (80-99); MONOCYTES % (AUTO) 6.6 % (1.0-10.0); NEUTROPHILS % (AUTO) 77.4 % (45.0-75.0); PLATELET COUNT 178 K/UL (150-450); RED BLOOD COUNT 3.14 M/UL (4.70-6.10); RED CELL DISTRIBUTION WIDTH 17.7 % (11.6-14.8); WHITE BLOOD COUNT 10.3 K/UL (4.8-10.8)
--- NOTE | 2020-06-02 06:21 | Hematology/Onc Progress Note ---
Assessment/Plan Assessment/Plan Covering Dr. Warren Assessment and Recs # Anemia due to likely chronic disease, ongoing, this is the first time he has been here --> anemia panel to order for downtrending hgb --> hgb 8.9-->9.4->8.4->>>8.7->8.1-->7.7->7.3->8.7 --> consider iron / epogen after anemia panel returns --> smear has been noted, no hemolysis --> 05/29 for endoscopy done, peg placed # Thrombocytopenia - potential causes multifactorial, evaluate liver and viral etiologies to begin, also could be related to underlying medications patient has received. --> Hep panel and HIV neg prior --> Ct a/p shows a normal appearing liver --> Peripheral smear ordered to evaluate for blasts /schistocytes --> abx and other meds have been reviewed --> ok for ppx if plt >50k w/ either heparin or lovenox --> plt 124-->186-->164 # Coagulopathy ongoing, ptt and inr elevated --> vitamin k given, as permacath to be removed --> get mixing study --> trend prn # Chronic respiratory failure --> per pulm --> vent + # End stage renal disease on dialysis --> Complications, dialysis, catheter,replacement as needed --> surg eval --> per renal # Dysphagia --> is s/p peg placement # Right lung infection --> repeat cxr now # Gangrenous toe, as per surg # Dvt ppx scds Appreciate consultation and patty RN Subjective Constitutional: Denies: no symptoms, chills, fever, malaise, weakness, other HEENT: Denies: no symptoms, eye pain, blurred vision, tearing, double vision, ear pain, ear discharge, nose pain, nose congestion, throat pain, throat swelling, mouth pain, mouth swelling, other Cardiovascular: Denies: no symptoms, chest pain, edema, irregular heart rate, lightheadedness, palpitations, syncope, other Gastrointestinal/Abdominal: Denies: no symptoms, abdomen distended, abdominal pain, black stools, tarry stools, blood in stool, constipated, diarrhea, difficulty swallowing, nausea, poor appetite, poor fluid intake, rectal bleeding, vomiting, other Genitourinary: Denies: no symptoms, burning, discharge, frequency, flank pain, hematuria, incontinence, pain, urgency, other Neurologic/Psychiatric: Denies: no symptoms, anxiety, depressed, emotional problems, headache, numbness, paresthesia, pre-existing deficit, seizure, tin gling, tremors, weakness, other Endocrine: Denies: no symptoms, excessive sweating, flushing, intolerance to cold, intolerance to heat, increased hunger, increased thirst, increased urine, unexplained weight gain, unexplained weight loss, other Allergies: Coded Allergies: No Known Allergies (Unverified , 04/22/20) Subjective 05/24 labs reviewed, cbc/bmp ordered, no bleeding on venttrach, gt 05/25 labs reviewed, was positive for large bm overnight, +ob, meds reviewed 05/26 rectal tube was removed, labs noted, no bleeding, labs reviewed 05/27 on vent hgb 7.3, no hemolysis, no night sweats 05/28 labs pending and hd today, may be close to dc 05/29 nv, no bleeding, labs noted, no bleeding, for colo today 05/31 colo reviewed, on vent, no bleeding, trach, no major changes, hd 06/01 gtube feeds ongoing, is on vent, labs noted, meds reivewed 06/02 nv, gtube feeds ongoing, labs noted, no bleeding, hgb 9.2 Objective Objective Current Medications Medications (Trade) Dose Ordered Sig/Titus Route PRN Reason Start Time Stop Time Status Last Admin Dose Admin Acetaminophen (Tylenol) 650 mg Q6H PRN GT Mild Pain (Pain Scale 1-3) 05/24/20 20:45 06/23/20 20:44 05/30/20 05:16 Ascorbic Acid (Vitamin C) 500 mg DAILY GT 05/22/20 09:00 06/21/20 08:59 06/01/20 09:03 Aspirin (ASA) 81 mg DAILY GT 05/22/20 09:00 07/06/20 08:59 06/01/20 09:03 Atorvastatin Calcium (Lipitor) 20 mg BEDTIME GT 05/21/20 21:00 08/19/20 20:59 06/01/20 21:59 Bisacodyl (Dulcolax) 10 mg DAILYPRN PRN RECTAL Constipation 05/21/20 15:15 08/19/20 15:14 Chlorhexidine Gluconate (Saba-Hex 2%) 1 applic DAILY@1999 TOPIC 05/22/20 20:00 08/20/20 19:59 06/01/20 21:58 Metoprolol Tartrate (Lopressor) 50 mg EVERY 12 HOURS GT 05/21/20 21:00 08/19/20 20:59 06/01/20 22:00 Sodium Hypochlorite (Dakin's Quarter Strength) 1 applic DAILY TOPIC 05/23/20 09:00 06/22/20 08:59 06/01/20 09:05 Sodium Hypochlorite (Dakin's Quarter Strength) 1 applic DAILY TOPIC 05/24/20 09:00 06/23/20 08:59 06/01/20 09:05 Vitamin B Complex/ Vit C/Folic Acid (Nephrovite) 1 tab DAILY GT 05/22/20 09:00 06/21/20 08:59 06/01/20 09:03 Vitamin D (Vitamin D) 400 unit DAILY ORAL 05/22/20 09:00 06/21/20 08:59 06/01/20 09:03 Last 24 Hour Vital Signs Date Time Temp Pulse Resp B/P (MAP) Pulse Ox O2 Delivery O2 Flow Rate FiO2 06/02/20 04:00 63 06/02/20 04:00 Mechanical Ventilator 06/02/20 04:00 97.9 64 16 147/79 (101) 100 06/02/20 04:00 40 06/02/20 03:25 62 17 40 06/02/20 00:00 40 06/02/20 00:00 Mechanical Ventilator 06/02/20 00:00 97.7 65 17 147/79 (101) 98 06/01/20 23:45 61 06/01/20 23:25 70 17 40 06/01/20 22:00 67 133/77 06/01/20 20:00 67 06/01/20 20:00 Mechanical Ventilator 06/01/20 20:00 98.1 67 16 133/77 (95) 99 06/01/20 19:35 40 06/01/20 19:10 60 14 40 06/01/20 16:00 40 06/01/20 16:00 69 06/01/20 16:00 Mechanical Ventilator 06/01/20 16:00 97.9 68 16 132/85 (101) 96 06/01/20 15:38 69 13 40 06/01/20 12:00 97.8 66 18 140/76 (97) 99 06/01/20 12:00 Mechanical Ventilator 06/01/20 12:00 95 06/01/20 12:00 40 06/01/20 11:38 67 16 40 06/01/20 09:03 72 137/77 06/01/20 08:00 68 06/01/20 08:00 40 06/01/20 08:00 97.9 72 16 137/77 (97) 100 06/01/20 08:00 Mechanical Ventilator 06/01/20 07:36 68 16 40 06/01/20 04:00 Mechanical Ventilator 06/01/20 04:00 62 06/01/20 04:00 40 06/01/20 04:00 98.0 74 16 129/67 (87) 100 06/01/20 02:50 62 15 40 06/01/20 00:03 40 06/01/20 00:01 Mechanical Ventilator 06/01/20 00:00 98.1 72 20 145/76 (99) 100 06/01/20 00:00 77 05/31/20 23:08 74 18 40 05/31/20 22:54 77 149/75 05/31/20 20:00 69 05/31/20 20:00 99.0 77 20 149/75 (99) 100 05/31/20 19:59 40 05/31/20 19:58 Mechanical Ventilator 05/31/20 18:57 72 24 40 05/31/20 16:00 40 05/31/20 16:00 Mechanical Ventilator 05/31/20 16:00 98.2 79 20 153/89 (110) 100 05/31/20 16:00 79 05/31/20 15:03 72 17 40 05/31/20 12:00 73 05/31/20 12:00 98.1 71 17 157/86 (109) 100 05/31/20 12:00 40 05/31/20 12:00 Mechanical Ventilator 05/31/20 11:05 71 18 40 05/31/20 11:05 71 20 100 Mechanical Ventilator 40 05/31/20 09:00 48 144/80 05/31/20 08:00 74 05/31/20 08:00 Mechanical Ventilator 05/31/20 08:00 98.8 76 19 146/86 (106) 100 05/31/20 07:10 72 16 40 Intake and Output 06/01/20 06/02/20 19:00 07:00 Intake Total 580 ml 450 ml Balance 580 ml 450 ml Free Water 100 ml 50 ml Tube Feeding 480 ml 400 ml # Bowel Movements 1 Labs Test 05/31/20 08:20 06/01/20 03:45 06/02/20 03:20 White Blood Count 7.2 K/UL (4.8-10.8) 8.0 K/UL (4.8-10.8) 10.3 K/UL (4.8-10.8) Red Blood Count 3.01 M/UL (4.70-6.10) 2.94 M/UL (4.70-6.10) 3.14 M/UL (4.70-6.10) Hemoglobin 8.6 G/DL (14.2-18.0) 8.8 G/DL (14.2-18.0) 9.2 G/DL (14.2-18.0) Hematocrit 26.4 % (42.0-52.0) 27.0 % (42.0-52.0) 29.7 % (42.0-52.0) Mean Corpuscular Volume 88 FL (80-99) 92 FL (80-99) 94 FL (80-99) Mean Corpuscular Hemoglobin 28.5 PG (27.0-31.0) 29.9 PG (27.0-31.0) 29.4 PG (27.0-31.0) Mean Corpuscular Hemoglobin Concent 32.4 G/DL (32.0-36.0) 32.6 G/DL (32.0-36.0) 31.1 G/DL (32.0-36.0) Red Cell Distribution Width 17.8 % (11.6-14.8) 16.4 % (11.6-14.8) 17.7 % (11.6-14.8) Platelet Count 180 K/UL (150-450) 175 K/UL (150-450) 178 K/UL (150-450) Mean Platelet Volume 6.8 FL (6.5-10.1) 6.4 FL (6.5-10.1) 6.5 FL (6.5-10.1) Neutrophils (%) (Auto) 78.9 % (45.0-75.0) 76.8 % (45.0-75.0) 77.4 % (45.0-75.0) Lymphocytes (%) (Auto) 11.8 % (20.0-45.0) 13.7 % (20.0-45.0) 11.6 % (20.0-45.0) Monocytes (%) (Auto) 5.3 % (1.0-10.0) 5.0 % (1.0-10.0) 6.6 % (1.0-10.0) Eosinophils (%) (Auto) 3.0 % (0.0-3.0) 3.5 % (0.0-3.0) 2.9 % (0.0-3.0) Basophils (%) (Auto) 1.0 % (0.0-2.0) 1.0 % (0.0-2.0) 1.5 % (0.0-2.0) Sodium Level 140 MMOL/L (136-145) 136 MMOL/L (136-145) Potassium Level 4.2 MMOL/L (3.5-5.1) 4.2 MMOL/L (3.5-5.1) Chloride Level 101 MMOL/L (98-107) 99 MMOL/L (98-107) Carbon Dioxide Level 32 MMOL/L (21-32) 31 MMOL/L (21-32) Anion Gap 7 mmol/L (5-15) 6 mmol/L (5-15) Blood Urea Nitrogen 61 mg/dL (7-18) 76 mg/dL (7-18) Creatinine 3.1 MG/DL (0.55-1.30) 3.6 MG/DL (0.55-1.30) Estimat Glomerular Filtration Rate 21.4 mL/min (>60) 18.0 mL/min (>60) Glucose Level 115 MG/DL (74-106) 76 MG/DL (74-106) Calcium Level 9.0 MG/DL (8.5-10.1) 9.3 MG/DL (8.5-10.1) Phosphorus Level 3.9 MG/DL (2.5-4.9) 4.7 MG/DL (2.5-4.9) Magnesium Level 2.6 MG/DL (1.8-2.4) 2.7 MG/DL (1.8-2.4) Total Bilirubin 0.7 MG/DL (0.2-1.0) 0.8 MG/DL (0.2-1.0) Direct Bilirubin 0.4 MG/DL (0.0-0.3) Aspartate Amino Transf (AST/SGOT) 133 U/L (15-37) 128 U/L (15-37) Alanine Aminotransferase (ALT/SGPT) 137 U/L (12-78) 153 U/L (12-78) Alkaline Phosphatase 467 U/L (46-116) 441 U/L (46-116) Total Protein 7.2 G/DL (6.4-8.2) 7.1 G/DL (6.4-8.2) Albumin 2.2 G/DL (3.4-5.0) 2.2 G/DL (3.4-5.0) C-Reactive Protein, Quantitative 5.9 mg/dL (0.00-0.90) Globulin 4.9 g/dL Albumin/Globulin Ratio 0.4 (1.0-2.7) Height (Feet): 5 Height (Inches): 6.00 Weight (Pounds): 138 Objective Physical Exam Vitals: reviewed, normal General Appearance: no apparent distress, other - Nonverbal Head: normocephalic, atraumatic: no angioedema, normal voice Neck: full range of motion, supple/symm/no masses Respiratory: chest non-tender, lungs clear, +++vent/trach Cardiovascular: regular rate, rhythm, no edema Gastrointestinal: normal bowel sounds, ++gt Genitourinary: normal inspection, no CVA tenderness Musculoskeletal: back normal, normal range of motion Neurologic: other - Nonverbal Psychiatric: other - Nonverbal Lymphatic: no adenopathy Nick Whiteside MD Jun 02, 2020 06:21
--- NOTE | 2020-06-02 07:25 | NUR ---
NURSE NOTES: Received report RN Ant Zuniga,patient awake relax ,on ventilator ,O2 saturation 100%,head 30m degrees,observe contact isolation,aspiration precaution,heels off bed,dressing left foot dry intact,right foot open to air,on [id number],suctioned oral and tracheostomy,no bleeding noted at this time ,no rectal bleed, Prosource given G tube ,no residual
[2020-06-02 08:03] VITALS: BP 133/78
[2020-06-02] MEDS: Ascorbic Acid 500mg tab GT SCH (08:45)
[2020-06-02] MEDS: Vitamin D 400 units TAB ORAL SCH (08:45)
[2020-06-02] MEDS: Aspirin Baby 81mg GT SCH (08:45)
[2020-06-02] MEDS: Nephrovite tab (Rena-Vite) GT SCH (08:45)
[2020-06-02] MEDS: Dakin's 0.125% Soln (Quarter Strength) 16oz TOPIC SCH (08:46)
[2020-06-02] MEDS ORDERED: Tubing IV Blood Pump IV ONE (09:06)
[2020-06-02] MEDS ORDERED: NS 275ml ONE (09:06)
--- NOTE | 2020-06-02 09:18 | General Progress Note ---
Subjective ROS Limited/Unobtainable: No Allergies: Coded Allergies: No Known Allergies (Unverified , 04/22/20) Objective Last 24 Hour Vital Signs Date Time Temp Pulse Resp B/P (MAP) Pulse Ox O2 Delivery O2 Flow Rate FiO2 06/02/20 08:03 98.2 67 16 133/78 (96) 100 06/02/20 08:00 40 06/02/20 07:02 71 20 40 06/02/20 04:00 63 06/02/20 04:00 Mechanical Ventilator 06/02/20 04:00 97.9 64 16 147/79 (101) 100 06/02/20 04:00 40 06/02/20 03:25 62 17 40 06/02/20 00:00 40 06/02/20 00:00 Mechanical Ventilator 06/02/20 00:00 97.7 65 17 147/79 (101) 98 06/01/20 23:45 61 06/01/20 23:25 70 17 40 06/01/20 22:00 67 133/77 06/01/20 20:00 67 06/01/20 20:00 Mechanical Ventilator 06/01/20 20:00 98.1 67 16 133/77 (95) 99 06/01/20 19:35 40 06/01/20 19:10 60 14 40 06/01/20 16:00 40 06/01/20 16:00 69 06/01/20 16:00 Mechanical Ventilator 06/01/20 16:00 97.9 68 16 132/85 (101) 96 06/01/20 15:38 69 13 40 06/01/20 12:00 97.8 66 18 140/76 (97) 99 06/01/20 12:00 Mechanical Ventilator 06/01/20 12:00 95 06/01/20 12:00 40 06/01/20 11:38 67 16 40 Intake and Output 06/01/20 06/02/20 19:00 07:00 Intake Total 580 ml 450 ml Balance 580 ml 450 ml Free Water 100 ml 50 ml Tube Feeding 480 ml 400 ml # Bowel Movements 1 Laboratory Tests 06/02/20 03:20: White Blood Count 10.3, Red Blood Count 3.14L, Hemoglobin 9.2L, Hematocrit 29.7L , Mean Corpuscular Volume 94, Mean Corpuscular Hemoglobin 29.4, Mean Corpuscular Hemoglobin Concent 31.1L, Red Cell Distribution Width 17.7H, Platelet Count 178, Mean Platelet Volume 6.5, Neutrophils (%) (Auto) 77.4H, Lymphocytes (%) (Auto) 11.6L, Monocytes (%) (Auto) 6.6, Eosinophils (%) (Auto) 2.9, Basophils (%) (Auto) 1.5 Height (Feet): 5 Height (Inches): 6.00 Weight (Pounds): 138 General Appearance: no apparent distress EENT: PERRL/EOMI Neck: supple Cardiovascular: normal rate Respiratory/Chest: decreased breath sounds Abdomen: normal bowel sounds, non tender, soft Extremities: non-tender Assessment/Plan Problem List: (1) Coagulopathy ICD Codes: D68.9 - Coagulation defect, unspecified SNOMED: 27100057 (2) Chronic respiratory failure ICD Codes: J96.10 - Chronic respiratory failure, unspecified whether with hypoxia or hypercapnia SNOMED: 38405974 (3) End stage renal disease on dialysis ICD Codes: N18.6 - End stage renal disease; Z99.2 - Dependence on renal dialysis SNOMED: 935194521 (4) Anemia in chronic kidney disease (CKD) ICD Codes: N18.9 - Chronic kidney disease, unspecified; D63.1 - Anemia in chronic kidney disease SNOMED: 644658621 (5) DM (diabetes mellitus), type 2, uncontrolled, periph vascular complic ICD Codes: E11.51 - Type 2 diabetes mellitus with diabetic peripheral angiopathy without gangrene; E11.65 - Type 2 diabetes mellitus with hyperglycemia SNOMED: 50082850, 465207178, 434576983 Assessment/Plan: s/p colonoscopy stable H&H GTF dc planning per primary team Ajay Holley MD Jun 02, 2020 09:18
--- NOTE | 2020-06-02 11:02 | Nephrology Progress Note ---
Assessment/Plan Problem List: (1) End stage renal disease on dialysis (2) Hypercalcemia (3) Anemia (4) Chronic respiratory failure Assessment End-stage renal disease on dialysis Coagulopathy Anemia Chronic respiratory failure History of hypercalcemia, corrected serum calcium for low albumin remains elevated Plan June 02: Labs were reviewed. Serum creatinine 3.6. Recheck lab tomorrow. Dialysis as needed. June 01: Patient last dialyzed May 30. Labs reviewed. Continue to monitor renal parameters and arrange for dialysis as needed. Continue per consultants. May 31: Patient dialyzed yesterday. Labs reviewed. Continue monitor renal parameters and order dialysis as needed. Continue per consultants. May 30: Patient last dialyzed May 28. Will order dialysis tomorrow. Hemoglobin higher. Renal parameters reviewed. Abnormal electrolytes addressed. May 29: Patient last dialyzed May 28. Had colonoscopy for rectal bleed. Hemoglobin lower. Transfusion per programmer analyst if needed. Monitor renal parameters. Hemodialysis as needed. Per orders. May 28: Patient dialyzed today. Has rectal bleed. Due for colonoscopy tomorrow by GI. Continue to monitor renal parameters and CBC. Today's lab ordered and pending May 27: Last dialysis May 25. Will order dialysis for tomorrow. Labs reviewed. May 26: Dialyzed yesterday. Labs reviewed. Renvela discontinued. 1 dose of Neutra-Phos given. Continue to monitor renal parameters. May 25: Patient due for dialysis today. Labs reviewed. Medication list reviewed. Renvela dose adjusted. Continue to monitor electrolytes and renal parameters. May 24: No labs drawn today. Last dialysis May 22. Will check lab tomorrow. Will dialyze as needed. Hemodialysis yesterday May 22 Aredia 60 mg IV piggyback for hypercalcemia, given on May 22 Continue to monitor renal parameters calcium and phosphorus. Per orders, per PMD. Subjective ROS Limited/Unobtainable: Yes Objective Objective Last 24 Hour Vital Signs Date Time Temp Pulse Resp B/P (MAP) Pulse Ox O2 Delivery O2 Flow Rate FiO2 06/02/20 08:05 Mechanical Ventilator 06/02/20 08:03 98.2 67 16 133/78 (96) 100 06/02/20 08:00 40 06/02/20 07:32 64 06/02/20 07:02 71 20 40 06/02/20 04:00 63 06/02/20 04:00 Mechanical Ventilator 06/02/20 04:00 97.9 64 16 147/79 (101) 100 06/02/20 04:00 40 06/02/20 03:25 62 17 40 06/02/20 00:00 40 06/02/20 00:00 Mechanical Ventilator 06/02/20 00:00 97.7 65 17 147/79 (101) 98 06/01/20 23:45 61 06/01/20 23:25 70 17 40 06/01/20 22:00 67 133/77 06/01/20 20:00 67 06/01/20 20:00 Mechanical Ventilator 06/01/20 20:00 98.1 67 16 133/77 (95) 99 06/01/20 19:35 40 06/01/20 19:10 60 14 40 06/01/20 16:00 40 06/01/20 16:00 69 06/01/20 16:00 Mechanical Ventilator 06/01/20 16:00 97.9 68 16 132/85 (101) 96 06/01/20 15:38 69 13 40 06/01/20 12:00 97.8 66 18 140/76 (97) 99 06/01/20 12:00 Mechanical Ventilator 06/01/20 12:00 95 06/01/20 12:00 40 06/01/20 11:38 67 16 40 Intake and Output 06/01/20 06/02/20 19:00 07:00 Intake Total 580 ml 450 ml Balance 580 ml 450 ml Free Water 100 ml 50 ml Tube Feeding 480 ml 400 ml # Bowel Movements 1 Current Medications Medications (Trade) Dose Ordered Sig/Titus Route PRN Reason Start Time Stop Time Status Last Admin Dose Admin Acetaminophen (Tylenol) 650 mg Q6H PRN GT Mild Pain (Pain Scale 1-3) 05/24/20 20:45 06/23/20 20:44 05/30/20 05:16 Ascorbic Acid (Vitamin C) 500 mg DAILY GT 05/22/20 09:00 06/21/20 08:59 06/02/20 08:45 Aspirin (ASA) 81 mg DAILY GT 05/22/20 09:00 07/06/20 08:59 06/02/20 08:45 Atorvastatin Calcium (Lipitor) 20 mg BEDTIME GT 05/21/20 21:00 08/19/20 20:59 06/01/20 21:59 Bisacodyl (Dulcolax) 10 mg DAILYPRN PRN RECTAL Constipation 05/21/20 15:15 08/19/20 15:14 Chlorhexidine Gluconate (Saba-Hex 2%) 1 applic DAILY@1999 TOPIC 05/22/20 20:00 08/20/20 19:59 06/01/20 21:58 Metoprolol Tartrate (Lopressor) 50 mg EVERY 12 HOURS GT 05/21/20 21:00 08/19/20 20:59 06/02/20 12:07 Sodium Hypochlorite (Dakin's Quarter Strength) 1 applic DAILY TOPIC 05/24/20 09:00 06/23/20 08:59 06/02/20 08:46 Vitamin B Complex/ Vit C/Folic Acid (Nephrovite) 1 tab DAILY GT 05/22/20 09:00 06/21/20 08:59 06/02/20 08:45 Vitamin D (Vitamin D) 400 unit DAILY ORAL 05/22/20 09:00 06/21/20 08:59 06/02/20 08:45 Laboratory Tests 06/02/20 03:20: White Blood Count 10.3, Red Blood Count 3.14L, Hemoglobin 9.2L, Hematocrit 29.7L , Mean Corpuscular Volume 94, Mean Corpuscular Hemoglobin 29.4, Mean Corpuscular Hemoglobin Concent 31.1L, Red Cell Distribution Width 17.7H, Platelet Count 178, Mean Platelet Volume 6.5, Neutrophils (%) (Auto) 77.4H, Lymphocytes (%) (Auto) 11.6L, Monocytes (%) (Auto) 6.6, Eosinophils (%) (Auto) 2.9, Basophils (%) (Auto) 1.5 Height (Feet): 5 Height (Inches): 6.00 Weight (Pounds): 138 General Appearance: no apparent distress EENT: other Cardiovascular: normal rate Respiratory/Chest: decreased breath sounds Abdomen: distended Maurilio King MD Jun 02, 2020 11:02
[2020-06-02 12:06] VITALS: BP 129/79
[2020-06-02] MEDS: Metoprolol Tartrate 50mg tab GT SCH ×2 (12:07→20:31)
--- NOTE | 2020-06-02 13:21 | NUR ---
Catheterization Laboratory TechnicianOrder Schedule Clerk SI: Anemia, ESRD/HD Trach/Vent dependent, IMV/SIMV FiO2 40%, TV 500, PEEP 5 O2 Sat 100% Temp 98.2, HR 67, RR 16, BP 133/78 WBC 10.3 BUN 76, Creatinine 3.6 IS: ASA GT Lopressor GT Step Down Status
--- NOTE | 2020-06-02 14:30 | Surgery Progress Note ---
Surgery Progress Note Subjective Additional Comments anemia h/h stable no bleeding no n/v tube in place Objective Last 24 Hour Vital Signs Date Time Temp Pulse Resp B/P (MAP) Pulse Ox O2 Delivery O2 Flow Rate FiO2 06/02/20 12:30 Mechanical Ventilator 06/02/20 12:07 69 129/79 06/02/20 12:06 98.4 69 18 129/79 (96) 100 06/02/20 12:00 40 06/02/20 11:36 68 06/02/20 08:05 Mechanical Ventilator 06/02/20 08:03 98.2 67 16 133/78 (96) 100 06/02/20 08:00 40 06/02/20 07:32 64 06/02/20 07:02 71 20 40 06/02/20 04:00 63 06/02/20 04:00 Mechanical Ventilator 06/02/20 04:00 97.9 64 16 147/79 (101) 100 06/02/20 04:00 40 06/02/20 03:25 62 17 40 06/02/20 00:00 40 06/02/20 00:00 Mechanical Ventilator 06/02/20 00:00 97.7 65 17 147/79 (101) 98 06/01/20 23:45 61 06/01/20 23:25 70 17 40 06/01/20 22:00 67 133/77 06/01/20 20:00 67 06/01/20 20:00 Mechanical Ventilator 06/01/20 20:00 98.1 67 16 133/77 (95) 99 06/01/20 19:35 40 06/01/20 19:10 60 14 40 06/01/20 16:00 40 06/01/20 16:00 69 06/01/20 16:00 Mechanical Ventilator 06/01/20 16:00 97.9 68 16 132/85 (101) 96 06/01/20 15:38 69 13 40 I&O Intake and Output 06/01/20 06/02/20 19:00 07:00 Intake Total 580 ml 450 ml Balance 580 ml 450 ml Free Water 100 ml 50 ml Tube Feeding 480 ml 400 ml # Bowel Movements 1 Dressing: saturated Cardiovascular: RSR Respiratory: decreased breath sounds Abdomen: soft, non-tender, present bowel sounds, non-distended Extremities: no tenderness, no cyanosis Laboratory Tests Test 06/02/20 03:20 White Blood Count 10.3 K/UL (4.8-10.8) Red Blood Count 3.14 M/UL (4.70-6.10) L Hemoglobin 9.2 G/DL (14.2-18.0) L Hematocrit 29.7 % (42.0-52.0) L Mean Corpuscular Volume 94 FL (80-99) Mean Corpuscular Hemoglobin 29.4 PG (27.0-31.0) Mean Corpuscular Hemoglobin Concent 31.1 G/DL (32.0-36.0) L Red Cell Distribution Width 17.7 % (11.6-14.8) H Platelet Count 178 K/UL (150-450) Mean Platelet Volume 6.5 FL (6.5-10.1) Neutrophils (%) (Auto) 77.4 % (45.0-75.0) H Lymphocytes (%) (Auto) 11.6 % (20.0-45.0) L Monocytes (%) (Auto) 6.6 % (1.0-10.0) Eosinophils (%) (Auto) 2.9 % (0.0-3.0) Basophils (%) (Auto) 1.5 % (0.0-2.0) Plan Problems: (1) Complications, dialysis, catheter, mechanical (2) Decubitus ulcer, heel Assessment & Plan: 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 Heel ulcer identified as well. Foul-smelling. Fortunately this does not seem salvageable by any means given the extensive loss at the flap that has dehisced the exposed bone as well as the heel. Currently stable otherwise known chronic in nature not patient's acute problem. Will recommend that patient has a right BKA at some point given the current findings we will continue with local wound care tentatively. Patient identified to have a heel ulcer on the left side as well. Pt presented on admission with Tracheostomy ,GT and dehiscence of R TMA with necrosis extending into lateral aspect of R foot. Full thickness ulcer R heel with slough and necrosis. Moderate amt haemopurulent exudate noted from R heel.Wounds are malodorous. Pt exhibited distress with elevation of R leg during wound care. Haemosiderin deposit R lower ext. Dry eschar with cracking at base noted to L Hallux(L)3cm x (W)4.5cm. Dry eschar noted to dorsal L 1st,L 3rd, and L 5th metatarsals. L Heel is boggy with non-blanchable erythema. DTPI noted to upper R Buttocks(L)2.3cm x (W)4.5cm. Base of wound is indurated,purpuric with surrounding non-blanchable erythema.Non-Blanchable erythema without induration or fluctuance at Sacrum. Tx.Plan: Cleanse L foot wounds with Dakin's [place] 0.25%. Apply Dakin's moistened Kerlix to wounds. Apply Moisture Barrier periwound. Cover with ABD pads. Wrap with Kerlix Daily and prn. Apply Betadine to L Hallux ,L1st,L 3rd and L 5th metatarsals Daily. Leave open to Air. Apply Moisture Barrier Paste to Sacrum /R Buttocks. Cover with Optifoam drsgs. Change every 3 days and prn. Reposition at least every 2hours or as tolerated. Off-load heels with pillow. DAILY ESTIMATED NEEDS: Needs based on Critical care, wound, esrd on HD 65.1kg 25-30 kcals/kg 8910-1160 total kcals 1.5-2 g protein/kg 98-130 g total protein Fluid per MD, on HD NUTRITION DIAGNOSIS: Increased kcal and pro needs r/t renal dysfunction as evidenced by pt w/ ESRD on HD, notable open LE wounds, vent dep via trach and PEG dep. CURRENT TF: Nepro @55 ENTERAL NUTRITION RECOMMENDATIONS: Nepro LOWER to goal of 45ml/hr x24 hrs + Prosource BID to provide 1080ml, 1944 kcal, 87g pro, 785ml free H2O - Rec to LOWER goal rate of 45ml/hr - Add PROSOURCE 1 pack BID via PEG (11g pro/each) - On HD, water flush per MD - HOB over 30 degrees ADDITIONAL RECOMMENDATIONS: 1) maintain calibrated bed scale wt 2) Wound care: Vit C dosing per nephrology nephrovite qdaily. When tolerating TF at goal w/ Prosource BID-> add DEE BID (3) Ischemia of right lower extremity Assessment & Plan: prognosis of LE guarded cont with dressings may need amp at some point podiatry input appreciated agree with amputation when stable if medically clear and consent DAILY ESTIMATED NEEDS: Needs based on Critical care, wound, esrd on HD 65.1kg 25-30 kcals/kg 0592-0978 total kcals 1.5-2 g protein/kg 98-130 g total protein Fluid per MD, on HD NUTRITION DIAGNOSIS: Increased kcal and pro needs r/t renal dysfunction as evidenced by pt w/ ESRD on HD, notable open LE wounds, vent dep via trach and PEG dep. CURRENT TF: Nepro @45 + PS x2 ENTERAL NUTRITION RECOMMENDATIONS: Nepro goal of 45ml/hr x24 hrs + Prosource BID to provide 1080ml, 1944 kcal, 87g pro, 785ml free H2O - Maintain current rate 45ml/hr as tolerated. - Add PROSOURCE 1 pack BID via PEG - On HD, water flush per MD - HOB over 30 degrees ADDITIONAL RECOMMENDATIONS: 1) maintain calibrated bed scale wt 2) Wound care: Vit C dosing per nephrology nephrovite qdaily. When tolerating TF at goal w/ Prosource BID-> add DEE BID 3) Monitor wt trend (4) Hypercalcemia (5) Coagulopathy (6) Chronic respiratory failure (7) End stage renal disease on dialysis (8) Anemia in chronic kidney disease (CKD) (9) Anemia (10) GI bleed Dany Wilder Jun 02, 2020 14:30
--- NOTE | 2020-06-02 16:35 | NUR ---
ELECTRONIC EQUIPMENT REPAIRER NOTES SPOKE WITH STACY FROM [facility] PT IS PENDING APPROVAL FROM [facility] FOR READMISSION.
[2020-06-02 16:39] VITALS: BP 135/89
--- NOTE | 2020-06-02 19:10 | NUR ---
NURSE HAND-OFF REPORT: Important Events on Shift:Suctioned tracheostomy Patient Status: Stable no bleeding Diet: G tube feeding Pending Orders: No Pending Results/Labs:No Pending MD notification:No Latest Vital Signs: Temperature 98.2 , Pulse 68 , B/P 135 /89 , Respiratory Rate 19 , O2 SAT 100 , Mechanical Ventilator, O2 Flow Rate . Vital Sign Comment: EKG Rhythm: Sinus Rhythm Rhythm change?: N MD Notified?: N - MD Response: Latest Seay Fall Score: 75 Fall Risk: High Risk Safety Measures: Call light Within Reach, Bed Alarm Zone 1, Side Rails Side Rails x2, Bed position Low and Locked. Fall Precautions: Yellow Socks Yellow Gown Door Sign Patient Fall Education Report given to .AMELIE Zuñiga
--- NOTE | 2020-06-02 19:15 | NUR ---
NURSE NOTES: Received pt in bed, alert, non verbal, on vent via trach not showing any signs of distress at present settings. Nepro running at 40cc/hr via G tube with no residuals noted. left chest permacath intact. Rt hand #22 intact and heplocked. VS stable and pt is SR on the monitor.
[2020-06-02 20:00] VITALS: BP 123/81
[2020-06-02] MEDS: Dyna-Hex 2% Top Sol 2oz TOPIC SCH (20:32)
[2020-06-02] MEDS: Atorvastatin 20mg tab GT SCH (20:32)
[2020-06-03] VITALS: BP 115/81
--- NOTE | 2020-06-03 | NUR ---
Pt remains stable with stable VS. Pt repositioned for comfort. Pt remains SR on the monitor.
--- NOTE | 2020-06-03 03:30 | NUR ---
NURSE NOTES: Pt remains stable with stable VS. Pt has a bowel movement. AM care given and pt repositioned for comfort. Pt remains SR on the monitor.
[2020-06-03 04:00] VITALS: BP 123/61
[2020-06-03 06:15] LABS: BASOPHILS % (AUTO) 1.4 % (0.0-2.0); EOSINOPHILS % (AUTO) 3.2 % (0.0-3.0); HEMATOCRIT 26.3 % (42.0-52.0); HEMOGLOBIN 8.4 G/DL (14.2-18.0); LYMPHOCYTES % (AUTO) 12.6 % (20.0-45.0); MEAN CORPUSCULAR VOLUME 93 FL (80-99); MONOCYTES % (AUTO) 5.1 % (1.0-10.0); NEUTROPHILS % (AUTO) 77.7 % (45.0-75.0); PLATELET COUNT 169 K/UL (150-450); RED BLOOD COUNT 2.83 M/UL (4.70-6.10); RED CELL DISTRIBUTION WIDTH 17.1 % (11.6-14.8); WHITE BLOOD COUNT 9.8 K/UL (4.8-10.8)
--- NOTE | 2020-06-03 06:29 | Hematology/Onc Progress Note ---
Assessment/Plan Assessment/Plan Covering Dr. Warren Assessment and Recs # Anemia due to likely chronic disease, ongoing, this is the first time he has been here --> anemia panel to order for downtrending hgb --> hgb 8.9-->9.4->8.4->>>8.7->8.1-->7.7->7.3->8.7 --> consider iron / epogen after anemia panel returns --> smear has been noted, no hemolysis --> 05/29 for endoscopy done, peg placed # Thrombocytopenia - potential causes multifactorial, evaluate liver and viral etiologies to begin, also could be related to underlying medications patient has received. --> Hep panel and HIV neg prior --> Ct a/p shows a normal appearing liver --> Peripheral smear ordered to evaluate for blasts /schistocytes --> abx and other meds have been reviewed --> ok for ppx if plt >50k w/ either heparin or lovenox --> plt 124-->186-->164 # Coagulopathy ongoing, ptt and inr elevated --> vitamin k given, as permacath to be removed --> get mixing study --> trend prn # Chronic respiratory failure --> per pulm --> vent + # End stage renal disease on dialysis --> Complications, dialysis, catheter,replacement as needed --> surg eval --> per renal # Dysphagia --> is s/p peg placement # Right lung infection --> repeat cxr now # Gangrenous toe, as per surg # Dvt ppx scds Appreciate consultation and patty RN Subjective Cardiovascular: Denies: no symptoms, chest pain, edema, irregular heart rate, lightheadedness, palpitations, syncope, other Allergies: Coded Allergies: No Known Allergies (Unverified , 04/22/20) All Systems: reviewed and negative except above Subjective 05/24 labs reviewed, cbc/bmp ordered, no bleeding on venttrach, gt 05/25 labs reviewed, was positive for large bm overnight, +ob, meds reviewed 05/26 rectal tube was removed, labs noted, no bleeding, labs reviewed 05/27 on vent hgb 7.3, no hemolysis, no night sweats 05/28 labs pending and hd today, may be close to dc 05/29 nv, no bleeding, labs noted, no bleeding, for colo today 05/31 colo reviewed, on vent, no bleeding, trach, no major changes, hd 06/01 gtube feeds ongoing, is on vent, labs noted, meds reivewed 06/02 nv, gtube feeds ongoing, labs noted, no bleeding, hgb 9.2 06/03 is nv, trach, no bleeding, labs have been reviewed from am Objective Objective Current Medications Medications (Trade) Dose Ordered Sig/Titus Route PRN Reason Start Time Stop Time Status Last Admin Dose Admin Acetaminophen (Tylenol) 650 mg Q6H PRN GT Mild Pain (Pain Scale 1-3) 05/24/20 20:45 06/23/20 20:44 05/30/20 05:16 Ascorbic Acid (Vitamin C) 500 mg DAILY GT 05/22/20 09:00 06/21/20 08:59 06/02/20 08:45 Aspirin (ASA) 81 mg DAILY GT 05/22/20 09:00 07/06/20 08:59 06/02/20 08:45 Atorvastatin Calcium (Lipitor) 20 mg BEDTIME GT 05/21/20 21:00 08/19/20 20:59 06/02/20 20:32 Bisacodyl (Dulcolax) 10 mg DAILYPRN PRN RECTAL Constipation 05/21/20 15:15 08/19/20 15:14 Chlorhexidine Gluconate (Saba-Hex 2%) 1 applic DAILY@1999 TOPIC 05/22/20 20:00 08/20/20 19:59 06/02/20 20:32 Metoprolol Tartrate (Lopressor) 50 mg EVERY 12 HOURS GT 05/21/20 21:00 08/19/20 20:59 06/02/20 20:31 Sodium Hypochlorite (Dakin's Quarter Strength) 1 applic DAILY TOPIC 05/24/20 09:00 06/23/20 08:59 06/02/20 08:46 Vitamin B Complex/ Vit C/Folic Acid (Nephrovite) 1 tab DAILY GT 05/22/20 09:00 06/21/20 08:59 06/02/20 08:45 Vitamin D (Vitamin D) 400 unit DAILY ORAL 05/22/20 09:00 06/21/20 08:59 06/02/20 08:45 Last 24 Hour Vital Signs Date Time Temp Pulse Resp B/P (MAP) Pulse Ox O2 Delivery O2 Flow Rate FiO2 06/03/20 04:00 40 06/03/20 04:00 63 06/03/20 04:00 Mechanical Ventilator Mechanical Ventilator 06/03/20 04:00 98.1 69 24 123/61 (81) 100 06/03/20 03:00 80 20 40 06/03/20 00:00 65 06/03/20 00:00 40 06/03/20 00:00 Mechanical Ventilator Mechanical Ventilator 06/03/20 00:00 99.0 68 19 115/81 (92) 96 06/02/20 23:10 82 19 40 06/02/20 20:31 70 123/81 06/02/20 20:00 40 06/02/20 20:00 72 06/02/20 20:00 Mechanical Ventilator Mechanical Ventilator 06/02/20 20:00 98.2 70 19 123/81 (95) 100 06/02/20 19:00 73 22 40 06/02/20 16:39 98.2 68 19 135/89 (104) 100 06/02/20 16:30 Mechanical Ventilator 06/02/20 16:00 67 06/02/20 16:00 40 06/02/20 15:08 67 20 40 06/02/20 12:30 Mechanical Ventilator 06/02/20 12:07 69 129/79 06/02/20 12:06 98.4 69 18 129/79 (96) 100 06/02/20 12:00 40 06/02/20 11:36 68 06/02/20 11:05 63 16 40 06/02/20 08:05 Mechanical Ventilator 06/02/20 08:03 98.2 67 16 133/78 (96) 100 06/02/20 08:00 40 06/02/20 07:32 64 06/02/20 07:02 71 20 40 06/02/20 04:00 63 06/02/20 04:00 Mechanical Ventilator 06/02/20 04:00 97.9 64 16 147/79 (101) 100 06/02/20 04:00 40 06/02/20 03:25 62 17 40 06/02/20 00:00 40 06/02/20 00:00 Mechanical Ventilator 06/02/20 00:00 97.7 65 17 147/79 (101) 98 06/01/20 23:45 61 06/01/20 23:25 70 17 40 06/01/20 22:00 67 133/77 06/01/20 20:00 67 06/01/20 20:00 Mechanical Ventilator 06/01/20 20:00 98.1 67 16 133/77 (95) 99 06/01/20 19:35 40 06/01/20 19:10 60 14 40 06/01/20 16:00 40 06/01/20 16:00 69 06/01/20 16:00 Mechanical Ventilator 06/01/20 16:00 97.9 68 16 132/85 (101) 96 06/01/20 15:38 69 13 40 06/01/20 12:00 97.8 66 18 140/76 (97) 99 06/01/20 12:00 Mechanical Ventilator 06/01/20 12:00 95 06/01/20 12:00 40 06/01/20 11:38 67 16 40 06/01/20 09:03 72 137/77 06/01/20 08:00 68 06/01/20 08:00 40 06/01/20 08:00 97.9 72 16 137/77 (97) 100 06/01/20 08:00 Mechanical Ventilator 06/01/20 07:36 68 16 40 Intake and Output 06/02/20 06/03/20 19:00 07:00 Intake Total 620 ml 500 ml Output Total 0 ml Balance 620 ml 500 ml Free Water 140 ml 60 ml Tube Feeding 480 ml 440 ml Output Urine Total 0 ml # Voids 1 # Bowel Movements 1 Labs Test 05/31/20 08:20 06/01/20 03:45 06/02/20 03:20 06/03/20 04:18 White Blood Count 7.2 K/UL (4.8-10.8) 8.0 K/UL (4.8-10.8) 10.3 K/UL (4.8-10.8) Red Blood Count 3.01 M/UL (4.70-6.10) 2.94 M/UL (4.70-6.10) 3.14 M/UL (4.70-6.10) Hemoglobin 8.6 G/DL (14.2-18.0) 8.8 G/DL (14.2-18.0) 9.2 G/DL (14.2-18.0) Hematocrit 26.4 % (42.0-52.0) 27.0 % (42.0-52.0) 29.7 % (42.0-52.0) Mean Corpuscular Volume 88 FL (80-99) 92 FL (80-99) 94 FL (80-99) Mean Corpuscular Hemoglobin 28.5 PG (27.0-31.0) 29.9 PG (27.0-31.0) 29.4 PG (27.0-31.0) Mean Corpuscular Hemoglobin Concent 32.4 G/DL (32.0-36.0) 32.6 G/DL (32.0-36.0) 31.1 G/DL (32.0-36.0) Red Cell Distribution Width 17.8 % (11.6-14.8) 16.4 % (11.6-14.8) 17.7 % (11.6-14.8) Platelet Count 180 K/UL (150-450) 175 K/UL (150-450) 178 K/UL (150-450) Mean Platelet Volume 6.8 FL (6.5-10.1) 6.4 FL (6.5-10.1) 6.5 FL (6.5-10.1) Neutrophils (%) (Auto) 78.9 % (45.0-75.0) 76.8 % (45.0-75.0) 77.4 % (45.0-75.0) Lymphocytes (%) (Auto) 11.8 % (20.0-45.0) 13.7 % (20.0-45.0) 11.6 % (20.0-45.0) Monocytes (%) (Auto) 5.3 % (1.0-10.0) 5.0 % (1.0-10.0) 6.6 % (1.0-10.0) Eosinophils (%) (Auto) 3.0 % (0.0-3.0) 3.5 % (0.0-3.0) 2.9 % (0.0-3.0) Basophils (%) (Auto) 1.0 % (0.0-2.0) 1.0 % (0.0-2.0) 1.5 % (0.0-2.0) Sodium Level 140 MMOL/L (136-145) 136 MMOL/L (136-145) Potassium Level 4.2 MMOL/L (3.5-5.1) 4.2 MMOL/L (3.5-5.1) Chloride Level 101 MMOL/L (98-107) 99 MMOL/L (98-107) Carbon Dioxide Level 32 MMOL/L (21-32) 31 MMOL/L (21-32) Anion Gap 7 mmol/L (5-15) 6 mmol/L (5-15) Blood Urea Nitrogen 61 mg/dL (7-18) 76 mg/dL (7-18) Creatinine 3.1 MG/DL (0.55-1.30) 3.6 MG/DL (0.55-1.30) Estimat Glomerular Filtration Rate 21.4 mL/min (>60) 18.0 mL/min (>60) Glucose Level 115 MG/DL (74-106) 76 MG/DL (74-106) Calcium Level 9.0 MG/DL (8.5-10.1) 9.3 MG/DL (8.5-10.1) Phosphorus Level 3.9 MG/DL (2.5-4.9) 4.7 MG/DL (2.5-4.9) Magnesium Level 2.6 MG/DL (1.8-2.4) 2.7 MG/DL (1.8-2.4) Total Bilirubin 0.7 MG/DL (0.2-1.0) 0.8 MG/DL (0.2-1.0) Direct Bilirubin 0.4 MG/DL (0.0-0.3) Aspartate Amino Transf (AST/SGOT) 133 U/L (15-37) 128 U/L (15-37) Alanine Aminotransferase (ALT/SGPT) 137 U/L (12-78) 153 U/L (12-78) Alkaline Phosphatase 467 U/L (46-116) 441 U/L (46-116) Total Protein 7.2 G/DL (6.4-8.2) 7.1 G/DL (6.4-8.2) Albumin 2.2 G/DL (3.4-5.0) 2.2 G/DL (3.4-5.0) C-Reactive Protein, Quantitative 5.9 mg/dL (0.00-0.90) Globulin 4.9 g/dL Albumin/Globulin Ratio 0.4 (1.0-2.7) Height (Feet): 5 Height (Inches): 6.00 Weight (Pounds): 138 Objective Physical Exam Vitals: reviewed, normal General Appearance: no apparent distress, other - Nonverbal Head: normocephalic, atraumatic: no angioedema, normal voice Neck: full range of motion, supple/symm/no masses Respiratory: chest non-tender, lungs clear, +++vent/trach Cardiovascular: regular rate, rhythm, no edema Gastrointestinal: normal bowel sounds, ++gt Genitourinary: normal inspection, no CVA tenderness Musculoskeletal: back normal, normal range of motion Neurologic: other - Nonverbal Psychiatric: other - Nonverbal Lymphatic: no adenopathy Nick Whiteside MD Jun 03, 2020 06:29
[2020-06-03 06:45] LABS: ALBUMIN 2.3 G/DL (3.4-5.0); ALBUMIN/GLOBULIN RATIO 0.5 (1.0-2.7); BILIRUBIN,TOTAL 0.7 MG/DL (0.2-1.0); CALCIUM 8.9 MG/DL (8.5-10.1); CREATININE 4.6 MG/DL (0.55-1.30); POTASSIUM 4.8 MMOL/L (3.5-5.1)
--- NOTE | 2020-06-03 07:23 | NUR ---
HAND-OFF: Report given to AMELIE Renteria.
--- NOTE | 2020-06-03 07:30 | NUR ---
NURSE NOTES: Received pt from RN Yogesh Vidal, pt is awake and confused, pt has trach to randy SIMV 10 TV 500 FIO2 40 PEEP 5, Pt has g tube in place is working well. pt has intact iv access RH 22G SL. no pain noted at this moment. All needs attended, bed is locked and is in the lowest position, call light within easy reach. will continue to monitor.
--- NOTE | 2020-06-03 07:37 | General Progress Note ---
Subjective ROS Limited/Unobtainable: No Allergies: Coded Allergies: No Known Allergies (Unverified , 04/22/20) Objective Last 24 Hour Vital Signs Date Time Temp Pulse Resp B/P (MAP) Pulse Ox O2 Delivery O2 Flow Rate FiO2 06/03/20 04:00 40 06/03/20 04:00 63 06/03/20 04:00 Mechanical Ventilator Mechanical Ventilator 06/03/20 04:00 98.1 69 24 123/61 (81) 100 06/03/20 03:00 80 20 40 06/03/20 00:00 65 06/03/20 00:00 40 06/03/20 00:00 Mechanical Ventilator Mechanical Ventilator 06/03/20 00:00 99.0 68 19 115/81 (92) 96 06/02/20 23:10 82 19 40 06/02/20 20:31 70 123/81 06/02/20 20:00 40 06/02/20 20:00 72 06/02/20 20:00 Mechanical Ventilator Mechanical Ventilator 06/02/20 20:00 98.2 70 19 123/81 (95) 100 06/02/20 19:00 73 22 40 06/02/20 16:39 98.2 68 19 135/89 (104) 100 06/02/20 16:30 Mechanical Ventilator 06/02/20 16:00 67 06/02/20 16:00 40 06/02/20 15:08 67 20 40 06/02/20 12:30 Mechanical Ventilator 06/02/20 12:07 69 129/79 06/02/20 12:06 98.4 69 18 129/79 (96) 100 06/02/20 12:00 40 06/02/20 11:36 68 06/02/20 11:05 63 16 40 06/02/20 08:05 Mechanical Ventilator 06/02/20 08:03 98.2 67 16 133/78 (96) 100 06/02/20 08:00 40 Intake and Output 06/02/20 06/03/20 19:00 07:00 Intake Total 620 ml 500 ml Output Total 0 ml Balance 620 ml 500 ml Free Water 140 ml 60 ml Tube Feeding 480 ml 440 ml Output Urine Total 0 ml # Voids 1 # Bowel Movements 1 Laboratory Tests 06/03/20 04:18: White Blood Count 9.8, Red Blood Count 2.83L, Hemoglobin 8.4L, Hematocrit 26.3L, Mean Corpuscular Volume 93, Mean Corpuscular Hemoglobin 29.6, Mean Corpuscular Hemoglobin Concent 31.9L, Red Cell Distribution Width 17.1H, Platelet Count 169, Mean Platelet Volume 6.3L, Neutrophils (%) (Auto) 77.7H, Lymphocytes (%) (Auto) 12.6L, Monocytes (%) (Auto) 5.1, Eosinophils (%) (Auto) 3.2H, Basophils (%) ( Auto) 1.4, Sodium Level 135L, Potassium Level 4.8, Chloride Level 96L, Carbon Dioxide Level 31, Anion Gap 9, Blood Urea Nitrogen 103H, Creatinine 4.6H, Estimat Glomerular Filtration Rate 13.6, Glucose Level 115H, Calcium Level 8.9, Phosphorus Level 6.3H, Total Bilirubin 0.7, Aspartate Amino Transf (AST/SGOT) 121H, Alanine Aminotransferase (ALT/SGPT) 165H, Alkaline Phosphatase 525H, C- Reactive Protein, Quantitative [Pending], Pro-B-Type Natriuretic Peptide [Pending], Total Protein 7.3, Albumin 2.3L, Globulin 5.0, Albumin/Globulin Ratio 0.5L Height (Feet): 5 Height (Inches): 6.00 Weight (Pounds): 138 General Appearance: no apparent distress EENT: normal ENT inspection Neck: supple Cardiovascular: normal rate Respiratory/Chest: decreased breath sounds Abdomen: normal bowel sounds, non tender, soft Extremities: non-tender Assessment/Plan Problem List: (1) Coagulopathy ICD Codes: D68.9 - Coagulation defect, unspecified SNOMED: 33467288 (2) Chronic respiratory failure ICD Codes: J96.10 - Chronic respiratory failure, unspecified whether with hypoxia or hypercapnia SNOMED: 68041942 (3) End stage renal disease on dialysis ICD Codes: N18.6 - End stage renal disease; Z99.2 - Dependence on renal dialysis SNOMED: 141315360 (4) Anemia in chronic kidney disease (CKD) ICD Codes: N18.9 - Chronic kidney disease, unspecified; D63.1 - Anemia in chronic kidney disease SNOMED: 562658723 (5) DM (diabetes mellitus), type 2, uncontrolled, periph vascular complic ICD Codes: E11.51 - Type 2 diabetes mellitus with diabetic peripheral angiopathy without gangrene; E11.65 - Type 2 diabetes mellitus with hyperglycemia SNOMED: 87572200, 514816395, 603211884 Assessment/Plan: s/p colonoscopy stable H&H GTF dc planning per primary team Ajay Holley MD Jun 03, 2020 07:37
--- NOTE | 2020-06-03 07:41 | General Progress Note ---
Subjective ROS Limited/Unobtainable: No Allergies: Coded Allergies: No Known Allergies (Unverified , 04/22/20) Objective Last 24 Hour Vital Signs Date Time Temp Pulse Resp B/P (MAP) Pulse Ox O2 Delivery O2 Flow Rate FiO2 06/03/20 04:00 40 06/03/20 04:00 63 06/03/20 04:00 Mechanical Ventilator Mechanical Ventilator 06/03/20 04:00 98.1 69 24 123/61 (81) 100 06/03/20 03:00 80 20 40 06/03/20 00:00 65 06/03/20 00:00 40 06/03/20 00:00 Mechanical Ventilator Mechanical Ventilator 06/03/20 00:00 99.0 68 19 115/81 (92) 96 06/02/20 23:10 82 19 40 06/02/20 20:31 70 123/81 06/02/20 20:00 40 06/02/20 20:00 72 06/02/20 20:00 Mechanical Ventilator Mechanical Ventilator 06/02/20 20:00 98.2 70 19 123/81 (95) 100 06/02/20 19:00 73 22 40 06/02/20 16:39 98.2 68 19 135/89 (104) 100 06/02/20 16:30 Mechanical Ventilator 06/02/20 16:00 67 06/02/20 16:00 40 06/02/20 15:08 67 20 40 06/02/20 12:30 Mechanical Ventilator 06/02/20 12:07 69 129/79 06/02/20 12:06 98.4 69 18 129/79 (96) 100 06/02/20 12:00 40 06/02/20 11:36 68 06/02/20 11:05 63 16 40 06/02/20 08:05 Mechanical Ventilator 06/02/20 08:03 98.2 67 16 133/78 (96) 100 06/02/20 08:00 40 Intake and Output 06/02/20 06/03/20 19:00 07:00 Intake Total 620 ml 500 ml Output Total 0 ml Balance 620 ml 500 ml Free Water 140 ml 60 ml Tube Feeding 480 ml 440 ml Output Urine Total 0 ml # Voids 1 # Bowel Movements 1 Laboratory Tests 06/03/20 04:18: White Blood Count 9.8, Red Blood Count 2.83L, Hemoglobin 8.4L, Hematocrit 26.3L, Mean Corpuscular Volume 93, Mean Corpuscular Hemoglobin 29.6, Mean Corpuscular Hemoglobin Concent 31.9L, Red Cell Distribution Width 17.1H, Platelet Count 169, Mean Platelet Volume 6.3L, Neutrophils (%) (Auto) 77.7H, Lymphocytes (%) (Auto) 12.6L, Monocytes (%) (Auto) 5.1, Eosinophils (%) (Auto) 3.2H, Basophils (%) ( Auto) 1.4, Sodium Level 135L, Potassium Level 4.8, Chloride Level 96L, Carbon Dioxide Level 31, Anion Gap 9, Blood Urea Nitrogen 103H, Creatinine 4.6H, Estimat Glomerular Filtration Rate 13.6, Glucose Level 115H, Calcium Level 8.9, Phosphorus Level 6.3H, Total Bilirubin 0.7, Aspartate Amino Transf (AST/SGOT) 121H, Alanine Aminotransferase (ALT/SGPT) 165H, Alkaline Phosphatase 525H, C- Reactive Protein, Quantitative [Pending], Pro-B-Type Natriuretic Peptide [Pending], Total Protein 7.3, Albumin 2.3L, Globulin 5.0, Albumin/Globulin Ratio 0.5L Height (Feet): 5 Height (Inches): 6.00 Weight (Pounds): 138 General Appearance: no apparent distress EENT: normal ENT inspection Neck: supple Cardiovascular: normal rate Respiratory/Chest: decreased breath sounds Abdomen: hypoactive bowel sounds, distended Extremities: non-tender Assessment/Plan Problem List: (1) Coagulopathy ICD Codes: D68.9 - Coagulation defect, unspecified SNOMED: 43657439 (2) Chronic respiratory failure ICD Codes: J96.10 - Chronic respiratory failure, unspecified whether with hypoxia or hypercapnia SNOMED: 41152557 (3) End stage renal disease on dialysis ICD Codes: N18.6 - End stage renal disease; Z99.2 - Dependence on renal dialysis SNOMED: 996645964 (4) Anemia in chronic kidney disease (CKD) ICD Codes: N18.9 - Chronic kidney disease, unspecified; D63.1 - Anemia in chronic kidney disease SNOMED: 140457339 (5) DM (diabetes mellitus), type 2, uncontrolled, periph vascular complic ICD Codes: E11.51 - Type 2 diabetes mellitus with diabetic peripheral angiopathy without gangrene; E11.65 - Type 2 diabetes mellitus with hyperglycemia SNOMED: 49488163, 823162910, 507097262 Assessment/Plan: s/p colonoscopy stable H&H GTF CT >>> large ascites>>> ordered paracentesis hepatitis panel repeat LFTS Ajay Holley MD Jun 03, 2020 07:41
[2020-06-03 08:00] VITALS: BP 118/77
[2020-06-03] MEDS: Nephrovite tab (Rena-Vite) GT SCH (09:13)
[2020-06-03] MEDS: Aspirin Baby 81mg GT SCH (09:13)
[2020-06-03] MEDS: Ascorbic Acid 500mg tab GT SCH (09:13)
[2020-06-03] MEDS: Dakin's 0.125% Soln (Quarter Strength) 16oz TOPIC SCH (09:13)
[2020-06-03] MEDS: Metoprolol Tartrate 50mg tab GT SCH ×2 (09:13→20:53)
[2020-06-03] MEDS: Vitamin D 400 units TAB ORAL SCH (09:13)
--- NOTE | 2020-06-03 10:11 | NUR ---
NURSE NOTES: telephone consent done with Nephew Kevon Cuellar ph:[phone] for US Paracentesis with witness JED Glez.
[2020-06-03 12:00] VITALS: BP 123/75
--- NOTE | 2020-06-03 13:22 | NUR ---
Beauty CounselorHead Of Marketing Analytics SI: Anemia, ESRD/HD, Trach/Vent Dependent, Ascites T-97.7, HR 69, RR 18, BP 118/77 IMV/SIMV, FiO2 40%, TV 500, PEEP 5, O2 Sat 100% WBC 9.8, BUN 103, Creatinine 4.6, HGB 8.4, NA+135, Pro-B >35,000 IS: Lopressor GT ASA GT US Paracentesis Step Down Status
--- NOTE | 2020-06-03 13:24 | NUR ---
RD ASSESSMENT & RECOMMENDATIONS SEE CARE ACTIVITY FOR COMPLETE ASSESSMENT DAILY ESTIMATED NEEDS: Needs based on Critical care, wound, esrd on HD 65.1kg 25-30 kcals/kg 8407-5645 total kcals 1.5-2 g protein/kg 98-130 g total protein Fluid per MD, on HD mL/kg total fluid mLs NUTRITION DIAGNOSIS: Increased kcal and pro needs r/t renal dysfunction as evidenced by pt w/ ESRD on HD, notable open LE wounds, vent dep via trach and PEG dep. CURRENT TF: Nepro @40 ENTERAL NUTRITION RECOMMENDATIONS: Nepro goal of 40ml/hr x24 hrs + Prosource BID to provide 960ml, 1728kcal, 78g prot +22g prot, 698ml free water - Maintain current rate 40ml/hr as tolerated. - Add PROSOURCE 1 pack BID via PEG to better meet protein needs - On HD, water flush per MD - HOB over 30 degrees ADDITIONAL RECOMMENDATIONS: 1) maintain calibrated bed scale wt 2) Wound care: Vit C dosing per nephrology Continue Nephrovite qdaily. When tolerating TF at goal w/ Prosource BID-> add DEE BID 3) Monitor wt trend
[2020-06-03 16:00] VITALS: BP 117/77
--- NOTE | 2020-06-03 16:10 | Nephrology Progress Note ---
Assessment/Plan Problem List: (1) End stage renal disease on dialysis (2) Hypercalcemia (3) Anemia (4) Chronic respiratory failure Assessment End-stage renal disease on dialysis Coagulopathy Anemia Chronic respiratory failure History of hypercalcemia, corrected serum calcium for low albumin remains elevated Plan June 03: Labs reviewed. Dialysis ordered for today. Discussed with AMELIE Leslie. June 02: Labs were reviewed. Serum creatinine 3.6. Recheck lab tomorrow. Dialysis as needed. June 01: Patient last dialyzed May 30. Labs reviewed. Continue to monitor renal parameters and arrange for dialysis as needed. Continue per consultants. May 31: Patient dialyzed yesterday. Labs reviewed. Continue monitor renal parameters and order dialysis as needed. Continue per consultants. May 30: Patient last dialyzed May 28. Will order dialysis tomorrow. Hemoglobin higher. Renal parameters reviewed. Abnormal electrolytes addressed. May 29: Patient last dialyzed May 28. Had colonoscopy for rectal ble ed. Hemoglobin lower. Transfusion per finance director if needed. Monitor renal parameters. Hemodialysis as needed. Per orders. May 28: Patient dialyzed today. Has rectal bleed. Due for colonoscopy tomorrow by GI. Continue to monitor renal parameters and CBC. Today's lab ordered and pending May 27: Last dialysis May 25. Will order dialysis for tomorrow. Labs reviewed. May 26: Dialyzed yesterday. Labs reviewed. Renvela discontinued. 1 dose of Neutra-Phos given. Continue to monitor renal parameters. May 25: Patient due for dialysis today. Labs reviewed. Medication list reviewed. Renvela dose adjusted. Continue to monitor electrolytes and renal parameters. May 24: No labs drawn today. Last dialysis May 22. Will check lab tomorrow. Will dialyze as needed. Hemodialysis yesterday May 22 Aredia 60 mg IV piggyback for hypercalcemia, given on May 22 Continue to monitor renal parameters calcium and phosphorus. Per orders, per PMD. Subjective ROS Limited/Unobtainable: Yes Objective Objective Last 24 Hour Vital Signs Date Time Temp Pulse Resp B/P (MAP) Pulse Ox O2 Delivery O2 Flow Rate FiO2 06/03/20 16:00 97.9 70 20 117/77 (90) 100 06/03/20 12:00 40 06/03/20 12:00 97.0 64 21 123/75 (91) 100 06/03/20 12:00 Mechanical Ventilator Mechanical Ventilator 06/03/20 11:27 65 06/03/20 11:10 65 20 40 06/03/20 09:13 69 118/77 06/03/20 08:00 97.7 69 18 118/77 (91) 100 06/03/20 08:00 40 06/03/20 08:00 Mechanical Ventilator Mechanical Ventilator 06/03/20 07:50 67 06/03/20 07:28 79 20 40 06/03/20 04:00 40 06/03/20 04:00 63 06/03/20 04:00 Mechanical Ventilator Mechanical Ventilator 06/03/20 04:00 98.1 69 24 123/61 (81) 100 06/03/20 03:00 80 20 40 06/03/20 00:00 65 06/03/20 00:00 40 06/03/20 00:00 Mechanical Ventilator Mechanical Ventilator 06/03/20 00:00 99.0 68 19 115/81 (92) 96 06/02/20 23:10 82 19 40 06/02/20 20:31 70 123/81 06/02/20 20:00 40 06/02/20 20:00 72 06/02/20 20:00 Mechanical Ventilator Mechanical Ventilator 06/02/20 20:00 98.2 70 19 123/81 (95) 100 06/02/20 19:00 73 22 40 06/02/20 16:39 98.2 68 19 135/89 (104) 100 06/02/20 16:30 Mechanical Ventilator Intake and Output 06/02/20 06/03/20 19:00 07:00 Intake Total 620 ml 540 ml Output Total 0 ml Balance 620 ml 540 ml Free Water 140 ml 60 ml Tube Feeding 480 ml 480 ml Output Urine Total 0 ml # Voids 1 # Bowel Movements 1 Laboratory Tests 06/03/20 04:18: White Blood Count 9.8, Red Blood Count 2.83L, Hemoglobin 8.4L, Hematocrit 26.3L, Mean Corpuscular Volume 93, Mean Corpuscular Hemoglobin 29.6, Mean Corpuscular Hemoglobin Concent 31.9L, Red Cell Distribution Width 17.1H, Platelet Count 169, Mean Platelet Volume 6.3L, Neutrophils (%) (Auto) 77.7H, Lymphocytes (%) (Auto) 12.6L, Monocytes (%) (Auto) 5.1, Eosinophils (%) (Auto) 3.2H, Basophils (%) (Auto) 1.4, Sodium Level 135L, Potassium Level 4.8, Chloride Level 96L, Carbon Dioxide Level 31, Anion Gap 9, Blood Urea Nitrogen 103H, Creatinine 4.6H, Estimat Glomerular Filtration Rate 13.6, Glucose Level 115H, Calcium Level 8.9, Phosphorus Level 6.3H, Total Bilirubin 0.7, Aspartate Amino Transf (AST/SGOT) 121H, Alanine Aminotransferase (ALT/SGPT) 165H, Alkaline Phosphatase 525H, C- Reactive Protein, Quantitative 4.6H, Pro-B-Type Natriuretic Peptide > 69499W, Total Protein 7.3, Albumin 2.3L, Globulin 5.0, Albumin/Globulin Ratio 0.5L Height (Feet): 5 Height (Inches): 6.00 Weight (Pounds): 138 General Appearance: no apparent distress EENT: other - Trach to vent Cardiovascular: normal rate Respiratory/Chest: decreased breath sounds Abdomen: distended Maurilio King MD Jun 03, 2020 16:10
--- NOTE | 2020-06-03 17:38 | Surgery Progress Note ---
Surgery Progress Note Subjective Additional Comments ill appearing no acute events labs noted micro reviewed Objective Last 24 Hour Vital Signs Date Time Temp Pulse Resp B/P (MAP) Pulse Ox O2 Delivery O2 Flow Rate FiO2 06/03/20 16:00 Mechanical Ventilator Mechanical Ventilator 06/03/20 16:00 40 06/03/20 16:00 97.9 70 20 117/77 (90) 100 06/03/20 15:23 68 06/03/20 12:00 40 06/03/20 12:00 97.0 64 21 123/75 (91) 100 06/03/20 12:00 Mechanical Ventilator Mechanical Ventilator 06/03/20 11:27 65 06/03/20 11:10 65 20 40 06/03/20 09:13 69 118/77 06/03/20 08:00 97.7 69 18 118/77 (91) 100 06/03/20 08:00 40 06/03/20 08:00 Mechanical Ventilator Mechanical Ventilator 06/03/20 07:50 67 06/03/20 07:28 79 20 40 06/03/20 04:00 40 06/03/20 04:00 63 06/03/20 04:00 Mechanical Ventilator Mechanical Ventilator 06/03/20 04:00 98.1 69 24 123/61 (81) 100 06/03/20 03:00 80 20 40 06/03/20 00:00 65 06/03/20 00:00 40 06/03/20 00:00 Mechanical Ventilator Mechanical Ventilator 06/03/20 00:00 99.0 68 19 115/81 (92) 96 06/02/20 23:10 82 19 40 06/02/20 20:31 70 123/81 06/02/20 20:00 40 06/02/20 20:00 72 06/02/20 20:00 Mechanical Ventilator Mechanical Ventilator 06/02/20 20:00 98.2 70 19 123/81 (95) 100 06/02/20 19:00 73 22 40 I&O Intake and Output 0 06/02/20 06/03/20 19:00 07:00 Intake Total 620 ml 540 ml Output Total 0 ml Balance 620 ml 540 ml Free Water 140 ml 60 ml Tube Feeding 480 ml 480 ml Output Urine Total 0 ml # Voids 1 # Bowel Movements 1 Dressing: saturated Wound: clean Cardiovascular: RSR Respiratory: decreased breath sounds Abdomen: soft, non-tender, present bowel sounds Extremities: no tenderness, no cyanosis Laboratory Tests Test 06/03/20 04:18 White Blood Count 9.8 K/UL (4.8-10.8) Red Blood Count 2.83 M/UL (4.70-6.10) L Hemoglobin 8.4 G/DL (14.2-18.0) L Hematocrit 26.3 % (42.0-52.0) L Mean Corpuscular Volume 93 FL (80-99) Mean Corpuscular Hemoglobin 29.6 PG (27.0-31.0) Mean Corpuscular Hemoglobin Concent 31.9 G/DL (32.0-36.0) L Red Cell Distribution Width 17.1 % (11.6-14.8) H Platelet Count 169 K/UL (150-450) Mean Platelet Volume 6.3 FL (6.5-10.1) L Neutrophils (%) (Auto) 77.7 % (45.0-75.0) H Lymphocytes (%) (Auto) 12.6 % (20.0-45.0) L Monocytes (%) (Auto) 5.1 % (1.0-10.0) Eosinophils (%) (Auto) 3.2 % (0.0-3.0) H Basophils (%) (Auto) 1.4 % (0.0-2.0) Sodium Level 135 MMOL/L (136-145) L Potassium Level 4.8 MMOL/L (3.5-5.1) Chloride Level 96 MMOL/L (98-107) L Carbon Dioxide Level 31 MMOL/L (21-32) Anion Gap 9 mmol/L (5-15) Blood Urea Nitrogen 103 mg/dL (7-18) H Creatinine 4.6 MG/DL (0.55-1.30) H Estimat Glomerular Filtration Rate 13.6 mL/min (>60) Glucose Level 115 MG/DL (74-106) H Calcium Level 8.9 MG/DL (8.5-10.1) Phosphorus Level 6.3 MG/DL (2.5-4.9) H Total Bilirubin 0.7 MG/DL (0.2-1.0) Aspartate Amino Transf (AST/SGOT) 121 U/L (15-37) H Alanine Aminotransferase (ALT/SGPT) 165 U/L (12-78) H Alkaline Phosphatase 525 U/L (46-116) H C-Reactive Protein, Quantitative 4.6 mg/dL (0.00-0.90) H Pro-B-Type Natriuretic Peptide > 89617 pg/mL (0-125) H Total Protein 7.3 G/DL (6.4-8.2) Albumin 2.3 G/DL (3.4-5.0) L Globulin 5.0 g/dL Albumin/Globulin Ratio 0.5 (1.0-2.7) L Plan Problems: (1) Complications, dialysis, catheter, mechanical (2) Decubitus ulcer, heel Assessment & Plan: 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 Heel ulcer identified as well. Foul-smelling. Fortunately this does not seem salvageable by any means given the extensive loss at the flap that has dehisced the exposed bone as well as the heel. Currently stable otherwise known chronic in nature not patient's acute problem. Will recommend that patient has a right BKA at some point given the current findings we will continue with local wound care tentatively. Patient identified to have a heel ulcer on the left side as well. Pt presented on admission with Tracheostomy ,GT and dehiscence of R TMA with necrosis extending into lateral aspect of R foot. Full thickness ulcer R heel with slough and necrosis. Moderate amt haemopurulent exudate noted from R heel.Wounds are malodorous. Pt exhibited distress with elevation of R leg during wound care. Haemosiderin deposit R lower ext. Dry eschar with cracking at base noted to L Hallux(L)3cm x (W)4.5cm. Dry eschar noted to dorsal L 1st,L 3rd, and L 5th metatarsals. L Heel is boggy with non-blanchable erythema. DTPI noted to upper R Buttocks(L)2.3cm x (W)4.5cm. Base of wound is indurated,purpuric with surrounding non-blanchable erythema.Non-Blanchable erythema without induration or fluctuance at Sacrum. Tx.Plan: Cleanse L foot wounds with Dakin's [place] 0.25%. Apply Dakin's moistened Kerlix to wounds. Apply Moisture Barrier periwound. Cover with ABD pads. Wrap with Kerlix Daily and prn. Apply Betadine to L Hallux ,L1st,L 3rd and L 5th metatarsals Daily. Leave open to Air. Apply Moisture Barrier Paste to Sacrum /R Buttocks. Cover with Optifoam drsgs. Change every 3 days and prn. Reposition at least every 2hours or as tolerated. Off-load heels with pillow. DAILY ESTIMATED NEEDS: Needs based on Critical care, wound, esrd on HD 65.1kg 25-30 kcals/kg 5734-5466 total kcals 1.5-2 g protein/kg 98-130 g total protein Fluid per MD, on HD NUTRITION DIAGNOSIS: Increased kcal and pro needs r/t renal dysfunction as evidenced by pt w/ ESRD on HD, notable open LE wounds, vent dep via trach and PEG dep. CURRENT TF: Nepro @55 ENTERAL NUTRITION RECOMMENDATIONS: Nepro LOWER to goal of 45ml/hr x24 hrs + Prosource BID to provide 1080ml, 1944 kcal, 87g pro, 785ml free H2O - Rec to LOWER goal rate of 45ml/hr - Add PROSOURCE 1 pack BID via PEG (11g pro/each) - On HD, water flush per MD - HOB over 30 degrees ADDITIONAL RECOMMENDATIONS: 1) maintain calibrated bed scale wt 2) Wound care: Vit C dosing per nephrology nephrovite qdaily. When tolerating TF at goal w/ Prosource BID-> add DEE BID (3) Ischemia of right lower extremity Assessment & Plan: prognosis of LE guarded cont with dressings may need amp at some point podiatry input appreciated agree with amputation when stable if medically clear and consent DAILY ESTIMATED NEEDS: Needs based on Critical care, wound, esrd on HD 65.1kg 25-30 kcals/kg 0284-8319 total kcals 1.5-2 g protein/kg 98-130 g total protein Fluid per MD, on HD NUTRITION DIAGNOSIS: Increased kcal and pro needs r/t renal dysfunction as evidenced by pt w/ ESRD on HD, notable open LE wounds, vent dep via trach and PEG dep. CURRENT TF: Nepro @45 + PS x2 ENTERAL NUTRITION RECOMMENDATIONS: Nepro goal of 45ml/hr x24 hrs + Prosource BID to provide 1080ml, 1944 kcal, 87g pro, 785ml free H2O - Maintain current rate 45ml/hr as tolerated. - Add PROSOURCE 1 pack BID via PEG - On HD, water flush per - HOB over 30 degrees ADDITIONAL RECOMMENDATIONS: 1) maintain calibrated bed scale wt 2) Wound care: Vit C dosing per nephrology nephrovite qdaily. When tolerating TF at goal w/ Prosource BID-> add DEE BID 3) Monitor wt trend (4) Hypercalcemia (5) Coagulopathy (6) Chronic respiratory failure (7) End stage renal disease on dialysis (8) Anemia in chronic kidney disease (CKD) (9) Anemia (10) GI bleed Dany Wilder Jun 03, 2020 17:38
--- NOTE | 2020-06-03 18:28 | NUR ---
NURSE NOTES: Dr Holley is aware pt has x2 huge rectal bleeding and HB 9.3 HCT 27.3 and other lab results and V/S, waiting to call back. will continue to monitor.
--- NOTE | 2020-06-03 18:44 | NUR ---
NURSE NOTES: no response from Dr Holley so Dr Whiteside is aware pt has x2 huge rectal bleeding and HB 9.3 HCT 27.3 and other lab results and V/S, waiting to call back. will continue to monitor.
--- NOTE | 2020-06-03 19:15 | NUR ---
NURSE NOTES: Received from AMELIE Leslie. pt in bed, no signs of distress noted. Alert and oriented X1-2. Calm. Respirations even and unlabored. Large loose watery brown stool at present moment. Trach to vent and tolerating setting well with saturation of 99%. GT feeding of nepro at 40 cc/hr. w/no residual noted. Patient has left subclavian access for dialysis. Rt hand 22 patent and intact. SR on electronic device monitor. HOB elevated, bed is on lowest position, locked, side rails up and alarm engaged. call light within reach. Will continue POC.
--- NOTE | 2020-06-03 19:26 | NUR ---
NURSE HAND-OFF REPORT: Important Events on Shift:Diarrhea with fresh bleeding. Patient Status: Diet: Pending Orders: Pending Results/Labs: Pending MD notification: Latest Vital Signs: Temperature 97.9 , Pulse 70 , B/P 117 /77 , Respiratory Rate 20 , O2 SAT 100 , Mechanical Ventilator, O2 Flow Rate . Vital Sign Comment: EKG Rhythm: Sinus Rhythm Rhythm change?: N MD Notified?: N - MD Response: Latest Seay Fall Score: 75 Fall Risk: High Risk Safety Measures: Call light Within Reach, Bed Alarm Zone 1, Side Rails Side Rails x2, Bed position Low and Locked. Fall Precautions: Yellow Socks Yellow Gown Door Sign Patient Fall Education Report given to . Pt is awake and stable, no stress noted. Endorsed plan of care, endorsed still no response from Dr Holley and Miesha. endorsed to keep pt NPO for Paracentesis tomorrow.
[2020-06-03 20:00] VITALS: BP 118/86
[2020-06-03] MEDS: Atorvastatin 20mg tab GT SCH (20:53)
[2020-06-03] MEDS: Dyna-Hex 2% Top Sol 2oz TOPIC SCH (20:53)
[2020-06-04] VITALS (7 sets, daily range): BP systolic 118–137; BP diastolic 60–78
--- NOTE | 2020-06-04 | NUR ---
NURSE NOTES: Condition unchanged. Sleeping. Easily awakened. SR on monitoring specialist. In no apparent distress. VSS. Afebrile. Tolerating GT feeing well. Will continue to monitor.
--- NOTE | 2020-06-04 04:00 | NUR ---
NURSE NOTES: No distress noted. Respirations even and unlabored. Continue to tolerate GT feeding well of nepro at 40 cc/hr. Pt is anuric. HOB elevated in lowest position, locked, side rails X2 up, call light within reach. Sr on bus monitor. Patient will continue POC.
[2020-06-04 05:05] LABS: HEMATOCRIT 27.7 % (42.0-52.0); HEMOGLOBIN 8.2 G/DL (14.2-18.0); LYMPHOCYTES % (AUTO) 9.8 % (20.0-45.0); MEAN CORPUSCULAR VOLUME 99 FL (80-99); MONOCYTES % (AUTO) 6.2 % (1.0-10.0); PLATELET COUNT 166 K/UL (150-450); RED BLOOD COUNT 2.78 M/UL (4.70-6.10); RED CELL DISTRIBUTION WIDTH 17.4 % (11.6-14.8); WHITE BLOOD COUNT 11.2 K/UL (4.8-10.8)
[2020-06-04 05:33] LABS: ALBUMIN 2.3 G/DL (3.4-5.0); ALBUMIN/GLOBULIN RATIO 0.5 (1.0-2.7); BILIRUBIN,TOTAL 0.8 MG/DL (0.2-1.0); CALCIUM 9.1 MG/DL (8.5-10.1); CREATININE 4.8 MG/DL (0.55-1.30); POTASSIUM 5.4 MMOL/L (3.5-5.1)
--- NOTE | 2020-06-04 06:27 | Hematology/Onc Progress Note ---
Assessment/Plan Assessment/Plan Covering Dr. Warren Assessment and Recs # Anemia due to rectal bleed, gi is aware, w/u as per gi --> anemia panel to order for downtrending hgb --> hgb 8.9-->9.4->8.4->>>8.7->8.1-->7.7->7.3->8.7-->8.6 --> consider iron / epogen after anemia panel returns --> smear has been noted, no hemolysis --> 05/29 for endoscopy done, peg placed # Thrombocytopenia - potential causes multifactorial, evaluate liver and viral etiologies to begin, also could be related to underlying medications patient has received. --> Hep panel and HIV neg prior --> Ct a/p shows a normal appearing liver --> Peripheral smear ordered to evaluate for blasts /schistocytes --> abx and other meds have been reviewed --> ok for ppx if plt >50k w/ either heparin or lovenox --> plt 124-->186-->164 # Coagulopathy ongoing, ptt and inr elevated --> vitamin k given, as permacath to be removed --> get mixing study --> trend prn # Chronic respiratory failure --> per pulm --> vent + # End stage renal disease on dialysis --> Complications, dialysis, catheter,replacement as needed --> surg eval --> per renal # Dysphagia --> is s/p peg placement # Right lung infection --> repeat cxr now # Gangrenous toe, as per surg # Dvt ppx scds Appreciate consultation and dw RN Subjective Cardiovascular: Denies: no symptoms, chest pain, edema, irregular heart rate, lightheadedness, palpitations, syncope, other Respiratory: Denies: no symptoms, cough, shortness of breath, SOB with excertion, SOB at rest, sputum, wheezing, other Gastrointestinal/Abdominal: Denies: no symptoms, abdomen distended, abdominal pain, black stools, tarry stools, blood in stool, constipated, diarrhea, difficulty swallowing, nausea, poor appetite, poor fluid intake, rectal bleeding, vomiting, other Genitourinary: Denies: no symptoms, burning, discharge, frequency, flank pain, hematuria, incontinence, pain, urgency, other Neurologic/Psychiatric: Denies: no symptoms, anxiety, depressed, emotional problems, headache, numbness, paresthesia, pre-existing deficit, seizure, tingling, tremors, weakness, other Endocrine: Denies: no symptoms, excessive sweating, flushing, intolerance to cold, intolerance to heat, increased hunger, increased thirst, increased urine, unexplained weight gain, unexplained weight loss, other Allergies: Coded Allergies: No Known Allergies (Unverified , 04/22/20) Subjective 05/24 labs reviewed, cbc/bmp ordered, no bleeding on venttrach, gt 05/25 labs reviewed, was positive for large bm overnight, +ob, meds reviewed 05/26 rectal tube was removed, labs noted, no bleeding, labs reviewed 05/27 on vent hgb 7.3, no hemolysis, no night sweats 05/28 labs pending and hd today, may be close to dc 05/29 nv, no bleeding, labs noted, no bleeding, for colo today 05/31 colo reviewed, on vent, no bleeding, trach, no major changes, hd 06/01 gtube feeds ongoing, is on vent, labs noted, meds reivewed 06/02 nv, gtube feeds ongoing, labs noted, no bleeding, hgb 9.2 06/03 is nv, trach, no bleeding, labs have been reviewed from am 06/04 nv, trach to vent, did have rectal bleed yesterday gi aware and hgb 8.6 Objective Objective Current Medications Medications (Trade) Dose Ordered Sig/Titus Route PRN Reason Start Time Stop Time Status Last Admin Dose Admin Acetaminophen (Tylenol) 650 mg Q6H PRN GT Mild Pain (Pain Scale 1-3) 05/24/20 20:45 06/23/20 20:44 05/30/20 05:16 Ascorbic Acid (Vitamin C) 500 mg DAILY GT 05/22/20 09:00 06/21/20 08:59 06/03/20 09:13 Aspirin (ASA) 81 mg DAILY GT 05/22/20 09:00 07/06/20 08:59 06/03/20 09:13 Atorvastatin Calcium (Lipitor) 20 mg BEDTIME GT 05/21/20 21:00 08/19/20 20:59 06/03/20 20:53 Bisacodyl (Dulcolax) 10 mg DAILYPRN PRN RECTAL Constipation 05/21/20 15:15 08/19/20 15:14 Chlorhexidine Gluconate (Saba-Hex 2%) 1 applic DAILY@1999 TOPIC 05/22/20 20:00 08/20/20 19:59 06/03/20 20:53 Metoprolol Tartrate (Lopressor) 50 mg EVERY 12 HOURS GT 05/21/20 21:00 08/19/20 20:59 06/03/20 20:53 Sodium Hypochlorite (Dakin's Quarter Strength) 1 applic DAILY TOPIC 05/24/20 09:00 06/23/20 08:59 06/03/20 09:13 Vitamin B Complex/ Vit C/Folic Acid (Nephrovite) 1 tab DAILY GT 05/22/20 09:00 06/21/20 08:59 06/03/20 09:13 Vitamin D (Vitamin D) 400 unit DAILY ORAL 05/22/20 09:00 06/21/20 08:59 06/03/20 09:13 Last 24 Hour Vital Signs Date Time Temp Pulse Resp B/P (MAP) Pulse Ox O2 Delivery O2 Flow Rate FiO2 06/04/20 04:00 65 06/04/20 04:00 97.7 63 16 121/78 (92) 100 06/04/20 04:00 40 06/04/20 04:00 Mechanical Ventilator Mechanical Ventilator 06/04/20 00:55 71 15 40 06/04/20 00:00 97.2 62 14 119/76 (90) 100 06/04/20 00:00 63 06/04/20 00:00 Mechanical Ventilator Mechanical Ventilator 06/04/20 00:00 40 06/03/20 20:53 71 118/86 06/03/20 20:00 98.4 71 20 118/86 (97) 100 06/03/20 19:46 40 06/03/20 19:46 72 06/03/20 19:45 Mechanical Ventilator Mechanical Ventilator 06/03/20 19:23 75 18 40 06/03/20 16:00 Mechanical Ventilator Mechanical Ventilator 06/03/20 16:00 40 06/03/20 16:00 97.9 70 20 117/77 (90) 100 06/03/20 15:45 70 17 40 06/03/20 15:23 68 06/03/20 12:00 40 06/03/20 12:00 97.0 64 21 123/75 (91) 100 06/03/20 12:00 Mechanical Ventilator Mechanical Ventilator 06/03/20 11:27 65 06/03/20 11:10 65 20 40 06/03/20 09:13 69 118/77 06/03/20 08:00 97.7 69 18 118/77 (91) 100 06/03/20 08:00 40 06/03/20 08:00 Mechanical Ventilator Mechanical Ventilator 06/03/20 07:50 67 06/03/20 07:28 79 20 40 06/03/20 04:00 40 06/03/20 04:00 63 06/03/20 04:00 Mechanical Ventilator Mechanical Ventilator 06/03/20 04:00 98.1 69 24 123/61 (81) 100 06/03/20 03:00 80 20 40 06/03/20 00:00 65 06/03/20 00:00 40 06/03/20 00:00 Mechanical Ventilator Mechanical Ventilator 06/03/20 00:00 99.0 68 19 115/81 (92) 96 06/02/20 23:10 82 19 40 06/02/20 20:31 70 123/81 06/02/20 20:00 40 06/02/20 20:00 72 06/02/20 20:00 Mechanical Ventilator Mechanical Ventilator 06/02/20 20:00 98.2 70 19 123/81 (95) 100 06/02/20 19:00 73 22 40 06/02/20 16:39 98.2 68 19 135/89 (104) 100 06/02/20 16:30 Mechanical Ventilator 06/02/20 16:00 67 06/02/20 16:00 40 06/02/20 15:08 67 20 40 06/02/20 12:30 Mechanical Ventilator 06/02/20 12:07 69 129/79 06/02/20 12:06 98.4 69 18 129/79 (96) 100 06/02/20 12:00 40 06/02/20 11:36 68 06/02/20 11:05 63 16 40 06/02/20 08:05 Mechanical Ventilator 06/02/20 08:03 98.2 67 16 133/78 (96) 100 06/02/20 08:00 40 06/02/20 07:32 64 06/02/20 07:02 71 20 40 Intake and Output 06/03/20 06/04/20 19:00 07:00 Intake Total 580 ml 450 ml Output Total 0 ml Balance 580 ml 450 ml Free Water 100 ml 50 ml Tube Feeding 480 ml 400 ml Output Urine Total 0 ml # Bowel Movements 3 1 Labs Test 06/02/20 03:20 06/03/20 04:18 06/04/20 03:00 White Blood Count 10.3 K/UL (4.8-10.8) 9.8 K/UL (4.8-10.8) 11.2 K/UL (4.8-10.8) Red Blood Count 3.14 M/UL (4.70-6.10) 2.83 M/UL (4.70-6.10) 2.78 M/UL (4.70-6.10) Hemoglobin 9.2 G/DL (14.2-18.0) 8.4 G/DL (14.2-18.0) 8.2 G/DL (14.2-18.0) Hematocrit 29.7 % (42.0-52.0) 26.3 % (42.0-52.0) 27.7 % (42.0-52.0) Mean Corpuscular Volume 94 FL (80-99) 93 FL (80-99) 99 FL (80-99) Mean Corpuscular Hemoglobin 29.4 PG (27.0-31.0) 29.6 PG (27.0-31.0) 29.5 PG (27.0-31.0) Mean Corpuscular Hemoglobin Concent 31.1 G/DL (32.0-36.0) 31.9 G/DL (32.0-36.0) 29.7 G/DL (32.0-36.0) Red Cell Distribution Width 17.7 % (11.6-14.8) 17.1 % (11.6-14.8) 17.4 % (11.6-14.8) Platelet Count 178 K/UL (150-450) 169 K/UL (150-450) 166 K/UL (150-450) Mean Platelet Volume 6.5 FL (6.5-10.1) 6.3 FL (6.5-10.1) 6.1 FL (6.5-10.1) Neutrophils (%) (Auto) 77.4 % (45.0-75.0) 77.7 % (45.0-75.0) 80.0 % (45.0-75.0) Lymphocytes (%) (Auto) 11.6 % (20.0-45.0) 12.6 % (20.0-45.0) 9.8 % (20.0-45.0) Monocytes (%) (Auto) 6.6 % (1.0-10.0) 5.1 % (1.0-10.0) 6.2 % (1.0-10.0) Eosinophils (%) (Auto) 2.9 % (0.0-3.0) 3.2 % (0.0-3.0) 2.0 % (0.0-3.0) Basophils (%) (Auto) 1.5 % (0.0-2.0) 1.4 % (0.0-2.0) 2.0 % (0.0-2.0) Sodium Level 135 MMOL/L (136-145) 136 MMOL/L (136-145) Potassium Level 4.8 MMOL/L (3.5-5.1) 5.4 MMOL/L (3.5-5.1) Chloride Level 96 MMOL/L (98-107) 97 MMOL/L (98-107) Carbon Dioxide Level 31 MMOL/L (21-32) 29 MMOL/L (21-32) Anion Gap 9 mmol/L (5-15) 10 mmol/L (5-15) Blood Urea Nitrogen 103 mg/dL (7-18) 116 mg/dL (7-18) Creatinine 4.6 MG/DL (0.55-1.30) 4.8 MG/DL (0.55-1.30) Estimat Glomerular Filtration Rate 13.6 mL/min (>60) 12.9 mL/min (>60) Glucose Level 115 MG/DL (74-106) 79 MG/DL (74-106) Calcium Level 8.9 MG/DL (8.5-10.1) 9.1 MG/DL (8.5-10.1) Phosphorus Level 6.3 MG/DL (2.5-4.9) Total Bilirubin 0.7 MG/DL (0.2-1.0) 0.8 MG/DL (0.2-1.0) Aspartate Amino Transf (AST/SGOT) 121 U/L (15-37) 126 U/L (15-37) Alanine Aminotransferase (ALT/SGPT) 165 U/L (12-78) 182 U/L (12-78) Alkaline Phosphatase 525 U/L (46-116) 464 U/L (46-116) C-Reactive Protein, Quantitative 4.6 mg/dL (0.00-0.90) Pro-B-Type Natriuretic Peptide > 71748 pg/mL (0-125) Total Protein 7.3 G/DL (6.4-8.2) 7.2 G/DL (6.4-8.2) Albumin 2.3 G/DL (3.4-5.0) 2.3 G/DL (3.4-5.0) Globulin 5.0 g/dL 4.9 g/dL Albumin/Globulin Ratio 0.5 (1.0-2.7) 0.5 (1.0-2.7) Height (Feet): 5 Height (Inches): 6.00 Weight (Pounds): 138 Objective Physical Exam Vitals: reviewed, normal General Appearance: no apparent distress, other - Nonverbal Head: normocephalic, atraumatic: no angioedema, normal voice Neck: full range of motion, supple/symm/no masses Respiratory: chest non-tender, lungs clear, +++vent/trach Cardiovascular: regular rate, rhythm, no edema Gastrointestinal: normal bowel sounds, ++gt Genitourinary: normal inspection, no CVA tenderness Musculoskeletal: back normal, normal range of motion Neurologic: other - Nonverbal Psychiatric: other - Nonverbal Lymphatic: no adenopathy Nick Whiteside MD Jun 04, 2020 06:27
--- NOTE | 2020-06-04 07:15 | NUR ---
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 RECEIVED PT WITH HOB ELEVATED 45 DEGREE AWAKE & ALERT ,TRACK TO VENT DEPENDENT .PT ABLE TO FALLOWS SIMPLE COMMANDS. PT TOLERATING WELL CURRENTS VENT SETTING, RENDERED TRACH CARE AND ORAL HYGIENE ,MOD AMOUNT OF WHITE TICK SECRETIONS NOTED. PT ON SCHEDULE FOR H.D AND PARACENTESIS TODAY. HELD B/P MEDICATIONS. PT REPOSITIONED IN BED TO PROVIDE COMFORT AND TO PREVENT FURTHER SKIN BREAK DOWN.NO ACUTE DISTRESS NOTED AT THIS TIME. WILL CONT TO MONITOR.
--- NOTE | 2020-06-04 08:46 | Infectious Diseases Prog Note ---
Assessment/Plan 50yo M with: Afebrile Normal WBC COVID neg C.dif neg R foot pressure ulcerations - no active s/sx of infection, but needs aggressive wound care and debridement to promote healing Anemia prompting admission PMH: ESRD on HD Vent dependent H/o CVA Quadriplegic Plan: Cont to monitor off abx Recommend Podiatry evaluation of R foot pressure ulcerations for debridement, needs aggressive wound care OK to d/c from ID standpoint 05/28 SP CTX #5 empiric Monitor CBC/CMP Monitor temp curve, hemodynamics Monitor resp status D/w RN Thank you for this consult. [facility] will continue to follow. Subjective Allergies: Coded Allergies: No Known Allergies (Unverified , 04/22/20) AF WBC 11 NAD off abx, on vent 40% PEEP 5 Getting HD Objective Last 24 Hour Vital Signs Date Time Temp Pulse Resp B/P (MAP) Pulse Ox O2 Delivery O2 Flow Rate FiO2 06/04/20 06:30 70 15 40 06/04/20 04:00 65 06/04/20 04:00 97.7 63 16 121/78 (92) 100 06/04/20 04:00 40 06/04/20 04:00 Mechanical Ventilator Mechanical Ventilator 06/04/20 00:55 71 15 40 06/04/20 00:00 97.2 62 14 119/76 (90) 100 06/04/20 00:00 63 06/04/20 00:00 Mechanical Ventilator Mechanical Ventilator 06/04/20 00:00 40 06/03/20 20:53 71 118/86 06/03/20 20:00 98.4 71 20 118/86 (97) 100 06/03/20 19:46 40 06/03/20 19:46 72 06/03/20 19:45 Mechanical Ventilator Mechanical Ventilator 06/03/20 19:23 75 18 40 06/03/20 16:00 Mechanical Ventilator Mechanical Ventilator 06/03/20 16:00 40 06/03/20 16:00 97.9 70 20 117/77 (90) 100 06/03/20 15:45 70 17 40 06/03/20 15:23 68 06/03/20 12:00 40 06/03/20 12:00 97.0 64 21 123/75 (91) 100 06/03/20 12:00 Mechanical Ventilator Mechanical Ventilator 06/03/20 11:27 65 12/30/20 11:10 65 20 40 06/03/20 09:13 69 118/77 Height (Feet): 5 Height (Inches): 6.00 Weight (Pounds): 138 Gen: NAD in bed HEENT: NCAT, trach CV: RRR Pulm: CTAB Abd: Soft, NTND Ext: R foot s/p all toes amputation w/ open wound there and open pressure wound on heal, both with drainage though no TTP and no surrounding erythema Neuro: Awake Laboratory Tests Test 06/04/20 03:00 White Blood Count 11.2 K/UL (4.8-10.8) H Red Blood Count 2.78 M/UL (4.70-6.10) L Hemoglobin 8.2 G/DL (14.2-18.0) L Hematocrit 27.7 % (42.0-52.0) L Mean Corpuscular Volume 99 FL (80-99) Mean Corpuscular Hemoglobin 29.5 PG (27.0-31.0) Mean Corpuscular Hemoglobin Concent 29.7 G/DL (32.0-36.0) L Red Cell Distribution Width 17.4 % (11.6-14.8) H Platelet Count 166 K/UL (150-450) Mean Platelet Volume 6.1 FL (6.5-10.1) L Neutrophils (%) (Auto) 80.0 % (45.0-75.0) H Lymphocytes (%) (Auto) 9.8 % (20.0-45.0) L Monocytes (%) (Auto) 6.2 % (1.0-10.0) Eosinophils (%) (Auto) 2.0 % (0.0-3.0) Basophils (%) (Auto) 2.0 % (0.0-2.0) Sodium Level 136 MMOL/L (136-145) Potassium Level 5.4 MMOL/L (3.5-5.1) H Chloride Level 97 MMOL/L (98-107) L Carbon Dioxide Level 29 MMOL/L (21-32) Anion Gap 10 mmol/L (5-15) Blood Urea Nitrogen 116 mg/dL (7-18) H Creatinine 4.8 MG/DL (0.55-1.30) H Estimat Glomerular Filtration Rate 12.9 mL/min (>60) Glucose Level 79 MG/DL (74-106) Calcium Level 9.1 MG/DL (8.5-10.1) Total Bilirubin 0.8 MG/DL (0.2-1.0) Aspartate Amino Transf (AST/SGOT) 126 U/L (15-37) H Alanine Aminotransferase (ALT/SGPT) 182 U/L (12-78) H Alkaline Phosphatase 464 U/L (46-116) H Total Protein 7.2 G/DL (6.4-8.2) Albumin 2.3 G/DL (3.4-5.0) L Globulin 4.9 g/dL Albumin/Globulin Ratio 0.5 (1.0-2.7) L Hepatitis A IgM Antibody Pending Hepatitis B Surface Antigen Pending Hepatitis B Core IgM Antibody Pending Hepatitis C Antibody Pending Current Medications Medications (Trade) Dose Ordered Sig/Titus Route PRN Reason Start Time Stop Time Status Last Admin Dose Admin Acetaminophen (Tylenol) 650 mg Q6H PRN GT Mild Pain (Pain Scale 1-3) 05/24/20 20:45 06/23/20 20:44 05/30/20 05:16 Ascorbic Acid (Vitamin C) 500 mg DAILY GT 05/22/20 09:00 06/21/20 08:59 06/03/20 09:13 Aspirin (ASA) 81 mg DAILY GT 05/22/20 09:00 07/06/20 08:59 06/03/20 09:13 Atorvastatin Calcium (Lipitor) 20 mg BEDTIME GT 05/21/20 21:00 08/19/20 20:59 06/03/20 20:53 Bisacodyl (Dulcolax) 10 mg DAILYPRN PRN RECTAL Constipation 05/21/20 15:15 08/19/20 15:14 Chlorhexidine Gluconate (Saba-Hex 2%) 1 applic DAILY@1999 TOPIC 05/22/20 20:00 08/20/20 19:59 06/03/20 20:53 Metoprolol Tartrate (Lopressor) 50 mg EVERY 12 HOURS GT 05/21/20 21:00 08/19/20 20:59 06/03/20 20:53 Sodium Hypochlorite (Dakin's Quarter Strength) 1 applic DAILY TOPIC 05/24/20 09:00 06/23/20 08:59 06/03/20 09:13 Vitamin B Complex/ Vit C/Folic Acid (Nephrovite) 1 tab DAILY GT 05/22/20 09:00 06/21/20 08:59 06/03/20 09:13 Vitamin D (Vitamin D) 400 unit DAILY ORAL 05/22/20 09:00 06/21/20 08:59 06/03/20 09:13 Heaven Salinas M.D. Jun 04, 2020 08:46
[2020-06-04] MEDS: Metoprolol Tartrate 50mg tab GT SCH ×2 (09:00→20:37)
--- NOTE | 2020-06-04 10:00 | NUR ---
NURSE NOTES: PT RECEIVING H.D AT BED SIDE PERFORMING PROCEDURE BY ELIZABETH KINSEY. HELD AM B/P .PT TOLEARTINF WELL PROCEDURE AT THIS TIME. PT IS NPO ,HELD GTF.PT ON SCHEDULE FOR ABD U.S PARACENTESIS AFTER H.D PROCEDURE PER M.D ORDERS. WILL CONT TO MONITOR.
--- NOTE | 2020-06-04 10:46 | General Progress Note ---
Subjective ROS Limited/Unobtainable: No Allergies: Coded Allergies: No Known Allergies (Unverified , 04/22/20) Objective Last 24 Hour Vital Signs Date Time Temp Pulse Resp B/P (MAP) Pulse Ox O2 Delivery O2 Flow Rate FiO2 06/04/20 09:00 64 137/70 06/04/20 08:00 40 06/04/20 08:00 97.9 64 18 137/70 (92) 100 06/04/20 08:00 63 06/04/20 08:00 Mechanical Ventilator Mechanical Ventilator 06/04/20 06:30 70 15 40 06/04/20 04:00 65 06/04/20 04:00 97.7 63 16 121/78 (92) 100 06/04/20 04:00 40 06/04/20 04:00 Mechanical Ventilator Mechanical Ventilator 06/04/20 00:55 71 15 40 06/04/20 00:00 97.2 62 14 119/76 (90) 100 06/04/20 00:00 63 06/04/20 00:00 Mechanical Ventilator Mechanical Ventilator 06/04/20 00:00 40 06/03/20 20:53 71 118/86 06/03/20 20:00 98.4 71 20 118/86 (97) 100 06/03/20 19:46 40 06/03/20 19:46 72 06/03/20 19:45 Mechanical Ventilator Mechanical Ventilator 06/03/20 19:23 75 18 40 06/03/20 16:00 Mechanical Ventilator Mechanical Ventilator 06/03/20 16:00 40 06/03/20 16:00 97.9 70 20 117/77 (90) 100 06/03/20 15:45 70 17 40 06/03/20 15:23 68 06/03/20 12:00 40 06/03/20 12:00 97.0 64 21 123/75 (91) 100 06/03/20 12:00 Mechanical Ventilator Mechanical Ventilator 06/03/20 11:27 65 06/03/20 11:10 65 20 40 Intake and Output 06/03/20 06/04/20 19:00 07:00 Intake Total 580 ml 490 ml Output Total 0 ml Balance 580 ml 490 ml Free Water 100 ml 50 ml Tube Feeding 480 ml 440 ml Output Urine Total 0 ml # Bowel Movements 3 1 Laboratory Tests 06/04/20 03:00: White Blood Count 11.2H, Red Blood Count 2.78L, Hemoglobin 8.2L, Hematocrit 27.7L, Mean Corpuscular Volume 99, Mean Corpuscular Hemoglobin 29.5, Mean Corpuscular Hemoglobin Concent 29.7L, Red Cell Distribution Width 17.4H, Platelet Count 166, Mean Platelet Volume 6.1L, Neutrophils (%) (Auto) 80.0H, Lymphocytes (%) (Auto) 9.8L, Monocytes (%) (Auto) 6.2, Eosinophils (%) (Auto) 2.0, Basophils (%) (Auto) 2.0, Sodium Level 136, Potassium Level 5.4H, Chloride Level 97L, Carbon Dioxide Level 29, Anion Gap 10, Blood Urea Nitrogen 116H, Creatinine 4.8H, Estimat Glomerular Filtration Rate 12.9, Glucose Level 79, C alcium Level 9.1, Total Bilirubin 0.8, Aspartate Amino Transf (AST/SGOT) 126H, Alanine Aminotransferase (ALT/SGPT) 182H, Alkaline Phosphatase 464H, Total Protein 7.2, Albumin 2.3L, Globulin 4.9, Albumin/Globulin Ratio 0.5L, Hepatitis A IgM Antibody [Pending], Hepatitis B Surface Antigen [Pending], Hepatitis B Core IgM Antibody [Pending], Hepatitis C Antibody [Pending] Height (Feet): 5 Height (Inches): 6.00 Weight (Pounds): 138 General Appearance: no apparent distress EENT: normal ENT inspection Neck: supple Cardiovascular: normal rate Respiratory/Chest: decreased breath sounds, accessory muscle use Abdomen: hypoactive bowel sounds Extremities: non-tender Assessment/Plan Problem List: (1) Coagulopathy ICD Codes: D68.9 - Coagulation defect, unspecified SNOMED: 12211682 (2) Chronic respiratory failure ICD Codes: J96.10 - Chronic respiratory failure, unspecified whether with hypoxia or hypercapnia SNOMED: 64490623 (3) End stage renal disease on dialysis ICD Codes: N18.6 - End stage renal disease; Z99.2 - Dependence on renal dialys is SNOMED: 874059439 (4) Anemia in chronic kidney disease (CKD) ICD Codes: N18.9 - Chronic kidney disease, unspecified; D63.1 - Anemia in chronic kidney disease SNOMED: 673659554 (5) DM (diabetes mellitus), type 2, uncontrolled, periph vascular complic ICD Codes: E11.51 - Type 2 diabetes mellitus with diabetic peripheral angiopathy without gangrene; E11.65 - Type 2 diabetes mellitus with hyperglycem ia SNOMED: 60798136, 334122371, 741885130 Assessment/Plan: s/p colonoscopy stable H&H GTF CT >>> large ascites>>> ordered paracentesis>>pending hepatitis panel repeat LFTS Ajay Holley MD Jun 04, 2020 10:46
[2020-06-04] MEDS: Dakin's 0.125% Soln (Quarter Strength) 16oz TOPIC SCH (11:31)
[2020-06-04] MEDS: Ascorbic Acid 500mg tab GT SCH (11:33)
[2020-06-04] MEDS: Nephrovite tab (Rena-Vite) GT SCH (11:34)
[2020-06-04] MEDS: Aspirin Baby 81mg GT SCH (11:35)
[2020-06-04] MEDS: Vitamin D 400 units TAB ORAL SCH (11:36)
--- NOTE | 2020-06-04 12:02 | NUR ---
Post Doctoral ResearcherHardboard Panel Printer SI: Anemia, ESRD/HD, Trach/Vent Dependent, Ascites T-97.9, HR 64, RR 18, BP 137/70 IMV/SIMV, FiO2 40%, TV 500, PEEP 5, O2 Sat 100% WBC 11.2, BUN 116, Creatinine 4.8, Alk Phos 464 IS: Lopressor GT ASA GT Step Down Status
[2020-06-04] MEDS ORDERED: Sodium Polystyrene Sulfonate 15gm Powder GT SCH (13:45)
--- NOTE | 2020-06-04 13:48 | Nephrology Progress Note ---
Assessment/Plan Problem List: (1) End stage renal disease on dialysis (2) Hypercalcemia (3) Anemia (4) Chronic respiratory failure Assessment End-stage renal disease on dialysis Coagulopathy Anemia Chronic respiratory failure History of hypercalcemia, corrected serum calcium for low albumin remains elevated Plan June 04: Labs reviewed. Kayexalate for high potassium given. Continue per current management. Monitor renal parameters on dialysis as needed. June 03: Labs reviewed. Dialysis ordered for today. Discussed with AMELIE butler. June 02: Labs were reviewed. Serum creatinine 3.6. Recheck lab tomorrow. Dialysis as needed. June 01: Patient last dialyzed May 30. Labs reviewed. Continue to monitor renal parameters and arrange for dialysis as needed. Continue per consultants. May 31: Patient dialyzed yesterday. Labs reviewed. Continue monitor renal parameters and order dialysis as needed. Continue per consultants. May 30: Patient last dialyzed May 28. Will order dialysis tomorrow. Hemoglobin higher. Renal parameters reviewed. Abnormal electrolytes addressed. May 29: Patient last dialyzed May 28. Had colonoscopy for rectal bleed. Hemoglobin lower. Transfusion per clinical statistics manager if needed. Monitor renal parameters. Hemodialysis as needed. Per orders. May 28: Patient dialyzed today. Has rectal bleed. Due for colonoscopy tomorrow by GI. Continue to monitor renal parameters and CBC. Today's lab ordered and pending May 27: Last dialysis May 25. Will order dialysis for tomorrow. Labs reviewed. May 26: Dialyzed yesterday. Labs reviewed. Renvela discontinued. 1 dose of Neutra-Phos given. Continue to monitor renal parameters. May 25: Patient due for dialysis today. Labs reviewed. Medication list reviewed. Renvela dose adjusted. Continue to monitor electrolytes and renal parameters. May 24: No labs drawn today. Last dialysis May 22. Will check lab tomorrow. Will dialyze as needed. Hemodialysis yesterday May 22 Aredia 60 mg IV piggyback for hypercalcemia, given on May 22 Continue to monitor renal parameters calcium and phosphorus. Per orders, per PMD. Subjective ROS Limited/Unobtainable: Yes Objective Objective Last 24 Hour Vital Signs Date Time Temp Pulse Resp B/P (MAP) Pulse Ox O2 Delivery O2 Flow Rate FiO2 06/04/20 13:32 40 06/04/20 12:40 75 17 40 06/04/20 12:00 97.7 65 20 133/75 (94) 100 06/04/20 12:00 64 06/04/20 12:00 Mechanical Ventilator Mechanical Ventilator 06/04/20 09:00 64 137/70 06/04/20 08:00 40 06/04/20 08:00 97.9 64 18 137/70 (92) 100 06/04/20 08:00 63 06/04/20 08:00 Mechanical Ventilator Mechanical Ventilator 06/04/20 06:30 70 15 40 06/04/20 04:00 65 06/04/20 04:00 97.7 63 16 121/78 (92) 100 06/04/20 04:00 40 06/04/20 04:00 Mechanical Ventilator Mechanical Ventilator 06/04/20 00:55 71 15 40 06/04/20 00:00 97.2 62 14 119/76 (90) 100 06/04/20 00:00 63 06/04/20 00:00 Mechanical Ventilator Mechanical Ventilator 06/04/20 00:00 40 06/03/20 20:53 71 118/86 06/03/20 20:00 98.4 71 20 118/86 (97) 100 06/03/20 19:46 40 06/03/20 19:46 72 06/03/20 19:45 Mechanical Ventilator Mechanical Ventilator 06/03/20 19:23 75 18 40 06/03/20 16:00 Mechanical Ventilator Mechanical Ventilator 06/03/20 16:00 40 06/03/20 16:00 97.9 70 20 117/77 (90) 100 06/03/20 15:45 70 17 40 06/03/20 15:23 68 Intake and Output 06/03/20 06/04/20 19:00 07:00 Intake Total 580 ml 490 ml Output Total 0 ml Balance 580 ml 490 ml Free Water 100 ml 50 ml Tube Feeding 480 ml 440 ml Output Urine Total 0 ml # Bowel Movements 3 1 Laboratory Tests 06/04/20 03:00: White Blood Count 11.2H, Red Blood Count 2.78L, Hemoglobin 8.2L, Hematocrit 27.7L, Mean Corpuscular Volume 99, Mean Corpuscular Hemoglobin 29.5, Mean Corpuscular Hemoglobin Concent 29.7L, Red Cell Distribution Width 17.4H, Platelet Count 166, Mean Platelet Volume 6.1L, Neutrophils (%) (Auto) 80.0H, Lymphocytes (%) (Auto) 9.8L, Monocytes (%) (Auto) 6.2, Eosinophils (%) (Auto) 2.0, Basophils (%) (Auto) 2.0, Sodium Level 136, Potassium Level 5.4H, Chloride Level 97L, Carbon Dioxide Level 29, Anion Gap 10, Blood Urea Nitrogen 116H, Creatinine 4.8H, Estimat Glomerular Filtration Rate 12.9, Glucose Level 79, Calcium Level 9.1, Total Bilirubin 0.8, Aspartate Amino Transf (AST/SGOT) 126H, Alanine Aminotransferase (ALT/SGPT) 182H, Alkaline Phosphatase 464H, Total Protein 7.2, Albumin 2.3L, Globulin 4.9, Albumin/Globulin Ratio 0.5L, Hepatitis A IgM Antibody [Pending], Hepatitis B Surface Antigen [Pending], Hepatitis B Core IgM Antibody [Pending], Hepatitis C Antibody [Pending] Height (Feet): 5 Height (Inches): 6.00 Weight (Pounds): 138 General Appearance: no apparent distress Cardiovascular: normal rate Respiratory/Chest: decreased breath sounds Abdomen: distended Maurilio King MD Jun 04, 2020 13:48
--- NOTE | 2020-06-04 14:00 | NUR ---
NURSE NOTES: H.D DONE BY ELIZABETH RN, OUT PUT [address]DR STEPHENSON MADE AWARE AND NOTIFIED. REC,D A T.O FROM DR STEPHENSON TO CANCELLED MIRI . NEW ORDERS NOTED AND CARRIED OUT. PT WILL HAVE PARACENTESIS THIS PM. WILL CONT TO MONITOR.
--- NOTE | 2020-06-04 14:08 | Surgery Progress Note ---
Surgery Progress Note Subjective Additional Comments no acute events labs noted exam stable dressings stable Objective Last 24 Hour Vital Signs Date Time Temp Pulse Resp B/P (MAP) Pulse Ox O2 Delivery O2 Flow Rate FiO2 06/04/20 13:32 40 06/04/20 12:40 75 17 40 06/04/20 12:00 97.7 65 20 133/75 (94) 100 06/04/20 12:00 64 06/04/20 12:00 Mechanical Ventilator Mechanical Ventilator 06/04/20 09:00 64 137/70 06/04/20 08:00 40 06/04/20 08:00 97.9 64 18 137/70 (92) 100 06/04/20 08:00 63 06/04/20 08:00 Mechanical Ventilator Mechanical Ventilator 06/04/20 06:30 70 15 40 06/04/20 04:00 65 06/04/20 04:00 97.7 63 16 121/78 (92) 100 06/04/20 04:00 40 06/04/20 04:00 Mechanical Ventilator Mechanical Ventilator 06/04/20 00:55 71 15 40 06/04/20 00:00 97.2 62 14 119/76 (90) 100 06/04/20 00:00 63 06/04/20 00:00 Mechanical Ventilator Mechanical Ventilator 06/04/20 00:00 40 06/03/20 20:53 71 118/86 06/03/20 20:00 98.4 71 20 118/86 (97) 100 06/03/20 19:46 40 06/03/20 19:46 72 06/03/20 19:45 Mechanical Ventilator Mechanical Ventilator 06/03/20 19:23 75 18 40 06/03/20 16:00 Mechanical Ventilator Mechanical Ventilator 06/03/20 16:00 40 06/03/20 16:00 97.9 70 20 117/77 (90) 100 06/03/20 15:45 70 17 40 06/03/20 15:23 68 I&O Intake and Output 06/03/20 06/04/20 19:00 07:00 Intake Total 580 ml 490 ml Output Total 0 ml Balance 580 ml 490 ml Free Water 100 ml 50 ml Tube Feeding 480 ml 440 ml Output Urine Total 0 ml # Bowel Movements 3 1 Dressing: saturated Cardiovascular: RSR Respiratory: decreased breath sounds Abdomen: soft, non-tender, present bowel sounds, non-distended Extremities: no tenderness, no cyanosis Laboratory Tests Test 06/04/20 03:00 White Blood Count 11.2 K/UL (4.8-10.8) H Red Blood Count 2.78 M/UL (4.70-6.10) L Hemoglobin 8.2 G/DL (14.2-18.0) L Hematocrit 27.7 % (42.0-52.0) L Mean Corpuscular Volume 99 FL (80-99) Mean Corpuscular Hemoglobin 29.5 PG (27.0-31.0) Mean Corpuscular Hemoglobin Concent 29.7 G/DL (32.0-36.0) L Red Cell Distribution Width 17.4 % (11.6-14.8) H Platelet Count 166 K/UL (150-450) Mean Platelet Volume 6.1 FL (6.5-10.1) L Neutrophils (%) (Auto) 80.0 % (45.0-75.0) H Lymphocytes (%) (Auto) 9.8 % (20.0-45.0) L Monocytes (%) (Auto) 6.2 % (1.0-10.0) Eosinophils (%) (Auto) 2.0 % (0.0-3.0) Basophils (%) (Auto) 2.0 % (0.0-2.0) Sodium Level 136 MMOL/L (136-145) Potassium Level 5.4 MMOL/L (3.5-5.1) H Chloride Level 97 MMOL/L (98-107) L Carbon Dioxide Level 29 MMOL/L (21-32) Anion Gap 10 mmol/L (5-15) Blood Urea Nitrogen 116 mg/dL (7-18) H Creatinine 4.8 MG/DL (0.55-1.30) H Estimat Glomerular Filtration Rate 12.9 mL/min (>60) Glucose Level 79 MG/DL (74-106) Calcium Level 9.1 MG/DL (8.5-10.1) Total Bilirubin 0.8 MG/DL (0.2-1.0) Aspartate Amino Transf (AST/SGOT) 126 U/L (15-37) H Alanine Aminotransferase (ALT/SGPT) 182 U/L (12-78) H Alkaline Phosphatase 464 U/L (46-116) H Total Protein 7.2 G/DL (6.4-8.2) Albumin 2.3 G/DL (3.4-5.0) L Globulin 4.9 g/dL Albumin/Globulin Ratio 0.5 (1.0-2.7) L Hepatitis A IgM Antibody Pending Hepatitis B Surface Antigen Pending Hepatitis B Core IgM Antibody Pending Hepatitis C Antibody Pending Plan Problems: (1) Complications, dialysis, catheter, mechanical (2) Decubitus ulcer, heel Assessment & Plan: 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 Heel ulcer identified as well. Foul-smelling. Fortunately this does not seem salvageable by any means given the extensive loss at the flap that has dehisced the exposed bone as well as the heel. Currently stable otherwise known chronic in nature not patient's acute problem. Will recommend that patient has a right BKA at some point given the current findings we will continue with local wound care tentatively. Patient identified to have a heel ulcer on the left side as well. Pt presented on admission with Tracheostomy ,GT and dehiscence of R TMA with necrosis extending into lateral aspect of R foot. Full thickness ulcer R heel with slough and necrosis. Moderate amt haemopurulent exudate noted from R heel.Wounds are malodorous. Pt exhibited distress with elevation of R leg during wound care. Haemosiderin deposit R lower ext. Dry eschar with cracking at base noted to L Hallux(L)3cm x (W)4.5cm. Dry eschar noted to dorsal L 1st,L 3rd, and L 5th metatarsals. L Heel is boggy with non-blanchable erythema. DTPI noted to upper R Buttocks(L)2.3cm x (W)4.5cm. Base of wound is indurated,purpuric with surrounding non-blanchable erythema.Non-Blanchable erythema without induration or fluctuance at Sacrum. Tx.Plan: Cleanse L foot wounds with Dakin's [place] 0.25%. Apply Dakin's moistened Kerlix to wounds. Apply Moisture Barrier periwound. Cover with ABD pads. Wrap with Kerlix Daily and prn. Apply Betadine to L Hallux ,L1st,L 3rd and L 5th metatarsals Daily. Leave open to Air. Apply Moisture Barrier Paste to Sacrum /R Buttocks. Cover with Optifoam drsgs. Change every 3 days and prn. Reposition at least every 2hours or as tolerated. Off-load heels with pillow. DAILY ESTIMATED NEEDS: Needs based on Critical care, wound, esrd on HD 65.1kg 25-30 kcals/kg 0763-1220 total kcals 1.5-2 g protein/kg 98-130 g total protein Fluid per MD, on HD NUTRITION DIAGNOSIS: Increased kcal and pro needs r/t renal dysfunction as evidenced by pt w/ ESRD on HD, notable open LE wounds, vent dep via trach and PEG dep. CURRENT TF: Nepro @55 ENTERAL NUTRITION RECOMMENDATIONS: Nepro LOWER to goal of 45ml/hr x24 hrs + Prosource BID to provide 1080ml, 1944 kcal, 87g pro, 785ml free H2O - Rec to LOWER goal rate of 45ml/hr - Add PROSOURCE 1 pack BID via PEG (11g pro/each) - On HD, water flush per MD - HOB over 30 degrees ADDITIONAL RECOMMENDATIONS: 1) maintain calibrated bed scale wt 2) Wound care: Vit C dosing per nephrology nephrovite qdaily. When tolerating TF at goal w/ Prosource BID-> add DEE BID (3) Ischemia of right lower extremity Assessment & Plan: prognosis of LE guarded cont with dressings may need amp at some point podiatry input appreciated agree with amputation when stable if medically clear and consent DAILY ESTIMATED NEEDS: Needs based on Critical care, wound, esrd on HD 65.1kg 25-30 kcals/kg 6675-5245 total kcals 1.5-2 g protein/kg 98-130 g total protein Fluid per MD, on HD NUTRITION DIAGNOSIS: Increased kcal and pro needs r/t renal dysfunction as evidenced by pt w/ ESRD on HD, notable open LE wounds, vent dep via trach and PEG dep. CURRENT TF: Nepro @45 + PS x2 ENTERAL NUTRITION RECOMMENDATIONS: Nepro goal of 45ml/hr x24 hrs + Prosource BID to provide 1080ml, 1944 kcal, 87g pro, 785ml free H2O - Maintain current rate 45ml/hr as tolerated. - Add PROSOURCE 1 pack BID via PEG - On HD, water flush per MD - HOB over 30 degrees ADDITIONAL RECOMMENDATIONS: 1) maintain calibrated bed scale wt 2) Wound care: Vit C dosing per nephrology nephrovite qdaily. When tolerating TF at goal w/ Prosource BID-> add DEE BID 3) Monitor wt trend (4) Hypercalcemia (5) Coagulopathy (6) Chronic respiratory failure (7) End stage renal disease on dialysis (8) Anemia in chronic kidney disease (CKD) (9) Anemia (10) GI bleed Dany Wilder Jun 04, 2020 14:08
--- NOTE | 2020-06-04 16:00 | Pre-Procedure Note/Attestation ---
Pre-Procedure Note/Attestation Complete Prior to Procedure Planned Procedure: not applicable Procedure Narrative: paracentesis Indications for Procedure Pre-Operative Diagnosis: ascites Attestation I attest that I discussed the nature of the procedure; its benefits; risks and complications; and alternatives (and the risks and benefits of such alternatives), prior to the procedure, with the patient (or the patient's legal manufacturers service representative). I attest that, if there was a reasonable possibility of needing a blood henry sfusion, the patient (or the patient's legal manufacturers service representative) was given the [facility] standardized written summary, pursuant to the Sergio Gee Blood Safety Act ([place] Health and Safety Code # 1645, as amended). I attest that I re-evaluated the patient just prior to the surgery and that there has been no change in the patient's H&P, except as documented below: Discussed by phone with pt's. Anthony Whitten MD Jun 04, 2020 16:00
--- NOTE | 2020-06-04 16:01 | Brief Operative Note ---
Immediate Post Operative Note Operative Note Pre-op Diagnosis: ascites Procedure: paracentesis Post-op Diagnosis: same as pre-op Surgeon: Young Beckford Anesthesia: local Specimen: none Complications: none Fluids: none Implant(s) used?: No Anthony Beckford MD Jun 04, 2020 16:01
--- NOTE | 2020-06-04 16:07 | Diagnostic Imaging Report ---
Indications: Ascites Technique: Ultrasound used to localize optimal puncture site. Sterile prepping and draping right lower quadrant. Local anesthesia with 1% lidocaine. Under real-time ultrasound guidance, puncture peritoneal space using paracentesis needle. Stylet removed. Catheter placed to vacuum bottle suction. Total 2.7 liters of fluid aspirated. Patient tolerated procedure well, without immediate complication. Findings: Followup sonography demonstrates complete resolution of peritoneal fluid. Impression: Successful ultrasound-guided paracentesis, yielding 2.7 liters of fluid
--- NOTE | 2020-06-04 17:49 | NUR ---
INTERNET SPECIALIST NOTES PT ACCEPTED BACK TO [facility] ROOM 2 BED A. NURSE TO CALL REPORT TO [phone].[facility] TO TRANSPORT PT WITH AN ETA 193.NURSE MADE AWARE.
--- NOTE | 2020-06-04 19:24 | NUR ---
NURSE NOTES: Received report from AMELIE Weinberg. pt is alert oriented x 1-2. Pt is mostly irish speaking , verbally reponsive. pt is trach to vent with settings as ordered. Pt has d/c planning, but no discharge ordered yet, contacted Dr. Whiteside for Discharge order. As per media production support manager patient has placement already. Pt has Right hand g22, intact and patent, with Right subclavian permacath with no active bleeding, pt has dialysis today at 3pm with 2L out, S/p paracentesis -2.7L of fluid. BP 118/70. No signs of respiratory distress. bed in lowest position, call light within reach.
--- NOTE | 2020-06-04 19:44 | NUR ---
NURSE NOTES: Spoke to Dr. lao covering for Dr. Warren, per Dr lao okay to discharge pt, if okay with all the consultants. Spoke to Dr. Wilder- cleared from his standpoint as well Dr. King- no objection. Waiting from Dr. Myers and Brad call back. M.
--- NOTE | 2020-06-04 19:47 | NUR ---
HAND-OFF: Report given to .MARANDA KINSEY.
--- NOTE | 2020-06-04 20:00 | NUR ---
NURSE NOTES: Informed and called ambulanced that acls is need pt is vent dependent, spoke to [facility], will be picked up by 10pm.
[2020-06-04] MEDS: Dyna-Hex 2% Top Sol 2oz TOPIC SCH (20:36)
[2020-06-04] MEDS: Atorvastatin 20mg tab GT SCH (20:36)
--- NOTE | 2020-06-04 20:53 | NUR ---
NURSE NOTES: Spoke to Dr. gregg and timothy celis to discharge pt from their standpoint.
--- NOTE | 2020-06-04 20:55 | NUR ---
NURSE NOTES: Spoke to rhiannon gave full report and informed her pt will be picked up at 10pm.
--- NOTE | 2020-06-04 23:44 | NUR ---
NURSE NOTES: Endorsed to [facility], accompanied by transportation staff, via gurney hooked on portable vent. Gtube intact, removed IV. Pt vital signs stable. Fio2- 100%. No pain noted. Discharged pt safely. lunchroom monitor removed from the patient. Discharged screening done by previous nurse, meds recon done by Dr. Whiteside, discharge packet given to darrian.
[2020-06-05] MEDS ORDERED: NS 500ML ONE (00:19)
--- NOTE | 2020-06-05 06:33 | Hematology/Onc Progress Note ---
Assessment/Plan Assessment/Plan Covering Dr. Warren Assessment and Recs # Anemia due to rectal bleed, gi is aware, w/u as per gi --> anemia panel to order for downtrending hgb --> hgb 8.9-->9.4->8.4->>>8.7->8.1-->7.7->7.3->8.7-->8.6->8.2 --> consider iron / epogen after anemia panel returns --> smear has been noted, no hemolysis --> 05/29 for endoscopy done, peg placed # Thrombocytopenia - potential causes multifactorial, evaluate liver and viral etiologies to begin, also could be related to underlying medications patient has received. --> Hep panel and HIV neg prior --> Ct a/p shows a normal appearing liver --> Peripheral smear ordered to evaluate for blasts /schistocytes --> abx and other meds have been reviewed --> ok for ppx if plt >50k w/ either heparin or lovenox --> plt 124-->186-->164 # Coagulopathy ongoing, ptt and inr elevated --> vitamin k given, as permacath to be removed --> get mixing study --> trend prn # Chronic respiratory failure --> per pulm --> vent + # End stage renal disease on dialysis --> Complications, dialysis, catheter,replacement as needed --> surg eval --> per renal # Dysphagia --> is s/p peg placement # Right lung infection --> repeat cxr now # Gangrenous toe, as per surg # Dvt ppx scds Appreciate consultation and dw RN Subjective Allergies: Coded Allergies: No Known Allergies (Unverified , 04/22/20) All Systems: reviewed and negative except above Subjective 05/24 labs reviewed, cbc/bmp ordered, no bleeding on venttrach, gt 05/25 labs reviewed, was positive for large bm overnight, +ob, meds reviewed 05/26 rectal tube was removed, labs noted, no bleeding, labs reviewed 05/27 on vent hgb 7.3, no hemolysis, no night sweats 05/28 labs pending and hd today, may be close to dc 05/29 nv, no bleeding, labs noted, no bleeding, for colo today 05/31 colo reviewed, on vent, no bleeding, trach, no major changes, hd 06/01 gtube feeds ongoing, is on vent, labs noted, meds reivewed 06/02 nv, gtube feeds ongoing, labs noted, no bleeding, hgb 9.2 06/03 is nv, trach, no bleeding, labs have been reviewed from am 06/04 nv, trach to vent, did have rectal bleed yesterday gi aware and hgb 8.6 06/05 nv, meds reviewed, gt noted, labs are pending, rectal bleed improved Objective Objective Current Medications Medications (Trade) Dose Ordered Sig/Titus Route PRN Reason Start Time Stop Time Status Last Admin Dose Admin Acetaminophen (Tylenol) 650 mg Q6H PRN GT Mild Pain (Pain Scale 1-3) 05/24/20 20:45 06/23/20 20:44 05/30/20 05:16 Ascorbic Acid (Vitamin C) 500 mg DAILY GT 05/22/20 09:00 06/21/20 08:59 06/04/20 11:33 Aspirin (ASA) 81 mg DAILY GT 05/22/20 09:00 07/06/20 08:59 06/04/20 11:35 Atorvastatin Calcium (Lipitor) 20 mg BEDTIME GT 05/21/20 21:00 08/19/20 20:59 06/04/20 20:36 Bisacodyl (Dulcolax) 10 mg DAILYPRN PRN RECTAL Constipation 05/21/20 15:15 08/19/20 15:14 Chlorhexidine Gluconate (Saba-Hex 2%) 1 applic DAILY@1999 TOPIC 05/22/20 20:00 08/20/20 19:59 06/04/20 20:36 Metoprolol Tartrate (Lopressor) 50 mg EVERY 12 HOURS GT 05/21/20 21:00 08/19/20 20:59 06/04/20 20:37 Sodium Hypochlorite (Dakin's Quarter Strength) 1 applic DAILY TOPIC 05/24/20 09:00 06/23/20 08:59 06/04/20 11:31 Vitamin B Complex/ Vit C/Folic Acid (Nephrovite) 1 tab DAILY GT 05/22/20 09:00 06/21/20 08:59 06/04/20 11:34 Vitamin D (Vitamin D) 400 unit DAILY ORAL 05/22/20 09:00 06/21/20 08:59 06/04/20 11:36 Last 24 Hour Vital Signs Date Time Temp Pulse Resp B/P (MAP) Pulse Ox O2 Delivery O2 Flow Rate FiO2 06/04/20 23:30 70 18 40 06/04/20 20:37 60 118/60 06/04/20 20:00 Mechanical Ventilator Mechanical Ventilator 06/04/20 20:00 40 06/04/20 20:00 98.2 64 15 126/67 (86) 100 06/04/20 20:00 53 06/04/20 19:30 74 19 40 06/04/20 16:00 66 06/04/20 16:00 Mechanical Ventilator Mechanical Ventilator 06/04/20 16:00 97.9 70 20 135/75 (95) 100 06/04/20 16:00 40 06/04/20 13:32 40 06/04/20 12:40 75 17 40 06/04/20 12:00 97.7 65 20 133/75 (94) 100 06/04/20 12:00 64 06/04/20 12:00 Mechanical Ventilator Mechanical Ventilator 06/04/20 09:00 64 137/70 06/04/20 08:00 40 06/04/20 08:00 97.9 64 18 137/70 (92) 100 06/04/20 08:00 63 06/04/20 08:00 Mechanical Ventilator Mechanical Ventilator 06/04/20 06:30 70 15 40 06/04/20 04:00 65 06/04/20 04:00 97.7 63 16 121/78 (92) 100 06/04/20 04:00 40 06/04/20 04:00 Mechanical Ventilator Mechanical Ventilator 06/04/20 00:55 71 15 40 06/04/20 00:00 97.2 62 14 119/76 (90) 100 06/04/20 00:00 63 06/04/20 00:00 Mechanical Ventilator Mechanical Ventilator 06/04/20 00:00 40 06/03/20 20:53 71 118/86 06/03/20 20:00 98.4 71 20 118/86 (97) 100 06/03/20 19:46 40 06/03/20 19:46 72 06/03/20 19:45 Mechanical Ventilator Mechanical Ventilator 06/03/20 19:23 75 18 40 12/30/20 16:00 Mechanical Ventilator Mechanical Ventilator 06/03/20 16:00 40 06/03/20 16:00 97.9 70 20 117/77 (90) 100 06/03/20 15:45 70 17 40 06/03/20 15:23 68 06/03/20 12:00 40 06/03/20 12:00 97.0 64 21 123/75 (91) 100 06/03/20 12:00 Mechanical Ventilator Mechanical Ventilator 06/03/20 11:27 65 06/03/20 11:10 65 20 40 06/03/20 09:13 69 118/77 06/03/20 08:00 97.7 69 18 118/77 (91) 100 06/03/20 08:00 40 06/03/20 08:00 Mechanical Ventilator Mechanical Ventilator 06/03/20 07:50 67 06/03/20 07:28 79 20 40 Intake and Output 06/04/20 06/05/20 19:00 07:00 Intake Total 460 ml 120 ml Output Total 4700 ml Balance -4240 ml 120 ml Free Water 100 ml Tube Feeding 360 ml 120 ml Hemodialysis UF 2000 ml Other 2700 ml Labs Test 06/03/20 04:18 06/04/20 03:00 White Blood Count 9.8 K/UL (4.8-10.8) 11.2 K/UL (4.8-10.8) Red Blood Count 2.83 M/UL (4.70-6.10) 2.78 M/UL (4.70-6.10) Hemoglobin 8.4 G/DL (14.2-18.0) 8.2 G/DL (14.2-18.0) Hematocrit 26.3 % (42.0-52.0) 27.7 % (42.0-52.0) Mean Corpuscular Volume 93 FL (80-99) 99 FL (80-99) Mean Corpuscular Hemoglobin 29.6 PG (27.0-31.0) 29.5 PG (27.0-31.0) Mean Corpuscular Hemoglobin Concent 31.9 G/DL (32.0-36.0) 29.7 G/DL (32.0-36.0) Red Cell Distribution Width 17.1 % (11.6-14.8) 17.4 % (11.6-14.8) Platelet Count 169 K/UL (150-450) 166 K/UL (150-450) Mean Platelet Volume 6.3 FL (6.5-10.1) 6.1 FL (6.5-10.1) Neutrophils (%) (Auto) 77.7 % (45.0-75.0) 80.0 % (45.0-75.0) Lymphocytes (%) (Auto) 12.6 % (20.0-45.0) 9.8 % (20.0-45.0) Monocytes (%) (Auto) 5.1 % (1.0-10.0) 6.2 % (1.0-10.0) Eosinophils (%) (Auto) 3.2 % (0.0-3.0) 2.0 % (0.0-3.0) Basophils (%) (Auto) 1.4 % (0.0-2.0) 2.0 % (0.0-2.0) Sodium Level 135 MMOL/L (136-145) 136 MMOL/L (136-145) Potassium Level 4.8 MMOL/L (3.5-5.1) 5.4 MMOL/L (3.5-5.1) Chloride Level 96 MMOL/L (98-107) 97 MMOL/L (98-107) Carbon Dioxide Level 31 MMOL/L (21-32) 29 MMOL/L (21-32) Anion Gap 9 mmol/L (5-15) 10 mmol/L (5-15) Blood Urea Nitrogen 103 mg/dL (7-18) 116 mg/dL (7-18) Creatinine 4.6 MG/DL (0.55-1.30) 4.8 MG/DL (0.55-1.30) Estimat Glomerular Filtration Rate 13.6 mL/min (>60) 12.9 mL/min (>60) Glucose Level 115 MG/DL (74-106) 79 MG/DL (74-106) Calcium Level 8.9 MG/DL (8.5-10.1) 9.1 MG/DL (8.5-10.1) Phosphorus Level 6.3 MG/DL (2.5-4.9) Total Bilirubin 0.7 MG/DL (0.2-1.0) 0.8 MG/DL (0.2-1.0) Aspartate Amino Transf (AST/SGOT) 121 U/L (15-37) 126 U/L (15-37) Alanine Aminotransferase (ALT/SGPT) 165 U/L (12-78) 182 U/L (12-78) Alkaline Phosphatase 525 U/L (46-116) 464 U/L (46-116) C-Reactive Protein, Quantitative 4.6 mg/dL (0.00-0.90) Pro-B-Type Natriuretic Peptide > 53949 pg/mL (0-125) Total Protein 7.3 G/DL (6.4-8.2) 7.2 G/DL (6.4-8.2) Albumin 2.3 G/DL (3.4-5.0) 2.3 G/DL (3.4-5.0) Globulin 5.0 g/dL 4.9 g/dL Albumin/Globulin Ratio 0.5 (1.0-2.7) 0.5 (1.0-2.7) Height (Feet): 5 Height (Inches): 6.00 Weight (Pounds): 138 Objective Physical Exam Vitals: reviewed, normal General Appearance: no apparent distress, other - Nonverbal Head: normocephalic, atraumatic: no angioedema, normal voice Neck: full range of motion, supple/symm/no masses Respiratory: chest non-tender, lungs clear, +++vent/trach Cardiovascular: regular rate, rhythm, no edema Gastrointestinal: normal bowel sounds, ++gt Genitourinary: normal inspection, no CVA tenderness Musculoskeletal: back normal, normal range of motion Neurologic: other - Nonverbal Psychiatric: other - Nonverbal Lymphatic: no adenopathy Nick Whiteside MD Jun 05, 2020 06:33
--- NOTE | 2020-06-08 13:11 | Discharge Summary ---
Discharge Summary Discharge Summary _ DATE OF ADMISSION: 05/20/2020 DATE OF DISCHARGE: 06/05/2020 DISCHARGED BY: REASON FOR ADMISSION: 50 years old male, resident of senior living facility, with past medical history of chronic respiratory failure, ventilator dependent, with tracheostomy status, history of CVA, quadriplegia, end-stage renal disease, on dialysis, was found to be anemic on routine labs and subsequently was sent to emergency room for evaluation. Nursing staff reported small amount of rectal bleeding. Upon evaluation vital signs were stable. Hemoglobin 7, hematocrit 21.9 , no leukocytosis. Rapid COVID-19 was negative. Patient subsequently admitted to stepdown unit for further management. CONSULTANTS: ID specialist Dr. Salinas bellows charger assembler Dr. Chávez GI specialist Dr. Romero automotive engineer Dr. King card writer hand/oncologist Dr. Whiteside surgery [facility] COURSE: Patient admitted to direct observational unit. Ventilator support and pulmonary toilet provided. Strict aspiration precaution maintained. GI specialist and card writer hand followed. Stool for occult blood was positive x 2. Patient undergone colonoscopy with biopsy on with removal of one rectosigmoid polyp. Also noted internal hemorrhoids. Per GI specialist, internal hemorrhoids were most likely the source of rectal bleeding. Internal hemorrhoids were treated aggressively. Tube feeding resumed. Strict aspiration precaution maintained. Pathology revealed hyperplastic polyp. Hemoglobin and hematocrit were closely monitored with goal to keep hemoglobin above 7. Anemia work-up revealed anemia of chronic disease. Peripheral smear revealed no evidence of hemolysis. Patient undergone transfusion of 3 units of packed red blood cells while in the hospital. Prior to discharge hemoglobin 8.2, hematocrit 27.7. CT scan of the chest revealed: 1. Moderate right and small left pleural effusions with loculated components. 2. Extensive reticulonodular densities in right greater than left lungs, compatible with an infectious/inflammatory process. 3. Consolidations in the right greater than left lower lobes and posterior aspect of the right upper lobe may represent atelectasis versus pneumonia. 4. Nonspecific enlarged mediastinal lymph nodes. 5. Anasarca. CT of the abdomen and pelvis revealed : 1. Mild prominence of the bladder wall / nonspecific. 2. Cholelithiasis in a contracted gallbladder. 3. Small amount of presacral fluid. 4. Large amount of ascites. Patient subsequently undergone paracentesis yielding 2.7 L of fluids . Noted elevated LFT Hepatitis panel was negative. Hemodialysis provided as per automotive engineer recommendations with close monitoring of volumes , renal parameters and electrolytes. Electrolytes corrected as needed. Patient completed course of empiric ceftriaxone . Right foot pressure ulcer revealed no evidence of active infection Wound care provided, Offload provided. Foot appeared to be not salvageable and patient will benefit from BKA versus AKA. Wounds were extensive, and local wpiund care unlikely to healed them. Patient nonambulatory and will benefit from a definite procedure. Antibiotic continued. Per bellows charger assembler, patient had a clinical osteomyelitis right TMA stump and complex wounds of the right TMA site and right heel. Surgeon closely followed. Surgeon recommended to proceed with amputation when stable. Continue wound care at the facility. Tube feeding formula with goal rate and protein supplements provided as per registered dietitian recommendation. SNF medications continued. Supportive care provided. Patient clinically stabilized and was transferred back to senior living facility for continuation of care. FINAL DIAGNOSES: Rectal bleeding Status post colonoscopy with biopsy Status post removal of rectosigmoid polyp Internal hemorrhoids (most likely the source of bleeding) Clinical osteomyelitis right TMA stump Complex wound right TMA site and right heel PVD Chronic respiratory failure , ventilator dependent with tracheostomy status End-stage renal disease , on hemodialysis Anemia of chronic disease Diabetes mellitus DISCHARGE MEDICATIONS: See Medication Reconciliation list. DISCHARGE INSTRUCTIONS: Patient was discharged to the senior living facility. Follow up with medical doctor at the facility. I have been assigned to dictate discharge summary for this account. I was not involved in the patient's management. Lynnette Cuellar NP Jun 08, 2020 13:11
--- NOTE | 2020-06-08 15:02 | NUR ---
INSURANCE DC SUMMARY FAXED TO [facility] [phone] PH [phone]
== END 2020-06-05 00:20 | DRG 466 ==
LOC: EDBD 14:57 → EDBEDREQ 15:45 → EMR 16:02 → 2W 17:50 → EDBEDREQ 05-21 09:35 → 2W 05-21 20:03
PROC: 5A1955Z Respiratory Ventilation, Greater than 96 Consecutive Hours (ICD-10-PCS; principal; 2020-05-20)
PROC: 30233N1 Transfusion of Nonautologous Red Blood Cells into Peripheral Vein, Percutaneous Approach (ICD-10-PCS; 2020-05-21)
PROC: 0DBN8ZZ Excision of Sigmoid Colon, Via Natural or Artificial Opening Endoscopic (ICD-10-PCS; 2020-05-29)
PROC: 5A1D70Z Performance of Urinary Filtration, Intermittent, Less than 6 Hours Per Day (ICD-10-PCS; 2020-06-03)
PROC: 0W9G3ZZ Drainage of Peritoneal Cavity, Percutaneous Approach (ICD-10-PCS; 2020-06-04)
DX: T82.49XA Other complication of vascular dialysis catheter, initial encounter (principal); D64.9 Anemia, unspecified; J96.10 Chronic respiratory failure, unspecified whether with hypoxia or hypercapnia; I12.0 Hypertensive chronic kidney disease with stage 5 chronic kidney disease or end stage renal disease; E11.22 Type 2 diabetes mellitus with diabetic chronic kidney disease; N18.6 End stage renal disease; E83.52 Hypercalcemia; L89.614 Pressure ulcer of right heel, stage 4; E11.52 Type 2 diabetes mellitus with diabetic peripheral angiopathy with gangrene; I96 Gangrene, not elsewhere classified; D69.6 Thrombocytopenia, unspecified; Z43.1 Encounter for attention to gastrostomy; E78.5 Hyperlipidemia, unspecified; J18.8 Other pneumonia, unspecified organism; Y83.8 Other surgical procedures as the cause of abnormal reaction of the patient, or of later complication, without mention of misadventure at the time of the procedure; K64.8 Other hemorrhoids; D63.1 Anemia in chronic kidney disease; Z99.2 Dependence on renal dialysis; R79.1 Abnormal coagulation profile; M86.671 Other chronic osteomyelitis, right ankle and foot; M24.562 Contracture, left knee; M24.561 Contracture, right knee; R18.8 Other ascites; Z89.421 Acquired absence of other right toe(s); Z89.411 Acquired absence of right great toe; Y84.1 Kidney dialysis as the cause of abnormal reaction of the patient, or of later complication, without mention of misadventure at the time of the procedure; L89.629 Pressure ulcer of left heel, unspecified stage; L89.613 Pressure ulcer of right heel, stage 3; L89.316 Pressure-induced deep tissue damage of right buttock; E11.65 Type 2 diabetes mellitus with hyperglycemia; I69.369 Other paralytic syndrome following cerebral infarction affecting unspecified side; Z43.0 Encounter for attention to tracheostomy; K80.20 Calculus of gallbladder without cholecystitis without obstruction
CPT/HCPCS: 36415; 71045; 71250; 74176; 76942; 80048; 80053; 80076; 82270; 82306; 82330; 82607; 82728; 82746; 82977; 83036; 83540; 83550; 83735; 83880; 84100; 84439; 84443; 84450; 85007; 85025; 85610; 85651; 85730; 86140; 86705; 86709; 86803; 86850; 86900; 86901; 86920; 87081; 87324; 87340; 94002; 94003; 94150; 99285; C9399; J2430; U0002